=== PATIENT | female | born 1965 | race African-American/Black ===

== ENCOUNTER 2020-04-01 16:11 | Outpatient (CLI) | payer OTHER, BC, SELFPAY ==
--- NOTE | ~2020-04-01 | US_ITS ---
EXAMINATION: US carotid duplex BI DATE: 04/01/2020 16:44 INDICATION: Slurred speech TECHNIQUE: Grayscale, color Doppler, and pulsed Doppler images of the cervical carotid arteries were obtained. The degree of vessel stenosis is placed in one of the following categories: normal, <50%, 5 0-69%, >=70% but less than near-occlusion, near-occlusion, or total occlusion. Note that percent sten osis relative to normal distal artery lumen diameter is indirectly measured from velocity measurement s as described by Parker, et al. Radiology 2003; 229:340-346. COMPARISON: 04/01/2020 CT brain FINDINGS: RIGHT: The right common carotid artery (CCA) peak systolic velocity (PSV) is 53 cm/s. The right internal car otid artery (ICA) PSV is 66 cm/s. The right ICA end-diastolic velocity (EDV) is 14 cm/s. The right IC A/CCA PSV ratio is 0.9. Grayscale and color Doppler images yield an estimate of 0% diameter reduction from plaque in the ICA. The external carotid artery (ECA) PSV is 51 cm/s. There is antegrade flow in the right vertebral artery. LEFT: The left CCA PSV is 70 cm/s. The left ICA PSV is 48 cm/s. The left ICA EDV is 17 cm/s. The left ICA/C CA PSV ratio is 0.7. Grayscale and color Doppler images yield an estimate of 0% diameter reduction fr om plaque in the ICA. The ECA PSV is 24 cm/s. There is antegrade flow in the left vertebral artery. IMPRESSION: 1. No stenosis in the right internal carotid artery. 2. No stenosis in the left internal carotid artery. Reviewed, dictated and finalized at Location A. Reviewed, dictated and finalized at location B.
--- NOTE | ~2020-04-01 | CT_ITS ---
EXAMINATION: CT brain wo/w con INDICATION: Slurred speech COMPARISON: None TECHNIQUE: Transaxial computed tomographic images of the brain are obtained prior to and following th e administration of 100 cc of Omnipaque 350 intravenous contrast The dose-length product (DLP) was 12 10.67 mGy-cm. The mA was adjusted according to patient size. Iterative reconstruction technique was e mployed. FINDINGS: There is no intracranial hemorrhage, acute infarction, or abnormal mass lesion. The ventric les are normal. There is no abnormal mass effect or midline shift. The grayson-white matter differentiat ion is normal. The basal cisterns are patent. The orbits are normal. The paranasal sinuses, mastoids and calvarium are normal. No abnormal enhancement is present after contrast administration. IMPRESSION: 1. No acute intracranial abnormality. Reviewed, dictated and finalized at location A.
[2020-04-01 17:41] LABS: Estimated Glomerular Filt Rate > 60
== END 2020-04-01 16:12 | disposition home or self-care (01) ==
LOC: ANHIMG 16:12
PROVIDERS: PCP Internal Medicine; Visit Provider Nurse Practitioner
DX: R47.81 Slurred speech (principal)
CPT/HCPCS: 36415; 70470; 93880; Q9967

== ENCOUNTER 2020-09-15 10:40 | Outpatient (CLI) | payer OTHER, BC, SELFPAY ==
--- NOTE | ~2020-09-15 | MM_ITS ---
EXAMINATION: MM screening ha BI w vamshi HISTORY: Screening mammogram TECHNIQUE: Craniocaudal and mediolateral oblique 3-D tomosynthesis images were obtained and synthetic 2-D images were generated. CAD analysis was submitted and interpreted. COMPARISON: 01/07/2018 bilateral digital screening mammogram BREAST PARENCHYMAL COMPOSITION: There are scattered areas of fibroglandular density. FINDINGS: Stable approximately 16 mm circumscribed mass in the outer mid upper left breast, not signi ficant change since 01/07/2018. There is an adjacent biopsy marker; the biopsy was reportedly benign. There is no evidence of suspicious mass, calcification, or architectural distortion to suggest malign sedrick in either breast. There has been no suspicious interval change. IMPRESSION: 1. No mammographic evidence of malignancy. 2. Recommend routine screening mammography in one year. BI-RADS Category 2: Benign finding(s). Reviewed, dictated and finalized at location B. [employer]
--- NOTE | ~2020-09-15 | DEXA_ITS ---
Bone Density Report Name: Shu Car Age: 55 Sex: Female Ethnicity: Black Date of : 1965 Indication: postmenopausal; height loss; prior fracture; rheumatoid arthritis; Referring Provider: Purvi Avila Study: Bone densitometry was performed. Exam Date: September 15, 2020 Accession number: [id number] Bone Density: Region BMD T-score Z-score Classification AP Spine (L1-L4) 1.045 0.0 0.2 Normal Femoral Neck (Left) 0.944 0.9 0.7 Normal Total Hip (Left) 1.055 0.9 0.7 Normal Total Hip Bilateral Avg 1.044 0.8 0.6 Normal Femoral Neck (Right) 0.961 1.0 0.8 Normal Total Hip (Right) 1.032 0.7 0.5 Normal World Health Organization criteria for BMD impression classify patients as: Normal (T-score at or above -1.0), Osteopenia (T-score between -1.0 and -2.5), or Osteoporosis (T-score at or below -2.5). 10-year Fracture Risk: FRAX not reported because: All T-scores for Spine Total, Hip Total, Femoral Neck at or above -1.0 Clinical Information Provided by Patient: Has had a low trauma fracture Has rheumatoid arthritis Patient maximum height was 62 Menopause Age: 38 No regular weight bearing exercise Drinks caffeinated beverages Onset of menses at age 13 Number of children 3 Impression: The patient has normal bone mass. The patient has risk factors, including: previous fracture. Discussion: BONE DENSITY IS ABOVE THE MINIMUM DESIRABLE LEVEL AT ALL SKELETAL SITES TESTED. This patient?s bone mineral density is above the minimum desirable level (T-score -1.0 or better) at all sites measured. The patient should follow a healthful lifestyle (good nutrition with adequate calcium and vitamin D, and appropriate weight-bearing exercise). Follow-Up: Consider repeating this study in 5 years or sooner if there is some new clinical indication. Reported by: [facility] on 09/15/2020 10:01:00 AM. Reviewed, dictated and finalized at location AJeff OSBORNE
[2020-09-15 11:12] LABS: Alanine Aminotransferase 23 U/L (4-35); Alkaline Phosphatase 117 U/L (38-126); Anion Gap 6 mmol/L (8-16); Aspartate Amino Transferase 23 U/L (14-36); Bilirubin,Total 0.7 mg/dL (0.2-1.3); Blood Urea Nitrogen 11 mg/dL (7-17); Carbon Dioxide 29 mmol/L (22-30); Chloride 102 mmol/L (98-107); Cholesterol 228 mg/dL (0-200); Estimated Glomerular Filt Rate > 60; Glucose 108 mg/dL (65-105); HDL Direct 49 mg/dL; Potassium 4.1 mmol/L (3.4-5.0); Sodium 137 mmol/L (137-145); Triglycerides 137 mg/dL (<150)
[2020-09-15 11:15] LABS: Hemoglobin A1C 5.8 % (<5.7)
[2020-09-15 11:22] LABS: LDL Cholesterol Direct 147 mg/dL
== END 2020-09-15 10:41 | disposition home or self-care (01) ==
PROVIDERS: PCP Internal Medicine; Visit Provider Nurse Practitioner
DX: Z78.0 Asymptomatic menopausal state (principal); E78.5 Hyperlipidemia, unspecified; R73.03 Prediabetes; Z12.31 Encounter for screening mammogram for malignant neoplasm of breast
CPT/HCPCS: 36415; 77063; 77067; 77080; 80053; 80061; 83036

== ENCOUNTER 2021-03-09 09:26 | Outpatient (CLI) | payer OTHER, BC, SELFPAY ==
--- NOTE | ~2021-03-09 | XR_ITS ---
EXAMINATION: XR UGIAC w small bowel DATE: 03/09/2021 11:40 INDICATION: Nausea and vomiting. TECHNIQUE: The patient drank thick barium, gas-producing crystals, and thin barium. Conventional supi ne abdomen radiographs and fluoroscopic spot radiographs of the esophagus, stomach, and proximal smal l bowel were obtained. Additional overhead radiographs were obtained during the transit through the s mall bowel. Spot fluoroscopic images of the small bowel were obtained upon contrast reaching the cec um. A total of 4 overhead radiographs and 584 fluoroscopic images were recorded. Fluoroscopy exposure time was 2.2 minutes. Total DAP was 71.972 mGycm^2 COMPARISON: None. FINDINGS: The esophagus is normal without mass or stricture. Esophageal motility is normal. There is no hiatal hernia. There was no gastroesophageal reflux with provocative maneuvers. Thin ringlike contrast along the margins of a lucent filling defects along the wall of the stomach which change in size and posit ion over the course of the examination most consistent with gas bubbles. The stomach is otherwise nor mal. The proximal small bowel is normal. Transit time from the stomach to proximal colon was approximately 15 minutes. There is normal caliber and mucosal fold pattern throughout the small bowel. Terminal ileum is normal. No tethering or abn ormal mass effect observed upon the small bowel with real-time fluoroscopy. IMPRESSION: 1. Normal upper GI and small bowel follow-through study. Reviewed, dictated and finalized at location A.
[2021-03-09 12:59] LABS: Alanine Aminotransferase 27 U/L (4-35); Albumin Level 4.3 g/dL (3.5-5.1); Alkaline Phosphatase 117 U/L (38-126); Anion Gap 11 mmol/L (8-16); Aspartate Amino Transferase 29 U/L (14-36); Bilirubin,Total 0.8 mg/dL (0.2-1.3); Blood Urea Nitrogen 10 mg/dL (7-17); Calcium 9.6 mg/dL (8.4-10.2); Carbon Dioxide 23 mmol/L (22-30); Chloride 105 mmol/L (98-107); Cholesterol 237 mg/dL (0-200); Estimated Glomerular Filt Rate > 60; Glucose 103 mg/dL (65-105); HDL Direct 53 mg/dL; Potassium 3.9 mmol/L (3.4-5.0); Sodium 139 mmol/L (137-145); Triglycerides 144 mg/dL (<150)
[2021-03-09 13:09] LABS: LDL Cholesterol Direct 135 mg/dL
[2021-03-09 13:11] LABS: Hemoglobin A1C 5.9 % (<5.7)
== END 2021-03-09 09:27 | disposition home or self-care (01) ==
LOC: ANHIMG 09:27
PROVIDERS: PCP Internal Medicine; Visit Provider Nurse Practitioner
DX: R11.2 Nausea with vomiting, unspecified (principal); R73.03 Prediabetes
CPT/HCPCS: 36415; 74246; 74248; 80053; 80061; 83036

== ENCOUNTER 2021-06-21 13:02 | Outpatient (CLI) | payer OTHER, BC, SELFPAY ==
--- NOTE | ~2021-06-21 | US_ITS ---
EXAMINATION: US pelvic complete w TV DATE: 06/21/2021 13:35 INDICATION: Postmenopausal bleeding. TECHNIQUE: Multiple transabdominal and transvaginal sonographic images of the pelvis were obtained. COMPARISON: Ultrasound 01/07/2018 FINDINGS: TRANSABDOMINAL ULTRASOUND: The uterus measures 10.7 x 5.7 x 6.3 cm. There is no free fluid in the pelvis. TRANSVAGINAL ULTRASOUND: The endometrial complex measures 9 mm in thickness. There is a 2.0 cm intramural fibroid. There is a 2.0 cm intramural fibroid. There is a 2.1 cm intramural fibroid. There is a 2.4 cm subserosal fibroid . There is a 1.7 cm subserosal fibroid. The ovaries are not visualized. IMPRESSION: 1. Thickened endometrial complex. The differential diagnosis includes endometrial hyperplasia, polyp, and carcinoma. Biopsy is recommended. 2. Uterine fibroids. Reviewed, dictated and finalized at location A. IMPRESSION: 1. Thickened endometrial complex. The differential diagnosis includes endometri al hyperplasia, polyp, and carcinoma. Biopsy is recommended. 2. Uterine fibroids.
== END 2021-06-21 13:03 ==
PROVIDERS: PCP Internal Medicine; Visit Provider Student in an Organized Health Care Education/Training Program
DX: N95.0 Postmenopausal bleeding (principal); D25.9 Leiomyoma of uterus, unspecified
CPT/HCPCS: 76830; 76856

== ENCOUNTER 2021-07-07 09:46 | Outpatient (CLI) | payer OTHER, BC, SELFPAY ==
--- NOTE | ~2021-07-07 | US_ITS ---
EXAMINATION: US abdomen limited EXAM DATE: 07/07/2021 11:12 INDICATION: R11.2 - Nausea with vomiting, unspecified TECHNIQUE: Multiple grayscale and Doppler images of the abdomen right upper quadrant were obtained (b y a technologist who performed the scan) and subsequently reviewed. There is no prior study for harsha balderas. FINDINGS: The pancreatic head and body are normal in appearance. The pancreatic tail is not visualized. The l iver has normal echogenicity and contour. There are no focal liver lesions identified. There is no evidence of intrahepatic biliary duct dilation. Portal venous flow was seen in the hepatopedal, nor mal direction and has normal Doppler waveform. No right-sided hydronephrosis. Common bile duct measures 2 mm, which is normal. The gallbladder wall is normal in thickness, with ex pected amount of distention. No sonographic evidence of pericholecystic fluid. There is no cholelit hiases. Technologist performing exam reports patient did not demonstrate sonographic Diop's sign. Please note that this sign is less reliable in patients who have received pain medication. IMPRESSION: 1. Unremarkable abdominal ultrasound exam. Reviewed, dictated and finalized at location B.
== END 2021-07-07 09:47 | disposition home or self-care (01) ==
LOC: ANHIMG 09:47
PROVIDERS: PCP Internal Medicine; Visit Provider Internal Medicine
DX: R11.2 Nausea with vomiting, unspecified (principal)
CPT/HCPCS: 76705

== ENCOUNTER 2021-08-09 11:54 | Outpatient (CLI) | payer OTHER, BC, SELFPAY ==
--- NOTE | ~2021-08-09 | MM_ITS ---
EXAMINATION: MM diagnostic ha BI w vamshi HISTORY: 2 right breast lumps and one left breast lump, pain TECHNIQUE: ML, MLO and craniocaudal 3-D tomosynthesis images of both breasts were performed and synth etic 2-D images were generated. CAD analysis was submitted and interpreted. COMPARISON: 09/15/2020, 01/07/2018 bilateral screening mammogram examinations BREAST PARENCHYMAL COMPOSITION: The breasts are almost entirely fatty. FINDINGS: Stable circumscribed 1.6 cm upper outer quadrant left breast mass with biopsy marker, uncha nged since 01/07/2018, with reportedly benign biopsy. Corresponding to the area of clinical complaint of right breast lumps in the posterior upper outer ri ght breast are multiple peripherally calcified lymph to approximately 1 cm oil cysts. No suspicious mass, architectural distortion, Shu calcification, skin thickening or retraction of e ither breast is detected. IMPRESSION: 1. Benign findings 2. Routine mammographic screening is recommended. BI-RADS Category 2: Benign finding(s). Reviewed, dictated and finalized at location A. CTION MOLDING PROCESS TECHNICIAN
== END 2021-08-09 11:55 | disposition home or self-care (01) ==
LOC: ANHIMG 11:56
PROVIDERS: PCP Internal Medicine; Visit Provider Student in an Organized Health Care Education/Training Program
DX: N64.4 Mastodynia (principal); N63.10 Unspecified lump in the right breast, unspecified quadrant
CPT/HCPCS: 77062; 77066; G0279

== ENCOUNTER 2021-09-09 09:16 | Outpatient (CLI) | payer OTHER, BC, SELFPAY ==
[2021-09-09 10:31] LABS: Alanine Aminotransferase 21 U/L (4-35); Albumin Level 4.2 g/dL (3.5-5.1); Alkaline Phosphatase 107 U/L (38-126); Anion Gap 10 mmol/L (8-16); Aspartate Amino Transferase 20 U/L (14-36); Bilirubin,Total 0.8 mg/dL (0.2-1.3); Blood Urea Nitrogen 12 mg/dL (7-17); Calcium 9.2 mg/dL (8.4-10.2); Carbon Dioxide 26 mmol/L (22-30); Chloride 104 mmol/L (98-107); Cholesterol 211 mg/dL (0-200); Estimated Glomerular Filt Rate > 60; Glucose 113 mg/dL (65-110); HDL Direct 48 mg/dL; Potassium 3.8 mmol/L (3.4-5.0); Sodium 140 mmol/L (137-145); Triglycerides 130 mg/dL (<150)
[2021-09-09 10:33] LABS: Hemoglobin A1C 5.9 % (<5.7)
[2021-09-09 10:43] LABS: LDL Cholesterol Direct 120 mg/dL
== END 2021-09-09 09:17 | disposition home or self-care (01) ==
PROVIDERS: PCP Internal Medicine; Visit Provider Nurse Practitioner
DX: R73.02 Impaired glucose tolerance (oral) (principal); E78.49 Other hyperlipidemia; R79.89 Other specified abnormal findings of blood chemistry
CPT/HCPCS: 36415; 80053; 80061; 83036

== ENCOUNTER 2022-01-03 09:33 | Outpatient (CLI) | payer OTHER, BC, SELFPAY ==
[2022-01-03 10:14] LABS: Hemoglobin A1C 5.6 % (<5.7)
[2022-01-03 10:22] LABS: Alanine Aminotransferase 20 U/L (4-35); Albumin Level 4.2 g/dL (3.5-5.1); Alkaline Phosphatase 121 U/L (38-126); Anion Gap 7 mmol/L (8-16); Aspartate Amino Transferase 19 U/L (14-36); Bilirubin,Total 0.8 mg/dL (0.2-1.3); Blood Urea Nitrogen 16 mg/dL (7-17); Calcium 8.9 mg/dL (8.4-10.2); Carbon Dioxide 28 mmol/L (22-30); Chloride 105 mmol/L (98-107); Cholesterol 221 mg/dL (0-200); Estimated Glomerular Filt Rate > 60; Glucose 114 mg/dL (65-110); HDL Direct 54 mg/dL; Sodium 140 mmol/L (137-145); Triglycerides 154 mg/dL (<150)
[2022-01-03 10:33] LABS: LDL Cholesterol Direct 116 mg/dL
[2022-01-03 10:38] LABS: Vitamin D 25 Hydroxy 31.3 ng/mL
== END 2022-01-03 09:34 | disposition home or self-care (01) ==
LOC: ANHLAB 09:37
PROVIDERS: PCP Internal Medicine; Visit Provider Internal Medicine
DX: R73.03 Prediabetes (principal); I10 Essential (primary) hypertension; R73.02 Impaired glucose tolerance (oral); E78.5 Hyperlipidemia, unspecified; E55.9 Vitamin D deficiency, unspecified
CPT/HCPCS: 36415; 80053; 80061; 82306; 83036

== ENCOUNTER 2022-01-25 14:14 | Outpatient (CLI) | payer OTHER, BC, SELFPAY ==
--- NOTE | 2022-01-25 14:26 | ECHO_ITS ---
Patient Info Name: Shu Car Age: 56 years : 1965 Gender: Female Ht: 61 in Wt: 252 lbs BSA: 2.29 m2 HR: 61 bpm BP: 136 / 95 mmHg Heart Rhythm: Sinus Rhythm Technical Quality: Fair Exam Date: 01/25/2022 2:46 PM Exam Location: [facility] Patient Status: Outpatient Admit Date: 01/25/2022 Staff Ordering Physician: Iain Joy DO Slot Supervisor: Gerda Stephens RDCS Attending Provider: Iain Joy DO Referring Physician: Rufino DELONG; Exam Type: CA echo doppler color flow Study Info Indications - cp Complete two-dimensional, color flow and Doppler transthoracic echocardiogram is performed. Summary 1. Complete two-dimensional, color flow and Doppler transthoracic echocardiogram is performed. 2. Left ventricular chamber dimension is normal. 3. Ventricular septum is sigmoid shaped. No LVOT obstruction. 4. Left ventricular systolic function is normal, estimated at 60-65%. 5. The left ventricular diastolic function is abnormal. 6. E/e' 10 is mildly elevated. 7. Mild systolic anterior motion of mitral valve leaflet. 8. No pulmonary hypertension, estimated pulmonary arterial systolic pressure is 36 mmHg. 9. Dilated inferior vena cava with >50% collapse upon inspiration consistent with elevated right atrial pressure, 10 mmHg. Left Ventricle E/e' 10 is mildly elevated. Ventricular septum is sigmoid shaped. No LVOT obstruction. Left ventricular chamber dimension is normal. Left ventricular systolic function is normal, estimated at 60-65%. The left ventricular diastolic function is abnormal. Right Ventricle Right ventricular systolic function is normal and with normal TAPSE 2.4 cm. Right ventricular chamber dimension is normal. Left Atria Left atrial chamber dimension is normal. Right Atria Right atrial chamber dimension is normal. Aortic Valve The aortic valve is trileaflet. There is no aortic valve stenosis. There is no aortic valve regurgitation. Pulmonic Valve There is no pulmonic regurgitation. Mitral Valve Mild systolic anterior motion of mitral valve leaflet. There is no mitral valve stenosis. There is no mitral valve regurgitation. Tricuspid Valve There is no tricuspid valve regurgitation. No pulmonary hypertension, estimated pulmonary arterial systolic pressure is 36 mmHg. Pericardium/Pleural There is no pericardial effusion. Inferior Vena Cava Dilated inferior vena cava with >50% collapse upon inspiration consistent with elevated right atrial pressure, 10 mmHg. Aorta The aortic root size at the sinus of Valsalva is normal. Left Ventricular Outflow Tract Name Value Normal LVOT 2D LVOT Diameter 2.0 cm LVOT Doppler LVOT Peak Gradient 10 mmHg LVOT Mean Gradient 5 mmHg LVOT VTI 33 cm LVOT VTI/AV VTI Ratio 1.0 LVOT Stroke Volume 107 ml LVOT CO 7.6 l/min LVOT CI 3.3 l/min/m2 Pulmonic Valve
== END 2022-01-25 14:15 | disposition home or self-care (01) ==
LOC: ANHCARD 14:15
PROVIDERS: PCP Internal Medicine; Visit Provider Internal Medicine Cardiovascular Disease
DX: R07.9 Chest pain, unspecified (principal)
CPT/HCPCS: 93306

== ENCOUNTER 2022-02-01 10:21 | Outpatient (CLI) | payer OTHER, BC, SELFPAY ==
--- NOTE | ~2022-02-01 | US_ITS ---
EXAMINATION: US pelvic complete w TV DATE: 02/01/2022 11:16 INDICATION: Postmenopausal bleeding Comparison:Ultrasound dated 06/21/2021 TECHNIQUE: Multiple transabdominal and endovaginal sonographic images of the pelvis performed. FINDINGS: The uterus measures 12.9 x 8.5 x 6.2 cm. The endometrium is thickened containing internal d ebris and fluid measuring 2.8 cm greatest dimension. There are multiple uterine fibroids, largest sydnee suring 4 cm. Ovaries are not visualized. There is no free fluid in the pelvis. There are no abnormal masses seen on either side. IMPRESSION: 1. Thickened abnormal endometrium containing debris and fluid measuring up to 2.8 cm thickness. The d ifferential diagnosis includes endometrial hyperplasia, polyps and carcinoma. Biopsy is recommended. 2: Enlarged uterus containing multiple fibroids, largest measuring 4 cm maximum dimension. Reviewed, dictated and finalized at location A. IMPRESSION: 1. Thickened abnormal endometrium containing debris and fluid measuring up to 2 .8 cm thickness. The differential diagnosis includes endometrial hyperplasia, p olyps and carcinoma. Biopsy is recommended. 2: Enlarged uterus containing multiple fibroids, largest measuring 4 cm maximum dimension.
== END 2022-02-01 10:22 | disposition home or self-care (01) ==
PROVIDERS: PCP Internal Medicine; Visit Provider Student in an Organized Health Care Education/Training Program
DX: N95.0 Postmenopausal bleeding (principal); D25.9 Leiomyoma of uterus, unspecified
CPT/HCPCS: 76830; 76856

== ENCOUNTER 2022-04-17 09:49 | Outpatient (CLI) | payer OTHER, BC, SELFPAY ==
[2022-04-17 10:18] LABS: Basophils Percent Auto 0.4 % (0.2-1.2); Eosinophils Absolute Auto 0.1 K/mm3 (0-0.3); Eosinophils Percent Auto 0.6 % (0-4.4); Hematocrit 39.5 % (37.0-47.0); Hemoglobin 12.3 g/dL (12.0-15.0); Immature Granulocyte Absolute 0.03 K/mm3 (0.00-0.031); Immature Granulocyte Percent A 0.3 % (0-0.5); Lymphocytes Absolute Auto 2.68 K/mm3 (0.9-3.2); Lymphocytes Percent Auto 28.2 % (18.3-44.2); Mean Corpuscular HGB Conc 31.1 g/dl (32-36); Mean Corpuscular Hemoglobin 27.4 pg (26-34); Mean Platelet Volume 10.1 fl (7.4-10.4); Monocytes Absolute Auto 0.6 K/mm3 (0.1-0.6); Monocytes Percent Auto 5.8 % (2.6-8.5); Neutrophils Absolute Auto 6.1 K/mm3 (1.3-6.7); Neutrophils Percent Auto 64.7 % (45.5-73.1); Platelet Count Result 298 k/mm3 (150-375); Red Blood Count 4.49 M/mm3 (4.2-5.4); Red Cell Distribution Width 14.8 % (11.5-14.5); White Blood Count 9.5 K/mm3 (4.5-10.0)
== END 2022-04-17 09:50 | disposition home or self-care (01) ==
LOC: ANHSURGERY 09:55
PROVIDERS: PCP Internal Medicine; Visit Provider Student in an Organized Health Care Education/Training Program
DX: N93.9 Abnormal uterine and vaginal bleeding, unspecified (principal)
CPT/HCPCS: 36415; 85025; 86850; 86900; 86901

== ENCOUNTER 2022-04-21 11:05 | Inpatient (IN) | payer OTHER, BC, SELFPAY ==
[2022-04-13 14:46] VITALS: BMI 47.2
--- NOTE | 2022-04-13 14:58 | PC.NURSE ---
Report to the Outpatient Waiting Room, entrance under the green pavilion located off [facility], at time 6:00 on date 04/21/22. OR Time: 7:30. - You and your visitor will be asked a series of questions to screen for COVID 19 for your protection. - Only one visitor is allowed at this time. ONCE YOU ARE SETTLED INTO YOUR ROOM AFTER SURGERY, YOU WILL BE ALLOWED 2 VISITORS AT A TIME. VISITING HOURS 10AM-8PM. NO ONE UNDER 16. - The patient visitor is requested to leave or wait in car when not with patient. - A mask is required within the hospital. Patients may have clear liquids (water, carbonated beverages, clear teas, apple juice) until 3 hours prior to surgery (4:30) with a maximum of 20 ounces. - No food from midnight until time of surgery Take the following medications with a SIP of water the morning of surgery: CLONAZEPAM, DULOXETINE, GABAPENTIN, LAMOTRIGINE, LEFLUNOMIDE, OLANZAPINE Medications to discontinue per physician: VITAMINS/SUPPLEMENTS Date to take last dose: 04/17/22 Please no make-up, nail luxembourgish, hairspray, perfume, deodorant, or body powder the day of surgery. No jewelry (including any body piercings) or valuables the day of surgery, leave them at home. Please take a shower or bath the night before, or the morning of, surgery with an antibacterial soap. Wear comfortable, loose fitting clothing. - Jewelry must be removed prior to entering the operating room. Rings and piercings that are not removed may be cut off. - The hospital will not accept responsibility for valuables. - Please leave all valuables, including medications, at home the day of surgery. If you are going home after surgery, a licensed laundry route driver must drive you home. - NO public transportation without another adult. - We recommend that an adult stay with you for 24 hours following discharge. - We also recommend that you do not drive, make important decision, drink alcoholic beverages, or take any drugs that were not prescribed by your health care provider for at least 24 hours after your discharge time. Follow any additional instructions given to you from your surgeon. If you or anyone in your household have experienced Covid symptoms in the past week, please notify your surgeon or the nurse liaison at the phone number below for possible testing. Telephone instructions given to ASH VILCHIS and asked if any additional questions and then verbalized understanding. Patient advised to call surgeon office or pre surgery nurse liaison [phone] if any additional questions.
--- NOTE | 2022-04-20 13:40 | WPDANESEPPF ---
Anes - Initial Pre Proc Eval Procedure: Operation Date: 04/21/22 07:30 Proposed Procedures p Total Abdominal Hysterectomy with Bilateral Salpingo-Oophorectomy - Adrianna Ibrahim MD Date/Time: 04/20/22 13:40 Surgeon: Adrianna Ibrahim MD Pre Op Diagnosis: abnormal uterine bleeding Patient Data Age: 56 Gender: F Height: 1.55 m Weight: 113.5 kg Allergies Allergy/AdvReac Type Severity Reaction Status Date / Time sertraline Allergy Mild Hives Verified 04/13/22 14:42 lithium AdvReac Intermediate Nausea and Verified 04/13/22 14:42 Vomiting Home Medications Medication Instructions Recorded Confirmed Type duloxetine 60 mg capsule,delayed 60 mg PO DAILY 02/19/20 04/13/22 History release (Cymbalta) folic acid 1 mg tablet 1 mg PO DAILY 02/19/20 04/13/22 History olanzapine 15 mg tablet (Zyprexa) 15 mg PO DAILY 02/19/20 04/13/22 History lamotrigine 100 mg tablet 100 mg PO BID 02/26/20 04/13/22 History gabapentin 600 mg tablet 600 mg PO DAILY 03/26/20 04/13/22 History (Neurontin) methotrexate (PF) 25 mg/0.5 mL 25 mg subcut WEEKLY 03/26/20 04/13/22 History subcutaneous auto-injector leflunomide 10 mg tablet 10 mg PO DAILY 03/02/21 04/13/22 History clonazepam 0.5 mg tablet (Klonopin) 0.5 mg PO TID 06/21/21 04/13/22 History atorvastatin 40 mg tablet 40 mg PO DAILY #90 tabs 12/09/21 04/13/22 Rx multivitamin (Daily Multi-Vitamin 1 tablet PO DAILY 01/19/22 04/13/22 History tablet) losartan 25 mg tablet 12.5 mg PO DAILY #90 tabs 03/14/22 04/13/22 Rx omeprazole 40 mg capsule,delayed 40 mg PO DAILY #90 caps 03/14/22 04/13/22 Rx release Patient hx anesthesia problems: none Family hx anesthesia problems: none Results Review: All pre-operative results and documents have been reviewed as part of the pre-operative evaluation. [facility] Past Medical History Medical History Acid reflux Adverse effect of cnxpnnhybnc-hfnolyzsut-ubsqpl inhibitors, initial encounter Anxiety and depression Arthritis Bipolar affective disorder History of 1984 Hyperlipidemia Hypertension CAROLYNE on CPAP PTSD (post-traumatic stress disorder) Vaginal bleeding Surgical History Surgical History History of section History of myomectomy History of tubal ligation S/P breast lumpectomy Family History Family History Mother Patient's mother is in good health Diabetes mellitus Hypertension Sibling Patient's brother is in good health Family history of malignant neoplasm of breast in first degree relative Diabetes mellitus Family history of blood dyscrasia Hypertension Father Family history of heart disease in male family member before age 55 Family history of cardiovascular disease Diabetes mellitus Hypertension Cerebrovascular accident Social History Social History Smoking status: Never smoker Second hand tobacco smoke exposure: No Alcohol intake: never Alcohol use details: Social Substance use: never Substance use type: does not use Living arrangements: with family Spiritual care concerns: No Anes - Eval Final PreProcedure Day of Procedure 04/20/22 13:40 Patient weight: morbidly obese Heart: regular rate and rhythm Lungs: clear to auscultation Airway: Mallampati scale class II Neurological: alert and oriented Last oral intake: >/= 8 hours ASA classification: III Emergent: no Anesthetic plan: proceed Anesthesia type and monitoring: general ETT and standard monitoring Results Review: All pre-operative results and documents have been reviewed as part of the pre-operative evaluation. Informed Consent: The patient's anesthetic plan and its attendant risks and benefits were discussed with the patient/family/POA. Questions were solicited and answers provided to the
--- NOTE | 2022-04-20 16:11 | PM.IMHP ---
H&P: HPI History of Present Illness Date/Time: 04/20/22 16:11 Chief Complaint: Patient is a 56-year-old woman who presented to gynecology office several months ago with complaints of postmenopausal bleeding. Patient reports persistent abnormal uterine bleeding and occasional pelvic pain since then. A fibroid uterus was visualized on pelvic ultrasound. Endometrial biopsy was performed and was negative. Due to persistent abnormal uterine bleeding in the postmenopausal state, decision was made to proceed with definitive management with a hysterectomy. In general, patient doing well today without complaints. Review of Systems Review of Systems: All systems reviewed & are unremarkable except as noted in HPI and below Constitutional: Constitutional: Reports as per HPI and Reports no additional constitutional complaints Eyes: Eyes: Reports as per HPI and Reports no additional eye complaints ENT: Reports system reviewed and no additional complaints, except as documented and Reports as per HPI Cardiovascular: Cardiovascular: Reports as per HPI and Reports no additional cardiovascular complaints Respiratory: Respiratory: Reports as per HPI and Reports no additional respiratory complaints Gastrointestinal: Gastrointestinal: Reports as per HPI and Reports no additional gastrointestinal complaints Genitourinary: Genitourinary: Reports no additional female genitourinary complaints and Reports as per HPI Musculoskeletal: Musculoskeletal: Reports no additional musculoskeletal complaints and Reports as per HPI Integumentary/Breasts: Skin/Breast: Reports system reviewed and no additional complaints, except as docu and Reports as per HPI Neurologic: Reports system reviewed and no additional complaints, except as documented and Reports as per HPI Psychiatric: Psychiatric: Reports no additional psychiatric complaints and Reports as per HPI Endocrine: Endocrine: Reports no additional endocrine complaints and Reports as per HPI Hematologic/Lymphatic: Hematologic/Lymphatic: Reports no additional hematologic/lymphatic complaints and Reports as per HPI Allergic/Immunologic: Allergic/Immunologic: Reports no additional allergic/immunologic complaints and Reports as per HPI [facility] Past Medical History Medical History Acid reflux Adverse effect of xnueoqksnxp-wzwyojzvvz-epjqrn inhibitors, initial encounter Anxiety and depression Arthritis Bipolar affective disorder History of 1984 Hyperlipidemia Hypertension CAROLYNE on CPAP PTSD (post-traumatic stress disorder) Vaginal bleeding Surgical History Surgical History History of section History of myomectomy History of tubal ligation S/P breast lumpectomy Family History Family History Mother Patient's mother is in good health Diabetes mellitus Hypertension Sibling Patient's brother is in good health Family history of malignant neoplasm of breast in first degree relative Diabetes mellitus Family history of blood dyscrasia Hypertension Father Family history of heart disease in male family member before age 55 Family history of cardiovascular disease Diabetes mellitus Hypertension Cerebrovascular accident Social History Social History Smoking status: Never smoker Second hand tobacco smoke exposure: No Alcohol intake: never Alcohol use details: Social Substance use: never Substance use type: does not use Spiritual care concerns: No Meds Home Medications and Allergies Home Medications Medication Instructions Recorded Confirmed Type duloxetine 60 mg capsule,delayed 60 mg PO DAILY 02/19/20 04/13/22 History release (Cymbalta) folic acid 1 mg tablet 1 mg PO DAILY 02/19/20 04/13/22 History olanzapine 15 mg tablet (Zyprexa) 15 mg PO
[2022-04-21] VITALS (10 sets, daily range): BP systolic 121–150; BP diastolic 58–89; PULSE 78–93; RESP 12–20; TEMP 36.1–36.9; O2SAT 94–100
[2022-04-21] MEDS: ACETAMINOPHEN 500 MG TABLET 1000 MG PO (06:59)
--- NOTE | 2022-04-21 07:17 | WPDHPUPDATE1 ---
History and Physical Update Update Date/Time: 04/21/22 07:17 History and Physical has been reviewed, including an updated exam of the patient. There are NO changes in the patient's condition. Risks, benefits, and alternatives have been discussed and questions answered. Patient agrees to proceed with procedure.
--- NOTE | 2022-04-21 07:23 | W.PM.PROC2 ---
Procedure Note - Detailed Date of Procedure 04/21/22 Pre-op Diagnosis Abnormal uterine bleeding Fibroid uterus Post-op Diagnosis Same Procedure Performed Total abdominal hysterectomy Bilateral salpingo-oophorectomy Surgeon Adrianna Ibrahim MD Chemical Plant Worker [place] Anesthesia General Findings Globular, myomatous uterus approx. 12-14w size, normal appearing ovaries and fallopian tubes bilaterally Description of Procedure The patient was taken to the operating room where she self transferred to the operating room table.? She was placed in the dorsal supine position.? General anesthesia was administered and found to be adequate.? A mendez catheter was placed using aseptic technique. The patient was prepped and draped in the usual sterile fashion.? A Pfannenstiel skin incision was made with a scalpel and carried through to the underlying layer of fascia with the Bovie.? The fascia was incised in the midline and the incision was extended laterally with the use of forceps and Newman scissors.? The superior aspect of the fascial incision was grasped with Trang clamps, elevated, and the underlying rectus muscles were dissected off with Newman scissors.? Attention was turned to the inferior aspect of the fascial incision, which in a similar manner was grasped with Trang clamps, elevated, and the underlying rectus muscles also dissected off with Newman scissors. The rectus muscles were gently retracted and the peritoneal cavity was entered bluntly. The peritoneal cavity was gently stretched. The uterus was palpated beneath and was approx. 12-14w size and irregularly shaped with multiple fibroids noted. ?Two lap pads were placed laterally beneath the rectus muscle bellies and a self-retaining [place] retractor was placed. Two additional lap pads were placed in the abdomen to displace the bowel cephalad and laterally. The uterus was grasped with a towel clamp and and elevated through the incision.?On inspection, the uterus was irregularly shaped with multiple fibroids of various sizes. The ovaries and fallopian tubes appeared normal bilaterally. A pean clamp was placed near the left uterine cornua for traction and elevation. The left round ligament was identified, grasped with [place] clamp, and suture ligated. The round ligament was transected with Bovie.? The anterior leaf of the broad ligament was carefully dissected towards the midline to begin creation of bladder flap. An incision in the posterior leaf of the broad ligament on the left side was created with the Bovie. The LigaSure device was then used to transect the utero-ovarian ligament on the left side.? Dissection of the posterior leaf of the broad ligament was performed. The uterine artery was well skeletonized and cauterized with the LigaSure. Attention was then turned to the patient's right side.? A pean clamp was placed near the right uterine cornua for traction and elevation. The right round ligament was identified, grasped with a [place] clamp, and suture ligated.? The round ligament was transected with the Bovie and the anterior leaf of the broad ligament was carefully dissected towards the midline.? The opposing ends were joined in the midline and careful dissection was performed to displace the bladder inferiorly. Dissection was primarily performed with the use of a sponge stick and Metzenbaum scissors. The bladder was depressed inferiorly well below the level of the anterior cervix. An incision in the posterior leaf of the broad ligament on the right side was created with the Bovie. The LigaSure device was then used to transect the utero-ovarian ligament on the right side.? Dissection of the posterior leaf of the broad ligament was performed and the uterine artery was skeletonized and well visualized. The LigaSure device was then used to cauterize the uterine artery on the right side.? The cardinal ligaments were serially ligated and transected with the LigaSure device until the level of the uterosacral ligaments was reache
[2022-04-21] MEDS: LACTATED RINGERS 1,000 ML 30 ML IV CONT ×2 (07:30→09:48)
[2022-04-21] MEDS: KETOROLAC 15 MG/ML VIAL (*BKC) IV PUSH (07:31)
[2022-04-21] MEDS: ceFAZolin 2 GM/D5W 50 ML 2 GM/50 ML BAG IVPB (07:40)
[2022-04-21] MEDS: fentaNYL CITRATE INJ (*CRX) 100 MCG/2 ML VIAL 25 MCG IV PUSH ×4 (10:09→10:37)
[2022-04-21] MEDS: IBUPROFEN IV 800 MG/200 ML 800 MG/200 ML BAG 400 MG IVPB ×2 (11:50→21:03)
[2022-04-21] MEDS: ONDANSETRON INJ 4 MG/2 ML VIAL IV PUSH (11:58)
[2022-04-21] MEDS: DEXTROSE 5%/LACTATED RINGERS 1,000 ML 125 ML IV CONT ×2 (12:03→21:06)
[2022-04-21] MEDS: MORPHINE SULFATE (*CRX) 4 MG/ML INJ IV PUSH ×3 (12:53→19:53)
--- NOTE | 2022-04-21 14:02 | PM.GYNPNOP ---
CAFETERIA WORKER - A/P Postoperative Procedures: Procedures Operation Date: 04/21/22 07:30 Actual Procedure Side Surgeon p Total Abdominal Hysterectomy with Bilateral Salpingo-Oophorectomy Bilateral Adrianna Ibrahim MD Time Spent With Patient Time: Total time spent is greater than 50% in coordination of care (as documented) at patient's floor/unit and/or counseling patient: Time with patient: less than 15 minutes CAFETERIA WORKER- PN:Subj Post-Op Subjective Date/time seen: 04/21/22 14:02 Patient doing well. Reports moderate pain. Recently received dose of Morphine. Otherwise, just trying to get comfortable in bed. Continue routine postoperative care. CAFETERIA WORKER - PN: Obj Data Vital Signs Vital Signs: Vital Signs - 24 hr 04/21/22 06:28 04/21/22 09:48 04/21/22 10:03 Temperature 36.1 C L 36.4 C L Pulse Rate 83 93 86 Respiratory Rate 16 16 19 Blood Pressure 133/89 139/87 Pulse Oximetry 99 100 100 Oxygen Delivery Room Air Simple Face Mask Simple Face Mask Oxygen Flow Rate 7 7 04/21/22 10:18 04/21/22 10:33 04/21/22 10:49 Temperature Pulse Rate 84 89 80 Respiratory Rate 20 20 18 Blood Pressure 150/80 H 133/80 144/88 H Pulse Oximetry 100 96 99 Oxygen Delivery Simple Face Mask Room Air Room Air Oxygen Flow Rate 7 04/21/22 11:41 04/21/22 11:15 Temperature 36.2 C L Pulse Rate 78 Respiratory Rate 16 Blood Pressure 122/58 L Pulse Oximetry 94 Oxygen Delivery Room Air Oxygen Flow Rate Intake/Output Intake/Output: Intake & Output 04/18/22 04/19/22 04/20/22 04/21/22 23:59 23:59 23:59 23:59 Intake Total 2250 Output Total 80 Balance 2170 Meds/Results Medications: Active Medications Generic Name Dose Route Start Last Admin Trade Name Freq PRN Reason Stop Dose Admin Atorvastatin Calcium 40 mg 04/22/22 09:00 Atorvastatin 40 Mg Tablet PO DAILY [facility] Duloxetine HCl 60 mg 04/22/22 09:00 Duloxetine Hcl 60 Mg Capsule. PO DAILY [facility] Gabapentin 600 mg 04/22/22 09:00 Gabapentin 300 Mg Capsule PO DAILY [facility] Home Med 1 each 04/22/22 09:00 Home Medication (Leflunomide 10 Mg Tablet) PO 05/22/22 08:59 DAILY JEANNETTE Acetaminophen 1,000 mg in 100 mls @ 400 mls/hr 04/21/22 12:00 04/21/22 11:37 Ofirmev 1,000 Mg Ivpb IVPB 04/22/22 06:14 Infused Q6HR JEANNETTE Infusion Dextrose/Lactated Ringer's 1,000 mls @ 125 mls/hr 04/21/22 11:05 04/21/22 12:03 Dextrose 5%/Lactated Ringers IV CONT 125 mls/hr .Q8H JEANNETTE Administration Ibuprofen 800 mg in 200 mls @ 400 mls/hr 04/21/22 12:00 04/21/22 12:20 Caldolor 800 Mg/200 Ml IVPB 04/22/22 06:29 Infused Q6HR JEANNETTE Infusion Lamotrigine 100 mg 04/21/22 17:00 Lamotrigine 100 Mg Tablet PO BID JEANNETTE Losartan Potassium 12.5 mg 04/22/22 09:00 Losartan Potassium 12.5 Mg Tablet PO DAILY [facility] Miscellaneous Information 0 each 04/21/22 00:01 Next Methotrexate Dose 04/26 If Patient Is Still Here XX 05/21/22 00:00 CLARIFY [facility] Morphine Sulfate 4 mg 04/21/22 11:05 04/21/22 12:53 Morphine Sulfate (*Crx) 4 Mg/Ml Inj IV PUSH 4 mg Q4H PRN Administration Pain Rated 7-10 Multivitamins Therapeutic 1 tablet 04/22/22 09:00 Multivitamins Therapeutic Tab (*Bkc) PO DAILY [facility] Non-Formulary Medication 25 mg 04/28/22 09:00 Methotrexate (Pf) SUB-Q 05/28/22 08:59 WEEKLY [facility] Olanzapine 15 mg 04/22/22 09:00 Olanzapine 5 Mg Tablet PO DAILY [facility] Ondansetron HCl 4 mg 04/21/22 11:05 04/21/22 11:58 Ondansetron Inj 4 Mg/2 Ml Vial IV PUSH 4 mg Q6H PRN Administration Nausea Pantoprazole Sodium 40 mg 04/22/22 09:00 Pantoprazole 40 Mg Tablet PO 05/22/22 08:59 DAILY [facility]
[2022-04-21] MEDS: DULoxetine HCL 60 MG CAPSULE.DR PO (22:58)
[2022-04-21] MEDS: OLANZapine 5 MG TABLET 15 MG PO (22:59)
[2022-04-22] VITALS (7 sets, daily range): BP systolic 111–140; BP diastolic 67–89; PULSE 74–88; RESP 12–18; TEMP 36.4–37.1; O2SAT 94–99
[2022-04-22] MEDS: IBUPROFEN IV 800 MG/200 ML 800 MG/200 ML BAG 400 MG IVPB ×2 (03:03→09:29)
--- NOTE | 2022-04-22 05:38 | PM.GYNPNOP ---
ORTHO RN - A/P Assessment and plan (1) Status post hysterectomy with oophorectomy: Code(s): Z90.710 - Acquired absence of both cervix and uterus; Z90.721 - Acquired absence of ovaries, unilateral Status: Acute Assessment and Plan: She is doing well. Will D/C Reyes. Will start oral pain medication. Encourage ambulation. She has an order to advance diet. Continue routine post op care. Postoperative Procedures: Procedures Operation Date: 04/21/22 07:30 Actual Procedure Side Surgeon p Total Abdominal Hysterectomy with Bilateral Salpingo-Oophorectomy Bilateral Adrianna Ibrahim MD Time Spent With Patient Time: Total time spent is greater than 50% in coordination of care (as documented) at patient's floor/unit and/or counseling patient: Time with patient: less than 15 minutes ORTHO RN- PN:Subj Post-Op Subjective Date/time seen: 04/22/22 05:38 Interval history: She has not set up in a chair. She denies flatus. She has had a good pain control with the IV/IM pain medicines. No chest pain or leg pain. She is tolerating liquids, no nausea. Review of Systems Review of Systems: All systems reviewed & are unremarkable except as noted in HPI and below Cardiovascular: Cardiovascular: Reports no additional cardiovascular complaints Respiratory: Respiratory: Reports no additional respiratory complaints Gastrointestinal: Gastrointestinal: Reports belching, Denies nausea and Denies vomiting Genitourinary: Genitourinary: Reports no additional female genitourinary complaints Musculoskeletal: Musculoskeletal: Reports no additional musculoskeletal complaints Exam Const: General: comfortable and no acute distress Orientation/consciousness: oriented to person, oriented to place and oriented to time Eyes: General: appearance normal, both eyes and all related structures Resp: Effort & Inspection: normal respiratory effort Auscultation: clear to auscultation bilaterally Cardio: Rate: regular rate Rhythm: regular rhythm GI: GI Palp: Yes Soft to palpation and No Tenderness to palpation present (GI) Auscultation: normal bowel sounds Other: dressing c/d/i Neuro: General: oriented to person, oriented to place and oriented to time Extrem: General: no calf tenderness Psych: Mental Status: mental status grossly normal ORTHO RN - PN: Obj Data Vital Signs Vital Signs: Vital Signs - 24 hr 04/21/22 06:28 04/21/22 09:48 04/21/22 10:03 Temperature 96.9 F L 97.5 F L Pulse Rate 83 93 86 Respiratory Rate 16 16 19 Blood Pressure 133/89 139/87 Pulse Oximetry 99 100 100 Oxygen Delivery Room Air Simple Face Mask Simple Face Mask Oxygen Flow Rate 7 7 04/21/22 10:18 04/21/22 10:33 04/21/22 10:49 Temperature Pulse Rate 84 89 80 Respiratory Rate 20 20 18 Blood Pressure 150/80 H 133/80 144/88 H Pulse Oximetry 100 96 99 Oxygen Delivery Simple Face Mask Room Air Room Air Oxygen Flow Rate 7 04/21/22 11:41 04/21/22 11:15 04/21/22 15:50 Temperature 97.1 F L Pulse Rate 78 Respiratory Rate 16 Blood Pressure 122/58 L Pulse Oximetry 94 Oxygen Delivery Room Air Room Air Oxygen Flow Rate 04/21/22 18:00 04/21/22 20:00 04/21/22 21:56 Temperature 97.2 F L 98.5 F Pulse Rate 93 85 84 Respiratory Rate 18 12 Blood Pressure 126/69 121/77 Pulse Oximetry 95 98 95 Oxygen Delivery CPAP Oxygen Flow Rate 04/22/22 00:15 04/22/22 00:15 04/22/22 02:41 Temperature 98.3 F Pulse Rate 78 88 Respiratory Rate 12 Blood Pressure 111/67 Pulse Oximetry 96 97 94 Oxygen Delivery CPAP CPAP Oxygen Flow Rate 12 Intake/Output Intake/Output: Intake & Output 04/19/22 04/20/22 04/21/22 04/22/22 23:59 23:59 23:59 23:59 Intake Total 3650 300 Output Total 330 Balance 3320 300 Meds/Results Medications: Active Medications Generic Name Dose Route Start Last Admin Trade Name Freq PRN Reason Stop Dose Admin Atorvastatin Calcium 40 mg 04/22/22 09:00 Atorvastatin 40 M
[2022-04-22] MEDS: MORPHINE SULFATE (*CRX) 4 MG/ML INJ IV PUSH (05:41)
[2022-04-22 05:45] LABS: Basophils Percent Auto 0.3 % (0.2-1.2); Hematocrit 35.3 % (37.0-47.0); Immature Granulocyte Absolute 0.05 K/mm3 (0.00-0.031); Immature Granulocyte Percent A 0.3 % (0-0.5); Lymphocytes Absolute Auto 2.23 K/mm3 (0.9-3.2); Lymphocytes Percent Auto 15.2 % (18.3-44.2); Mean Corpuscular HGB Conc 31.2 g/dl (32-36); Mean Corpuscular Volume 86.7 fl (80-100); Mean Platelet Volume 10.4 fl (7.4-10.4); Monocytes Percent Auto 6.6 % (2.6-8.5); Neutrophils Absolute Auto 11.4 K/mm3 (1.3-6.7); Neutrophils Percent Auto 77.6 % (45.5-73.1); Platelet Count Result 288 k/mm3 (150-375); Red Blood Count 4.07 M/mm3 (4.2-5.4); Red Cell Distribution Width 14.6 % (11.5-14.5); White Blood Count 14.6 K/mm3 (4.5-10.0)
--- NOTE | 2022-04-22 07:45 | PC.NURSE ---
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 Pt sole recipient of such instructions and no barriers to learning identified at this time. PT received care via one to one discussion and demonstrations this shift. PT verbalized understanding of such care
[2022-04-22] MEDS: LOSARTAN POTASSIUM 12.5 MG TABLET PO (09:37)
[2022-04-22] MEDS: lamoTRIgine 100 MG TABLET PO ×2 (09:38→17:02)
[2022-04-22] MEDS: PANTOPRAZOLE 40 MG TABLET PO (09:40)
[2022-04-22] MEDS: ATORVASTATIN 40 MG TABLET PO (09:40)
[2022-04-22] MEDS: MULTIVITAMINS THERAPEUTIC TAB (*BKC) 1 TABLET PO (09:41)
[2022-04-22] MEDS: HYDROcodone/acetaminophen (*CRX) 5-325 MG TABLET 1 TAB PO (09:59)
[2022-04-22] MEDS: HYDROcodone/acetaminophen (*CRX) 10-325 MG TABLET 1 TAB PO ×3 (13:25→23:03)
[2022-04-22] MEDS: IBUPROFEN 600 MG TABLET PO ×2 (17:03→23:04)
[2022-04-22] MEDS: clonazePAM (*CRX) 0.5 MG TABLET PO (17:04)
[2022-04-23 01:44] VITALS: PULSE 76; O2SAT 98
[2022-04-23] MEDS: HYDROcodone/acetaminophen (*CRX) 10-325 MG TABLET 1 TAB PO ×3 (04:49→13:18)
--- NOTE | 2022-04-23 08:00 | PC.NURSE ---
PT introductions made and plan of care discussed per post op procedure writer surgery, pain management, daily care activities and pending discharge to home. Pt sole recipient of such instructions and no barriers to learning identified at this time. PT received care via one to one discussion and demonstrations this shift. PT verbalized understanding of such care
[2022-04-23] MEDS: clonazePAM (*CRX) 0.5 MG TABLET PO (10:11)
[2022-04-23] MEDS: IBUPROFEN 600 MG TABLET PO (10:11)
[2022-04-23] MEDS: lamoTRIgine 100 MG TABLET PO (10:13)
[2022-04-23] MEDS: LOSARTAN POTASSIUM 12.5 MG TABLET PO (10:14)
[2022-04-23] MEDS: ATORVASTATIN 40 MG TABLET PO (10:15)
[2022-04-23] MEDS: PANTOPRAZOLE 40 MG TABLET PO (10:16)
[2022-04-23] MEDS: DULoxetine HCL 60 MG CAPSULE.DR PO (10:17)
[2022-04-23] MEDS: OLANZapine 5 MG TABLET 15 MG PO (10:19)
[2022-04-23] MEDS: MULTIVITAMINS THERAPEUTIC TAB (*BKC) 1 TABLET PO (10:19)
--- NOTE | 2022-04-23 10:19 | PM.GYNPNOP ---
PRODUCE WRAPPER - A/P Postoperative Procedures: Procedures Operation Date: 04/21/22 07:30 Actual Procedure Side Surgeon p Total Abdominal Hysterectomy with Bilateral Salpingo-Oophorectomy Bilateral Adrianna Ibrahim MD Postoperative day: 2 Postoperative status: doing well Postoperative plan: discharge and other (Discharge precautions discussed.) Time Spent With Patient Time: Total time spent is greater than 50% in coordination of care (as documented) at patient's floor/unit and/or counseling patient: Time with patient: less than 15 minutes PRODUCE WRAPPER- PN:Subj Post-Op Subjective Date/time seen: 04/23/22 10:19 Interval history: She is doing well. Has adequate pain control with medications. She has ambulated in room without problems. Tolerating regular diet. Positive flatus. No nausea or vomiting. Subjective: pain is well controlled and patient is tolerating oral intake Exam Const: General: comfortable and no acute distress Orientation/consciousness: oriented to person, oriented to place and oriented to time Resp: Effort & Inspection: normal respiratory effort GI: Inspection: normal to inspection GI Palp: Yes Soft to palpation and No Tenderness to palpation present (GI) Other: nondistended, incision intact clean dry Neuro: General: oriented to person, oriented to place and oriented to time Extrem: General: no calf tenderness Psych: Mental Status: mental status grossly normal PRODUCE WRAPPER - PN: Obj Data Vital Signs Vital Signs: Vital Signs - 24 hr 04/22/22 10:20 04/22/22 10:21 04/22/22 10:21 Temperature 97.6 F 97.6 F Pulse Rate 80 80 80 Respiratory Rate 18 18 18 Blood Pressure 129/75 129/75 Pulse Oximetry 99 99 99 Oxygen Delivery Room Air Room Air 04/22/22 19:00 04/22/22 19:00 04/23/22 01:44 Temperature 97.5 F L Pulse Rate 76 76 Respiratory Rate 18 Blood Pressure 137/89 Pulse Oximetry 98 Oxygen Delivery Room Air CPAP 04/22/22 22:35 Temperature Pulse Rate 79 Respiratory Rate Blood Pressure Pulse Oximetry 99 Oxygen Delivery CPAP Intake/Output Intake/Output: Intake & Output 04/20/22 04/21/22 04/22/22 04/23/22 23:59 23:59 23:59 23:59 Intake Total 3650 3140 Output Total 330 2150 Balance 3320 990 Meds/Results Medications: Active Medications Generic Name Dose Route Start Last Admin Trade Name Freq PRN Reason Stop Dose Admin Hydrocodone Bitart/Acetaminophen 1 tab 04/22/22 05:43 04/22/22 09:59 Hydrocodone/Acetaminophen (*Crx) 5-325 Mg Tablet PO 1 tab Q4H PRN Administration Pain Rated 4-6 Hydrocodone Bitart/Acetaminophen 1 tab 04/22/22 05:43 04/23/22 04:49 Hydrocodone/Acetaminophen (*Crx) 10-325 Mg Tablet PO 1 tab Q4H PRN Administration Pain Rated 7-10 Atorvastatin Calcium 40 mg 04/22/22 09:00 04/22/22 09:40 Atorvastatin 40 Mg Tablet PO 40 mg DAILY JEANNETTE Administration Clonazepam 0.5 mg 04/22/22 16:00 04/22/22 17:04 Clonazepam (*Crx) 0.5 Mg Tablet PO 0.5 mg TID PRN Administration Anxiety Duloxetine HCl 60 mg 04/22/22 09:00 04/21/22 22:58 Duloxetine Hcl 60 Mg Capsule.Dr PO 60 mg DAILY JEANNETTE Administration Gabapentin 600 mg 04/22/22 09:00 04/22/22 09:41 Gabapentin 300 Mg Capsule PO Not Given DAILY JEANNETTE Ibuprofen 600 mg 04/22/22 05:45 04/22/22 23:04 Ibuprofen 600 Mg Tablet PO 600 mg Q6H PRN Administration Cramping Lamotrigine 100 mg 04/21/22 17:00 04/22/22 17:02 Lamotrigine 100 Mg Tablet PO 100 mg BID JEANNETTE Administration Losartan Potassium 12.5 mg 04/22/22 09:00 04/22/22 09:37 Losartan Potassium 12.5 Mg Tablet PO 12.5 mg DAILY JEANNETTE Administration Multivitamins Therapeutic 1 tablet 04/22/22 09:00 04/22/22 09:41 Multivitamins Therapeutic Tab (*Bkc) PO 1 tablet DAILY JEANNETTE Administration Olanzapine 15 mg 04/22/22 09:00 04/21/22 22:59 Olanzapine 5 Mg Tablet PO 15 mg DAILY JEANNETTE Administration Ondansetron HCl 4 mg 04/21/22 11:05 04/21/22 11:58
[2022-04-23 10:36] VITALS: BP 135/82; PULSE 80; RESP 18; TEMP 36.6; O2SAT 99
--- NOTE | 2022-04-23 13:00 | PC.NURSE ---
PT received discharge instructions per protocol and verbalized understanding of such care.
--- NOTE | 2022-04-23 13:20 | PC.NURSE ---
PT discharged to home via wheelchair accompanied by spouse and taken to waiting car. follow up appts confirmed
--- NOTE | 2022-05-22 11:13 | PM.DS ---
DS: Admitting Diagnosis Discharge Date 04/23/22 Admitting Diagnosis Abnormal uterine bleeding DS: Discharge Diagnosis Discharge Diagnosis (1) Status post hysterectomy with oophorectomy: Code(s): Z90.710 - Acquired absence of both cervix and uterus; Z90.721 - Acquired absence of ovaries, unilateral Status: Acute DS: Summary Hospital Course Reason for hospitalization: Planned hysterectomy Hospital Course: Patient admitted after having uncomplicated abdominal hysterectomy. She did well post op. On post op day one she was encourage ambulation. She started on oral pain medication. She did well on this. She was discharged to home on POD2. She had positive flatus, ambulating well, tolerating regular diet. no leg pain. Had adequate pain control with medication. Time Spent with Patient Time attestation: Total time spent providing and/or coordinating discharge services: Exam Const: General: comfortable Resp: Effort & Inspection: normal respiratory effort GI: Other: incision healing well Extrem: Other: nontender no edema DS: Data Data Completed and Pending Completed studies during hospitalization: Pending at discharge 04/21/22 09:01 Surgical [PTH] Routine Discharge Plan Discharge Attending physician on discharge: Adrianna Ibrahim Consulting providers: Cameron Kwan Discharging Clinician: Maico Joy Anticipated Discharge Date/Time: 04/23/22 10:18 Patient Disposition: Home, Self-Care Activity: may shower, no driving and pelvic rest Diet: regular Wound Care Instructions: follow printed instructions and incision open to air Patient Instructions: Hysterectomy (DC), Pain Management After Surgery (DC) Follow-up/Referrals: Adrianna Ibrahim MD [Physician] - Keep Reg. Scheduled Appt. Discharge Medications: New ibuprofen 600 mg Tablet 600 mg PO Q6H PRN (Reason: Cramping) Qty: 30 0RF Continued methotrexate (PF) 25 mg/0.5 mL auto-injector 25 mg SUB-Q WEEKLY gabapentin [Neurontin] 600 mg tablet 600 mg PO DAILY clonazepam [Klonopin] 0.5 mg tablet 0.5 mg PO TID leflunomide 10 mg tablet 10 mg PO DAILY duloxetine [Cymbalta] 60 mg capsule,delayed release(DR/EC) 60 mg PO DAILY folic acid 1 mg tablet 1 mg PO DAILY olanzapine [Zyprexa] 15 mg tablet 15 mg PO DAILY lamotrigine 100 mg tablet 100 mg PO BID multivitamin [Daily Multi-Vitamin] Tablet 1 tablet PO DAILY atorvastatin 40 mg tablet 40 mg PO DAILY Qty: 90 1RF omeprazole 40 mg capsule,delayed release(DR/EC) 40 mg PO DAILY Qty: 90 1RF losartan 25 mg tablet 12.5 mg PO DAILY Qty: 90 1RF Date of admission: 04/21/22 11:05 Primary Care Provider: Jaime Taylor Admitting Provider: Adrianna Ibrahim Attending physician on admission: Maico Joy Condition: Stable
== END 2022-04-23 13:20 | disposition home or self-care (01) | DRG 743 ==
LOC: ANHOB2 11:12
PROVIDERS: Admitting Provider Student in an Organized Health Care Education/Training Program; PCP Internal Medicine; Visit Provider Obstetrics & Gynecology
PROC: 0UT94ZZ Resection of Uterus, Percutaneous Endoscopic Approach (ICD-10-PCS; principal; 2022-04-21 07:30)
DX: N93.8 Other specified abnormal uterine and vaginal bleeding (principal); D25.9 Leiomyoma of uterus, unspecified; R10.2 Pelvic and perineal pain; N95.0 Postmenopausal bleeding; K21.9 Gastro-esophageal reflux disease without esophagitis; F41.9 Anxiety disorder, unspecified; F32.A Depression, unspecified; M19.90 Unspecified osteoarthritis, unspecified site; E78.5 Hyperlipidemia, unspecified; G47.33 Obstructive sleep apnea (adult) (pediatric); F43.10 Post-traumatic stress disorder, unspecified
CPT/HCPCS: 36415; 85025; 88307; A9270; J0131; J0330; J0690; J1100; J1170; J1741; J1885; J2250; J2270; J2405; J2704; J2765; J3010; J7120; J7121

== ENCOUNTER 2022-09-12 10:27 | Outpatient (CLI) | payer OTHER, BC, SELFPAY ==
[2022-09-12 11:27] LABS: Alanine Aminotransferase 19 U/L (6-35); Albumin Level 4.3 g/dL (3.5-5.1); Alkaline Phosphatase 106 U/L (38-126); Anion Gap 6 mmol/L (8-16); Aspartate Amino Transferase 18 U/L (14-36); Bilirubin,Total 0.8 mg/dL (0.2-1.3); Blood Urea Nitrogen 10 mg/dL (7-17); Carbon Dioxide 28 mmol/L (22-30); Chloride 103 mmol/L (98-107); Cholesterol 270 mg/dL (0-200); Estimated Glomerular Filt Rate > 60; Glucose 109 mg/dL (65-110); HDL Direct 64 mg/dL; Potassium 4.1 mmol/L (3.4-5.0); Sodium 137 mmol/L (137-145); Triglycerides 127 mg/dL (<150)
[2022-09-12 11:38] LABS: LDL Cholesterol Direct 137 mg/dL
[2022-09-12 12:37] LABS: Vitamin D 25 Hydroxy 28.5 ng/mL
== END 2022-09-12 10:28 | disposition home or self-care (01) ==
PROVIDERS: PCP Internal Medicine; Visit Provider Nurse Practitioner
DX: E78.49 Other hyperlipidemia (principal); R73.02 Impaired glucose tolerance (oral); R79.89 Other specified abnormal findings of blood chemistry; E55.9 Vitamin D deficiency, unspecified
CPT/HCPCS: 36415; 80053; 80061; 82306; 83036

== ENCOUNTER 2022-12-08 20:36 | Emergency (ER) | payer OTHER, SELFPAY ==
[2022-12-08 20:38] VITALS: BP 145/90; PULSE 86; RESP 16; TEMP 36.6; O2SAT 97
[2022-12-08] MEDS: FAMOTIDINE 20 MG/2 ML VIAL IV PUSH (21:05)
[2022-12-08] MEDS: diphenhydrAMINE HCl INJ 50 MG/ML VIAL 25 MG IV PUSH (21:05)
[2022-12-08] MEDS: methylPREDNISolone SOD SUCC 125 MG VIAL IV PUSH (21:06)
--- NOTE | 2022-12-08 21:13 | ED.GENADULT ---
HPI - General Adult General Chief complaint: Allergic Reaction Stated complaint: allergic reaction, lip swelling Time Seen by Provider: 12/08/22 20:54 History of Present Illness HPI narrative: 57-year-old female presented to the emergency department for evaluation of recurrent allergic reaction. Patient states over the last few weeks she has had recurrent hives and facial swelling. Patient has been treated for this multiple times. Patient states yesterday she had a recurrence of the hives and did have follow-up with her primary care physician today. Patient was prescribed prednisone but she states that the pharmacy was currently out of prednisone and was unable to get the medication filled. Patient states that this evening she did have increased facial swelling. Patient denies any difficulty breathing or swallowing. Patient has no stridor or wheeze. Patient states that she does not believe that she had any new detergents soaps foods or other home products. Patient states she has been taking atorvastatin for the last few weeks and is unsure if this could be causing the rash. Related Data Home Medications Medication Instructions Recorded Confirmed duloxetine 60 mg capsule,delayed 60 mg PO DAILY 02/19/20 10/24/22 release (Cymbalta) folic acid 1 mg tablet 1 mg PO DAILY 02/19/20 10/24/22 olanzapine 15 mg tablet (Zyprexa) 15 mg PO DAILY 02/19/20 10/24/22 lamotrigine 100 mg tablet 100 mg PO BID 02/26/20 10/24/22 gabapentin 600 mg tablet 600 mg PO DAILY 03/26/20 10/24/22 (Neurontin) clonazepam 0.5 mg tablet (Klonopin) 0.5 mg PO TID 06/21/21 10/24/22 multivitamin (Daily Multi-Vitamin 1 tablet PO DAILY 01/19/22 10/24/22 tablet) Allergies Allergy/AdvReac Type Severity Reaction Status Date / Time sertraline Allergy Mild Hives Verified 12/08/22 20:37 lithium AdvReac Intermediate Nausea and Verified 12/08/22 20:37 Vomiting Review of Systems Review of Systems: All systems reviewed & are unremarkable except as noted in HPI and below PMFSH Past Medical History Medical History Acid reflux Adverse effect of ezmmoverdle-mzomeldwpm-slcmvw inhibitors, initial encounter Anxiety and depression Arthritis Bipolar affective disorder COVID-19 History of 1984 Hyperlipidemia Hypertension CAROLYNE on CPAP PTSD (post-traumatic stress disorder) Vaginal bleeding Surgical History Surgical History History of section History of myomectomy History of tubal ligation S/P breast lumpectomy Status post hysterectomy with oophorectomy Family History Family History Mother Patient's mother is in good health Diabetes mellitus Hypertension Sibling Patient's brother is in good health Family history of malignant neoplasm of breast in first degree relative Diabetes mellitus Family history of blood dyscrasia Hypertension Father Family history of heart disease in male family member before age 55 Family history of cardiovascular disease Diabetes mellitus Hypertension Cerebrovascular accident Social History Social History (Updated 12/08/22 @ 09:02 by Vannesa Hardin MA) Smoking status: Never smoker Second hand tobacco smoke exposure: No Alcohol intake: current Alcohol use details: Social Substance use: never Substance use type: does not use Lack of Transportation: No Lack of Food: Sometimes True Current Housing: I Have Housing Difficulty Paying Gas/Electric Bills: No Difficulty Paying for Meds: No Education: Trade/Vocational Certificate Difficulty w/ Childcare or Family Care: No Living arrangements: with family Spiritual care concerns: No Exam Narrative: APPEARANCE: Well appearing, no pain, no distress, well-nourished. HEAD: normocephalic, atraumatic. EYES: PERRLA/EOMI, conjunctivae clear. NOSE: Normal no drai
[2022-12-08 21:33] VITALS: PULSE 86; RESP 26; O2SAT 97
[2022-12-08 22:26] VITALS: PULSE 72; RESP 24; O2SAT 97
== END 2022-12-08 23:14 | disposition home or self-care (01) ==
PROVIDERS: Emergency Provider Emergency Medicine; PCP Internal Medicine
DX: L50.0 Allergic urticaria (principal); R22.0 Localized swelling, mass and lump, head; E78.5 Hyperlipidemia, unspecified; I10 Essential (primary) hypertension; F41.9 Anxiety disorder, unspecified; F32.A Depression, unspecified
CPT/HCPCS: 96374; 96375; 99284; J1200; J2930

== ENCOUNTER 2023-01-05 08:11 | Outpatient (CLI) | payer OTHER, SELFPAY ==
--- NOTE | ~2023-01-05 | XR_ITS ---
EXAMINATION: XR hip RT 2V w AP pelvis INDICATION: Right lower limb pain TECHNIQUE: AP view the pelvis and two views of the right hip are obtained. COMPARISON: None available FINDINGS: Bone alignment is normal. There is no fracture. There is moderate osteoarthritis of the hip s. A phlebolith is noted in the right pelvis. IMPRESSION: 1. Osteoarthritis of the hips without acute osseous abnormality. Reviewed, dictated and finalized at location B.
--- NOTE | ~2023-01-05 | XR_ITS ---
Lumbosacral Spine: AP and lateral views Clinical History: Pain Findings: The normal lordotic curve is maintained. The vertebral bodies and posterior elements are i ntact. The intervertebral disc spaces are preserved. There is facet arthropathy from L3 through S1. The sacroiliac joints are normally outlined. Impression: Facet joint arthropathy, as noted above. Reviewed, dictated and finalized at location . Impression: Facet joint arthropathy, as noted above.
--- NOTE | ~2023-01-05 | MR_ITS ---
MRI of the right shoulder Technique: Axial proton-density fat-sat images, coronal proton density fat-sat and T2 fat-sat images, and sagittal T1-weighted and T2 fat-sat images were acquired. Clinical History: Pain Findings: There is oivg-ht-ezsvivcc AC joint degenerative change present. No significant subacromial spur. Coracoclavicular, coracoacromial, and coracohumeral ligaments appear intact. Supraspinatus and infraspinatus tendons are intact, without partial or full-thickness tear. There is moderate supraspinatus tendinosis. Subscapularis tendon is intact. Tendon of the long head of the bic eps is intact, with intra-articular tendinosis. There is degenerative superior labral tearing. Inferior glenohumeral ligament is intact. Small to moderate glenohumeral joint effusion is present, w ith probable loose bodies in the axillary pouch and in the subscapularis recess. Small inferomedial h umeral head spur present. There is diffuse high-grade chondromalacia on both sides of the glenohumera l joint with probable joint space narrowing. No fluid distention of the subacromial/subdeltoid bursa. No muscle atrophy or edema evident. Impression: Degenerative superior labral tearing. Moderate osteoarthritis of the glenohumeral joint, with associated moderate joint effusion and loose bodies within the joint, as detailed above. Rotator cuff tendinosis. Reviewed, dictated and finalized at [facility]. Impression: Degenerative superior labral tearing. Moderate osteoarthritis of the glenohumeral joint, with associated moderate aneudy nt effusion and loose bodies within the joint, as detailed above. Rotator cuff tendinosis.
== END 2023-01-05 08:12 | disposition home or self-care (01) ==
PROVIDERS: PCP Internal Medicine; Visit Provider Nurse Practitioner Family
DX: M19.011 Primary osteoarthritis, right shoulder (principal); M16.0 Bilateral primary osteoarthritis of hip; M54.50 Low back pain, unspecified
CPT/HCPCS: 72100; 73221; 73502

== ENCOUNTER 2023-03-15 09:54 | Outpatient (CLI) | payer OTHER, SELFPAY ==
[2023-03-15 11:43] LABS: Alanine Aminotransferase 23 U/L (6-35); Albumin Level 3.9 g/dL (3.5-5.1); Alkaline Phosphatase 106 U/L (38-126); Anion Gap 8 mmol/L (8-16); Aspartate Amino Transferase 18 U/L (14-36); Bilirubin,Total 1.1 mg/dL (0.2-1.3); Blood Urea Nitrogen 12 mg/dL (7-17); Calcium 8.9 mg/dL (8.4-10.2); Carbon Dioxide 25 mmol/L (22-30); Chloride 104 mmol/L (98-107); Estimated Glomerular Filt Rate > 60; Glucose 97 mg/dL (65-110); Potassium 3.8 mmol/L (3.4-5.0); Sodium 137 mmol/L (137-145)
[2023-03-15 11:44] LABS: Hemoglobin A1C 5.9 % (<5.7)
== END 2023-03-15 09:55 | disposition home or self-care (01) ==
LOC: ANHLAB 09:56
PROVIDERS: PCP Family Medicine; Visit Provider Nurse Practitioner Family
DX: R73.02 Impaired glucose tolerance (oral) (principal); I10 Essential (primary) hypertension
CPT/HCPCS: 36415; 80053; 83036

== ENCOUNTER 2023-10-09 09:40 | Outpatient (CLI) | payer OTHER, SELFPAY ==
--- NOTE | 2023-10-19 12:12 | WPDHOLTEREM ---
Holter/Event Monitor Holter/Event Monitor Date of procedure: 10/09/23 Holter/Event Procedure: 48 Hr Holter Monitor Indications: Syncope Conclusion: 1. 48 hour holter monitor on 09/29/23. 2. Predominant rhythm is sinus rhythm. HR range 62-129 bpm; average HR 85 bpm. 3. There are 27 premature supraventricular complexes and 4 supraventricular couplets. No supraventricular tachycardia. 4. There are 15 premature ventricular complexes and 15 ventricular bigeminy. There is 1 episode of ventricular tachycardia at 129 bpm lasting 9 beats at 08:37. 5. No sinoatrial or atrioventricular blocks. No significant pauses greater than 2 seconds. 6. No symptoms available for correlation.
== END 2023-10-09 09:41 | disposition home or self-care (01) ==
LOC: ANHCARD 09:41
PROVIDERS: PCP Nurse Practitioner Family; Visit Provider Nurse Practitioner Family
DX: R55 Syncope and collapse (principal)
CPT/HCPCS: 93225; 93226

== ENCOUNTER 2023-12-22 09:24 | Outpatient (CLI) | payer OTHER, SELFPAY ==
[2023-12-22 10:07] LABS: Basophils Percent Auto 0.1 % (0.2-1.2); Hematocrit 46.1 % (37.0-47.0); Hemoglobin 14.4 g/dL (12.0-15.0); Immature Granulocyte Absolute 0.05 K/mm3 (0.00-0.031); Immature Granulocyte Percent A 0.6 % (0-0.5); Lymphocytes Absolute Auto 1.55 K/mm3 (0.9-3.2); Lymphocytes Percent Auto 17.5 % (18.3-44.2); Mean Corpuscular HGB Conc 31.2 g/dl (32-36); Mean Corpuscular Hemoglobin 27.2 pg (26-34); Mean Corpuscular Volume 87.1 fl (80-100); Mean Platelet Volume 10.6 fl (7.4-10.4); Monocytes Absolute Auto 0.3 K/mm3 (0.1-0.6); Monocytes Percent Auto 3.8 % (2.6-8.5); Neutrophils Absolute Auto 6.9 K/mm3 (1.3-6.7); Platelet Count Result 347 k/mm3 (150-375); Red Blood Count 5.29 M/mm3 (4.2-5.4); Red Cell Distribution Width 14.5 % (11.5-14.5); White Blood Count 8.9 K/mm3 (4.5-10.0)
[2023-12-22 10:42] LABS: Alanine Aminotransferase 18 U/L (6-35); Albumin Level 4.5 g/dL (3.5-5.1); Alkaline Phosphatase 123 U/L (38-126); Anion Gap 10 mmol/L (4-12); Aspartate Amino Transferase 17 U/L (14-36); Bilirubin,Total 0.9 mg/dL (0.2-1.3); Blood Urea Nitrogen 9 mg/dL (7-17); Calcium 10.3 mg/dL (8.4-10.2); Carbon Dioxide 21 mmol/L (22-30); Chloride 108 mmol/L (98-107); Cholesterol 244 mg/dL (0-200); Estimated Glomerular Filt Rate > 60; Glucose 152 mg/dL (65-110); HDL Direct 72 mg/dL; Potassium 3.7 mmol/L (3.4-5.0); Sodium 139 mmol/L (137-145); Triglycerides 94 mg/dL (<150)
[2023-12-22 10:52] LABS: Iron 47 ug/dL (37-170)
[2023-12-22 10:53] LABS: LDL Cholesterol Direct 127 mg/dL
[2023-12-22 11:02] LABS: Percent Iron Saturation 16 % (20-50)
[2023-12-22 11:09] LABS: Hemoglobin A1C 5.9 % (<5.7)
[2023-12-22 11:50] LABS: Folic Acid 9.9 ng/mL (2.76->20)
[2023-12-22 12:39] LABS: Vitamin D 25 Hydroxy 20.2 ng/mL
== END 2023-12-22 09:25 | disposition home or self-care (01) ==
PROVIDERS: PCP Nurse Practitioner Family; Visit Provider Internal Medicine Cardiovascular Disease
DX: D64.9 Anemia, unspecified (principal); E55.9 Vitamin D deficiency, unspecified; R55 Syncope and collapse; F25.0 Schizoaffective disorder, bipolar type; R73.02 Impaired glucose tolerance (oral); E78.5 Hyperlipidemia, unspecified; Z99.89 Dependence on other enabling machines and devices; R73.03 Prediabetes; M25.512 Pain in left shoulder; M25.511 Pain in right shoulder; J31.0 Chronic rhinitis; I10 Essential (primary) hypertension; G89.29 Other chronic pain; G47.33 Obstructive sleep apnea (adult) (pediatric); F31.9 Bipolar disorder, unspecified; E78.49 Other hyperlipidemia
CPT/HCPCS: 36415; 80053; 80061; 82306; 82607; 82728; 82746; 83036; 83540; 83550; 84439; 84443; 85025

== ENCOUNTER 2024-01-15 09:45 | Outpatient (CLI) | payer OTHER, SELFPAY ==
--- NOTE | ~2024-01-15 | MM_ITS ---
EXAMINATION: MM screening ha BI w vamshi HISTORY: Screening mammogram TECHNIQUE: Craniocaudal and mediolateral oblique 3-D tomosynthesis images were obtained and synthetic 2-D images were generated. CAD analysis was submitted and interpreted. COMPARISON: 08/09/2021 diagnostic bilateral mammogram 09/15/2020 bilateral screening mammogram BREAST PARENCHYMAL COMPOSITION: The breasts are almost entirely fatty. FINDINGS: Stable circumscribed mass with biopsy marker, upper outer quadrant similar history of benig n biopsy at this site. Several small benign oil cysts are again noted posteriorly in the upper outer quadrant of the right b reast. There is no evidence of suspicious mass, calcification, or architectural distortion to suggest malignancy in either breast. There has been no suspicious interval change. IMPRESSION: 1. No mammographic evidence of malignancy. 2. Recommend routine screening mammography in one year. BI-RADS Category 2: Benign finding(s). Reviewed, dictated and finalized at location B.
== END 2024-01-15 09:46 | disposition home or self-care (01) ==
PROVIDERS: PCP Nurse Practitioner Family; Visit Provider Nurse Practitioner Family
DX: Z12.31 Encounter for screening mammogram for malignant neoplasm of breast (principal)
CPT/HCPCS: 77063; 77067

== ENCOUNTER 2024-07-01 06:35 | Outpatient (CLI) | payer OTHER, SELFPAY ==
--- NOTE | ~2024-07-01 | CT_ITS ---
EXAMINATION: CT abdomen pelvis w con DATE: 07/01/2024 07:49 INDICATION: Nausea. TECHNIQUE: Computed tomography (CT) of the abdomen and pelvis was performed with 100 mL Omnipaque 350 intravenous contrast. Automated exposure control and iterative reconstruction technique were employe d. The dose-length product was 1339.87 mGy-cm. COMPARISON: None. FINDINGS: The visualized portions of the lung bases demonstrate minimal atelectasis. No pleural effus ion. Calcified right hilar lymph nodes are consistent with old granulomatous disease. The heart size is normal. No pericardial effusion. The liver, gallbladder, spleen, pancreas, adrenal glands, and kid neys are normal. There are no dilated loops of bowel. The appendix is normal. There are no pathologic ally enlarged lymph nodes. There is no free intraperitoneal fluid. There is mild thoracic and lumbar spondylosis. IMPRESSION: 1. No etiology for the patient's symptoms. Reviewed, dictated and finalized at location A.
[2024-07-01 08:28] LABS: Basophils Percent Auto 0.2 % (0.2-1.2); Eosinophils Percent Auto 0.5 % (0-4.4); Hematocrit 43.7 % (37.0-47.0); Hemoglobin 13.3 g/dL (12.0-15.0); Immature Granulocyte Absolute 0.05 K/mm3 (0.00-0.031); Immature Granulocyte Percent A 0.6 % (0-0.5); Lymphocytes Absolute Auto 2.51 K/mm3 (0.9-3.2); Lymphocytes Percent Auto 30.3 % (18.3-44.2); Mean Corpuscular HGB Conc 30.4 g/dl (32-36); Mean Corpuscular Hemoglobin 27.5 pg (26-34); Mean Corpuscular Volume 90.3 fl (80-100); Monocytes Absolute Auto 0.6 K/mm3 (0.1-0.6); Monocytes Percent Auto 7.4 % (2.6-8.5); Neutrophils Absolute Auto 5.1 K/mm3 (1.3-6.7); Platelet Count Result 300 k/mm3 (150-375); Red Blood Count 4.84 M/mm3 (4.2-5.4); Red Cell Distribution Width 14.3 % (11.5-14.5); White Blood Count 8.3 K/mm3 (4.5-10.0)
[2024-07-01 08:37] LABS: Alanine Aminotransferase 16 U/L (6-35); Albumin Level 4.1 g/dL (3.5-5.1); Alkaline Phosphatase 102 U/L (38-126); Anion Gap 8 mmol/L (4-12); Aspartate Amino Transferase 15 U/L (14-36); Blood Urea Nitrogen 9 mg/dL (7-17); Calcium 9.4 mg/dL (8.4-10.2); Carbon Dioxide 27 mmol/L (22-30); Chloride 104 mmol/L (98-107); Cholesterol 241 mg/dL (0-200); Estimated Glomerular Filt Rate > 60; Glucose 89 mg/dL (65-110); HDL Direct 64 mg/dL; Potassium 3.3 mmol/L (3.4-5.0); Sodium 139 mmol/L (137-145); Triglycerides 158 mg/dL (<150)
[2024-07-01 08:49] LABS: LDL Cholesterol Direct 129 mg/dL
[2024-07-01 08:56] LABS: Erythrocyte Sedimentation Rate 17 mm/hr (0-20)
== END 2024-07-01 06:36 | disposition home or self-care (01) ==
PROVIDERS: PCP Nurse Practitioner Family; Visit Provider Nurse Practitioner Family
DX: E78.5 Hyperlipidemia, unspecified (principal); F31.9 Bipolar disorder, unspecified; G47.33 Obstructive sleep apnea (adult) (pediatric); G89.29 Other chronic pain; I10 Essential (primary) hypertension; M25.511 Pain in right shoulder; M25.512 Pain in left shoulder; R73.01 Impaired fasting glucose; R73.03 Prediabetes; Z99.89 Dependence on other enabling machines and devices; E61.1 Iron deficiency; F25.0 Schizoaffective disorder, bipolar type; M79.7 Fibromyalgia; R73.02 Impaired glucose tolerance (oral); R63.4 Abnormal weight loss; M25.50 Pain in unspecified joint; E78.49 Other hyperlipidemia; R10.9 Unspecified abdominal pain; R11.0 Nausea
CPT/HCPCS: 36415; 74177; 80053; 80061; 83036; 83540; 83550; 84443; 85025; 85652; 86376; Q9967

== ENCOUNTER 2024-07-15 08:53 | Outpatient (CLI) | payer OTHER, SELFPAY ==
[2024-07-15 09:59] LABS: Anion Gap 10 mmol/L (4-12); Blood Urea Nitrogen 10 mg/dL (7-17); Calcium 9.4 mg/dL (8.4-10.2); Carbon Dioxide 22 mmol/L (22-30); Chloride 104 mmol/L (98-107); Estimated Glomerular Filt Rate > 60; Glucose 116 mg/dL (65-110); Potassium 3.8 mmol/L (3.4-5.0); Sodium 136 mmol/L (137-145)
[2024-07-15 10:34] LABS: Iron 115 ug/dL (37-170)
[2024-07-15 10:44] LABS: Percent Iron Saturation 41 % (20-50)
[2024-07-18 14:55] LABS: Ionized Calcium 5.1 mg/dL (4.7-5.5)
== END 2024-07-15 08:54 | disposition home or self-care (01) ==
PROVIDERS: PCP Nurse Practitioner Family; Visit Provider Nurse Practitioner Family
DX: E61.1 Iron deficiency (principal); F31.9 Bipolar disorder, unspecified; M25.511 Pain in right shoulder; M25.512 Pain in left shoulder; G89.29 Other chronic pain; I10 Essential (primary) hypertension; E78.5 Hyperlipidemia, unspecified; G47.33 Obstructive sleep apnea (adult) (pediatric); R73.03 Prediabetes; R73.01 Impaired fasting glucose
CPT/HCPCS: 36415; 80048; 82330; 83540; 83550; 99212; G0463

== ENCOUNTER 2024-12-29 01:55 | Emergency (ER) | payer OTHER, SELFPAY ==
--- OUTSIDE RECORDS SUMMARY | 2024-12-29 01:57 | XMS_ITS | Encounter Summary ---
Author Organization [employer] Address 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
--- OUTSIDE RECORDS SUMMARY | 2024-12-29 01:57 | XMS_ITS | Encounter Summary ---
Author Organization [facility] Address [address] [place] [address] Care Team Providers Care Expansion Envelope Maker Hand Name Role Phone Andi Bueno MD Primary Care Provider [phone] Encounter Details Date Type Department Care Team (Late st Contact Info) Description 10/08/2007 Outpatient Historical [facility] Primary Care - [address] [place] [address] Zac Paredes MD [address] [place] [address] Social History Tobacco Use Types Packs/Day Years Used Date Smoking Tobacco: Never Assessed Comments Unknown Sex and Gender Information Value Date Recorded Sex Assigned at Not on file 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
--- OUTSIDE RECORDS SUMMARY | 2024-12-29 01:57 | XMS_ITS | Encounter Summary ---
Author Organization [facility] Address [address] [place] [address] Care Team Providers Care Liquid Hydrogen Plant Operator Name Role Phone Andi Bueno MD Primary Care Provider [phone] Encounter Details Date Type Department Care Team (Late st Contact Info) Description 12/03/2007 Outpatient Historical [facility] Primary Care - [address] [place] [address] Rebecca Lantigua MD [address] [place] [address] [address] [place] [address] Social History Tobacco Use Types Packs/Day Years Used Date Smoking Tobacco: Never Assessed Comments Unknown Sex and Gender Information Value Date Recorded Sex Assigned at Not on file 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
--- OUTSIDE RECORDS SUMMARY | 2024-12-29 01:57 | XMS_ITS | Encounter Summary ---
Author Organization [facility] Address 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, [place] [address] Admit Date: 11/19/2007 LISSETTE CAR Sex: F Admit Prov: ZAC PAREDES Date: 1965 Primary Care Prov: ZAC PAREDES CMRN: [id number] Room: [facility]RIC[facility] SSN: [id number] IMAGING SERVICES Ordering Prov: ZAC PAREDES Accession Number: [id number] Interpretation Left breast ultrasound 11/19/2007 History: Mass identified in the upper-outer aspect of the left breast on recent mammogram. Technique: Left breast ultrasound was performed in the upper-outer aspect of the left breast. Correlation is made with patient's recent abnormal screening mammogram. Findings: At approximately the 2:00 position of the left breast, a hypoechoic mass is identified which measures approximately 1.9 x 0.8 x 1.3 cm. This has slightly lobulated contour and is consistent with a benign lesion, such as a fibroadenoma. However, because no old films can be identified, it is recommended the patient have an ultrasound guided core biopsy of this lesion. Overall assessment: BIRADS category 4a - suspicious finding, low suspicion. Recommendation: It is recommended the patient have an ultrasound guided core biopsy of the mass in the upper-outer aspect of the left breast. This will be scheduled for the patient at her earliest convenience. Dictated by: BARBY LIU Electronically signed by: BARBY LIU 11/19/2007 16:50 Transcribed: 11/19/2007 16:20 AMK Procedure Note Provider, Historical - 11/19/[address] [address] Admit Date: 11/19/2007 LISSETTE CAR Sex: F Admit Prov: ZAC PAREDES Date:1965 Primary Care Prov: ZAC PAREDES CMRN: [id number] Room: [facility] SSN: [id number] IMAGING SERVICES Ordering Prov: ZAC PAREDES Interpretation Left breast ultrasound 11/19/2007 History: Mass identified in the upper-outer aspect of the left breaston recent mammogram. Technique: Left breast ultrasound was performed in the upper-outeraspect of the left breast. Correlation is made with patient's recentabnormal screening mammogram. Findings: At approximately the 2:00 position of the left breast, a hypoechoic mass is identified which measures approximately 1.9 x 0.8x 1.3 cm. This has slightly lobulated contour and is consistent with abenign lesion, such as a fibroadenoma. However, because no old films canbe identified, it is recommended the patient have an ultrasound guidedcore biopsy of this lesion. Overall assessment: BIRADS category 4a - suspicious finding, lowsuspicion. Recommendation: It is recommended the patient have an ultrasoundguided core biopsy of the mass in the upper-outer aspect of the left breast.This will be scheduled for the patient at her earliest convenience. Dictated by: BARBY LIU Electronically signed by: BARBY LIU 11/19/2007 16:50 Transcribed: 11/19/2007 16:20 AMK us Zac Paredes MD US ORDERABLES Final Result documented in this encounter Visit Diagnoses Diagnosis Abnormal mammogram, unspecified documented in this encounter Care Teams Claim Examiner Relationship Specialty Start Date End Date Andi Bueno MD [address] [facility] [address] [place] [address] PCP - General Internal Medicine 08/16/16 documented as of this encounter
--- OUTSIDE RECORDS SUMMARY | 2024-12-29 01:57 | XMS_ITS | Encounter Summary ---
Author Organization [facility] Address [address] [place] [address] Care Team Providers Care Gasoline Locomotive Crane Operator Name Role Phone Andi Bueno MD Primary Care Provider [phone] Encounter Details Date Type Department Care Team (Late st Contact Info) Description 07/21/[address] [facility] CHANI Paredes, Zac Tee MD [address] [facility] [address] [place] [address] Abnormal Mammogram, Unspecified Social History Tobacco Use Types Packs/Day Years Used Date Smoking Tobacco: Never Alcohol Use Standard Drinks/Week Comments No 0 (1 standard drink = 0.6 oz pur e alcohol) Comments No Sex and Gender Information Value Date Recorded Sex Assigned at Not on file Legal Sex Female 5:28 AM COMPONENT ASSEMBLER SUPERVISOR Gender Identity Not on file Sexual Orientation Not on file documented as of this encounter Plan of Treatment Not on file documented as of this encounter Procedures Procedure Name Priority Date/Time Associated Diagnosis Comments MAMMO DIAGNOSTIC BILATERAL W OR WO CAD Timed Study 07/21/2008 9:22 AM COMPONENT ASSEMBLER SUPERVISOR documented in this encounter Results * MAMMO DIGITAL DIAG BILAT (07/21/2008 9:22 AM COMPONENT ASSEMBLER SUPERVISOR) Anatomical Region Laterality Modality Breast Bilateral Other 07/21/2008 9:22 AM COMPONENT ASSEMBLER SUPERVISOR Narrative 2008 7:53 AM COMPONENT ASSEMBLER SUPERVISOR [place] [id number] [facility] [place] [address] Admit Date: 07/21/2008 LISSETTE CAR Sex: F Admit Prov: ZAC PAREDES Date: 1965 Primary Care Prov: ZAC PAREDES CMRN: [id number] Room: [facility] SSN: [id number] IMAGING SERVICES Ordering Prov: ZAC PAREDES Accession Number: [id number] Interpretation BILATERAL DIAGNOSTIC DIGITAL MAMMOGRAMS WITH COMPUTER ASSISTED DIAGNOSIS 07/21/2008 History: Six month follow up. Comparison is made to 11/11/07. The films were reviewed using the CAD system. The breast parenchyma has scattered fibroglandular densities. No new dominant masses, suspicious calcifications or areas of parenchymal asymmetry or distortion are identified. 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 Impression: Stable screening mammogram Recommend routine followup Overall assessment: BIRADS category 1 - Negative Assessment BIRADS: 1-Negative Recommendation: Normal interval follow-up Dictated by: DO HIRSCH Electronically signed by: DO HIRSCH 2008 07:52 Transcribed: 07/21/2008 13:23 AMK Procedure Note Do Hirsch - [address] [place] [id number] [place] [address] Admit Date: 07/21/2008 LISSETTE CAR Sex: F Admit Prov: ZAC PAREDES Date:1965 Primary Care Prov: ZAC PAREDES CMRN: [id number] Room: [facility] SSN: [id number] IMAGING SERVICES Ordering Prov: ZAC PAREDES Interpretation BILATERAL DIAGNOSTIC DIGITAL MAMMOGRAMS WITH COMPUTER ASSISTEDDIAGNOSIS 07/21/2008 History: Six month follow up. Comparison is made to 11/11/07. The films were reviewed using the CADsystem. The breast parenchyma has scattered fibroglandular densities. Nonew dominant masses, suspicious calcifications or areas of parenchymal asymmetry or distortion are identified. A biopsy-proven fibroadenomain the upper-outer left breast is stable. Impression: Stable screening mammogram Recommend routine followup Overall assessment: BIRADS category 1 - Negative Assessment BIRADS: 1-Negative Recommendation: Normal interval follow-up Dictated by: DO HIRSCH Electronically signed by: DO HIRSCH 2008 07:52 Transcribed: 07/21/2008 13:23 AMK Zac Paredes MD MAMMO ORDERABLES Final Result documented in this encounter Visit Diagnoses Diagnosis Abnormal mammogram, unspecified documented in this encounter Care Teams Gasoline Locomotive Crane Operator Relationship Specialty Start Date End Date Andi Bueno MD [address] [facility] [address] [place] [address] PCP - General Internal Medicine 08/16/16 documented as of this encounter
--- OUTSIDE RECORDS SUMMARY | 2024-12-29 01:57 | XMS_ITS | Encounter Summary ---
Author Organization [facility] Address [address] [place] [address] Care Team Providers Care Photographer'S Assistant Name Role Phone Andi Bueno MD Primary Care Provider [phone] Encounter Details Date Type Department Care Team (Late st Contact Info) Description 08/22/2011 Chart Note [facility] [address] [place] [phone] Tracie Amato, Physical Therapist Social History Tobacco Use Types Packs/Day Years Used Date Smoking Tobacco: Never Smokeless Tobacco: Never Alcohol Use Standard Drinks/Week Comments No 0 (1 standard drink = 0.6 oz pur e alcohol) Comments No Sex and Gender Information Value Date Recorded Sex Assigned at Not on file Legal Sex Female 5:28 AM CREATIVE RECRUITER Gender Identity Not on file Sexual Orientation Not on file documented as of this encounter Progress Notes * Tracie Amato, Physical Therapist - 08/22/2011 12:43 PM CST Images from the original note were not included. Physical Therapy Discharge Summary Patient: Shu Car Date: 08/22/2011 Date of : 1965 Physician: No ref. provider found Diagnosis: low back pain Shu Car was seen from 06/22/11 to 07/03/11 for a total of 2 visits with 1 cancellations and0 no shows. This patient did not return for further therapy visits following the last session noted above, therefore a complete re-evaluation of status was not completed. Objective Measurements: see initial evaluation on 06/22/11 The patient discharged from therapy secondary to noncompliance. Please contact me if you have any questions. Thank you for this referral. Tracie Amato [facility] [address] [place] [address]. [address] [place] [id number] TIVE RECRUITER documented in this encounter Plan of Treatment Not on file documented as of this encounter Visit Diagnoses Not on filedocumented in this encounter Care Teams Photographer'S Assistant Relationship Specialty Start Date End Date Andi Bueno MD [address] [facility] [address] [place] [address] PCP - General Internal Medicine 08/16/16 documented as of this encounter
--- OUTSIDE RECORDS SUMMARY | 2024-12-29 01:57 | XMS_ITS | Clinical Summary ---
Author Organization [facility] Address [facility] access hospital[address] [place] [address] Care Team Providers Care Brick Tester Name Role Phone Jaime Taylor DO Primary Care Provider [phone] Allergies Active Allergy Reactions Criticality Noted Date Comments Judsonia Hives 11/02/2021 Sertraline Hives 11/02/2021 Medications losartan 25 MG tablet Take 25 mg by mouth daily. 1/2 tablet daily Active omeprazole 40 MG capsule Take 40 mg by mouth daily. Active gabapentin 100 MG capsule Take 100 mg by mouth 2 (two) times daily. Active gabapentin 600 MG tablet Take 600 mg by mouth nightly. Active atorvastatin 40 MG tablet Take 40 mg by mouth nightly at bedtime. Active FLUoxetine 10 MG capsule Take 50 mg by mouth 3 (three) times daily. Active OLANZapine 10 MG tablet Take 10 mg by mouth nightly at bedtime. Active clonazePAM 0.5 MG tablet Take 0.5 mg by mouth 3 (three) times daily. Active DULoxetine 60 MG capsule Take 60 mg by mouth 2 (two) times daily. Active Immunizations Immunization Administration Dates Next Due PFIZER COVID-19 (ORIGINAL FO RMULATION, PURPLE CAP) mRNA, LNP-S, PF, 30 MCG/0.3 ML DOSE 08/13/2021,01/13/2021,12/23/2020 Social History Tobacco Use Types Packs/Day Years Used Date Smoking Tobacco: Never Smokeless Tobacco: Never Alcohol Use Standard Drinks/Week Comments Never 0 (1 standard drink = 0.6 oz pur e alcohol) Comments No Sex and Gender Information Value Date Recorded Sex Assigned at Not on file Legal Sex Female 12:38 PM SWEATBAND MAKER Gender Identity Not on file Sexual Orientation Not on file Last Filed Vital Signs Vital Sign Reading Time Taken Comments Blood Pressure 119/80 11/09/2021 12:50 PM SWEATBAND MAKER Pulse 78 11/09/2021 12:50 PM SWEATBAND MAKER Temperature 36.4 C (97.5 F) 11/09/2021 12:23 PM SWEATBAND MAKER Respiratory Rate 27 11/09/2021 12:50 PM SWEATBAND MAKER Oxygen Saturation 96% 11/09/2021 12:50 PM SWEATBAND MAKER Inhaled Oxygen Concentration - - Weight 115.2 kg (254 lb) 11/02/2021 1:59 PM SWEATBAND MAKER Height 154.9 cm (5' 1 ) 11/02/2021 1:59 PM SWEATBAND MAKER Body Mass Index 47.99 11/02/2021 1:59 PM SWEATBAND MAKER Plan of Treatment Health Maintenance Due Date Last Done Comments Cervical Cancer Screening Pa p Smear (Age 30 to 64) Every 3 Years 1965 Colorectal Cancer Screening Colonoscopy (10 Years) 1965 Annual Physical 1969 Hepatitis C 1984 DTaP, Tdap and Td Vaccines ( 1 - Tdap) 1985 Hepatitis B Vaccines (1 of 3 - 19+ 3-dose series) 1985 Cervical Cancer Screening Pa p with HPV Testing (Age 30 to 64) Every 5 Years 1996 Cervical Cancer Screening [facility] HPV 1996 Mammogram Screening 2006 Pneumococcal Vaccine: 50+ Years (1 of 1 - PCV) 2016 Zoster Vaccines (1 of 2) 2016 COVID-19 Vaccine (4 - 2023-2 5 season) 2024 08/13/2021, 01/13/2021, 12/23/2020 Meningococcal B Vaccine Aged Out No l onger eligible based on patient's age to complete this topic Meningococcal Vaccine Aged Out No prakash aggie eligible based on patient's age to complete this topic RSV Immunizations Under 20 Months Aged Out No longer eligible b ased on patient's age to complete this topic Medical Devices Implanted Type Area Technical Writer And Editor Device Identifier Shelf Expiration Date Model / Serial / Lot Screw Screw Right: Ankle Insurance [facility] Care Teams Brick Tester Relationship Specialty Start Date End Date Jaime Taylor DO [address] [address] PCP - General INTERNAL MEDICINE 11/09/21
--- OUTSIDE RECORDS SUMMARY | 2024-12-29 01:57 | XMS_ITS | Encounter Summary ---
Author Organization [facility] Address [address] [place] [address] Care Team Providers Care Tile Mechanic Name Role Phone Andi Bueno MD Primary Care Provider [phone] Encounter Details Date Type Department Care Team (Late st Contact Info) Description 11/12/2007 Outpatient Historical [facility] Zac Paredes MD [address] [facility] [address] [place] [address] Other Screening Mammogram Social History Tobacco Use Types Packs/Day Years Used Date Smoking Tobacco: Never Assessed Comments Unknown Sex and Gender Information Value Date Recorded Sex Assigned at Not on file Legal Sex Female 5:28 AM COMMISSIONER CONSERVATION OF RESOURCES Gender Identity Not on file Sexual Orientation Not on file documented as of this encounter Plan of Treatment Not on file documented as of this encounter Procedures Procedure Name Priority Date/Time Associated Diagnosis Comments MAMMO SCREENING BILAT Timed Study 11/11/2007 8:26 AM COMMISSIONER CONSERVATION OF RESOURCES documented in this encounter Results * MAMMO SCREENING BILAT (11/11/2007 8:26 AM COMMISSIONER CONSERVATION OF RESOURCES) Anatomical Region Laterality Modality Breast Bilateral Other 11/11/2007 8:26 AM COMMISSIONER CONSERVATION OF RESOURCES Narrative 11/13/2007 2:50 PM COMMISSIONER CONSERVATION OF RESOURCES [facility] [address], [place] [address] Admit Date: 11/11/2007 LISSETTE CAR Sex: F Admit Prov: ZAC PAREDES Date: 1965 Primary Care Prov: ZAC PAREDES CMRN: [id number] [facility] [address] [place] [address] IMAGING SERVICES Ordering Prov: ZAC PAREDES Accession Number: [id number] Interpretation BILATERAL SCREENING MAMMOGRAMS, 11/11/2007 Findings: There are no comparison films. The breast parenchyma shows scattered fibroglandular densities. There is a lobulated mass in the upper- outer quadrant of the left breast. Patient reports a previous breast biopsy and previous mammograms from 9 to 10 years ago. Unless these can be obtained and we can prove definitively that this mass has been biopsied in the past, recommend further evaluation with sonography to see if this is cystic or solid. No other dominant masses are identified. No suspicious calcifications or areas of parenchymal asymmetry or distortion are identified. Impression: Category: 0, incomplete. Left Breast: Lobulated mass, upper-outer quadrant. Recommend further evaluation with sonography. Right Breast: Negative. Recommend routine followup. Assessment BIRADS: 0-Incomplete: Need additional imaging evaluation Recommendation: Ultrasound Dictated by: MANNY TOLEDO Electronically signed by: MANNY TOLEDO 11/13/2007 14:50 Transcribed: 11/13/2007 10:18 DKT Procedure Note Provider, Historical - 11/13/[address] [address] Admit Date: 11/11/2007 LISSETTE CAR Sex: F Admit Prov: ZAC PAREDES Date:1965 Primary Care Prov: ZAC PAREDES CMRN: [id number] [facility] [address] [place] [address] IMAGING SERVICES Ordering Prov: ZAC PAREDES Interpretation BILATERAL SCREENING MAMMOGRAMS, 11/11/2007 Findings: There are no comparison films. The breast parenchymashows scattered fibroglandular densities. There is a lobulated mass in theupper- outer quadrant of the left breast. Patient reports a previous breastbiopsy and previous mammograms from 9 to 10 years ago. Unless these can be obtained and we can prove definitively that this mass has beenbiopsied in the past, recommend further evaluation with sonography to see if thisis cystic or solid. No other dominant masses are identified. Nosuspicious calcifications or areas of parenchymal asymmetry or distortion are identified. Impression: Category: 0, incomplete. Left Breast: Lobulated mass, upper-outer quadrant. Recommendfurther evaluation with sonography. Right Breast: Negative. Recommend routine followup. Assessment BIRADS: 0-Incomplete: Need additional imagingevaluation Recommendation: Ultrasound Dictated by: MANNY TOLEDO Electronically signed by: MANNY TOLEDO 11/13/2007 14:50 Transcribed: 11/13/2007 10:18 DKT us Zac Paredes MD MAMMO ORDERABLES Final Result documented in this encounter Visit Diagnoses Diagnosis Other screening mammogram documented in this encounter Care Teams Tile Mechanic Relationship Specialty Start Date End Date Andi Bueno MD [address] [facility] [address] [place] [address] PCP - General Internal Medicine 08/16/16 documented as of this encounter
--- OUTSIDE RECORDS SUMMARY | 2024-12-29 01:57 | XMS_ITS | Encounter Summary ---
Author Organization [facility] Address [address] [place] [address] Care Team Providers Care Sea Kayaking Guide Name Role Phone Andi Bueno MD Primary Care Provider [phone] Encounter Details Date Type Department Care Team (Late st Contact Info) Description 10/28/2007 Outpatient Historical [facility] Primary Care - [address] [place] [address] Zac Paredes MD [address] [facility] [address] [place] [address] Social History Tobacco Use Types Packs/Day Years Used Date Smoking Tobacco: Never Assessed Comments Unknown Sex and Gender Information Value Date Recorded Sex Assigned at Not on file 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
--- OUTSIDE RECORDS SUMMARY | 2024-12-29 01:57 | XMS_ITS | Encounter Summary ---
Author Organization [facility] Address [address] [place] [address] Care Team Providers Care Keeler Polygraph Operator Name Role Phone Andi Bueno MD Primary Care Provider [phone] Encounter Details Date Type Department Care Team (Late st Contact Info) Description 10/28/2007 Orders Only [facility] Primary Care - [address] [place] [address] Zac Paredes MD [address] [facility] [address] [place] [address] Social History Tobacco Use Types Packs/Day Years Used Date Smoking Tobacco: Never Assessed Comments Unknown Sex and Gender Information Value Date Recorded Sex Assigned at Not on file Legal 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 TOBACCO USE Patient does not currently use tobacco. MEDICATIONS: Patient is taking no medications at present. CHIEF COMPLAINT Seen as a new patient to get established with the practice. Patient complains of pain. in legs and feet. pt stated her put his leg across her leg and it was very painful. she also stated it feels like heavy rubber bands are attached to ankles. HISTORY: HISTORY: V70.0-ROUTINE GENERAL MEDICAL EXAMINATION The patient is here for a routine examination. No significant complaints noted. PAST MEDICAL HISTORY: see patient sheet for review of med/all/pmh/psh/sh/fh/ros PHYSICAL EXAMINATION: CONSTITUTIONAL: GENERAL APPEARANCE: Healthy appearing patient in no distress. NECK/THYROID: Trachea midline. No thyroid enlargement, tenderness, or mass. No supraclavicular or cervical adenopathy. RESPIRATORY: Clear to auscultation and percussion. Normal respiratory effort. CARDIOVASCULAR: CARDIAC: Rhythm regular with no murmurs, gallops, rubs or abnormal heart sounds. ARTERIAL: No aortic bruits. EDEMA/VARICOSITIES OF EXTREMITIES: 1+ EDEMA BILATERALLY. GASTROINTESTINAL: ABDOMEN: Soft, non-tender, without masses. Bowel sounds active. LIVER/SPLEEN/KIDNEY: No hepatosplenomegaly, tenderness or nodularity. Kidneys not palpable. ASSESSMENT/PLAN: V70.0-ROUTINE GENERAL MEDICAL EXAMINATION ASSESSMENT: The patient is doing well and no distinct problems were identified on exam. LAB ORDERS: Order number: [id number] Test Ordered: COMPREHENSIVE METABOLIC PANEL & GFR 1112 Order number: [id number] Test Ordered: TSH (REFLEX FREE T4/FREE T3) 1727 Order number: [id number] Test Ordered: URIC ACID 1795 Order number: [id number] Test Ordered: LIPID PANEL 1078 719.40-ARTHRALGIA in achilles tendon? MEDICATIONS: IBUPROFEN ORAL TABLET 600 MG, 1 po tid with food prn, 90 Dispensed, 1 Fills, status: NEW PRESCRIPTION, 10/28/2007. SPECIALTY REFERRAL: MACHINE SET UP OPERATOR Dr. Ana Lilia Chatterjee ph: [phone] fax: [phone] ph: [phone]. PODIATRY Dr. Anthony Kelly ph: [phone] fax: [phone]. HEALTH MAINTENANCE: LAST BREAST EXAM DATE: 2005. LAST PAP DATE: 2005. LAST DATE PELVIC EXAM: 2005. DISCUSSED SMOKING: no. LAST TD: unknown SEXUAL ACTIVITY DISCUSSED: . SUBSTANCE ABUSE DISCUSSED: no. INJURY PREVENTION DISCUSSED: yes. DIET AND EXERCISE DISCUSSED: no. ADVANCED DIRECTIVES DISCUSSED: no. LAST DATE COLONOSCOPY: never. LAST FLU VACCINE:no LAST PNEUMOCOCCAL:no Electronically Signed by: Zac Paredes MD on Sunday, October 28, 2007 documented in this encounter Plan of Treatment Not on file documented as of this encounter Visit Diagnoses Not on filedocumented in this encounter Care Teams Keeler Polygraph Operator Relationship Specialty Start Date End Date Andi Bueno MD [address] [facility] [address] [place] [address] PCP - General Internal Medicine 08/16/16 documented as of this encounter
--- OUTSIDE RECORDS SUMMARY | 2024-12-29 01:57 | XMS_ITS | Continuity of Care Document ---
Author Organization [facility] Address [address] [place] [address] Phone Care Team Providers Care Pouncing Machine Operator Name Role Phone Mateus Rm MD Unavailable [...] Diagnoses Date Provider Providers Copied on Encounter [facility], [address], [place], [place], [id number], tel:[employer] [phone] [facility] No Information Jag Ignacio. [address] [facility], [facility] [address] [place], [place], [id number], . tel:[employer] [phone] [facility], [address], [place], [place], [address], tel:[phone] [facility] No Information Luz Weiss. [address] [facility], [facility] [address] , [place], [place], [id number], . tel:[phone] [facility], [address], [place], [place], [address], tel:[phone] [facility] HEADACHEACUTE SINUSITIS NOS Luz Weiss. [address] [facility] [address] , [place], [place], [address], . tel:[employer] [phone].[phone] [facility], [address], [place], [place], [address], tel:[phone] [facility] NAUSEA WITH VOMITING Jag Ignacio. [address] [facility], [address], [place], [place], [address], . tel:[phone] [facility], [address], [place], [place], [address], tel:[phone] [facility] No Information Badinjudith Weiss. [address] [facility], [address], [place], [place], [address], . tel:[phone] Family History Family Member Type Diagnosis Age At Onset No Information Payers Payer name Insurance type Covered republican ID Authoriza tion(s) No Information Social History [...]
--- OUTSIDE RECORDS SUMMARY | 2024-12-29 01:57 | XMS_ITS | Encounter Summary ---
Author Organization [facility] Address [address] [place] [address] Care Team Providers Care Optometrist Assistant Name Role Phone Andi Bueno MD Primary Care Provider [phone] Encounter Details Date Type Department Care Team (Late st Contact Info) Description 11/29/2007 Outpatient Historical [facility] Zac Peñaloza MD [address] [place] [address] Barby Cordero MD NO ADDRESS ON FILE Abnormal Mammogram, Unspecified Social History Tobacco Use Types Packs/Day Years Used Date Smoking Tobacco: Never Assessed Comments Unknown Sex and Gender Information Value Date Recorded Sex Assigned at Not on file 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 Gender Identity Not on file Sexual Orientation Not on file documented as of this encounter Plan of Treatment Not on file documented as of this encounter Procedures Procedure Name Priority Date/Time Associated Diagnosis Comments PATHOLOGY Routine 11/29/2007 11:48 AM CDT US GUIDE NEEDLE PLACEMENT Timed Study 11/29/2007 9:27 AM CDT MAMMO DIAGNOSTIC UNI LEFT W OR WO CAD Timed Study 11/29/2007 9:26 AM CDT documented in this encounter Results * PATHOLOGY (11/29/2007 11:48 AM CDT) FINAL REPORT [facility] [address], [place] [address] Patient: SHU CAR : 1965 Procedure Date: 11/29/2007 Accession Date: 11/29/2007 Case No: [id number] Ordering Dr: BARBY LIU Case types AW, BW, FW, NW and SH are performed by [facility], [place], [place] SURGICAL PATHOLOGY & NON-GYNECOLOGIC CYTOPATHOLOGY REPORT DIAGNOSIS BREAST, LEFT, CORE BIOPSIES: - 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 Specimen Description: Left breast mass. Operative Procedure: 10-gauge cores. Patient Information/Histo ry/Diagnosis: Left breast mass, upper outer quadrant, probable fibroadenoma. Gross: Received in a container labeled Shu Car, left are two cores of paredes-yellow fibroadipose tissue measuring 1.5 and 1.7 cm long x 0.3 cm in width. Both tissue cores are submitted in A1. GL/LKP 11.29.2007 06:24 pm Microscopic: The slides are labeled [id number], Shu Car. The cores have sampled fibroadenoma without complex features characterized by a biphasic proliferation of epithelium and stroma. No cytologic atypia, stromal overgrowth, hypercellularity, or mitotic activity is seen. No proliferative changes are seen in the adjacent breast parenchyma. COMMENT: Certain proliferative lesions identified in breast biopsies are associated with an increased relative risk for the development of invasive carcinoma. The relative risks are compared to the risks for women who have not had a biopsy. The relative risks associated with specific entities are listed below. 1. No increased risk: adenosis; duct ectasia; fibrosis; fibroadenoma (without complex features); mild hyperplasia without atypia; cysts; apocrine or squamous metaplasia; 2. Slightly increased risk (1.5- to 2.0-fold): fibroadenoma with complex features; moderate or florid hyperplasia without atypia; sclerosing adenosis; papilloma; 3. Moderately increased risk (4.0- to 5.0-fold): atypical lobular hyperplasia; atypical ductal hyperplasia; 4. Markedly increased risk (8.0- to 10.0-fold): ductal carcinoma in situ; atypical lobular hyperplasia or atypical ductal hyperplasia when there is also a family history of breast carcinoma affecting a first-degree relative. Reference: Arch Pathol Lab Med 1998;122:1053-[address] [facility] 12.02.2007 10:40 am Staging Form: No. ELECTRONIC SIGNATURE FOR KHANG MONAE M.D.- 12/02/07 12:10 pm INTERFACE SYSTEM 11/29/2007 11:4 8 AM CDT us Barby Cordero MD PATHOLOGY/CYTOLOGY ORDERABL ES Final Result INTERFACE SYSTEM Refer to clinic/hospital department * US GUIDE NEEDLE PLACEMENT (11/29/2007 9:27 AM CDT) Anatomical Region Laterality Modality Other 11/29/2007 9:27 AM CDT Narrative 11/29/2007 11:58 AM CDT [address] [place], [place] [address] Admit Date: 11/29/2007 SHU CAR Sex: F Admit Prov: ZAC PAREDES Date: 1965 Primary Care Prov: ZAC PAREDES CMRN: [id number] Room: [facility] SSN: [id number] IMAGING SERVICES Ordering Prov: ZAC PAREDES Accession Number: [id number] Interpretation EXAM: ULTRASOUND-GUIDED CORE BIOPSY OF THE LEFT BREAST, TISSUE MARKER CLIP PLACEMENT, UNILATERAL DIGITAL MAMMOGRAM. Date: 11/29/2007 History: Mass identified on recent mammogram in the upper-outer aspect of the left breast. Ultrasound reveals a 1.9 x 0.8 x 1.3 cm hypoechoic mass. Ultrasound guided core biopsy has been recommended. Procedure and Findings: The risks and potential benefits of the procedure were discussed with the patient and written informed was obtained. After sterile preparation of the skin, 1% lidocaine was utilized for local anesthesia. A 10 guage vacuum assisted core biopsy needle was advanced through the lesion of interest using sonographic guidance. A total of 2 tissue cores were obtained throughout the lesion. A tissue marker clip was then placed at the biopsy site. Hemostasis was achieved. A sterile bandage and an ice pack were applied. A two-view left unilateral digital mammogram was obtained postprocedure and this demonstrates that the tissue marker clip is in the expected position. The patient tolerated the procedure well and there was no evidence of immediate complication. The patient was given verbal as well as written postprocedural instructions prior to the release from the department. The tissue cores were submitted to surgical pathology in formalin for histologic analysis. Impression: Technically successful ultrasound guided core biopsy with tissue marker placement. Dictated by: BARBY LIU Electronically signed by: BARBY LIU 11/29/2007 11:58 Transcribed: 11/29/2007 11:38 AMK Procedure Note Provider, Historical - 11/29/2007 [facility] [address] [place], [place] [address] Admit Date: 11/29/2007 SHU CAR Ana María Sex: F Admit Prov: ZAC PAREDES Date:1965 Primary Care Prov: ZAC PAREDES CMRN: [id number] Room: [facility] SSN: [id number] IMAGING SERVICES Ordering Prov: ZAC PAREDES Interpretation EXAM: ULTRASOUND-GUIDED CORE BIOPSY OF THE LEFT BREAST, TISSUE MARKERCLIP PLACEMENT, UNILATERAL DIGITAL MAMMOGRAM. Date: 11/29/2007 History: Mass identified on recent mammogram in the upper-outeraspect of the left breast. Ultrasound reveals a 1.9 x 0.8 x 1.3 cm hypoechoicmass. Ultrasound guided core biopsy has been recommended. Procedure and Findings: The risks and potential benefits of theprocedure were discussed with the patient and written informed was obtained.After sterile preparation of the skin, 1% lidocaine was utilized forlocal anesthesia. A 10 guage vacuum assisted core biopsy needle wasadvanced through the lesion of interest using sonographic guidance. A total of2 tissue cores were obtained throughout the lesion. A tissue markerclip was then placed at the biopsy site. Hemostasis was achieved. A sterilebandage and an ice pack were applied. A two-view left unilateral digital mammogram was obtainedpostprocedure and this demonstrates that the tissue marker clip is in the expectedposition. The patient tolerated the procedure well and there was no evidenceof immediate complication. The patient was given verbal as well aswritten postprocedural instructions prior to the release from the department.The tissue cores were submitted to surgical pathology in formalin for histologic analysis. Impression: Technically successful ultrasound guided core biopsywith tissue marker placement. Dictated by: BARBY LIU Electronically signed by: BARBY LIU 11/29/2007 11:58 Transcribed: 11/29/2007 11:38 AMK us Zac Paredes MD US ORDERABLES Final Result * MAMMO DIGITAL DIAG UNI LEFT (11/29/2007 9:26 AM CDT) Anatomical Region Laterality Modality Breast Left Other 11/29/2007 9:26 AM CDT Narrative 12/17/2007 10:21 AM CDT [address] [address] Admit Date: 11/29/2007 SHU CAR Sex: F Admit Prov: ZAC PAREDES Date: 1965 Primary Care Prov: ZAC PAREDES CMRN: [id number] Room: [facility] SSN: [id number] IMAGING SERVICES Ordering Prov: ZAC PAREDES Accession Number: [id number] Addendum The pathology from the patient's recent left breast core biopsy revealed 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 This is benign and concordant. The patient was informed of the above findings by Isabel Ruvalcaba, nurse in the breast center. Assessment BIRADS: 2-Benign finding Recommendation: Normal interval follow-up Dictated by: BARBY LIU Electronically signed by: BARBY LIU 12/17/2007 10:21 Transcribed: 12/13/2007 16:19 AMK Addendum ADDENDUM TO MAMMOGRAPHY REPORT OF 11/29/2007 The pathology from the patient's recent left breast ultrasound-guided core biopsy reveals 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 This is benign and concordant. The patient should return to annual mammography. Patient is due for her next mammogram in November 2008. Assessment BIRADS: 2-Benign finding Recommendation: Normal interval follow-up Dictated by: BARBY LIU Electronically signed by: BARBY LIU 12/04/2007 08:10 Transcribed: 12/03/2007 11:43 DKT Interpretation EXAM: ULTRASOUND-GUIDED CORE BIOPSY OF THE LEFT BREAST, TISSUE MARKER CLIP PLACEMENT, UNILATERAL DIGITAL MAMMOGRAM. Date: 11/29/2007 History: Mass identified on recent mammogram in the upper-outer aspect of the left breast. Ultrasound reveals a 1.9 x 0.8 x 1.3 cm hypoechoic mass. Ultrasound guided core biopsy has been recommended. Procedure and Findings: The risks and potential benefits of the procedure were discussed with the patient and written informed was obtained. After sterile preparation of the skin, 1% lidocaine was utilized for local anesthesia. A 10 guage vacuum assisted core biopsy needle was advanced through the lesion of interest using sonographic guidance. A total of 2 tissue cores were obtained throughout the lesion. A tissue marker clip was then placed at the biopsy site. Hemostasis was achieved. A sterile bandage and an ice pack were applied. A two-view left unilateral digital mammogram was obtained postprocedure and this demonstrates that the tissue marker clip is in the expected position. The patient tolerated the procedure well and there was no evidence of immediate complication. The patient was given verbal as well as written postprocedural instructions prior to the release from the department. The tissue cores were submitted to surgical pathology in formalin for histologic analysis. Impression: Technically successful ultrasound guided core biopsy with tissue marker placement. Report revised on 12/17/2007 10:21:42 AM by BARBY LIU Assessment BIRADS: 4-Suspicious abnormality, biopsy should be considered Recommendation: Biopsy should be considered Dictated by: BARBY LIU Electronically signed by: BARBY LIU 11/29/2007 11:58 Transcribed: 11/29/2007 11:38 AMK Procedure Note Provider, Historical / Barby Liu - 12/17/2007 [address] [place], [place] [address] Admit Date: 11/29/2007 SHU CAR Sex: F Admit Prov: ZAC PAREDES Date:1965 Primary Care Prov: ZAC PAREDES CMRN: [id number] Room: [facility] SSN: [id number] IMAGING SERVICES Ordering Prov: ZAC PAREDES Addendum The pathology from the patient's 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 This is benign and concordant.The patient was informed of the above findings [facility] Isabel [facility]caba[facility]. Assessment BIRADS: 2-Benign finding Recommendation: Normal interval follow-up Dictated by: BARBY LIU Electronically signed by: BARBY LIU 12/17/2007 10:21 Transcribed: 12/13/2007 16:19 AMK Addendum ADDENDUM TO MAMMOGRAPHY REPORT OF 11/29/2007 The pathology from the patient's recent left breast ultrasound-guidedcore biopsy reveals 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 This is benignand concordant. The patient should return to annual mammography. Patientis due for her next mammogram in November 2008. Assessment BIRADS: 2-Benign finding Recommendation: Normal interval follow-up Dictated by: BARBY LIU Electronically signed by: BARBY LIU 12/04/2007 08:10 Transcribed: 12/03/2007 11:43 DKT Interpretation EXAM: ULTRASOUND-GUIDED CORE BIOPSY OF THE LEFT BREAST, TISSUE MARKERCLIP PLACEMENT, UNILATERAL DIGITAL MAMMOGRAM. Date: 11/29/2007 History: Mass identified on recent mammogram in the upper-outeraspect of the left breast. Ultrasound reveals a 1.9 x 0.8 x 1.3 cm hypoechoicmass. Ultrasound guided core biopsy has been recommended. Procedure and Findings: The risks and potential benefits of theprocedure were discussed with the patient and written informed was obtained.After sterile preparation of the skin, 1% lidocaine was utilized forlocal anesthesia. A 10 guage vacuum assisted core biopsy needle wasadvanced through the lesion of interest using sonographic guidance. A total of2 tissue cores were obtained throughout the lesion. A tissue markerclip was then placed at the biopsy site. Hemostasis was achieved. A sterilebandage and an ice pack were applied. A two-view left unilateral digital mammogram was obtainedpostprocedure and this demonstrates that the tissue marker clip is in the expectedposition. The patient tolerated the procedure well and there was no evidenceof immediate complication. The patient was given verbal as well aswritten postprocedural instructions prior to the release from the department.The tissue cores were submitted to surgical pathology in formalin for histologic analysis. Impression: Technically successful ultrasound guided core biopsywith tissue marker placement. Report revised on 12/17/2007 10:21:42 AM by BARBY LIU Assessment BIRADS: 4-Suspicious abnormality, biopsy should beconsidered Recommendation: Biopsy should be considered Dictated by: BARBY LIU Electronically signed by: BARBY LIU 11/29/2007 11:58 Transcribed: 11/29/2007 11:38 AMK us Zac Paredes MD MAMMO ORDERABLES Edited documented in this encounter Visit Diagnoses Diagnosis Abnormal mammogram, unspecified documented in this encounter Care Teams Optometrist Assistant Relationship Specialty Start Date End Date Andi Bueno MD [address] [facility] [address] [place] [address] PCP - General Internal Medicine 08/16/16 documented as of this encounter
--- OUTSIDE RECORDS SUMMARY | 2024-12-29 01:57 | XMS_ITS | Clinical Summary ---
Author Organization [facility] Address [address] [place] [address] Care Team Providers Care Canvas Goods Maker Name Role Phone Jaime Taylor Primary Care Provider [phone] Source Comments [facility],non-owned Affiliates and Associated Physician Practices is amultiple site organization consisting of ambulatory clinics and hospital sitesin [place], [place], [place] and [place]. This disclosure is being madepursuant to the Care Everywhere program and may not contain all information available regarding this patient. Last updated 18.[facility] [employer] Allergies Active Allergy Reactions Criticality Noted Date Comments Barnes GI Discomfort 02/14/2016 Sertraline Urticaria High 02/14/2016 Medications * Be aware that medications may not be up to date on this document. Alwaysverify current medications with the patient. DULoxetine (CYMBALTA) 60 MG capsule 12/09/19 16 Active gabapentin (NEURONTIN) 300 MG capsule 01/20/20 16 Active lamoTRIgine (LAMICTAL) 100 MG tablet 12/15/19 16 Active OLANZapine (ZYPREXA) 5 MG tablet 12/24/19 16 Active losartan - hydrochlorothiazide (HYZAAR) 50-12.5 MG tablet 03/03/20 16 Active pantoprazole EC (PROTONIX) 40 MG tablet Take 40 mg by mouth 12/24/19 16 Active EPINEPHrine (EPIPEN) 0.3 MG/0.3ML auto-injector pen Inject 0.3 mg into muscle 12/04/19 15 Active haloperidol (HALDOL) 5 MG tablet Take 5 mg by mouth every 6 hours as needed for Agitation Active doxepin (SINEQUAN) 25 MG capsule Take 25 mg by mouth at bedtime Active oxyCODONE-acetaminophe n (PERCOCET) 5-325 MG tablet Take 1 Tab by mouth every 4 hours as needed for Pain 30 Tab 0 05/22/20 16 Active Additional Information Patient not taking.Reported on 06/06/2016 gabapentin (NEURONTIN) 100 MG capsule 04/13/20 16 Active omeprazole (PRILOSEC) 40 MG capsule 05/25/20 16 Active acetaminophen-codeine (TYLENOL #3) 300-30 MG tablet 05/16/20 16 Active azelastine (ASTELIN) 0.1 % nasal spray 04/25/20 16 Active cephALEXin (KEFLEX) 500 MG capsule 05/16/20 16 Active lamoTRIgine (LAMICTAL) 150 MG tablet 04/13/20 16 Active OLANZapine (ZYPREXA) 15 MG tablet 04/13/20 16 Active Active Problems Problem Noted Date Diagnosed Date Affective psychosis, bipolar 03/06/2016 Cellulitis and abscess of mouth 03/06/2016 Allergy to insects and arachnids 01/23/2016 Singers' nodes 01/23/2016 Dysphonia 02/24/2015 Gastro-esophageal reflux disease without esophag itis 12/03/2014 Family history of sudden cardiac 3 Overview (03/06/2016): Overview: Brother at age 44 Obstructive sleep apnea 04/25/2012 Herpesviral vesicular dermatitis 01/25/2012 Asymptomatic menopausal state 04/04/2011 Diffuse cystic mastopathy of breast 11/01/2009 Hyperlipidemia 11/01/2009 Major depressive disorder, single episode 2009 Morbid (severe) obesity due to excess calories 0 11/01/2009 Resolved Problems Problem Noted Date Diagnosed Date Resolved Date Acute pharyngitis 01/23/2016 03/20/2016 Family History Medical History Relation Name Comments Hypertension Brother Hypertension Father Cancer Sister Relation Name Status Comments Brother Father Sister Social History Tobacco Use Types Packs/Day Years Used Date Smoking Tobacco: Never Alcohol Use Standard Drinks/Week Comments Yes 0 (1 standard drink = 0.6 oz pur e alcohol) occasionally Comments No Sex and Gender Information Value Date Recorded Sex Assigned at Not on file Legal Sex Female 1:37 PM CDT Gender Identity Not on file Sexual Orientation Not on file Last Filed Vital Signs Vital Sign Reading Time Taken Comments Blood Pressure 132/92 06/06/2016 9:28 AM CDT Pulse 73 05/22/2016 10:25 AM CDT Temperature 36.2 C (97.2 F) 05/22/2016 9:59 AM CDT Respiratory Rate 14 05/22/2016 10:2 5 AM CDT Oxygen Saturation 97% 05/22/2016 10: 25 AM CDT Inhaled Oxygen Concentration - - Weight 123.3 kg (271 lb 12.8 oz) 06/06/2016 9:28 AM CDT Height 157.5 cm (5' 2 ) 06/06/2016 9:28 AM CDT Body Mass Index 49.71 06/06/2016 9:28 AM CDT Plan of Treatment Health Maintenance Due Date Last Done Comments COLOGUARD (AGES 45-75) - COL ON CA SCREENING 1965 COLON MONITORING 1965 COLONOSCOPY - COLON CA SCREENING 1966 CT COLONOGRAPHY - COLON CA SCREENING 1965 Colorectal Cancer Screening 1965 FIT - COLON CA SCREENING 1966 FLEX SIG - COLON CA SCREENING 1965 LIPID TESTING 1965 MAMMOGRAM 1965 MEDICARE AWV 12 MONTHS 1965 HIV SCREENING 1981 HEPATITIS C SCREENING 07/22/1984 DTAP/TDAP/TD VACCINES (1 - Tdap) 1985 HEPATITIS B VACCINE (1 of 3 - 19+ 3-dose series) 1985 PNEUMOCOCCAL VACCINE 50+ (1 of 1 - PCV) 2016 ZOSTER VACCINE (1 of 2) 2016 PAP SMEAR 02/13/2019 02/14/2016 COVID-19 VACCINE (2023-2 5 season) 2024 08/13/2021, 01/13/2021, 12/23/2020 INFLUENZA VACCINE (Season Ended) 2025 HIB VACCINE Aged Out No longer eligi ble based on patient's age to complete this topic HPV VACCINE Aged Out No longer eligi ble based on patient's age to complete this topic MENINGOCOCCAL (Group B) VACCINE SHARED DECISION-MAKING Aged Out No longer eligible based on patient's age to complete this topic MENINGOCOCCAL GROUPS A/C/Y/W VACCINE Aged Out No longer eligible b ased on patient's age to complete this topic Procedures Procedure Name Priority Date/Time Associated Diagnosis Comments PAP THINPREP IG+HPV MRNA E6/E7 RFLX 16,18/45 02/14/2016 12:04 PM CDT from Last 3 Months or Most Recently Relevant to Health Maintenance Results * PAP THINPREP IG +HPV MRNA E6/E7 RFLX 16/18,45 (Crestock) (02/14/2016 12:04 PM CDT) Clinical Information [facility] Comment: Routine exam WELL WOMAN EXAM LMP [facility] Comment:Information not prov ided Previous Pap [facility] Comment:Information not prov ided Prev. BX [facility] Comment:Information not prov ided Source [facility] Comment:Information not prov ided Statement of Adequacy [facility] Comment: Satisfactory for evaluation. Endocervical/transformation zone component absent. Age and/or menstrual status not provided Interpretation/Resu lt [facility] Comment:Negative for intraep ithelial lesion or malignancy. Infection [facility] Comment: Shift in vaginal janey suggestive of bacterial vaginosis. Comment [facility] Comment: This Pap test has been evaluated with computer assisted technology. Senior Speech Pathologist [facility] Comment: BAB, CT(ASCP) CT screening location: [place] [address] Human papillomavirus mRNA E6 E7 Not Detected Not Detected [facility] Comment: This test was performed using the APTIMA HPV Assay ([employer] This assay detects E6/E7 viral messenger RNA (mRNA) from 14 high-risk HPV types (16,18,31,33,35,39,45,51,52,56,58,59,66,68). Test Performed at: [email or web address] [address] STIVEN HEDRICK MD 02/14/2016 12:0 4 PM CDT 02/15/2016 5:13 AM CDT us Mine Sams MD LAB - PATHOLOGY/CYTOLOGY [facility] Final Result [address] [place] [address] from Last 3 Months or Most Recently Relevant to Health Maintenance Insurance [employer] [place] [address] [place] [address] [facility] [employer] Care Teams Canvas Goods Maker Relationship Specialty Start Date End Date Jaime Taylor DO [address] [place] [id number] PCP - General 05/02/22
--- OUTSIDE RECORDS SUMMARY | 2024-12-29 01:57 | XMS_ITS | Encounter Summary ---
Author Organization [employer] Address [address] [place] [address] Care Team Providers Care Residential Sales Name Role Phone Andi Bueno MD Primary Care Provider [phone] Encounter Details Date Type Department Care Team (Late st Contact Info) Description 12/16/2007 Outpatient Historical [facility] Rebecca Lantigua MD [address] [facility] [address] [place] [address] Social History Tobacco Use Types Packs/Day Years Used Date Smoking Tobacco: Never Assessed Comments Unknown Sex and Gender Information Value Date Recorded Sex Assigned at Not on file 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
--- OUTSIDE RECORDS SUMMARY | 2024-12-29 01:57 | XMS_ITS | Encounter Summary ---
Author Organization [facility] Address [address] [place] [address] Care Team Providers Care Rigging Man Name Role Phone Andi Bueno MD Primary Care Provider [phone] Encounter Details Date Type Department Care Team (Late st Contact Info) Description 10/28/2007 Outpatient Historical [facility] Primary Care - [address] [place] [address] Zac Paredes MD [address] [facility] [address] [place] [address] Routine General Medical Examination at a Health Care Facility Social History Tobacco Use Types Packs/Day Years Used Date Smoking Tobacco: Never Assessed Comments Unknown Sex and Gender Information Value Date Recorded Sex Assigned at Not on file Legal Sex Female 5:28 AM SMT OPERATOR Gender Identity Not on file Sexual Orientation Not on file documented as of this encounter Plan of Treatment Not on file documented as of this encounter Procedures Procedure Name Priority Date/Time Associated Diagnosis Comments TSH WITH REFLEX FT4 AND FT3 Routine 10/28/2007 10:56 PM SMT OPERATOR URIC ACID Routine 10/28/2007 10:56 PM SMT OPERATOR LIPID PANEL Routine 10/28/2007 10:56 PM SMT OPERATOR COMPREHENSIVE METABOLIC PANEL Routine 10/28/2007 10:56 PM SMT OPERATOR documented in this encounter Results * URIC ACID (10/28/2007 10:56 PM SMT OPERATOR) URIC ACID 3.6 2.3 - 6.6 mg/dL [facility] Blood specimen (specimen) 10/28/2007 10:56 PM SMT OPERATOR 10/28/2007 10:56 PM SMT OPERATOR Zac Paredes MD CHEMISTRY ORDERABLES Final Resul t Performing Organization Address [facility] Co de Phone Number [facility] [address] [place] [address] * TSH WITH REFLEX FT4 AND FT3 (10/28/2007 10:56 PM SMT OPERATOR) Pathologist [facility] TSH 1.62 0.27 - 4.20 uU/mL [facility] Blood specimen (specimen) 10/28/2007 10:56 PM SMT OPERATOR 10/28/2007 10:56 PM SMT OPERATOR Zac Paredes MD CHEMISTRY ORDERABLES Final Resul t Performing Organization Address [facility] Co de Phone Number [facility] [address] [place] [address] * COMPREHENSIVE METABOLIC PANEL (10/28/2007 10:56 PM SMT OPERATOR) Pathologist [facility] CALCIUM 9.3 8.4 - 10.2 mg/dL [facility] CHLORIDE 102 96 - 108 mmol/L [facility] ALBUMIN 4.2 3.4 - 4.8 g/dL [facility] CREATININE 0.77 0.51 - 0.95 mg/dL [facility] SODIUM 138 135 - 145 mmol/L [facility] ALT 17 0 - 31 U/L [facility] ALKALINE PHOSPHATASE 96 35 - 104 U/L [facility] BILIRUBIN TOTAL 0.6 0.2 - 1.0 mg/dL [facility] CO2 23 22 - 30 mmol/L [facility] TOTAL PROTEIN 7.6 6.3 - 8.6 g/dL [facility] POTASSIUM 4.1 3.5 - 4.9 mmol/L [facility] GLUCOSE 79 65 - 99 mg/dL [facility] AST 14 12 - 32 U/L [facility] BUN 15 6 - 20 mg/dL [facility] GFR, >60 >=60 mL/min/1.7 sq meter [facility] GFR >60 >=60 mL/min/1.7 sq meter [facility] Comment: Estimated GFR rate interpretative information for both Americans and non- Americans is available on the [facility] Intranet at: [email or web address] Select: Lab Policies and Procedures Select: Reference Ranges - GFR Blood specimen (specimen) 10/28/2007 10:56 PM SMT OPERATOR 10/28/2007 10:56 PM SMT OPERATOR us Zac Paredes MD CHEMISTRY ORDERABLES Edited [facility] [address] [place] [address] * (ABNORMAL) LIPID PANEL (10/28/2007 10:56 PM SMT OPERATOR) CHOLESTEROL 217(H) 100 - 199 mg/dL [facility] CHOL/HDL RATIO 3.1 2.0 - 5.0 [facility] TRIGLYCERIDE 64 10 - 149 mg/dL [facility] HDL 70(H) 40 - 59 mg/dL [facility] LDL CALCULATED 134(H) <=99 mg/dL [facility] LIPID PANEL COMMENT See Below [facility] Comment: The adult ATP and pediatric NCEP classifications for lipids are available on the [facility] Intranet at: [email or web address] Select: Lab Policies and Procedures,Current Select: Lipid Panel Interpretation Blood specimen (specimen) 10/28/2007 10:56 PM SMT OPERATOR 10/28/2007 10:56 PM SMT OPERATOR us Zac Paredes MD CHEMISTRY ORDERABLES Edited [facility] [address] [place] [address] documented in this encounter Visit Diagnoses Diagnosis Routine general medical examination at a health care facility documented in this encounter Care Teams Rigging Man Relationship Specialty Start Date End Date Andi Bueno MD [address] [facility] [address] [place] [address] PCP - General Internal Medicine 08/16/16 documented as of this encounter
--- OUTSIDE RECORDS SUMMARY | 2024-12-29 01:57 | XMS_ITS | Clinical Summary ---
Author Organization [employer] Address [address] [place] [address] Care Team Providers Care Account Director Name Role Phone Andi Bueno MD Primary Care Provider [phone] Allergies Active Allergy Reactions Criticality Noted Date Comments Hymenoptera Allergenic Extract Rash Low 03/24 [place] Rash Low 09/08/2016 Sertraline Other (See Comments) 04/29/2015 Burning Medications EPINEPHrine (EPIPEN) 0.3 mg/0.3 mL Auto-Injector Inject 0.3 mL (0.3 mg) by intramuscular injection one time as needed for Anaphylaxis For anaphylaxis after bee sting ...Seek medical attention immediatly. 1 Package 0 5 Active OLANZapine (ZYPREXA ZYDIS) 5 mg Tablet, Rapid DissolveIndicat ions:Pain in joint, pain in unspecified joint,Muscle ache Take 5 mg by mouth daily at bedtime . 5 Active DULoxetine (CYMBALTA) 60 mg Capsule, Delayed Release(E.C.) Take 60 mg by mouth 2 times daily . Active gabapentin (NEURONTIN) 300 mg capsule 6 Active lamoTRIgine (LAMICTAL) 150 mg tablet Take 150 mg by mouth daily . 6 Active sucralfate (CARAFATE) 1 gram tablet Take 1 Tablet (1 Gram) by mouth 4 times daily before meals and at bedtime. 30 Tablet None 6 Active LOSARTAN POTASSIUM (LOSARTAN ORAL) Take by mouth. Active methylPREDNISol one (MEDROL, LEIDY,) 4 mg Tablets, Dose Pack Take as directed. 1 Package 7 Active Active Problems Problem Noted Date Diagnosed Date Uncomplicated alcohol abuse 09/08/2016 Acute pharyngitis with mild- moderate airway narrowing on CT, most likely viral 01/23/2016 History of vocal cord dysfunction 01/23/2016 Bee sting allergy 01/23/2016 Hoarse voice quality 02/24/2015 GERD (gastroesophageal reflux disease) 5 Family history of sudden cardiac 3 Overview (01/16/2013): Brother at age 44 CAROLYNE on CPAP 04/25/2012 Recurrent herpes labialis 01/25/2012 Menopause 04/04/2011 Major depression 11/01/2009 Fibrocystic breast changes 11/01/2009 Morbidly obese 11/01/2009 Hyperlipidemia 11/01/2009 Bipolar 1 disorder, mixed, severe Uvulitis Resolved Problems Problem Noted Date Diagnosed Date Resolved Date Cough 02/24/2015 04/29/2015 Ankle edema 01/07/2015 04/29/2015 Routine general medical exam ination at a health care facility 12/03/2014 04/29/2015 Vaginal discharge 06/18/2012 01/16/2013 Trichomonal vaginitis 06/18/20122012 Phlebitis and thrombophlebit is of superficial vessels of lower extremities 01/25/2010 09/30/2010 Bursitis, hip 01/25/2010 03/24/2011 Painful respiration 12/03/2007 11/01/19 10 Spasm of muscle 12/03/2007 11/01/2009 Abnormal mammogram, unspecified 11/15/2007 11/01/2009 Routine general medical exam ination at a health care facility 10/28/2007 11/01/2009 Pain in joint, site unspecified 10/28/2007 11/01/2009 Family History Medical History Relation Name Comments Heart Failure Brother Bronchitis Daughter Diabetes Father Heart Disease Father MD Heart Failure Father Hypertension Father Stroke Father Hypertension Mother Breast Cancer Sister 1 44 Breast CA @ AG E 43 Cancer Sister 1 44 Depression Sister 2 Hypertension Sister 2 Other Sister 2 suicide attempt , depression Asthma Sister 3 Depression Sister 3 Colon Cancer Neg Hx Emphysema Neg Hx Lung Cancer Neg Hx Mesothelioma Neg Hx Tuberculosis Neg Hx Relation Name Status Comments Brother Daughter Father Mother Alive Sister 1 44 Sister 2 Alive Sister 3 Alive Social History Tobacco Use Types Packs/Day Years Used Date Smoking Tobacco: Never Smokeless Tobacco: Never Alcohol Use Standard Drinks/Week Comments Yes 3.3 (1 standard drink = 0.6 oz p ure alcohol) 2-4 beers /week Comments No Sex and Gender Information Value Date Recorded Sex Assigned at Not on file Legal Sex Female 5:28 AM IRRIGATOR SPRINKLING SYSTEM Gender Identity Not on file Sexual Orientation Not on file Occupation Industry Job Start Date Job End Date Not on file Not on file Not on file Not on file Last Filed Vital Signs Vital Sign Reading Time Taken Comments Blood Pressure 149/94 07/30/2017 9:15 AM IRRIGATOR SPRINKLING SYSTEM Pulse 82 07/30/2017 9:15 AM IRRIGATOR SPRINKLING SYSTEM Temperature 36.5 C (97.7 F) 07/30/2017 9:15 AM IRRIGATOR SPRINKLING SYSTEM Respiratory Rate 16 07/30/2017 9:15 AM IRRIGATOR SPRINKLING SYSTEM Oxygen Saturation 97% 07/30/2017 9:15 AM IRRIGATOR SPRINKLING SYSTEM Inhaled Oxygen Concentration - - Weight 123.8 kg (273 lb) 07/30/2017 9:15 AM IRRIGATOR SPRINKLING SYSTEM Height 157.5 cm (5' 2 ) 07/30/2017 9:15 AM IRRIGATOR SPRINKLING SYSTEM Body Mass Index 49.93 07/30/2017 9:15 AM IRRIGATOR SPRINKLING SYSTEM Plan of Treatment Health Maintenance Due Date Last Done Comments DTAP/TDAP/TD VACCINES (1 - Tdap) 1985 HEPATITIS B VACCINES (1 of 3 - 19+ 3-dose series) 1985 HPV/Cotest (21-29) 1987 HPV/Cotest (30-65) 1996 CERVICAL CANCER SCREENING 07/15/2011 PAP SMEAR 07/15/2011 07/15/2008 (Declined) COLORECTAL SCREENING 2011 Colorectal Cancer Screening 2011 FIT-DNA Q 3 years 2011 FIT/FOBT Q 1 year 2011 Flex Sig/CT Colonography Q 5 years 2011 ZOSTER VACCINE (1 of 2) 2016 BREAST CANCER SCREENING 10/11/2017 10/11/19 17, 03/19/2015, 11/22/2012, Additional history exists Pre-Diabetes and Diabetes Screening 06/21/2018 06/21/2015, 05/01/2014, 05/01/2014 INFLUENZA VACCINE (#1) 2024 Procedures Procedure Name Priority Date/Time Associated Diagnosis Comments MAMMO DIAGNOSTIC BILATERAL W OR WO CAD Routine 10/11/2016 8:57 AM IRRIGATOR SPRINKLING SYSTEM Breast mass HEMOGLOBIN A1C Routine 06/21/2015 4:01 PM CDT Morbid obesity, unspecified obesity type (CMS/HCC) Elevated glucose from Last 3 Months or Most Recently Relevant to Health Maintenance Results * MAMMO DIAGNOSTIC BILATERAL W OR WO CAD (10/11/2016 8:57 AM IRRIGATOR SPRINKLING SYSTEM) Anatomical Region Laterality Modality Breast Bilateral Mammography 10/11/2016 8:57 AM IRRIGATOR SPRINKLING SYSTEM Impressions 10/11/2016 2:42 PM IRRIGATOR SPRINKLING SYSTEM IMPRESSION: No imaging evidence of malignancy. RECOMMENDATION: Annual screening mammography unless otherwise indicated. BI-RADS 2: Benign. Dictated from: [facility] Narrative 10/11/2016 2:42 PM IRRIGATOR SPRINKLING SYSTEM EXAM: BILATERAL DIGITAL DIAGNOSTIC MAMMOGRAPHY WITH CAD EXAM DATE: 10/11/2016 INDICATION: Palpable superior lateral left breast mass previously with benign biopsy results that the patient reports is larger. COMPARISON: Mammography going back to 07/08/2010. FINDINGS: The breast parenchyma is predominantly fatty. No suspicious mass or microcalcification. The palpable superior lateral left breast mass is unchanged in size from the mammogram going back to 07/08/2010. CAD was utilized. Procedure Note Milena Maldonado MD - 10/11/2016 EXAM: BILATERAL DIGITAL DIAGNOSTIC MAMMOGRAPHY WITH CAD EXAM DATE: 10/11/2016 INDICATION: Palpable superior lateral left breast mass previously with benign biopsy results that the patient reports is larger. COMPARISON: Mammography going back to 07/08/2010. FINDINGS: The breast parenchyma is predominantly fatty. No suspicious mass or microcalcification. The palpable superior lateral left breast mass is unchanged in size from the mammogram going back to 07/08/2010. CAD was utilized. IMPRESSION IMPRESSION: No imaging evidence of malignancy. RECOMMENDATION: Annual screening mammography unless otherwise indicated. BI-RADS 2: Benign. Dictated from: [facility] Andi Bueno MD MAMMO ORDERABLES Final Result * HEMOGLOBIN A1C (06/21/2015 4:01 PM CDT) HEMOGLOBIN A1C 5.5 4.1 - 6.1 % 06/22/2015 9:30 PM CDT [facility] EST. AVG GLUCOSE, A1C 111 mg/dL 06/22/2015 9:30 PM CDT [facility] Blood Venipuncture - L ab Collect / Unknown 06/21/2015 4:01 PM CDT 06/21/2015 4:01 PM CDT Narrative [facility] - 06/22/2015 9:30 PM CDT Based on the ADAG study equation. Rebecca Lantigua MD CHEMISTRY ORDERABLES Final R esult [facility] Adapx [facility] CLMALI# [id number] [address] [place] [id number] from Last 3 Months or Most Recently Relevant to Health Maintenance Insurance [facility] Advance Directives For more information, please contact: [phone] * Full Code (Latest Code Status on File) Date Activated Date Inactivated Comments 01/23/2016 9:53 PM 01/24/2016 12:34 PM * Full Code Date Activated Date Inactivated Comments 05/06/2015 10:31 AM 05/06/2015 3:09 PM * Full Code Date Activated Date Inactivated Comments 01/06/2015 2:11 PM 01/09/2015 6:47 PM * Full Code Date Activated Date Inactivated Comments 12/02/2014 2:20 PM 12/06/2014 3:39 PM Care Teams Account Director Relationship Specialty Start Date End Date Andi Bueno MD [address] [place] [address] PCP - General Internal Medicine 08/16/16
--- OUTSIDE RECORDS SUMMARY | 2024-12-29 01:57 | XMS_ITS | Encounter Summary ---
Author Organization [employer] Address [address] [place] [address] Care Team Providers Care Port Steward Name Role Phone Andi Bueno MD Primary Care Provider [phone] Encounter Details Date Type Department Care Team (Late st Contact Info) Description 07/29/2008 Outpatient Historical [facility] Rebecca Lantigua MD [address] [place] [address] [address] [place] [address] Social History Tobacco Use Types Packs/Day Years Used Date Smoking Tobacco: Never Alcohol Use Standard Drinks/Week Comments No 0 (1 standard drink = 0.6 oz pur e alcohol) Comments No Sex and Gender Information Value Date Recorded Sex Assigned at Not on file Legal Sex Female 5:28 AM SLIP COVER CUTTER Gender Identity Not on file Sexual Orientation Not on file documented as of this encounter Plan of Treatment Not on file documented as of this encounter Visit Diagnoses Not on filedocumented in this encounter Care Teams Port Steward Relationship Specialty Start Date End Date Andi Bueno MD [address] [facility] [address] [place] [address] PCP - General Internal Medicine 08/16/16 documented as of this encounter
--- OUTSIDE RECORDS SUMMARY | 2024-12-29 01:57 | XMS_ITS | Encounter Summary ---
Author Organization [facility] Address [address] [place] [address] Care Team Providers Care Shoe Sewing Machine Operator And Tender Name Role Phone Andi Bueno MD Primary Care Provider [phone] Encounter Details Date Type Department Care Team (Late st Contact Info) Description 10/28/2007 Outpatient Historical [facility] Primary Care - [address] [place] [address] Zac Paredes MD [address] [facility] [address] [place] [address] Social History Tobacco Use Types Packs/Day Years Used Date Smoking Tobacco: Never Assessed Comments Unknown Sex and Gender Information Value Date Recorded Sex Assigned at Not on file Legal Sex Female 5:28 AM TENTER FRAME BACK TENDER Gender Identity Not on file Sexual Orientation Not on file documented as of this encounter Plan of Treatment Not on file documented as of this encounter Visit Diagnoses Not on filedocumented in this encounter Care Teams Shoe Sewing Machine Operator And Tender Relationship Specialty Start Date End Date Andi Bueno MD [address] [facility] [address] [place] [address] PCP - General Internal Medicine 08/16/16 documented as of this encounter
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
--- OUTSIDE RECORDS SUMMARY | 2024-12-29 01:57 | XMS_ITS | Continuity of Care Document ---
Author Organization [facility] Address [address] [place] [address] Phone Care Team Providers Care Chiropractic Care Name Role Phone Yovani Borges MD Unavailable Unavailable Procedures Procedure Date OFFICE/OUTPATIENT VISIT NEW OFFICE/OUTPATIENT VISIT EST OFFICE/OUTPATIENT VISIT NEW Advance Directives Directive Yes / No Effective Date File Name No Information Encounters Encounter Description Practice Location Reason(s) For Visit Diagnoses Date Provider Providers Copied on Encounter [facility], [address] [place] [address], [address], [place] tel:[phone] [facility] No Information 5 Katerina Pina. [address] [place], [place], [id number] . tel: [phone] OFFICE/OUTPAT IENT VISIT [facility], [address], [place], [address], [place] tel:[phone] [facility] Primary localized osteoarthros is, lower legAnkle pain 5 Katerina Pina. [address] [place], [place], [id number] . tel: [phone] OFFICE/OUTPAT IENT VISIT EST [facility], [address], [place], [address], [place] tel:[phone] [facility] 4 Sajan Damian. [address], [place], [place], [id number] . tel: [phone] OFFICE/OUTPAT IENT VISIT [facility], [address], [place], [address], tel:[phone] [facility] Ankle fracture 0-201 3 Sajan Damian. [address], [place], [place], [address] . tel: [phone] Family History Family Member Type Diagnosis Age At Onset Son Problem (finding) Alive and well Payers Payer name Insurance type Covered republican [...]
[2024-12-29 01:58] VITALS: BP 147/90; PULSE 82; RESP 21; TEMP 36.9; O2SAT 93
--- OUTSIDE RECORDS SUMMARY | 2024-12-29 01:58 | XMS_ITS | Encounter Summary ---
Author Organization [employer] [facility] Address [address] [place] [address] Care Team Providers Care Manager Investment Name Role Phone Andi Bueno MD Primary Care Provider [phone] Encounter Details Date Type Department Care Team (Latest Contact Info) Description 12/03/2007 Outpatient Historical [facility] Cristian Rick MD [address] [facility] [address] [place] [address] Painful Respiration Social History Tobacco Use Types Packs/Day Years Used Date Smoking Tobacco: Never Assessed Comments Unknown Sex and Gender Information Value Date Recorded Sex Assigned at Not on file Legal Sex Female 5:28 AM AIRPORT OPERATIONS SUPERVISOR Gender Identity Not on file Sexual Orientation Not on file documented as of this encounter Plan of Treatment Not on file documented as of this encounter Procedures Procedure Name Priority Date/Time Associated Diagnosis Comments XR RIBS UNILATERAL RIGHT W PA CHEST Routine 12/03/2007 12:21 PM CDT documented in this encounter Results * XR RIBS UNILATERAL RIGHT W PA CHEST (12/03/2007 12:21 PM CDT) Anatomical Region Laterality Modality Chest Other 12/03/2007 12:2 1 PM CDT Narrative 12/03/2007 12:42 PM CDT [facility] [address] [place], [place] [address] Admit Date: 12/03/2007 LISSETTE CAR Sex: F Admit Prov: CRISTIAN RICK Date: 1965 Primary Care Prov: GREGORIO LEVI Nay CMRN: [id number] [id number] [facility] Ordering Prov: N/A Accession Number: [id number] Interpretation Examination: Chest with right ribs. 5 views. Clinical History: Pain. Findings: Chest examination fails to demonstrate pleural, pulmonary, or mediastinal abnormality. Heart size is normal. There is no evidence of right rib fracture. Impression: Normal chest with right ribs. . Dictated by: Nay PATE 12/03/2007 12:42 Electronically signed by: Nay PATE 12/03/2007 12:42 Procedure Note Provider, Historical - 12/03/[address] [address] Admit Date: 12/03/2007 LISSETTE CAR Sex: F Admit Prov: CRISTIAN RICK Date:1965 Primary Care Prov: JACKSON LEVICorazon Tee CMRN: [id number] [facility] [id number] IM[facility]ING [facility] Ordering Prov: N/A Interpretation Examination: Chest with right ribs. 5 views. Clinical History: Pain. Findings: Chest examination fails to demonstrate pleural, pulmonary,or mediastinal abnormality. Heart size is normal. There is no evidenceof right rib fracture. Impression: Normal chest with right ribs. . Dictated by: Nay PATE 12/03/2007 12:42 Electronically signed by: Nay PATE 12/03/2007 12:42 Cristian Rick MD DIAGNOSTIC IMAGING ORDERABLE S Final Result documented in this encounter Visit Diagnoses Diagnosis Painful respiration documented in this encounter Care Teams Manager Investment Relationship Specialty Start Date End Date Andi Bueno MD [address] [place] [address] PCP - General Internal Medicine 08/16/16 documented as of this encounter
--- OUTSIDE RECORDS SUMMARY | 2024-12-29 01:58 | XMS_ITS | Encounter Summary ---
Author Organization [facility] Address [address] [place] [address] Care Team Providers Care Armature Inspector Name Role Phone Andi Bueno MD Primary Care Provider [phone] Encounter Details Date Type Department Care Team (Late st Contact Info) Description 12/03/2007 Outpatient Historical [facility] Primary Care - [address] [place] [address] Rebecca Lantigua MD [address] [place] [address] [address] [place] [address] Social History Tobacco Use Types Packs/Day Years Used Date Smoking Tobacco: Never Assessed Comments Unknown Sex and Gender Information Value Date Recorded Sex Assigned at Not on file Legal Sex Female 5:28 AM INFORMATION SYSTEMS ANALYST Gender Identity Not on file Sexual Orientation Not on file documented as of this encounter Plan of Treatment Not on file documented as of this encounter Visit Diagnoses Not on filedocumented in this encounter Care Teams Armature Inspector Relationship Specialty Start Date End Date Andi Bueno MD [address] [facility] [address] [place] [address] PCP - General Internal Medicine 08/16/16 documented as of this encounter
[2024-12-29 02:08] VITALS: O2SAT 97
--- OUTSIDE RECORDS SUMMARY | 2024-12-29 02:08 | XMS_ITS | Continuity of Care Document ---
Author Organization [facility] Address [address] [place] [address] Phone Care Team Providers Care Communications Equipment Operator Name Role Phone Mateus Rm MD [...] Diagnoses Date Provider Providers Copied on Encounter [facility], [address], [place], [place], [address], tel:[phone] [facility] No Information Jag Ignacio. [address] [facility], [facility] [address] [place], [place], [address], . tel:[phone] [facility], [address], [place], [place], [address], tel:[phone] [facility] No Information Luz Weiss. [address] [facility], [facility] [address] , [place], [place], [id number], . tel:[phone] [facility], [address], [place], [place], [address], tel:[phone] [facility] HEADACHEACUTE SINUSITIS NOS Luz Weiss. [address] [facility], [facility] [address] , [place], [place], [address], . tel:[phone] [facility], [address], [place], [place], [address], tel:[phone] [facility] NAUSEA WITH VOMITING Jag Ignacio. [address] [facility], [address], [place], [place], [address], . tel:[phone] [facility], [address], [place], [place], [address], tel:[phone] [facility] No Information Columbusjudith Weiss. [address] [facility], [address], [place], [place], [address], . tel:[phone] Family History Family Member Type Diagnosis Age At Onset No Information Payers Payer name Insurance type Covered democrat ID Authoriza tion(s) No Information Social History [...]
--- OUTSIDE RECORDS SUMMARY | 2024-12-29 02:08 | XMS_ITS | Continuity of Care Document ---
Author Organization [facility] Address [address] [facility] [address] [place] [address] Phone Care Team Providers Care Plastic Parts Designer Name Role Phone Yovani Borges MD Unavailable Unavailable Procedures Procedure Date OFFICE/OUTPATIENT VISIT NEW OFFICE/OUTPATIENT VISIT EST OFFICE/OUTPATIENT VISIT NEW Advance Directives Directive Yes / No Effective Date File Name No Information Encounters Encounter Description Practice Location Reason(s) For Visit Diagnoses Date Provider Providers Copied on Encounter [facility], [address] [place] [address], [address], [place] tel:[phone] [facility] No Information 5 Katerina Pina. [address] [place], [place], [address] . tel: [phone] OFFICE/OUTPAT IENT VISIT [facility], [address] [facility] [address], [place], [address], [place] tel:[phone] [facility] Primary localized osteoarthros is, lower legAnkle pain 5 Katerina Pina. [address] [place], [place], [address] . tel: [phone] OFFICE/OUTPAT IENT VISIT EST [facility], [address] [facility] [address], [place], [address], [place] tel:[phone] [facility] 4 Sajan Damian. [address] [facility] [address], [place], [place], [address] . tel: [phone] OFFICE/OUTPAT IENT VISIT [facility], [address] [facility] [address], [place], [address], tel:[phone] [facility] Ankle fracture 0-201 3 Sajan Damian. [address] [facility] [address], [place], [place], [address] . tel: [phone] Family History Family Member Type Diagnosis Age At Onset Son Problem (finding) Alive and well Payers Payer name Insurance type Covered democrat [...]
--- NOTE | 2024-12-29 02:12 | ED_ITS ---
HPI - Allergic Reaction General Chief complaint: Allergic Reaction Stated complaint: allergic reaction Time Seen by Provider: 12/29/24 01:56 History of Present Illness HPI narrative: Patient is a 59-year-old female who complaining of an allergic reaction since yesterday. Patient states that she developed hives throughout her body yesterday and felt nauseous yesterday. Patient states that the nausea has subsided but the rash persisted and admits that it is itchy. Patient has a spot under her chin, and a few spots on her bilateral arms that do appear resembling aortic area. Patient states that she gets these episodes frequently and has followed up with an precipitator operator and has had allergy testing but they could not figure out what is causing it. Patient denies any use of new products or new food. Denies any trouble breathing or any throat swelling. No additional symptoms or concerns at this time. Related Data Home Medications ?Medication ?Instructions ?Recorded ?Confirmed ?Last Taken ?Type folic acid 1 mg tablet 1 mg PO DAILY 02/19/20 11/19/24 04/18/22 History gabapentin 600 mg tablet 600 mg PO DAILY 03/26/20 11/19/24 04/19/22 History (Neurontin) multivitamin (Daily Multi-Vitamin 1 tablet PO DAILY 01/19/22 11/19/24 04/16/22 History tablet) cetirizine 10 mg tablet (Zyrtec) 10 mg PO DAILY PRN 03/19/23 11/19/24 Unknown History lamotrigine 25 mg tablet 25 mg PO DAILY 09/17/24 11/19/24 Unknown History quetiapine 100 mg tablet (Seroquel) 100 mg PO QHS 11/19/24 11/19/24 Unknown History Allergies Allergy/AdvReac Type Severity Reaction Status Date / Time sertraline Allergy Mild Hives Verified 12/29/24 01:56 lithium AdvReac Intermediate Nausea and Verified 12/29/24 01:56 Vomiting Review of Systems Review of Systems: All systems are reviewed and are negative unless stated otherwise in the HPI. [facility] Past Medical History Medical History COVID-19 History of 1985 Arthritis Acid reflux Hyperlipidemia Hypertension PTSD (post-traumatic stress disorder) Anxiety and depression Adverse effect of rhwdmdwssbb-liunyingtx-xcuyzv inhibitors, initial encounter CAROLYNE on CPAP Vaginal bleeding Bipolar affective disorder Surgical History Surgical History Status post hysterectomy with oophorectomy History of myomectomy History of section S/P breast lumpectomy History of tubal ligation Family History Family History Mother Patient's mother is in good health Diabetes mellitus Hypertension Sibling Patient's brother is in good health Family history of malignant neoplasm of breast in first degree relative Diabetes mellitus Family history of blood dyscrasia Hypertension Father Family history of heart disease in male family member before age 55 Family history of cardiovascular disease Diabetes mellitus Hypertension Cerebrovascular accident Social History Social History Smoking status: Never smoker Second hand tobacco smoke exposure: No Alcohol intake: current Alcohol use details: Social Substance use: never Substance use type: does not use Do You Feel Safe in your Home?: Yes Lack of Transportation: No Lack of Food: Sometimes True Current Housing: I Have Housing Concerned About Future Housing: No Difficulty Paying Gas/Electric Bills: No Difficulty Paying for Meds: No Education: High School Diploma/GED Difficulty w/ Childcare or Family Care: No Living arrangements: with family Gender identity (if verbalized by the patient): Female Spiritual care concerns: No Agree to blood products: Yes Exam Narrative: General: Alert, awake, afebrile, in no acute distress. HEENT: PERRL, no rhinorrhea, no post nasal drip, oropharynx clear. Neck: Trachea midline, no JVD, no lymphadenopathy. Cardiovascular: Regular rate and rhythm, no murmurs, rubs or gallops, no peripheral edema. Respiratory: Clear to auscultation bilaterally, no tachypnea, no wheezing, no rhonchi, no rubs, no respiratory distress. Abdomen: Soft, nontender, nondistended, no rebound, no guarding, no peritoneal signs. Musculoskeletal: No joint swelling or deformity, normal muscle tone. Skin: Mild urticarial rash noted to the patient's chin and upper extremity. Psychiatric: Alert and oriented, normal behavior and judgment for situation. Neurological: Alert and oriented to person, place, and time. Follows all commands. No focal deficits, speech is clear and fluent. Course Vital Signs Vital signs: Vital Signs Temperature 98.5 F 12/29/24 01:58 Pulse Rate 82 12/29/24 01:58 Respiratory Rate 21 H 12/29/24 01:58 Blood Pressure 147/90 H 12/29/24 01:58 Pulse Oximetry 93 12/29/24 01:58 Oxygen Delivery Room Air 12/29/24 01:58 Temperature 98.5 F 12/29/24 01:58 Pulse Rate 82 12/29/24 01:58 Respiratory Rate 21 H 12/29/24 01:58 Blood Pressure 147/90 H 12/29/24 01:58 Pulse Oximetry 97 12/29/24 02:08 Oxygen Delivery Room Air 12/29/24 02:08 MDM - Allergic Reaction MDM Narrative Medical decision making narrative: The patient was evaluated by myself in the emergency department. History is obtained from patient who is an independent historian and physical exam was performed. External medical records were reviewed at this time. Patient was administered 125 mg of IV Solu-Medrol, 25 mg IV Benadryl and 20 mg of IV Pepcid. Differential diagnosis considerations include allergic reaction, angioedema, anaphylaxis. Comorbidities impacting this visit include history of recurrent unknown allergen. I have evaluated and discussed social determinants of health with the patient that could potentially impact subsequent diagnosis and treatment plans. On repeat assessment of the patient, reevaluation revealed that the patient is doing well and is in no acute distress. Patient symptoms have improved since she arrived to our emergency department. Repeat vital signs were all reviewed and noted to be stable. Differential diagnosis and treatment plan were discussed with the patient at bedside. Patient agrees with discussion and after shared medical decision making agrees with discharge. All questions were answered to the patient's satisfaction. Patient will follow up with her precipitator operator in 3-5 days. Patient was provided with strict return precautions and instructed to return to the emergency department if any new or worsening symptoms develop. The patient was discharged in stable condition. Discharge Plan Discharge Clinical Impression: Allergic reaction Patient Disposition: Home Condition: Improved Instructions: Antibiotic Form, General Allergic Reaction (ED) Additional Instructions: Please follow-up with your family doctor/precipitator operator within the next 3 5 days. Return to emergency department if any new or worsening symptoms develop. Patient Language: Citizen [place] Prescriptions: No Action gabapentin [Neurontin] 600 mg tablet 600 mg PO DAILY cetirizine [Zyrtec] 10 mg tablet 10 mg PO DAILY PRN omeprazole 40 mg capsule,delayed release(DR/EC) 40 mg PO BID Qty: 180 1RF folic acid 1 mg tablet 1 mg PO DAILY multivitamin [Daily Multi-Vitamin] Tablet 1 tablet PO DAILY clonazepam [Klonopin] 0.5 mg tablet 0.5 mg PO TID Qty: 90 0RF lamotrigine 25 mg tablet 25 mg PO DAILY atorvastatin 80 mg tablet 80 mg PO DAILY Qty: 90 1RF metoprolol succinate 25 mg tablet extended release 24 hr 25 mg PO DAILY Qty: 90 2RF quetiapine [Seroquel] 100 mg tablet 100 mg PO QHS montelukast [Singulair] 10 mg tablet 10 mg PO DAILY Qty: 30 2RF methylprednisolone [Medrol (Abhishek)] 4 mg tablets,dose pack See Rx Instructions PO PER PKG DIR Qty: 21 0RF Rx Instructions: PO PER PKG DIR amoxicillin-pot clavulanate 875-125 mg tablet 1 tablet PO BID Qty: 14 0RF famotidine 20 mg tablet See Rx Instructions .ROUTE .COMPLEX PRN (Reason: reflux) Qty: 90 1RF Dose Instruction: TAKE 1 TABLET BY MOUTH EVERY DAY Rx Instructions: TAKE 1 TABLET BY MOUTH EVERY DAY PRN; fluticasone propionate [Flonase Allergy Relief] 50 mcg/actuation spray,suspension 2 spray intranasal DAILY Qty: 16 2RF Rx Instructions: administer into each nostril pantoprazole 40 mg tablet,delayed release (DR/EC) 40 mg PO QAM Qty: 180 1RF benzonatate 100 mg capsule See Rx Instructions PO TID PRN (Reason: cough) Qty: 60 0RF Rx Instructions: orally three times a day PRN; 1-2 tabs up to three times a day losartan 25 mg tablet 25 mg PO DAILY Qty: 90 1RF olanzapine [Zyprexa Zydis] 15 mg tablet,disintegrating 15 mg PO QHS Qty: 30 1RF Follow-up/Referrals: Aziza Fernandez APRN [Primary Care Provider] - 3 Days Time of Disposition: 03:25
[2024-12-29] MEDS: methylPREDNISolone SOD SUCC 125 MG VIAL IV PUSH (02:21)
[2024-12-29] MEDS: diphenhydrAMINE HCl INJ 50 MG/ML VIAL 25 MG IV PUSH (02:23)
[2024-12-29] MEDS: FAMOTIDINE 20 MG/2 ML VIAL IV PUSH (02:24)
[2024-12-29 03:25] VITALS: BP 136/85; PULSE 58; RESP 23; O2SAT 97
[2024-12-29 03:35] VITALS: BP 136/85; PULSE 58; RESP 23; O2SAT 97
== END 2024-12-29 03:37 | disposition home or self-care (01) ==
PROVIDERS: Emergency Provider Emergency Medicine; PCP Nurse Practitioner Family
DX: T78.40XA Allergy, unspecified, initial encounter (principal); I10 Essential (primary) hypertension; E78.5 Hyperlipidemia, unspecified; G47.33 Obstructive sleep apnea (adult) (pediatric); K21.9 Gastro-esophageal reflux disease without esophagitis; M19.90 Unspecified osteoarthritis, unspecified site; F43.10 Post-traumatic stress disorder, unspecified; F41.9 Anxiety disorder, unspecified; F31.9 Bipolar disorder, unspecified; Z86.16 Personal history of COVID-19; Z90.710 Acquired absence of both cervix and uterus; Z79.899 Other long term (current) drug therapy; X58.XXXA Exposure to other specified factors, initial encounter
CPT/HCPCS: 96374; 96375; 99284; J1200; J2919

== ENCOUNTER 2024-12-31 10:53 | Outpatient (CLI) | payer OTHER, SELFPAY ==
[2024-12-31 11:40] LABS: Basophils Percent Auto 0.1 % (0.2-1.2); Hematocrit 40.9 % (37.0-47.0); Hemoglobin 12.8 g/dL (12.0-15.0); Immature Granulocyte Absolute 0.03 K/mm3 (0.00-0.031); Immature Granulocyte Percent A 0.3 % (0-0.5); Lymphocytes Absolute Auto 1.77 K/mm3 (0.9-3.2); Lymphocytes Percent Auto 19.4 % (18.3-44.2); Mean Corpuscular HGB Conc 31.3 g/dl (32-36); Mean Corpuscular Hemoglobin 27.3 pg (26-34); Mean Corpuscular Volume 87.2 fl (80-100); Mean Platelet Volume 10.8 fl (7.4-10.4); Monocytes Absolute Auto 0.7 K/mm3 (0.1-0.6); Monocytes Percent Auto 7.2 % (2.6-8.5); Neutrophils Absolute Auto 6.7 K/mm3 (1.3-6.7); Platelet Count Result 277 k/mm3 (150-375); Red Blood Count 4.69 M/mm3 (4.2-5.4); Red Cell Distribution Width 14.1 % (11.5-14.5); White Blood Count 9.1 K/mm3 (4.5-10.0)
[2024-12-31 11:53] LABS: Alanine Aminotransferase 16 U/L (6-35); Albumin Level 3.6 g/dL (3.5-5.1); Alkaline Phosphatase 83 U/L (38-126); Anion Gap 7 mmol/L (4-12); Aspartate Amino Transferase 16 U/L (14-36); Bilirubin,Total 0.5 mg/dL (0.2-1.3); Blood Urea Nitrogen 10 mg/dL (7-17); CRP < 0.5 mg/dL (<1.0); Calcium 8.5 mg/dL (8.4-10.2); Carbon Dioxide 26 mmol/L (22-30); Chloride 103 mmol/L (98-107); Cholesterol 196 mg/dL (0-200); Estimated Glomerular Filt Rate > 60; Glucose 99 mg/dL (65-110); HDL Direct 58 mg/dL; Potassium 3.6 mmol/L (3.4-5.0); Sodium 136 mmol/L (137-145); Triglycerides 100 mg/dL (<150)
[2024-12-31 12:03] LABS: Erythrocyte Sedimentation Rate 5 mm/hr (0-20); LDL Cholesterol Direct 97 mg/dL
--- OUTSIDE RECORDS SUMMARY | 2024-12-31 12:46 | XMS_ITS | Encounter Summary ---
Author Organization [facility] Address [address] [place] [address] Care Team Providers Care Armored Cable Machine Operator Name Role Phone Andi Bueno MD Primary Care Provider [phone] Encounter Details Date Type Department Care Team (Late st Contact Info) Description 11/19/2007 Outpatient Historical HIS [facility] CHANI Paredes, Zac Tee MD [address] [facility] [address] [place] [address] Abnormal Mammogram, Unspecified Social History Tobacco Use Types Packs/Day Years Used Date Smoking Tobacco: Never Assessed Comments Unknown Sex and Gender Information Value Date Recorded Sex Assigned at Not on file Legal Sex Female 5:28 AM GEOGRAPHIC AREA INTELLIGENCE OFFICER Gender Identity Not on file Sexual Orientation [...] PM CDT Narrative 11/19/2007 4:50 PM CDT [facility] [address] [place], [place] [address] Admit Date: 11/19/2007 LISSETTE CAR Sex: F Admit Prov: ZAC PAREDES Date: 1965 Primary Care Prov: ZAC PAREDES CMRN: [id number] Room: [facility] SSN: [id number] IMAGING SERVICES Ordering Prov: ZAC PAREDES Accession Number: [id number] Interpretation Left breast ultrasound 11/19/2007 History: Mass [...] AMK Procedure Note Provider, Historical - 11/19/[address] [address] Admit Date: 11/19/2007 LISSETTE CAR Sex: F Admit Prov: ZAC PAREDES Date:1965 Primary Care Prov: ZAC PAREDES CMRN: [id number] Room: [facility] SSN: [id number] IMAGING SERVICES Ordering Prov: ZAC PAREDES Interpretation [...] unspecified documented in this encounter Care Teams Armored Cable Machine Operator Relationship Specialty Start Date End Date Andi Bueno MD [address] [facility] [place] [address] [place] [address] PCP - General Internal Medicine 08/16/16 documented as of this encounter
--- OUTSIDE RECORDS SUMMARY | 2024-12-31 12:46 | XMS_ITS | Encounter Summary ---
Author Organization [facility] Address [address] [place] [address] Care Team Providers Care Toll Relief Operator Name Role Phone Andi Bueno MD Primary Care Provider [phone] Encounter Details Date Type Department Care Team (Late st Contact Info) Description 12/03/2007 Outpatient Historical [facility] Primary Care - [address] [place] [address] Rebecca Lantigua MD [address] [place] [address] [address] [place] [address] Social History Tobacco Use Types Packs/Day Years Used Date Smoking Tobacco: Never Assessed Comments Unknown Sex and Gender Information Value Date Recorded Sex Assigned at Not on file Legal Sex Female 5:28 AM LIGHT ADJUSTER Gender Identity Not on file Sexual Orientation Not on file documented as of this encounter Plan of Treatment Not on file documented as of this encounter Visit Diagnoses Not on filedocumented in this encounter Care Teams Toll Relief Operator Relationship Specialty Start Date End Date Andi Bueno MD [address] [facility] [address] [place] [address] PCP - General Internal Medicine 08/16/16 documented as of this encounter
--- OUTSIDE RECORDS SUMMARY | 2024-12-31 12:46 | XMS_ITS | Clinical Summary ---
Author Organization [facility] Address [place] [address] Care Team Providers Care Pattern Setter Name Role Phone Jaime Taylor DO Primary Care Provider [phone] Allergies Active Allergy Reactions Criticality Noted Date Comments [place] Hives 11/02/2021 Sertraline Hives 11/02/2021 Medications losartan [...] on file Legal Sex Female 12:38 PM PRESSROOM SUPERVISOR Gender Identity Not on file Sexual Orientation Not on file Last Filed Vital Signs Vital Sign Reading Time Taken Comments Blood Pressure 119/80 11/09/2021 12:50 PM PRESSROOM SUPERVISOR Pulse 78 11/09/2021 12:50 PM PRESSROOM SUPERVISOR Temperature 36.4 C (97.5 F) 11/09/2021 12:23 PM PRESSROOM SUPERVISOR Respiratory Rate 27 11/09/2021 12:50 PM PRESSROOM SUPERVISOR Oxygen Saturation 96% 11/09/2021 12:50 PM PRESSROOM SUPERVISOR Inhaled Oxygen Concentration - - Weight 115.2 kg (254 lb) 11/02/2021 1:59 PM PRESSROOM SUPERVISOR Height 154.9 cm (5' 1 ) 11/02/2021 1:59 PM PRESSROOM SUPERVISOR Body Mass Index 47.99 11/02/2021 1:59 PM PRESSROOM SUPERVISOR Plan of Treatment Health Maintenance Due Date [...] Every 5 Years 1996 Cervical Cancer Screening [facility] HPV 1996 Mammogram Screening 2006 Pneumococcal Vaccine: [...] this topic Medical Devices Implanted Type Area Central Supply Nurse Device Identifier Shelf Expiration Date Model / Serial / Lot Screw Screw Right: Ankle Insurance [facility] Care Teams Pattern Setter Relationship Specialty Start Date End Date Jaime Taylor DO [address] [address] PCP - General INTERNAL MEDICINE 11/09/21
--- OUTSIDE RECORDS SUMMARY | 2024-12-31 12:46 | XMS_ITS | Encounter Summary ---
Author Organization [facility] Address [address] [place] [address] Care Team Providers Care Area Secretary Name Role Phone Andi Bueno MD Primary Care Provider [phone] Encounter Details Date Type Department Care Team (Late st Contact Info) Description 12/03/2007 Outpatient Historical [facility] Primary Care - [address] [place] [address] Rebecca Lantigua MD [address] [place] [address] [address] [place] [address] Social History Tobacco Use Types Packs/Day Years Used Date Smoking Tobacco: Never Assessed Comments Unknown Sex and Gender Information Value Date Recorded Sex Assigned at Not on file Legal Sex Female 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 [address] [place] [address] PCP - General Internal Medicine 08/16/16 documented as of this encounter
--- OUTSIDE RECORDS SUMMARY | 2024-12-31 12:46 | XMS_ITS | Encounter Summary ---
Author Organization [employer] Address [address] [place] [address] Care Team Providers Care Associate Software Developer Name Role Phone Andi Bueno MD Primary Care Provider [phone] Encounter Details Date Type Department Care Team (Late st Contact Info) Description 07/29/2008 Outpatient Historical [facility] Rebecca Lantigua MD [address] [place] [address] [address] [place] [address] Social History Tobacco Use Types Packs/Day Years Used Date Smoking Tobacco: Never Alcohol Use Standard Drinks/Week Comments No 0 (1 standard drink = 0.6 oz pur e alcohol) Comments No Sex and Gender Information Value Date Recorded Sex Assigned at Not on file Legal Sex Female 5:28 AM CHIEF OF PEDIATRIC UROLOGY Gender Identity Not on file Sexual Orientation Not on file documented as of this encounter Plan of Treatment Not on file documented as of this encounter Visit Diagnoses Not on filedocumented in this encounter Care Teams Associate Software Developer Relationship Specialty Start Date End Date Andi Bueno MD [address] [facility] [address] [place] [address] PCP - General Internal Medicine 08/16/16 documented as of this encounter
--- OUTSIDE RECORDS SUMMARY | 2024-12-31 12:46 | XMS_ITS | Encounter Summary ---
Author Organization [facility] Address [address] [place] [address] Care Team Providers Care Product Manager Name Role Phone Andi Bueno MD Primary Care Provider [phone] Encounter Details Date Type Department Care Team (Late st Contact Info) Description 07/21/2008 Outpatient Historical HIS [facility] CHANI Paredes, Zac Tee MD [address] [facility] [address] [place] [address] Abnormal Mammogram, Unspecified Social History Tobacco Use Types Packs/Day Years Used Date Smoking Tobacco: Never Alcohol Use Standard Drinks/Week Comments No 0 (1 standard drink = 0.6 oz pur e alcohol) Comments No Sex and Gender Information Value Date Recorded Sex Assigned at Not on file Legal Sex Female 5:28 AM IT SECURITY ARCHITECT Gender Identity Not on file Sexual Orientation Not on file documented as of this encounter Plan of Treatment Not on file documented as of this encounter Procedures Procedure Name Priority Date/Time Associated Diagnosis Comments MAMMO DIAGNOSTIC BILATERAL W OR WO CAD Timed Study 07/21/2008 9:22 AM IT SECURITY ARCHITECT documented in this encounter Results * MAMMO DIGITAL DIAG BILAT (07/21/2008 9:22 AM IT SECURITY ARCHITECT) Anatomical Region Laterality Modality Breast Bilateral Other 07/21/2008 9:22 AM IT SECURITY ARCHITECT Narrative 2008 7:53 AM IT SECURITY ARCHITECT [id number] [facility] [place], [place] [address] Admit Date: 07/21/2008 LISSETTE CAR Sex: F Admit Prov: ZAC PAREDES Date: 1965 Primary Care Prov: ZAC PAREDES CMRN: [id number] Room: [facility] SSN: [id number] IMAGING SERVICES Ordering Prov: ZAC PAREDES Accession Number: [id number] Interpretation BILATERAL DIAGNOSTIC DIGITAL MAMMOGRAMS WITH COMPUTER [...] AMK Procedure Note Do Hirsch - [address] [id number] [place] [place], [place] [address] Admit Date: 07/21/2008 LISSETTE CAR Sex: F Admit Prov: ZAC PAREDES Date:1965 Primary Care Prov: ZAC PAREDES CMRN: [id number] Room: [facility] SSN: [id number] IMAGING SERVICES Ordering Prov: ZAC PAREDES Interpretation [...] unspecified documented in this encounter Care Teams Product Manager Relationship Specialty Start Date End Date Andi Bueno MD [address] [facility] [address] [place] [address] PCP - General Internal Medicine 08/16/16 documented as of this encounter
--- OUTSIDE RECORDS SUMMARY | 2024-12-31 12:46 | XMS_ITS | Clinical Summary ---
Author Organization [facility] Address [address] [place] [address] Care Team Providers Care Piercing Machine Operator Name Role Phone Jaime Taylor Primary Care Provider [phone] [facility],non-owned Affiliates and Associated Physician Practices is amultiple site organization consisting of ambulatory clinics and hospital sitesin [place], [place], [place] and [place]. This disclosure is being madepursuant to the Care Everywhere program and may not contain all information available regarding this patient. Last updated 18.[facility] Allergies Active Allergy Reactions Criticality Noted Date Comments Browning GI Discomfort 02/14/2016 Sertraline Urticaria High 02/14/2016 [...] THINPREP IG +HPV MRNA E6/E7 RFLX 16/18,45 (ObsEva) (02/14/2016 12:04 PM CDT) Clinical Information [facility] [...] has been evaluated with computer assisted technology. Rental Salesperson [facility] Comment: BAB, CT(ASCP) CT screening location: [place] [address] Human papillomavirus mRNA E6 E7 Not Detected Not Detected [facility] Comment: This test was performed using the APTIMA HPV Assay ([employer] [employer] This assay detects E6/E7 viral messenger RNA (mRNA) from 14 high-risk HPV types (16,18,31,33,35,39,45,51,52,56,58,59,66,68). Test Performed at: [facility] [address] STIVEN HEDRICK MD 02/14/2016 12:0 4 PM CDT 02/15/2016 5:13 AM CDT us Mine Sams MD LAB - PATHOLOGY/CYTOLOGY [facility]K [facility]SON[facility] Final Result [place] [address] [place] [address] from Last 3 Months or Most Recently Relevant to Health Maintenance Insurance [employer] [place] [address] [place] [address] [facility] [employer] Care Teams Piercing Machine Operator Relationship Specialty Start Date End Date Jaime Taylor DO [address] [place] [id number] PCP - General 05/02/22
--- OUTSIDE RECORDS SUMMARY | 2024-12-31 12:46 | XMS_ITS | Encounter Summary ---
Author Organization [facility] Address [address] [place] [address] Care Team Providers Care Research Director Name Role Phone Andi Bueno MD Primary Care Provider [phone] Encounter Details Date Type Department Care Team (Late st Contact Info) Description 10/28/2007 Outpatient Historical [facility] Primary Care - [address] [place] [address] Zac Paredes MD [address] [facility] [address] [place] [address] Social History Tobacco Use Types Packs/Day Years Used Date Smoking Tobacco: Never Assessed Comments Unknown Sex and Gender Information Value Date Recorded Sex Assigned at Not on file Legal Sex Female 5:28 AM 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
--- OUTSIDE RECORDS SUMMARY | 2024-12-31 12:46 | XMS_ITS | Encounter Summary ---
Author Organization [facility] Address [address] [place] [address] Care Team Providers Care Buffer Chrome Name Role Phone Andi Bueno MD Primary Care Provider [phone] Encounter Details Date Type Department Care Team (Late st Contact Info) Description 10/28/2007 Orders Only [facility] Primary Care - [address] [place] [address] Zac Paredes MD [address] [facility] [address] [place] [address] Social History Tobacco Use Types Packs/Day Years Used Date Smoking Tobacco: Never Assessed Comments Unknown Sex and Gender Information Value Date Recorded Sex Assigned at Not on file Legal Sex Female 5:28 AM 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 LAB ORDERS: Order number: [id number] Test Ordered: COMPREHENSIVE METABOLIC PANEL & GFR 1112 Order number: [id number] Test Ordered: TSH (REFLEX FREE T4/FREE T3) 1727 Order number: [id number] Test Ordered: URIC ACID 1795 Order number: [id number] Test Ordered: LIPID PANEL 1078 719.40-ARTHRALGIA in achilles tendon? MEDICATIONS: IBUPROFEN ORAL TABLET 600 MG, 1 po tid with food prn, 90 Dispensed, 1 Fills, status: NEW PRESCRIPTION, 10/28/2007. SPECIALTY REFERRAL: MEDICAL APPLIANCE MAKER Dr. Ana Lilia Chatterjee ph: [phone] fax: [phone] ph: [phone]. PODIATRY Dr. Anthony Kelly ph: [phone] fax: [phone]. HEALTH MAINTENANCE: LAST BREAST EXAM DATE: 2005. [...] on filedocumented in this encounter Care Teams Buffer Chrome Relationship Specialty Start Date End Date Andi Bueno MD [address] [facility] [address] [place] [address] PCP - General Internal Medicine 08/16/16 documented as of this encounter
--- OUTSIDE RECORDS SUMMARY | 2024-12-31 12:46 | XMS_ITS | Encounter Summary ---
Author Organization [facility] Address [address] [place] [address] Care Team Providers Care Energy Efficient Site Manager Name Role Phone Andi Bueno MD Primary Care Provider [phone] Encounter Details Date Type Department Care Team (Late st Contact Info) Description 10/28/2007 Outpatient Historical [facility] Primary Care - [address] [place] [address] Zac Paredes MD [address] [facility] [address] [place] [address] Social History Tobacco Use Types Packs/Day Years Used Date Smoking Tobacco: Never Assessed Comments Unknown Sex and Gender Information Value Date Recorded Sex Assigned at Not on file Legal Sex Female 5:28 AM PIT RECORDER Gender Identity Not on file Sexual Orientation Not on file documented as of this encounter Plan of Treatment Not on file documented as of this encounter Visit Diagnoses Not on filedocumented in this encounter Care Teams Energy Efficient Site Manager Relationship Specialty Start Date End Date Andi Bueno MD [address] [facility] [address] [place] [address] PCP - General Internal Medicine 08/16/16 documented as of this encounter
--- OUTSIDE RECORDS SUMMARY | 2024-12-31 12:46 | XMS_ITS | Encounter Summary ---
Author Organization [facility] Address [address] [place] [address] Care Team Providers Care Architect Intern Name Role Phone Andi Bueno MD Primary Care Provider [phone] Encounter Details Date Type Department Care Team (Late st Contact Info) Description 11/12/2007 Outpatient Historical HIS [facility] Zac Paredes MD [address] [facility] [address] [place] [address] Other Screening Mammogram Social History Tobacco Use Types Packs/Day Years Used Date Smoking Tobacco: Never Assessed Comments Unknown Sex and Gender Information Value Date Recorded Sex Assigned at Not on file Legal Sex Female 5:28 AM MOP MAKER Gender Identity Not on file Sexual Orientation Not on file documented as of this encounter Plan of Treatment Not on file documented as of this encounter Procedures Procedure Name Priority Date/Time Associated Diagnosis Comments MAMMO SCREENING BILAT Timed Study 11/11/2007 8:26 AM MOP MAKER documented in this encounter Results * MAMMO SCREENING BILAT (11/11/2007 8:26 AM MOP MAKER) Anatomical Region Laterality Modality Breast Bilateral Other 11/11/2007 8:26 AM MOP MAKER Narrative 11/13/2007 2:[address] [facility] [address] [place], [place] [address] Admit Date: 11/11/2007 LISSETTE CAR Sex: F Admit Prov: ZAC PAREDES Date: 1965 Primary Care Prov: ZAC PAREDES CMRN: [id number] [facility] [address] [place] [address] IMAGING SERVICES Ordering Prov: ZAC PAREDES Accession Number: [id number] Interpretation BILATERAL SCREENING MAMMOGRAMS, 11/11/2007 Findings: There [...] DKT Procedure Note Provider, Historical - 11/13/[address] [address] Admit Date: 11/11/2007 LISSETTE CAR Sex: F Admit Prov: ZAC PAREDES Date:1965 Primary Care Prov: ZAC PAREDES CMRN: [id number] [facility] [address] [place] [address] IMAGING SERVICES Ordering Prov: ZAC PAREDES Interpretation [...] mammogram documented in this encounter Care Teams Architect Intern Relationship Specialty Start Date End Date Andi Bueno MD [address] [facility] [address] [place] [address] PCP - General Internal Medicine 08/16/16 documented as of this encounter
--- OUTSIDE RECORDS SUMMARY | 2024-12-31 12:46 | XMS_ITS | Clinical Summary ---
Author Organization [facility] Address [address] [place] [address] Care Team Providers Care Petroleum Plant Operator Name Role Phone Andi Bueno MD Primary Care Provider [phone] Allergies Active Allergy Reactions Criticality Noted Date Comments Hymenoptera Allergenic Extract Rash Low 03/24 Chaplin Rash Low 09/08/2016 Sertraline Other (See Comments) [...] Bronchitis Daughter Diabetes Father Heart Disease Father [place] Heart Failure Father Hypertension Father Stroke Father [...] on file Legal Sex Female 5:28 AM SEARCH MARKETING ANALYST Gender Identity Not on file Sexual Orientation Not on file Occupation Industry Job Start Date Job End Date Not on file Not on file Not on file Not on file Last Filed Vital Signs Vital Sign Reading Time Taken Comments Blood Pressure 149/94 07/30/2017 9:15 AM SEARCH MARKETING ANALYST Pulse 82 07/30/2017 9:15 AM SEARCH MARKETING ANALYST Temperature 36.5 C (97.7 F) 07/30/2017 9:15 AM SEARCH MARKETING ANALYST Respiratory Rate 16 07/30/2017 9:15 AM SEARCH MARKETING ANALYST Oxygen Saturation 97% 07/30/2017 9:15 AM SEARCH MARKETING ANALYST Inhaled Oxygen Concentration - - Weight 123.8 kg (273 lb) 07/30/2017 9:15 AM SEARCH MARKETING ANALYST Height 157.5 cm (5' 2 ) 07/30/2017 9:15 AM SEARCH MARKETING ANALYST Body Mass Index 49.93 07/30/2017 9:15 AM SEARCH MARKETING ANALYST Plan of Treatment Health Maintenance Due Date [...] OR WO CAD Routine 10/11/2016 8:57 AM SEARCH MARKETING ANALYST Breast mass HEMOGLOBIN A1C Routine 06/21/2015 4:01 PM CDT Morbid obesity, unspecified obesity type (CMS/HCC) Elevated glucose from Last 3 Months or Most Recently Relevant to Health Maintenance Results * MAMMO DIAGNOSTIC BILATERAL W OR WO CAD (10/11/2016 8:57 AM SEARCH MARKETING ANALYST) Anatomical Region Laterality Modality Breast Bilateral Mammography 10/11/2016 8:57 AM SEARCH MARKETING ANALYST Impressions 10/11/2016 2:42 PM SEARCH MARKETING ANALYST IMPRESSION: No imaging evidence of malignancy. RECOMMENDATION: Annual screening mammography unless otherwise indicated. BI-RADS 2: Benign. Dictated from: [facility] Narrative 10/11/2016 2:42 PM SEARCH MARKETING ANALYST EXAM: BILATERAL DIGITAL DIAGNOSTIC MAMMOGRAPHY WITH CAD [...] - 6.1 % 06/22/2015 9:30 PM CDT [facility] EST. AVG GLUCOSE, A1C 111 mg/dL 06/22/2015 9:30 PM CDT [facility] Blood Venipuncture - L ab Collect / Unknown 06/21/2015 4:01 PM CDT 06/21/2015 4:01 PM CDT Narrative [facility] - 06/22/2015 9:30 PM CDT Based on the ADAG study equation. Rebecca Lantigua MD CHEMISTRY ORDERABLES Final R esult [facility] [employer] [facility] CLMALI# [id number] [address] [place] [address] from Last 3 Months or Most Recently Relevant to Health Maintenance Insurance [facility] P[facility]ERR[facility] Advance Directives For more information, please contact: [phone] * Full Code (Latest Code Status on File) Date Activated Date Inactivated Comments 01/23/2016 9:53 PM 01/24/2016 12:34 PM * Full Code Date Activated Date Inactivated Comments 05/06/2015 10:31 AM 05/06/2015 3:09 PM * Full Code Date Activated Date Inactivated Comments 01/06/2015 2:11 PM 01/09/2015 6:47 PM * Full Code Date Activated Date Inactivated Comments 12/02/2014 2:20 PM 12/06/2014 3:39 PM Care Teams Petroleum Plant Operator Relationship Specialty Start Date End Date Andi Bueno MD [address] [facility] [address] [place] [address] PCP - General Internal Medicine 08/16/16
--- OUTSIDE RECORDS SUMMARY | 2024-12-31 12:46 | XMS_ITS | Encounter Summary ---
Author Organization [facility] Address [address] [place] [address] Care Team Providers Care Hay Buckler Name Role Phone Andi Bueno MD Primary Care Provider [phone] Encounter Details Date Type Department Care Team (Late st Contact Info) Description 10/08/2007 Outpatient Historical [facility] Primary Care - [address] [place] [address] Zac Paredes MD [address] [facility] [address] [place] [address] Social History Tobacco Use Types Packs/Day Years Used Date Smoking Tobacco: Never Assessed Comments Unknown Sex and Gender Information Value Date Recorded Sex Assigned at Not on file Legal Sex Female 5:28 AM PRINTING ROLLER 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
--- OUTSIDE RECORDS SUMMARY | 2024-12-31 12:46 | XMS_ITS | Encounter Summary ---
Author Organization [facility] Address [address] [place] [address] Care Team Providers Care Biophysics Scientist Name Role Phone Andi Bueno MD Primary Care Provider [phone] Encounter Details Date Type Department Care Team (Latest Contact Info) Description 12/03/2007 Outpatient Historical HIS IMG-LAB [facility] Cristian Rick MD [address] [facility] [address] [place] [address] Painful Respiration Social History Tobacco Use Types Packs/Day Years Used Date Smoking Tobacco: Never Assessed Comments Unknown Sex and Gender Information Value Date Recorded Sex Assigned at Not on file Legal Sex Female 5:28 AM WELDING TESTER Gender Identity Not on file Sexual Orientation [...] PM CDT Narrative 12/03/2007 12:42 PM CDT [facility] [address] [place], [place] [address] Admit Date: 12/03/2007 LISSETTE CAR Sex: F Admit Prov: CRISTIAN RICK Date: 1965 Primary Care Prov: GREGORIO LEVI Nay CMRN: [id number] [id number] IM[facility]ING SERVICES Ordering Prov: N/A Accession Number: [id number] Interpretation Examination: Chest with right ribs. 5 views. Clinical History: Pain. Findings: Chest examination fails to demonstrate pleural, pulmonary, or mediastinal abnormality. Heart size is normal. There is no evidence of right rib fracture. Impression: Normal chest with right ribs. . Dictated by: Nay PATE 12/03/2007 12:42 Electronically signed by: Nay PATE 12/03/2007 12:42 Procedure Note Provider, Historical - 12/03/[address] [address] Admit Date: 12/03/2007 LISSETTE CAR Sex: F Admit Prov: CRISTIAN RICK Date:1965 Primary Care Prov: JACKSON LEVICorazon Tee CMRN: [id number] [facility] [id number] IMAGING SERVICES Ordering Prov: N/A Interpretation Examination: [...] respiration documented in this encounter Care Teams Biophysics Scientist Relationship Specialty Start Date End Date Andi Bueno MD [address] [facility] [address] [place] [address] PCP - General Internal Medicine 08/16/16 documented as of this encounter
--- OUTSIDE RECORDS SUMMARY | 2024-12-31 12:46 | XMS_ITS | Encounter Summary ---
Author Organization [facility] Address [address] [place] [address] Care Team Providers Care Antique Furniture Reproducer Name Role Phone Andi Bueno MD Primary Care Provider [phone] Encounter Details Date Type Department Care Team (Late st Contact Info) Description 10/28/2007 Outpatient Historical [facility] Primary Care - [address] [place] [address] Zac Paredes MD [address] [facility] [address] [place] [address] Routine General Medical Examination at a Health Care Facility Social History Tobacco Use Types Packs/Day Years Used Date Smoking Tobacco: Never Assessed Comments Unknown Sex and Gender Information Value Date Recorded Sex Assigned at Not on file Legal Sex Female 5:28 AM SHOE POLISHER Gender Identity Not on file Sexual Orientation Not on file documented as of this encounter Plan of Treatment Not on file documented as of this encounter Procedures Procedure Name Priority Date/Time Associated Diagnosis Comments TSH WITH REFLEX FT4 AND FT3 Routine 10/28/2007 10:56 PM SHOE POLISHER URIC ACID Routine 10/28/2007 10:56 PM SHOE POLISHER LIPID PANEL Routine 10/28/2007 10:56 PM SHOE POLISHER COMPREHENSIVE METABOLIC PANEL Routine 10/28/2007 10:56 PM SHOE POLISHER documented in this encounter Results * URIC ACID (10/28/2007 10:56 PM SHOE POLISHER) URIC ACID 3.6 2.3 - 6.6 mg/dL [facility] Blood specimen (specimen) 10/28/2007 10:56 PM SHOE POLISHER 10/28/2007 10:56 PM SHOE POLISHER Zac Paredes MD CHEMISTRY ORDERABLES Final Resul t Performing Organization Address [facility] Co de Phone Number [facility] [address] [place] [address] * TSH WITH REFLEX FT4 AND FT3 (10/28/2007 10:56 PM SHOE POLISHER) Pathologist [facility] TSH 1.62 0.27 - 4.20 uU/mL [facility] Blood specimen (specimen) 10/28/2007 10:56 PM SHOE POLISHER 10/28/2007 10:56 PM SHOE POLISHER Zac Paredes MD CHEMISTRY ORDERABLES Final Resul t Performing Organization Address [facility] Co de Phone Number [facility] [address] [place] [address] * COMPREHENSIVE METABOLIC PANEL (10/28/2007 10:56 PM SHOE POLISHER) Pathologist [facility] CALCIUM 9.3 8.4 - 10.2 mg/dL [facility] CHLORIDE 102 96 - 108 mmol/L [facility] ALBUMIN 4.2 3.4 - 4.8 g/dL [facility] CREATININE 0.77 0.51 - 0.95 mg/dL [facility] SODIUM 138 135 - 145 mmol/L [facility] ALT 17 0 - 31 U/L [facility] ALKALINE PHOSPHATASE 96 35 - 104 U/L [facility] BILIRUBIN TOTAL 0.6 0.2 - 1.0 mg/dL [facility] CO2 23 22 - 30 mmol/L [facility] TOTAL PROTEIN 7.6 6.3 - 8.6 g/dL [facility] POTASSIUM 4.1 3.5 - 4.9 mmol/L [facility] GLUCOSE 79 65 - 99 mg/dL [facility] AST 14 12 - 32 U/L [facility] BUN 15 6 - 20 mg/dL [facility] GFR, >60 >=60 mL/min/1.7 sq meter [facility] GFR >60 >=60 mL/min/1.7 sq meter [facility] Comment: Estimated GFR rate interpretative information for both Americans and non- Americans is available on the [facility] Intranet at: [email or web address] Select: Lab Policies and Procedures Select: Reference Ranges - GFR Blood specimen (specimen) 10/28/2007 10:56 PM SHOE POLISHER 10/28/2007 10:56 PM SHOE POLISHER us Zac Paredes MD CHEMISTRY ORDERABLES Edited [facility] [address] [place] [address] * (ABNORMAL) LIPID PANEL (10/28/2007 10:56 PM SHOE POLISHER) CHOLESTEROL 217(H) 100 - 199 mg/dL [facility] CHOL/HDL RATIO 3.1 2.0 - 5.0 [facility] TRIGLYCERIDE 64 10 - 149 mg/dL [facility] HDL 70(H) 40 - 59 mg/dL [facility] LDL CALCULATED 134(H) <=99 mg/dL [facility] LIPID PANEL COMMENT See Below [facility] Comment: The adult ATP and pediatric NCEP classifications for lipids are available on the [facility] Intranet at: [email or web address] Select: Lab Policies and Procedures,Current Select: Lipid Panel Interpretation Blood specimen (specimen) 10/28/2007 10:56 PM SHOE POLISHER 10/28/2007 10:56 PM SHOE POLISHER us Zac Paredes MD CHEMISTRY ORDERABLES Edited [facility] [address] [place] [address] documented in this encounter Visit Diagnoses Diagnosis Routine general medical examination at a health care facility documented in this encounter Care Teams Antique Furniture Reproducer Relationship Specialty Start Date End Date Andi Bueno MD [address] [facility] [address] [place] [address] PCP - General Internal Medicine 08/16/16 documented as of this encounter
--- OUTSIDE RECORDS SUMMARY | 2024-12-31 12:46 | XMS_ITS | Encounter Summary ---
Author Organization [employer] Address [address] [place] [address] Care Team Providers Care Global Product Manager Name Role Phone Andi Bueno MD Primary Care Provider [phone] Encounter Details Date Type Department Care Team (Late st Contact Info) Description 12/16/2007 Outpatient Historical [facility] [place] Rebecca Lantigua MD [address] [facility] [address] [place] [phone] Social History Tobacco Use Types Packs/Day Years Used Date Smoking Tobacco: Never Assessed Comments Unknown Sex and Gender Information Value Date Recorded Sex Assigned at Not on file Legal Sex Female 5:28 AM SHAREPOINT APPLICATION ARCHITECT Gender Identity Not on file Sexual Orientation Not on file documented as of this encounter Plan of Treatment Not on file documented as of this encounter Visit Diagnoses Not on filedocumented in this encounter Care Teams Global Product Manager Relationship Specialty Start Date End Date Andi Bueno MD [address] [facility] [address] [place] [phone] PCP - General Internal Medicine 08/16/16 documented as of this encounter
--- OUTSIDE RECORDS SUMMARY | 2024-12-31 12:46 | XMS_ITS | Encounter Summary ---
Author Organization [facility] Address [address] [place] [address] Care Team Providers Care Teacher Aide Clerical Name Role Phone Andi Bueno MD Primary Care Provider [phone] Encounter Details Date Type Department Care Team (Late st Contact Info) Description 12/03/2007 Orders Only [facility] Primary Care - [facility] [address] [place] [address] [address] [place] [address] Rebecca Lantigua MD [address] [place] [address] [address] [place] [address] Social History Tobacco Use Types Packs/Day Years Used Date Smoking Tobacco: Never Assessed Comments Unknown Sex and Gender Information Value Date Recorded Sex Assigned at Not on file Legal Sex Female 5:28 AM MOVE COORDINATOR Gender Identity Not on file Sexual Orientation Not on file documented as of this encounter Progress Notes * Rebecca Lantigua MD - 02/13/2008 7:54 PM CDT TEMPERATURE: 98??f Oral BLOOD PRESSURE: 122/78 Right Arm Sitting WEIGHT: [id number] NURSE NAME: Laura Ball ALLERGIES: No known [...] WALL PAIN/PAINFUL RESPIRATIONS LAB ORDERS: Order number: [id number] Test Ordered: XRAY RIB SERIES/PA CHEST RIGHT Order number: [id number] Test Ordered: PHYSICAL THERAPY, EVALUATION & TREATMENT [...] on filedocumented in this encounter Care Teams Teacher Aide Clerical Relationship Specialty Start Date End Date Andi Bueno MD [address] [facility] [address] [place] [address] PCP - General Internal Medicine 08/16/16 documented as of this encounter
--- OUTSIDE RECORDS SUMMARY | 2024-12-31 12:46 | XMS_ITS | Encounter Summary ---
Author Organization [employer] [facility] Address [address] [place] [address] Care Team Providers Care Research Subject Name Role Phone Andi Bueno MD Primary Care Provider [phone] Encounter Details Date Type Department Care Team (Late st Contact Info) Description 11/29/2007 Outpatient Historical [facility] Zac Peñaloza MD [address] [facility] [address] [place] [address] Barby Cordero MD NO ADDRESS ON FILE Abnormal Mammogram, Unspecified Social History Tobacco Use Types Packs/Day Years Used Date Smoking Tobacco: Never Assessed Comments Unknown Sex and Gender Information Value Date Recorded Sex Assigned at Not on file Legal Sex Female 5:28 AM CARPET TECHNICIAN Gender Identity Not on file Sexual Orientation [...] PATHOLOGY (11/29/2007 11:48 AM CDT) FINAL REPORT [facility] [address] [place], [place] [address] Patient: SHU CAR : 1965 Procedure Date: 11/29/2007 Accession Date: 11/29/2007 Case No: [id number] Ordering Dr: BARBY LIU Case types AW, BW, FW, NW and SH are performed by [facility], [place], [place] SURGICAL PATHOLOGY & NON-GYNECOLOGIC CYTOPATHOLOGY REPORT [...] 06:24 pm Microscopic: The slides are labeled [id number], Shu Car. The cores have sampled fibroadenoma [...] Reference: Arch Pathol Lab Med 1998;122:1053-105 5. [facility] 12.02.2007 10:40 am Staging Form: No. ELECTRONIC SIGNATURE FOR KHANG MONAE M.D.- 12/02/07 12:10 pm INTERFACE SYSTEM 11/29/2007 11:4 8 AM CDT us Barby Cordero MD PATHOLOGY/CYTOLOGY ORDERABL ES Final Result INTERFACE SYSTEM Refer to clinic/hospital department * US GUIDE NEEDLE PLACEMENT (11/29/2007 9:27 AM CDT) Anatomical Region Laterality Modality Other 11/29/2007 9:27 AM CDT Narrative 11/29/2007 11:58 AM CDT [address] [place], [place] [address] Admit Date: 11/29/2007 SHU CAR Sex: F Admit Prov: ZAC PAREDES Date: 1965 Primary Care Prov: ZAC PAREDES CMRN: [id number] Room: [facility] SSN: [id number] IMAGING SERVICES Ordering Prov: ZAC PAREDES Accession Number: [id number] Interpretation EXAM: ULTRASOUND-GUIDED CORE BIOPSY OF THE [...] AMK Procedure Note Provider, Historical - 11/29/2007 [facility] [address] [place], [place] [address] Admit Date: 11/29/2007 SHU CAR Ana María Sex: F Admit Prov: ZAC PAREDES Date:1965 Primary Care Prov: ZAC PAREDES CMRN: [id number] Room: [facility] SSN: [id number] IMAGING SERVICES Ordering Prov: ZAC PAREDES Interpretation [...] AM CDT Narrative 12/17/2007 10:21 AM CDT [address] [address] Admit Date: 11/29/2007 SHU CAR Sex: F Admit Prov: ZAC PAREDES Date: 1965 Primary Care Prov: ZAC PAREDES CMRN: [id number] Room: [facility] SSN: [id number] IMAGING SERVICES Ordering Prov: ZAC PAREDES Accession Number: [id number] Addendum The pathology from the patient's recent [...] Provider, Historical / Barby Liu - 12/17/2007 [address] [place], [place] [address] Admit Date: 11/29/2007 SHU CAR Sex: F Admit Prov: ZAC PAREDES Date:1965 Primary Care Prov: ZAC PAREDES CMRN: [id number] Room: [facility] SSN: [id number] IMAGING SERVICES Ordering Prov: ZAC PAREDES Addendum The pathology from the patient's 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 This is benign and concordant.The patient was informed of the above findings by Isabel Ruvalcaba, nurse [facility]. Assessment BIRADS: 2-Benign finding Recommendation: Normal interval [...] unspecified documented in this encounter Care Teams Research Subject Relationship Specialty Start Date End Date Andi Bueno MD [address] [facility] [address] [place] [address] PCP - General Internal Medicine 08/16/16 documented as of this encounter
--- OUTSIDE RECORDS SUMMARY | 2024-12-31 12:46 | XMS_ITS | Encounter Summary ---
Author Organization [employer] Address [address] [place] [address] Care Team Providers Care Home School Coordinator Name Role Phone Andi Bueno MD Primary Care Provider [phone] Encounter Details Date Type Department Care Team (Late st Contact Info) Description 08/22/2011 Chart Note [facility] [address] [place] [address] Tracie Amato, Physical Therapist Social History Tobacco Use Types Packs/Day Years Used Date Smoking Tobacco: Never Smokeless Tobacco: Never Alcohol Use Standard Drinks/Week Comments No 0 (1 standard drink = 0.6 oz pur e alcohol) Comments No Sex and Gender Information Value Date Recorded Sex Assigned at Not on file Legal Sex Female 5:28 AM DIAMOND CUTTER Gender Identity Not on file Sexual [...] referral. Tracie Amato [facility] [address] [place] [address]. [address] [place] [id number] OND CUTTER documented in this encounter Plan of Treatment Not on file documented as of this encounter Visit Diagnoses Not on filedocumented in this encounter Care Teams Home School Coordinator Relationship Specialty Start Date End Date Andi Bueno MD [address] [facility] [address] [place] [address] PCP - General Internal Medicine 08/16/16 documented as of this encounter
--- OUTSIDE RECORDS SUMMARY | 2024-12-31 12:46 | XMS_ITS | Encounter Summary ---
Author Organization [employer] Address 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
== END 2024-12-31 10:54 | disposition home or self-care (01) ==
PROVIDERS: PCP Nurse Practitioner Family; Visit Provider Nurse Practitioner Family
DX: M25.50 Pain in unspecified joint (principal); I10 Essential (primary) hypertension; K21.9 Gastro-esophageal reflux disease without esophagitis; M06.9 Rheumatoid arthritis, unspecified; F25.0 Schizoaffective disorder, bipolar type; R73.02 Impaired glucose tolerance (oral)
CPT/HCPCS: 36415; 80053; 80061; 83036; 85025; 85652; 86038; 86140; 99212; G0463

== ENCOUNTER 2025-03-04 14:16 | Emergency (ER) | payer OTHER, SELFPAY ==
--- NOTE | ~2025-03-04 | US_ITS ---
RIGHT LOWER EXTREMITY VENOUS ULTRASOUND Ordering provider: Prakash Gonzales MD History: . pain/swelling . Comparison: None. FINDINGS: --COMMON FEMORAL: Patent and free of thrombus. Normal compressibility, phasic flow and augmentation. --PROXIMAL SUPERFICIAL FEMORAL: Patent and free of thrombus. Normal compressibility, phasic flow and augmentation. --DISTAL SUPERFICIAL FEMORAL: Patent and free of thrombus. Normal compressibility, phasic flow and au gmentation. --POPLITEAL: Patent and free of thrombus. Normal compressibility, phasic flow and augmentation. --POSTERIOR TIBIAL: Patent and free of thrombus. Normal compressibility, phasic flow and augmentation . IMPRESSION: Negative right lower extremity venous US. No deep vein thrombosis. Reviewed, dictated and finalized at location A.
--- NOTE | ~2025-03-04 | XR_ITS ---
XR knee RT 3V Ordering provider: Prakash Gonzales MD History: . pain all around knee; no injury . Comparison: None. FINDINGS: BONES: No acute fracture or dislocation. Qimc-qr-zana subluxation is noted. Bipartite patella is high ly suggestive. JOINT SPACES: Moderate narrowing of the medial compartment. Severe narrowing of the patellofemoral claritza int is noted. SOFT TISSUES: Normal. IMPRESSION: No acute osseous abnormality right knee. Moderate to severe osteoarthritic changes. Reviewed, dictated and finalized at location A.
[2025-03-04 14:22] VITALS: BP 136/76; PULSE 72; RESP 20; TEMP 36.3; O2SAT 100
--- NOTE | 2025-03-04 16:50 | ED.LOWEXIN ---
HPI - Extremity Injury (Lower) General Chief Complaint: Extremity Injury, Lower Stated Complaint: states back and bilat leg pain for years Time Seen by Provider: 03/04/25 15:19 History of Present Illness HPI Narrative: Patient is a 59-year-old female who presents ER with pain to the right lower extremity. Ongoing over last 3 days. Located in her knee and her calf. Worse with walking bearing weight. Has history of fibromyalgia. Had mild improvement with ibuprofen. No chest pain or chest pressure. No productive cough or hemoptysis. No history of blood clot. No back pain Related Data Home Medications ?Medication ?Instructions ?Recorded ?Confirmed ?Last Taken ?Type folic acid 1 mg tablet 1 mg PO DAILY 02/19/20 02/05/25 04/18/22 History gabapentin 600 mg tablet 600 mg PO DAILY 03/26/20 02/05/25 04/19/22 History (Neurontin) multivitamin (Daily Multi-Vitamin 1 tablet PO DAILY 01/19/22 02/05/25 04/16/22 History tablet) cetirizine 10 mg tablet (Zyrtec) 10 mg PO DAILY PRN 03/19/23 02/05/25 Unknown History lamotrigine 25 mg tablet 25 mg PO DAILY 09/17/24 02/05/25 Unknown History quetiapine 100 mg tablet (Seroquel) 100 mg PO QHS 11/19/24 02/05/25 Unknown History Allergies Allergy/AdvReac Type Severity Reaction Status Date / Time sertraline Allergy Mild Hives Verified 02/05/25 10:57 lithium AdvReac Intermediate Nausea and Verified 02/05/25 10:57 Vomiting Review of Systems Review of Systems: All systems reviewed & are unremarkable except as noted in HPI and below Constitutional: Constitutional: Reports no additional constitutional complaints Cardiovascular: Cardiovascular: Reports no additional cardiovascular complaints Respiratory: Respiratory: Reports no additional respiratory complaints Musculoskeletal: Musculoskeletal: Reports no additional musculoskeletal complaints [facility] Past Medical History Medical History COVID-19 History of 1985 Arthritis Acid reflux Hyperlipidemia Hypertension PTSD (post-traumatic stress disorder) Anxiety and depression Adverse effect of tefyomkimhb-lpsswjgvjn-jqhwxk inhibitors, initial encounter [place] on CPAP Vaginal bleeding Bipolar affective disorder Surgical History Surgical History Status post hysterectomy with oophorectomy History of myomectomy History of section S/P breast lumpectomy History of tubal ligation Family History Family History Mother Patient's mother is in good health Diabetes mellitus Hypertension Sibling Patient's brother is in good health Family history of malignant neoplasm of breast in first degree relative Diabetes mellitus Family history of blood dyscrasia Hypertension Father Family history of heart disease in male family member before age 55 Family history of cardiovascular disease Diabetes mellitus Hypertension Cerebrovascular accident Social History Social History Smoking status: Never smoker Second hand tobacco smoke exposure: No Alcohol intake: current Alcohol use details: Social Substance use: never Substance use type: does not use Do You Feel Safe in your Home?: Yes Lack of Transportation: No Lack of Food: Sometimes True Current Housing: I Have Housing Concerned About Future Housing: No Difficulty Paying Gas/Electric Bills: No Difficulty Paying for Meds: No Education: High School Diploma/GED Difficulty w/ Childcare or Family Care: No Living arrangements: with family Gender identity (if verbalized by the patient): Female Spiritual care concerns: No Agree to blood products: Yes Exam Narrative: GENERAL: Well-appearing, well-nourished, and in no acute distress. HEAD: Normocephalic, atraumatic. ENT: Mucous membranes moist. CHEST: Clear to auscultation. No respiratory distress. HEART: Regular rate and rhythm. Normal peripheral pulses. ABDOMEN: Soft, nontender, nondistended. EXTREMITIES: Normal range of motion. 1+ nonpitting edema. Mild calf pain on the right side. SKIN: Warm, dry, no rash. NEURO: Alert and oriented x3. PSYCH: Normal mood and affect. Course Course Emergency Course: No DVT or fracture. Significant arthritic change. May need follow-up with her orthopedic surgeon. Vital Signs Vital signs: Vital Signs Temperature 97.3 F L 03/04/25 14:22 Pulse Rate 72 03/04/25 14:22 Respiratory Rate 20 03/04/25 14:22 Blood Pressure 136/76 03/04/25 14:22 Pulse Oximetry 100 03/04/25 14:22 Oxygen Delivery Room Air 03/04/25 14:22 Temperature 97.3 F L 03/04/25 14:22 Pulse Rate 72 03/04/25 14:22 Respiratory Rate 20 03/04/25 14:22 Blood Pressure 136/76 03/04/25 14:22 Pulse Oximetry 100 03/04/25 14:22 Oxygen Delivery Room Air 03/04/25 14:22 MDM - Extremity Injury (Lower) Imaging Data Radiologist's impression: ITS Impressions Venous Doppler Study 03/04/25 16:09 IMPRESSION: Negative right lower extremity venous US. No deep vein thrombosis. Knee X-Ray 03/04/25 16:39 IMPRESSION: No acute osseous abnormality right knee. Moderate to severe osteoarthritic changes. Discharge Plan Discharge Clinical Impression: Arthritis of knee Patient Disposition: Home Condition: Stable Instructions: Antibiotic Form, Osteoarthritis (ED), P.R.I.C.E. Treatment (ED) Additional Instructions: Return to the ER if yo have fever over 101F, you cannot keep down food/water, you lose consciousness, or have other concerns. Patient Language: Korean Prescriptions: New naproxen 375 mg tablet 375 mg PO BID Qty: 14 0RF No Action gabapentin [Neurontin] 600 mg tablet 600 mg PO DAILY cetirizine [Zyrtec] 10 mg tablet 10 mg PO DAILY PRN folic acid 1 mg tablet 1 mg PO DAILY multivitamin [Daily Multi-Vitamin] Tablet 1 tablet PO DAILY clonazepam [Klonopin] 0.5 mg tablet 0.5 mg PO TID Qty: 90 0RF lamotrigine 25 mg tablet 25 mg PO DAILY atorvastatin 80 mg tablet 80 mg PO DAILY Qty: 90 1RF metoprolol succinate 25 mg tablet extended release 24 hr 25 mg PO DAILY Qty: 90 2RF epinephrine 0.3 mg/0.3 mL auto-injector 0.3 mg IM ONCE Qty: 0.3 2RF Rx Instructions: as a single dose; may repeat once quetiapine [Seroquel] 100 mg tablet 100 mg PO QHS famotidine 20 mg tablet See Rx Instructions .ROUTE .COMPLEX PRN (Reason: reflux) Qty: 90 1RF Dose Instruction: TAKE 1 TABLET BY MOUTH EVERY DAY Rx Instructions: TAKE 1 TABLET BY MOUTH EVERY DAY PRN; fluticasone propionate [Flonase Allergy Relief] 50 mcg/actuation spray,suspension 2 spray intranasal DAILY Qty: 16 2RF Rx Instructions: administer into each nostril pantoprazole 40 mg tablet,delayed release (DR/EC) 40 mg PO QAM Qty: 180 1RF benzonatate 100 mg capsule See Rx Instructions PO TID PRN (Reason: cough) Qty: 60 0RF Rx Instructions: orally three times a day PRN; 1-2 tabs up to three times a day losartan 25 mg tablet 25 mg PO DAILY Qty: 90 1RF olanzapine [Zyprexa Zydis] 15 mg tablet,disintegrating 15 mg PO QHS Qty: 30 1RF montelukast [Singulair] 10 mg tablet 10 mg PO DAILY Qty: 30 1RF Follow-up/Referrals: Aziza Fernandez APRN [Primary Care Provider] - 1 Week
== END 2025-03-04 17:19 | disposition home or self-care (01) ==
PROVIDERS: Emergency Provider Emergency Medicine; PCP Nurse Practitioner Family
DX: M17.11 Unilateral primary osteoarthritis, right knee (principal); I10 Essential (primary) hypertension; E78.5 Hyperlipidemia, unspecified; G47.33 Obstructive sleep apnea (adult) (pediatric); M79.7 Fibromyalgia; F43.10 Post-traumatic stress disorder, unspecified; F41.9 Anxiety disorder, unspecified; F31.9 Bipolar disorder, unspecified; Z86.16 Personal history of COVID-19
CPT/HCPCS: 73562; 93971; 99284

== ENCOUNTER 2025-04-01 09:20 | Outpatient (CLI) | payer OTHER, SELFPAY ==
--- NOTE | ~2025-04-01 | CT_ITS ---
EXAMINATION: CT lumbar spine wo con DATE: 04/01/2025 09:46 INDICATION: Radiculopathy TECHNIQUE: Computed tomography (CT) of the lumbar spine was performed without intravenous contrast. Christopher he dose-length product was 782.95 mGy-cm. COMPARISON: None FINDINGS: Alignment is normal. Vertebral body and disc heights are normal. No fracture. Moderate bilateral sacr al iliac osteoarthritis. Paravertebral soft tissues are unremarkable. The following disc levels are s pecifically discussed: T12-L1: Disc is bulging. There is moderate bilateral facet joint osteoarthritis. There is no neural f oraminal stenosis. There is mild central canal stenosis. L1-L2: Disc is bulging. There is mild left and mild to moderate right facet joint osteoarthritis. The re is mild right neural foraminal stenosis. There is mild central canal stenosis. L2-L3: Disc is bulging. There is moderate right and severe left facet joint osteoarthritis. There is mild bilateral neural foraminal stenosis. There is mild central canal stenosis. L3-L4: Disc is bulging. There is severe bilateral facet joint osteoarthritis. There is mild to modera te bilateral neural foraminal stenosis. There is moderate central canal stenosis. L4-L5: Disc is bulging. There is severe bilateral facet joint osteoarthritis. There is mild to modera te bilateral neural foraminal stenosis. There is mild central canal stenosis. L5-S1: Disc is bulging. There is severe bilateral facet joint osteoarthritis. There is mild bilateral neural foraminal stenosis. There is minimal central canal stenosis. IMPRESSION: 1. Mild lumbar spondylosis most notable for moderate central canal stenosis at L3-L4. Reviewed, dictated and finalized at location A.
--- NOTE | ~2025-04-01 | CT_ITS ---
EXAM: CT cervical spine wo con - 04/01/2025 9:25 CDT History: 59 years old Female with M54.10 - Radiculopathy, site unspecified COMPARISON: None available. PROCEDURE: CT of the cervical spine without contrast. Axial, sagittal and coronal reformatted plane s were evaluated. Automatic exposure control was used for this study. FINDINGS: No acute fracture or subluxation. Straightening of cervical lordosis, likely positional or may be rel ated to muscle spasm. Multilevel degenerative changes of the cervical spine include varying degrees o f disk space narrowing, endplate osteophytosis as well as facet and uncal arthropathy. Prevertebral s oft tissues are within normal limits. Visualized lung apices are clear. IMPRESSION: No evidence for cervical spine fracture or traumatic subluxation. Multilevel degenerative changes of the cervical spine. Reviewed, dictated and finalized at location A.
== END 2025-04-01 09:21 | disposition home or self-care (01) ==
LOC: MICIMG 09:21
PROVIDERS: PCP Nurse Practitioner Family; Visit Provider Nurse Practitioner Family
DX: M50.30 Other cervical disc degeneration, unspecified cervical region (principal); M47.26 Other spondylosis with radiculopathy, lumbar region
CPT/HCPCS: 72125; 72131

== ENCOUNTER 2025-04-20 11:28 | Emergency (ER) | payer OTHER, SELFPAY ==
--- NOTE | ~2025-04-20 | CT_ITS ---
EXAMINATION: CT brain wo con DATE: 04/20/2025 13:40 INDICATION: Headache TECHNIQUE: Computed tomography (CT) of the head was performed without intravenous contrast. Sagittal and coronal reconstructions were performed. The mA was adjusted according to patient size. Iterative reconstruction technique was employed. The dose-length product was 605.33 mGy-cm. COMPARISON: head CT dated 04/01/2020 FINDINGS: No acute intracranial hemorrhage, acute infarction or abnormal extra axial fluid collection. Ventricl es are normal and symmetric. No mass/mass effect. Mild hyperostosis frontalis with additional dural h eterotopic ossification along the falx and tentorium. The orbits and mastoid air cells are normal. Sm all amount of dependently layering mucus in the left sphenoid sinus suggestive of acute sinusitis. IMPRESSION: 1. No acute intracranial process. 2. Dependent mucus in the left sphenoid sinus. Correlate clinically for acute sinusitis. Reviewed, dictated and finalized at location A. IMPRESSION: 1. No acute intracranial process. 2. Dependent mucus in the left sphenoid sinus. Correlate clinically for acute s inusitis.
--- OUTSIDE RECORDS SUMMARY | 2025-04-20 11:31 | XMS_ITS | Clinical Summary ---
Author Organization [facility] [employer] Address [address] [place] [address] Care Team Providers Care Customer Operations Intern Name Role Phone Unknown, Provider Primary Care Provider Unavaila ble Source Comments [facility] [employer],non-owned Affiliates and Associated Physician Practices is amultiple site organization consisting of ambulatory clinics and hospital sitesin [place], [place], [place] and [place]. This disclosure is being madepursuant to the Care Everywhere program and may not contain all information available regarding this patient. Last updated 18.[facility] [employer] Allergies Active Allergy Reactions Criticality Noted Date Comments [place] GI Discomfort 02/14/2016 Sertraline Urticaria High 02/14/2016 [...] Date Resolved Date Acute pharyngitis 01/23/2016 03/20/2016 Encounters Date Type Department Care Team Description 04/07/2025 Travel from Last 3 Months Family History Medical History Relation Name Comments [...] 9:28 AM CDT Height 157.5 cm (5' 2) 06/06/2016 9:28 AM CDT Body Mass Index 49.71 06/06/2016 9:28 AM CDT Plan of Treatment Upcoming Encounters Date Type Department Care Team (Late st Contact Info) Description 08/18/2025 3:20 PM EUCLID OPERATOR Office Visit [facility] - Dermatology [address] [place] [address] [place] [address] Corrine Oliver MD [address] [place], [place] [address] [address] 11/05/2025 10:00 AM EUCLID OPERATOR Office Visit [facility] - Rheumatology [address] [place] [phone] Lazaro Calles MD [address] [place] [address] [place] [address] Health Maintenance Due Date Last Done Comments [...] 2016 PAP SMEAR 02/13/2019 02/14/2016 COVID-19 VACCINE (4 2023-2 5 season) 2024 08/13/2021, 01/13/2021, 12/23/2020 INFLUENZA VACCINE (#1) 2025 HIB VACCINE Aged Out No longer [...] THINPREP IG +HPV MRNA E6/E7 RFLX 16/18,45 ([facility]) (02/14/2016 12:04 PM CDT) Clinical Information [facility] [...] has been evaluated with computer assisted technology. Compensation Consulting Manager [facility] Comment: BAB, CT(ASCP) CT screening location: [place] [address] [place] [address] Human papillomavirus mRNA E6 E7 Not Detected Not Detected [facility] Comment: This test was performed using the APTIMA HPV Assay ([employer] This assay detects E6/E7 viral messenger RNA (mRNA) from 14 high-risk HPV types (16,18,31,33,35,39,45,51,52,56,58,59,66,68). Test Performed at: [facility] [address] STIVEN HEDRICK MD 02/14/2016 12:0 4 PM CDT 02/15/2016 5:13 AM CDT us Mine Sams MD LAB - PATHOLOGY/CYTOLOGY [facility] Final Result [address] [address] from Last 3 Months or Most Recently Relevant to Health Maintenance Insurance [employer] [place] Care Teams Customer Operations Intern Relationship Specialty Start Date End Date Unknown, Provider PCP - General 04/13/25
--- OUTSIDE RECORDS SUMMARY | 2025-04-20 11:32 | XMS_ITS | Encounter Summary ---
Author Organization [facility] Address [address] [place] [address] Care Team Providers Care Frame Bender Name Role Phone Andi Bueno MD Primary Care Provider [phone] Encounter Details Date Type Department Care Team (Late st Contact Info) Description 10/28/2007 Outpatient Historical [facility] Primary Care - [address] [place] [address] Zac Paredes MD [address] [facility] [address] [place] [address] Routine General Medical Examination at a Health Care Facility Social History Tobacco Use Types Packs/Day Years Used Date Smoking Tobacco: Never Assessed Comments Unknown Sex and Gender Information Value Date Recorded Sex Assigned at Not on file Legal 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 Female 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 Gender Identity Not on file Sexual Orientation Not on file documented as of this encounter Plan of Treatment Not on file documented as of this encounter Procedures Procedure Name Priority Date/Time Associated Diagnosis Comments TSH WITH REFLEX FT4 AND FT3 Routine 10/28/2007 10:56 PM WASHATERIA ATTENDANT URIC ACID Routine 10/28/2007 10:56 PM WASHATERIA ATTENDANT LIPID PANEL Routine 10/28/2007 10:56 PM WASHATERIA ATTENDANT COMPREHENSIVE METABOLIC PANEL Routine 10/28/2007 10:56 PM WASHATERIA ATTENDANT documented in this encounter Results * URIC ACID (10/28/2007 10:56 PM WASHATERIA ATTENDANT) URIC ACID 3.6 2.3 - 6.6 mg/dL [facility] Blood specimen (specimen) 10/28/2007 10:56 PM WASHATERIA ATTENDANT 10/28/2007 10:56 PM WASHATERIA ATTENDANT Zac Paredes MD CHEMISTRY ORDERABLES Final Resul t Performing Organization Address [facility] Co de Phone Number [facility] [address] [place] [address] * TSH WITH REFLEX FT4 AND FT3 (10/28/2007 10:56 PM WASHATERIA ATTENDANT) Pathologist [facility] TSH 1.62 0.27 - 4.20 uU/mL [facility] Blood specimen (specimen) 10/28/2007 10:56 PM WASHATERIA ATTENDANT 10/28/2007 10:56 PM WASHATERIA ATTENDANT Zac Paredes MD CHEMISTRY ORDERABLES Final Resul t Performing Organization Address [facility] Co de Phone Number [facility] [address] [place] [address] * COMPREHENSIVE METABOLIC PANEL (10/28/2007 10:56 PM WASHATERIA ATTENDANT) Pathologist [facility] CALCIUM 9.3 8.4 - 10.2 mg/dL [facility] CHLORIDE 102 96 - 108 mmol/L [facility] ALBUMIN 4.2 3.4 - 4.8 g/dL [facility] CREATININE 0.77 0.51 - 0.95 mg/dL [facility] SODIUM 138 135 - 145 mmol/L [facility] ALT 17 0 - 31 U/L [facility] ALKALINE PHOSPHATASE 96 35 - 104 U/L [facility] BILIRUBIN TOTAL 0.6 0.2 - 1.0 mg/dL [facility] CO2 23 22 - 30 mmol/L [facility] TOTAL PROTEIN 7.6 6.3 - 8.6 g/dL [facility] POTASSIUM 4.1 3.5 - 4.9 mmol/L [facility] GLUCOSE 79 65 - 99 mg/dL [facility] AST 14 12 - 32 U/L [facility] BUN 15 6 - 20 mg/dL [facility] GFR, >60 >=60 mL/min/1.[address] [facility] GFR >60 >=60 mL/min/1.[address] [facility] Comment: Estimated GFR rate interpretative information for both Americans and non- Americans is available on the [facility] at: [email or web address] Select: Lab Policies and Procedures Select: Reference Ranges - GFR Blood specimen (specimen) 10/28/2007 10:56 PM WASHATERIA ATTENDANT 10/28/2007 10:56 PM WASHATERIA ATTENDANT us Zac Paredes MD CHEMISTRY ORDERABLES Edited [facility] [address] [place] [address] * (ABNORMAL) LIPID PANEL (10/28/2007 10:56 PM WASHATERIA ATTENDANT) CHOLESTEROL 217(H) 100 - 199 mg/dL [facility] CHOL/HDL RATIO 3.1 2.0 - 5.0 [facility] TRIGLYCERIDE 64 10 - 149 mg/dL [facility] HDL 70(H) 40 - 59 mg/dL [facility] LDL CALCULATED 134(H) <=99 mg/dL [facility] LIPID PANEL COMMENT See Below [facility] Comment: The adult ATP and pediatric NCEP classifications for lipids are available on the [facility] at: [email or web address] Select: Lab Policies and Procedures,Current Select: Lipid Panel Interpretation Blood specimen (specimen) 10/28/2007 10:56 PM WASHATERIA ATTENDANT 10/28/2007 10:56 PM WASHATERIA ATTENDANT us Zac Paredes MD CHEMISTRY ORDERABLES Edited [facility] [address] [place] [address] documented in this encounter Visit Diagnoses Diagnosis Routine general medical examination at a health care facility documented in this encounter Care Teams Frame Bender Relationship Specialty Start Date End Date Andi Bueno MD [address] [facility] [address] [place] [address] PCP - General Internal Medicine 08/16/16 documented as of this encounter
--- OUTSIDE RECORDS SUMMARY | 2025-04-20 11:32 | XMS_ITS | Continuity of Care Document ---
Author Organization [facility] Address [address] [place] [address] Phone Care Team Providers Care Public Transit Trolley Driver Name Role Phone Yovani Borges MD Unavailable Unavailable Procedures Procedure Date OFFICE/OUTPATIENT VISIT NEW OFFICE/OUTPATIENT VISIT EST OFFICE/OUTPATIENT VISIT NEW Advance Directives Directive Yes / No Effective Date File Name No Information Encounters Encounter Description Practice Location Reason(s) For Visit Diagnoses Date Provider Providers Copied on Encounter [facility], [address] [place] [address], [address], [place] tel:[phone] [facility] No Information 5 Katerina Pina. [address] [place], [place], [id number] . tel: [phone] OFFICE/OUTPAT IENT VISIT [facility], [address], [place], [address], [place] tel:[phone] [facility] Primary localized osteoarthros is, lower legAnkle pain 5 Katerina Pina. [address] [place], [place], [address] . tel: [phone] OFFICE/OUTPAT IENT VISIT EST [facility], [address], [place], [address], [place] tel:[phone] [facility] 4 Sajan Damian. [address], [place], [place], [address] . tel: [phone] OFFICE/OUTPAT IENT VISIT [facility], [address] [facility] [facility] [address], [place], [address], tel:[phone] [facility] Ankle fracture 0-201 3 Sajan Damian. [address], [place], [place], [address] . tel: [phone] Family History Family Member Type Diagnosis Age [...]
--- OUTSIDE RECORDS SUMMARY | 2025-04-20 11:32 | XMS_ITS | Continuity of Care Document ---
Author Organization [facility] Address [address] [place] [address] Phone Care Team Providers Care Stump Blower Name Role Phone Mateus Rm MD Unavailable [...] Diagnoses Date Provider Providers Copied on Encounter [employer], [address], [place], [place], [address], tel:[phone] [facility] No Information Jag Ignacio. [address] [facility], [facility] [address] [place], [place], [address], . tel:[phone] [employer], [address], [place], [place], [address], tel:[phone] [facility] No Information Luz Weiss. [address] [facility], [facility] [address] , [place], [place], [address], . tel:[phone] [employer], [address], [place], [place], [address], tel:[phone] [facility] HEADACHEACUTE SINUSITIS NOS Luz Weiss. [address] [facility], [facility] [address] , [place], [place], [address], . tel:[phone] [employer], [address], [place], [place], [address], tel:[phone] [facility] NAUSEA WITH VOMITING Jag Ignacio. [address] [facility], [address], [place], [place], [address], . tel:[phone] [facility], [address], [place], [place], [address], tel:[phone] [facility] No Information [place] Weiss. [address] [facility], [address], [place], [place], [address], . tel:[phone] Family History Family Member Type Diagnosis Age [...]
--- OUTSIDE RECORDS SUMMARY | 2025-04-20 11:32 | XMS_ITS | Encounter Summary ---
Author Organization [facility] Address [address] [place] [address] Care Team Providers Care Hvac Service Manager Name Role Phone Andi Bueno MD Primary Care Provider [phone] Encounter Details Date Type Department Care Team (Late st Contact Info) Description 07/21/2008 Outpatient Historical HIS [facility] CHANI Paredes, Zac Tee MD [address] [facility] [facility] [address] [place] [address] Abnormal Mammogram, Unspecified Social History Tobacco Use Types Packs/Day Years Used Date Smoking Tobacco: Never Alcohol Use Standard Drinks/Week Comments No 0 (1 standard drink = 0.6 oz pur e alcohol) Comments No Sex and Gender Information Value Date Recorded Sex Assigned at Not on file Legal Sex Female 5:28 AM HOD CARRIER Gender Identity Not on file Sexual Orientation Not on file documented as of this encounter Plan of Treatment Not on file documented as of this encounter Procedures Procedure Name Priority Date/Time Associated Diagnosis Comments MAMMO DIAGNOSTIC BILATERAL W OR WO CAD Timed Study 07/21/2008 9:22 AM HOD CARRIER documented in this encounter Results * MAMMO DIGITAL DIAG BILAT (07/21/2008 9:22 AM HOD CARRIER) Anatomical Region Laterality Modality Breast Bilateral Other 07/21/2008 9:22 AM HOD CARRIER Narrative 2008 7:53 AM HOD CARRIER [place] [address] [facility] [place], [place] [address] Admit Date: 07/21/2008 LISSETTE CAR Sex: F Admit Prov: ZAC PAREDES Date: 1965 Primary Care Prov: ZAC PAREDES CMRN: [id number] Room: [facility] SSN: [id number] IMAGING SERVICES Ordering Prov: ZAC PAREDES Accession Number: [id number] Interpretation BILATERAL DIAGNOSTIC DIGITAL MAMMOGRAMS WITH COMPUTER [...] AMK Procedure Note Do Hirsch - [address], [place] [address] Admit Date: 07/21/2008 LISSETTE CAR Sex: F Admit Prov: ZAC PAREDES Date:1965 Primary Care Prov: ZAC PAREDES CMRN: [id number] Room: [facility] SSN: [id number] IMAGING SERVICES Ordering Prov: ZAC PAREDES Interpretation [...] unspecified documented in this encounter Care Teams Hvac Service Manager Relationship Specialty Start Date End Date Andi Bueno MD [address] [facility] [address] [place] [address] PCP - General Internal Medicine 08/16/16 documented as of this encounter
--- OUTSIDE RECORDS SUMMARY | 2025-04-20 11:32 | XMS_ITS | Clinical Summary ---
Author Organization [facility] Address [address] [place] [address] Care Team Providers Care Wing Coverer Name Role Phone Andi Bueno MD Primary Care Provider [phone] Allergies Active Allergy Reactions Criticality Noted Date Comments Hymenoptera Allergenic Extract Rash Low 03/24 Troutman Rash Low 09/08/2016 Sertraline Other (See Comments) [...] Bronchitis Daughter Diabetes Father Heart Disease Father SD Heart Failure Father Hypertension Father Stroke Father [...] on file Legal Sex Female 5:28 AM CONTRACTING ENGINEER Gender Identity Not on file Sexual Orientation Not on file Occupation Industry Job Start Date Job End Date Not on file Not on file Not on file Not on file Last Filed Vital Signs Vital Sign Reading Time Taken Comments Blood Pressure 149/94 07/30/2017 9:15 AM CONTRACTING ENGINEER Pulse 82 07/30/2017 9:15 AM CONTRACTING ENGINEER Temperature 36.5 C (97.7 F) 07/30/2017 9:15 AM CONTRACTING ENGINEER Respiratory Rate 16 07/30/2017 9:15 AM CONTRACTING ENGINEER Oxygen Saturation 97% 07/30/2017 9:15 AM CONTRACTING ENGINEER Inhaled Oxygen Concentration - - Weight 123.8 kg (273 lb) 07/30/2017 9:15 AM CONTRACTING ENGINEER Height 157.5 cm (5' 2) 07/30/2017 9:15 AM CONTRACTING ENGINEER Body Mass Index 49.93 07/30/2017 9:15 AM CONTRACTING ENGINEER Plan of Treatment Health Maintenance Due Date [...] 06/21/2018 06/21/2015, 05/01/2014, 05/01/2014 INFLUENZA VACCINE (#1) 2025 Procedures Procedure Name Priority Date/Time Associated Diagnosis Comments MAMMO DIAGNOSTIC BILATERAL W OR WO CAD Routine 10/11/2016 8:57 AM CONTRACTING ENGINEER Breast mass HEMOGLOBIN A1C Routine 06/21/2015 4:01 PM CDT Morbid obesity, unspecified obesity type (CMS/HCC) Elevated glucose from Last 3 Months or Most Recently Relevant to Health Maintenance Results * MAMMO DIAGNOSTIC BILATERAL W OR WO CAD (10/11/2016 8:57 AM CONTRACTING ENGINEER) Anatomical Region Laterality Modality Breast Bilateral Mammography 10/11/2016 8:57 AM CONTRACTING ENGINEER Impressions 10/11/2016 2:42 PM CONTRACTING ENGINEER IMPRESSION: No imaging evidence of malignancy. RECOMMENDATION: Annual screening mammography unless otherwise indicated. BI-RADS 2: Benign. Dictated from: [facility] Narrative 10/11/2016 2:42 PM CONTRACTING ENGINEER EXAM: BILATERAL DIGITAL DIAGNOSTIC MAMMOGRAPHY WITH CAD [...] - 6.1 % 06/22/2015 9:30 PM CDT [facility] EST. AVG GLUCOSE, A1C 111 mg/dL 06/22/2015 9:30 PM CDT [facility] Blood Venipuncture - L ab Collect / Unknown 06/21/2015 4:01 PM CDT 06/21/2015 4:01 PM CDT Narrative [facility] - 06/22/2015 9:30 PM CDT Based on the ADAG study equation. Rebecca Lantigua MD CHEMISTRY ORDERABLES Final R esult [facility] Korrio [facility] CLMALI# [id number] [address] [place] [id number] from Last 3 Months or Most Recently Relevant to Health Maintenance Insurance [facility] Advance Directives For more information, please contact: [phone] * Full Code (Latest Code Status on File) Date Activated Date Inactivated Comments 01/23/2016 9:53 PM 01/24/2016 12:34 PM * Full Code Date Activated Date Inactivated Comments 05/06/2015 10:31 AM 05/06/2015 3:09 PM * Full Code Date Activated Date Inactivated Comments 01/06/2015 2:11 PM 01/09/2015 6:47 PM * Full Code Date Activated Date Inactivated Comments 12/02/2014 2:20 PM 12/06/2014 3:39 PM Care Teams Wing Coverer Relationship Specialty Start Date End Date Andi Bueno MD [address] [facility] [address] [place] [address] PCP - General Internal Medicine 08/16/16
--- OUTSIDE RECORDS SUMMARY | 2025-04-20 11:32 | XMS_ITS | Encounter Summary ---
Author Organization [facility] Address [address] [place] [address] Care Team Providers Care Senior Medical Transcriptionist Name Role Phone nAdi Bueno MD Primary Care Provider [phone] Encounter Details Date Type Department Care Team (Late st Contact Info) Description 12/03/2007 Outpatient Historical [facility] Primary Care - [address] [place] [address] Rebecca Lantigua MD [address] [place] [address] [address] [place] [address] Social History Tobacco Use Types Packs/Day Years Used Date Smoking Tobacco: Never Assessed Comments Unknown Sex and Gender Information Value Date Recorded Sex Assigned at Not on file Legal Sex Female 5:28 AM TOOL HONING MACHINE SET UP OPERATOR Gender Identity Not on file Sexual Orientation Not on file documented as of this encounter Plan of Treatment Not on file documented as of this encounter Visit Diagnoses Not on filedocumented in this encounter Care Teams Senior Medical Transcriptionist Relationship Specialty Start Date End Date Andi Bueno MD [address] [facility] [address] [place] [address] PCP - General Internal Medicine 08/16/16 documented as of this encounter
--- OUTSIDE RECORDS SUMMARY | 2025-04-20 11:32 | XMS_ITS | Encounter Summary ---
Author Organization [employer] Address [address] [place] [address] Care Team Providers Care Luggage Repairer Name Role Phone Andi Bueno MD Primary Care Provider [phone] Encounter Details Date Type Department Care Team (Late st Contact Info) Description 08/22/2011 Chart Note [facility] [address] [place] [address] Tracie Amato, Physical Therapist Social History Tobacco Use Types Packs/Day Years Used Date Smoking Tobacco: Never Smokeless Tobacco: Never Alcohol Use Standard Drinks/Week Comments No 0 (1 standard drink = 0.6 oz pur e alcohol) Comments No Sex and Gender Information Value Date Recorded Sex Assigned at Not on file Legal Sex Female 5:28 AM IRB COMPLIANCE COORDINATOR Gender Identity Not on file Sexual [...] referral. Tracie Amato [facility] [address] [place] [address]. [address] [place] [id number] COMPLIANCE COORDINATOR documented in this encounter Plan of Treatment Not on file documented as of this encounter Visit Diagnoses Not on filedocumented in this encounter Care Teams Luggage Repairer Relationship Specialty Start Date End Date Andi Bueno MD [address] [facility] [address] [place] [address] PCP - General Internal Medicine 08/16/16 documented as of this encounter
--- OUTSIDE RECORDS SUMMARY | 2025-04-20 11:32 | XMS_ITS | Encounter Summary ---
Author Organization [employer] [facility] Address [address] [place] [address] Care Team Providers Care Television Equipment Operator Name Role Phone Andi Bueno MD Primary Care Provider [phone] Encounter Details Date Type Department Care Team (Late st Contact Info) Description 11/29/2007 Outpatient Historical HIS [facility] Zac Peñaloza MD [address] [place] [address] Barby Cordero MD NO ADDRESS ON FILE Abnormal Mammogram, Unspecified Social History Tobacco Use Types Packs/Day Years Used Date Smoking Tobacco: Never Assessed Comments Unknown Sex and Gender Information Value Date Recorded Sex Assigned at Not on file Legal Sex Female 5:28 AM TERRITORY SALES CONSULTANT Gender Identity Not on file Sexual Orientation [...] PATHOLOGY (11/29/2007 11:48 AM CDT) FINAL REPORT [facility] [address] [place], [place] [address] Patient: SHU CAR : 1965 Procedure Date: 11/29/2007 Accession Date: 11/29/2007 Case No: [id number] Ordering Dr: BARBY LIU Case types AW, BW, FW, NW and SH are performed by [facility], [place], [place] SURGICAL PATHOLOGY & NON-GYNECOLOGIC CYTOPATHOLOGY REPORT [...] 06:24 pm Microscopic: The slides are labeled [id number], Shu Car. The cores have sampled fibroadenoma [...] Reference: Arch Pathol Lab Med 1998;122:1053-105 5. [facility] 12.02.2007 10:40 am Staging Form: No. ELECTRONIC SIGNATURE FOR KHANG MONAE M.D.- 12/02/07 12:10 pm INTERFACE SYSTEM 11/29/2007 11:4 8 AM CDT us Barby Cordero MD PATHOLOGY/CYTOLOGY ORDERABL ES Final Result INTERFACE SYSTEM Refer to clinic/hospital department * US GUIDE NEEDLE PLACEMENT (11/29/2007 9:27 AM CDT) Anatomical Region Laterality Modality Other 11/29/2007 9:27 AM CDT Narrative 11/29/2007 11:58 AM CDT [place] [address] [place], [place] [address] Admit Date: 11/29/2007 SHU CAR Sex: F Admit Prov: ZAC PAREDES Date: 1965 Primary Care Prov: ZAC PAREDES CMRN: [id number] Room: [facility] SSN: [id number] IMAGING SERVICES Ordering Prov: ZAC PAREDES Accession Number: [id number] Interpretation EXAM: ULTRASOUND-GUIDED CORE BIOPSY OF THE [...] AMK Procedure Note Provider, Historical - 11/29/2007 [facility] [address] [place], [place] [address] Admit Date: 11/29/2007 SHU CAR Ana María Sex: F Admit Prov: ZAC PAREDES Date:1965 Primary Care Prov: ZAC PAREDES CMRN: [id number] Room: [facility] SSN: [id number] IMAGING SERVICES Ordering Prov: ZAC PAREDES Interpretation [...] AM CDT Narrative 12/17/2007 10:21 AM CDT [address] [address] Admit Date: 11/29/2007 SHU CAR Sex: F Admit Prov: ZAC PAREDES Date: 1965 Primary Care Prov: ZAC PAREDES CMRN: [id number] Room: [facility] SSN: [id number] IMAGING SERVICES Ordering Prov: ZAC PAREDES Accession Number: [id number] Addendum The pathology from the patient's recent [...] Provider, Historical / Barby Liu - 12/17/2007 [place] [place], [place] [address] Admit Date: 11/29/2007 SHU CAR Sex: F Admit Prov: ZAC PAREDES Date:1965 Primary Care Prov: ZAC PAREDES CMRN: [id number] Room: [facility] SSN: [id number] IMAGING SERVICES Ordering Prov: ZAC PAREDES Addendum The pathology from the patient's 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 This is benign and concordant.The patient was informed of the above findings by Isabel Ruvalcaba, nurse [facility]. Assessment BIRADS: 2-Benign finding Recommendation: Normal [...] unspecified documented in this encounter Care Teams Television Equipment Operator Relationship Specialty Start Date End Date Andi Bueno MD [address] [facility] [address] [place] [address] PCP - General Internal Medicine 08/16/16 documented as of this encounter
--- OUTSIDE RECORDS SUMMARY | 2025-04-20 11:32 | XMS_ITS | Encounter Summary ---
Author Organization [employer] Address [address] [place] [address] Care Team Providers Care Aoc Operations Intelligence Chief Name Role Phone Andi Bueno MD Primary Care Provider [phone] Encounter Details Date Type Department Care Team (Late st Contact Info) Description 12/16/2007 Outpatient Historical [facility] Rebecca Lantigua MD [address] [facility] [address] [place] [address] Social History Tobacco Use Types Packs/Day Years Used Date Smoking Tobacco: Never Assessed Comments Unknown Sex and Gender Information Value Date Recorded Sex Assigned at Not on file Legal Sex Female 5:28 AM PROOF TECHNICIAN Gender Identity Not on file Sexual Orientation Not on file documented as of this encounter Plan of Treatment Not on file documented as of this encounter Visit Diagnoses Not on filedocumented in this encounter Care Teams Aoc Operations Intelligence Chief Relationship Specialty Start Date End Date Andi Bueno MD [address] [facility] [address] [place] [address] PCP - General Internal Medicine 08/16/16 documented as of this encounter
--- OUTSIDE RECORDS SUMMARY | 2025-04-20 11:32 | XMS_ITS | Encounter Summary ---
Author Organization [employer] Address [address] [place] [address] Care Team Providers Care Strand And Binder Controller Name Role Phone Andi Bueno MD Primary Care Provider [phone] Encounter Details Date Type Department Care Team (Late st Contact Info) Description 07/29/2008 Outpatient Historical [facility] Rebecca Lantigua MD [address] [place] [address] [address] [place] [address] Social History Tobacco Use Types Packs/Day Years Used Date Smoking Tobacco: Never Alcohol Use Standard Drinks/Week Comments No 0 (1 standard drink = 0.6 oz pur e alcohol) Comments No Sex and Gender Information Value Date Recorded Sex Assigned at Not on file Legal Sex Female 5:28 AM GOLF SUPERINTENDENT Gender Identity Not on file Sexual Orientation Not on file documented as of this encounter Plan of Treatment Not on file documented as of this encounter Visit Diagnoses Not on filedocumented in this encounter Care Teams Strand And Binder Controller Relationship Specialty Start Date End Date Andi Bueno MD [address] [facility] [address] [place] [address] PCP - General Internal Medicine 08/16/16 documented as of this encounter
--- OUTSIDE RECORDS SUMMARY | 2025-04-20 11:32 | XMS_ITS | Clinical Summary ---
Author Organization [facility] Address [facility] [place] [address] Care Team Providers Care Adhesive Sprayer Name Role Phone Jaime Taylor DO Primary Care Provider [phone] Allergies Active Allergy Reactions Criticality Noted Date Comments Bristol Hives 11/02/2021 Sertraline Hives 11/02/2021 Medications losartan [...] on file Legal Sex Female 12:38 PM RN INFUSION Gender Identity Not on file Sexual Orientation Not on file Last Filed Vital Signs Vital Sign Reading Time Taken Comments Blood Pressure 119/80 11/09/2021 12:50 PM RN INFUSION Pulse 78 11/09/2021 12:50 PM RN INFUSION Temperature 36.4 C (97.5 F) 11/09/2021 12:23 PM RN INFUSION Respiratory Rate 27 11/09/2021 12:50 PM RN INFUSION Oxygen Saturation 96% 11/09/2021 12:50 PM RN INFUSION Inhaled Oxygen Concentration - - Weight 115.2 kg (254 lb) 11/02/2021 1:59 PM RN INFUSION Height 154.9 cm (5' 1) 11/02/2021 1:59 PM RN INFUSION Body Mass Index 47.99 11/02/2021 1:59 PM RN INFUSION Plan of Treatment Health Maintenance Due Date [...] Every 5 Years 1996 Cervical Cancer Screening [facility] HPV 1996 Mammogram Screening 2006 Pneumococcal Vaccine: [...] this topic Medical Devices Implanted Type Area Shot Hole Shooter Device Identifier Shelf Expiration Date Model / Serial / Lot Screw Screw Right: Ankle Insurance [facility] Care Teams Adhesive Sprayer Relationship Specialty Start Date End Date Jaime Taylor DO [address] [address] PCP - General INTERNAL MEDICINE 11/09/21
--- OUTSIDE RECORDS SUMMARY | 2025-04-20 11:32 | XMS_ITS | Encounter Summary ---
Author Organization [facility] Address [address] [place] [address] Care Team Providers Care Piston Maker Name Role Phone Andi Bueno MD Primary Care Provider [phone] Encounter Details Date Type Department Care Team (Late st Contact Info) Description 12/03/2007 Orders Only [facility] Primary Care - [facility] [address] [place] [address] [address] [place] [address] Rebecca Lantigua MD [address] [place] [address] [address] [place] [address] Social History Tobacco Use Types Packs/Day Years Used Date Smoking Tobacco: Never Assessed Comments Unknown Sex and Gender Information Value Date Recorded Sex Assigned at Not on file Legal Sex Female 5:28 AM SENIOR DATABASE PROGRAMMER Gender Identity Not on file Sexual Orientation Not on file documented as of this encounter Progress Notes * Rebecca Lantigua MD - 02/13/2008 7:54 PM CDT TEMPERATURE: 98??f Oral BLOOD PRESSURE: 122/78 Right Arm Sitting WEIGHT: [id number] NURSE NAME: Laura Ball ALLERGIES: No known [...] WALL PAIN/PAINFUL RESPIRATIONS LAB ORDERS: Order number: [id number] Test Ordered: XRAY RIB SERIES/PA CHEST RIGHT Order number: [id number] Test Ordered: PHYSICAL THERAPY, EVALUATION & TREATMENT [...] on filedocumented in this encounter Care Teams Piston Maker Relationship Specialty Start Date End Date Andi Bueno MD [address] [facility] [address] [place] [address] PCP - General Internal Medicine 08/16/16 documented as of this encounter
--- OUTSIDE RECORDS SUMMARY | 2025-04-20 11:32 | XMS_ITS | Encounter Summary ---
Author Organization [facility] Address [address] [place] [address] Care Team Providers Care Hard Rock Drill Operator Name Role Phone Andi Bueno MD Primary Care Provider [phone] Encounter Details Date Type Department Care Team (Late st Contact Info) Description 10/28/2007 Outpatient Historical [facility] Primary Care - [address] [place] [address] Zac Paredes MD [address] [facility] [address] [place] [address] Social History Tobacco Use Types Packs/Day Years Used Date Smoking Tobacco: Never Assessed Comments Unknown Sex and Gender Information Value Date Recorded Sex Assigned at Not on file Legal Sex Female 5:28 AM RESOURCE COORDINATOR Gender Identity Not on file Sexual Orientation Not on file documented as of this encounter Plan of Treatment Not on file documented as of this encounter Visit Diagnoses Not on filedocumented in this encounter Care Teams Hard Rock Drill Operator Relationship Specialty Start Date End Date Andi Bueno MD [address] [facility] [address] [place] [address] PCP - General Internal Medicine 08/16/16 documented as of this encounter
--- OUTSIDE RECORDS SUMMARY | 2025-04-20 11:32 | XMS_ITS | Encounter Summary ---
Author Organization [facility] Address [address] [place] [address] Care Team Providers Care Senior Reliability Engineer Name Role Phone Andi Bueno MD Primary Care Provider [phone] Encounter Details Date Type Department Care Team (Late st Contact Info) Description 10/28/2007 Outpatient Historical [facility] Primary Care - [address] [place] [address] Zac Paredes MD [address] [facility] [address] [place] [address] Social History Tobacco Use Types Packs/Day Years Used Date Smoking Tobacco: Never Assessed Comments Unknown Sex and Gender Information Value Date Recorded Sex Assigned at Not on file Legal Sex Female 5:28 AM MAIL HANDLER Gender Identity Not on file Sexual Orientation Not on file documented as of this encounter Plan of Treatment Not on file documented as of this encounter Visit Diagnoses Not on filedocumented in this encounter Care Teams Senior Reliability Engineer Relationship Specialty Start Date End Date Andi Bueno MD [address] [facility] [address] [place] [address] PCP - General Internal Medicine 08/16/16 documented as of this encounter
--- OUTSIDE RECORDS SUMMARY | 2025-04-20 11:32 | XMS_ITS | Encounter Summary ---
Author Organization [facility] Address [address] [place] [address] Care Team Providers Care Duct Layer Helper Name Role Phone Andi Bueno MD Primary Care Provider [phone] Encounter Details Date Type Department Care Team (Late st Contact Info) Description 11/12/2007 Outpatient Historical [facility] Zac Paredes MD [address] [facility] [address] [place] [address] Other Screening Mammogram Social History Tobacco Use Types Packs/Day Years Used Date Smoking Tobacco: Never Assessed Comments Unknown Sex and Gender Information Value Date Recorded Sex Assigned at Not on file Legal Sex Female 5:28 AM PSYCHIC READER Gender Identity Not on file Sexual Orientation Not on file documented as of this encounter Plan of Treatment Not on file documented as of this encounter Procedures Procedure Name Priority Date/Time Associated Diagnosis Comments MAMMO SCREENING BILAT Timed Study 11/11/2007 8:26 AM PSYCHIC READER documented in this encounter Results * MAMMO SCREENING BILAT (11/11/2007 8:26 AM PSYCHIC READER) Anatomical Region Laterality Modality Breast Bilateral Other 11/11/2007 8:26 AM PSYCHIC READER Narrative 11/13/2007 2:50 PM PSYCHIC READER [facility] [address] [place], [place] [address] Admit Date: 11/11/2007 LISSETTE CAR Sex: F Admit Prov: ZAC PAREDES Date: 1965 Primary Care Prov: ZAC PAREDES CMRN: [id number] [facility] [address] [place] [address] IMAGING SERVICES Ordering Prov: ZAC PAREDES Accession Number: [id number] Interpretation BILATERAL SCREENING MAMMOGRAMS, 11/11/2007 Findings: There [...] DKT Procedure Note Provider, Historical - 11/13/[address] [address] Admit Date: 11/11/2007 LISSETTE CAR Sex: F Admit Prov: ZAC PAREDES Date:1965 Primary Care Prov: ZAC PAREDES CMRN: [id number] [facility] [address] [place] [address] IMAGING SERVICES Ordering Prov: ZAC PAREDES Interpretation [...] mammogram documented in this encounter Care Teams Duct Layer Helper Relationship Specialty Start Date End Date Andi Bueno MD [address] [facility] [address] [place] [address] PCP - General Internal Medicine 08/16/16 documented as of this encounter
--- OUTSIDE RECORDS SUMMARY | 2025-04-20 11:32 | XMS_ITS | Encounter Summary ---
Author Organization [facility] Address [address] [place] [address] Care Team Providers Care Software Development Test Engineer Name Role Phone Andi Bueno MD Primary Care Provider [phone] Encounter Details Date Type Department Care Team (Late st Contact Info) Description 10/08/2007 Outpatient Historical [facility] Primary Care - [address] [place] [address] Zac Paredes MD [address] [facility] [address] [place] [address] Social History Tobacco Use Types Packs/Day Years Used Date Smoking Tobacco: Never Assessed Comments Unknown Sex and Gender Information Value Date Recorded Sex Assigned at Not on file Legal Sex Female 5:28 AM TEXTILE ENGINEER Gender Identity Not on file Sexual Orientation Not on file documented as of this encounter Plan of Treatment Not on file documented as of this encounter Visit Diagnoses Not on filedocumented in this encounter Care Teams Software Development Test Engineer Relationship Specialty Start Date End Date Andi Bueno MD [address] [facility] [address] [place] [address] PCP - General Internal Medicine 08/16/16 documented as of this encounter
--- OUTSIDE RECORDS SUMMARY | 2025-04-20 11:32 | XMS_ITS | Encounter Summary ---
Author Organization [facility] Address [address] [place] [address] Care Team Providers Care Oil Well Services Dispatcher Name Role Phone Andi Bueno MD Primary Care Provider [phone] Encounter Details Date Type Department Care Team (Late st Contact Info) Description 10/28/2007 Orders Only [facility] Primary Care - [address] [place] [address] Zac Paredes MD [address] [facility] [address] [place] [address] Social History Tobacco Use Types Packs/Day Years Used Date Smoking Tobacco: Never Assessed Comments Unknown Sex and Gender Information Value Date Recorded Sex Assigned at Not on file Legal Sex Female 5:28 AM TOWING PILOT Gender Identity Not on file Sexual Orientation Not on file documented as of this encounter Progress Notes * Zac Paredes MD - 01/22/2008 1:46 PM CDT BLOOD PRESSURE: 114/80 Right Arm Sitting TEMPERATURE: 97.9??f Oral WEIGHT: [id number] NURSE NAME: Laura Ball ALLERGIES: No known [...] identified on exam. LAB ORDERS: Order number: [id number] Test Ordered: COMPREHENSIVE METABOLIC PANEL & GFR 1112 Order number: [id number] Test Ordered: TSH (REFLEX FREE T4/FREE T3) 1727 Order number: [id number] Test Ordered: URIC ACID 1795 Order number: [id number] Test Ordered: LIPID PANEL 1078 719.40-ARTHRALGIA in achilles tendon? MEDICATIONS: IBUPROFEN ORAL TABLET 600 MG, 1 po tid with food prn, 90 Dispensed, 1 Fills, status: NEW PRESCRIPTION, 10/28/2007. SPECIALTY REFERRAL: DIPLOMATIC OFFICER Dr. Ana Lilia Chatterjee ph: [phone] fax: [phone] ph: [phone]. PODIATRY Dr. Anthony Kelly ph: [phone] fax: [phone]. HEALTH MAINTENANCE: LAST BREAST EXAM DATE: 2005. [...] on filedocumented in this encounter Care Teams Oil Well Services Dispatcher Relationship Specialty Start Date End Date Andi Bueno MD [address] [facility] [address] [place] [address] PCP - General Internal Medicine 08/16/16 documented as of this encounter
--- OUTSIDE RECORDS SUMMARY | 2025-04-20 11:32 | XMS_ITS | Encounter Summary ---
Author Organization [facility] Address [address] [place] [address] Care Team Providers Care Piece Maker Name Role Phone Andi Bueno MD Primary Care Provider [phone] Encounter Details Date Type Department Care Team (Late st Contact Info) Description 11/19/2007 Outpatient Historical [facility] CHANI Paredes, Zac Tee MD [address] [facility] [address] [place] [address] Abnormal Mammogram, Unspecified Social History Tobacco Use Types Packs/Day Years Used Date Smoking Tobacco: Never Assessed Comments Unknown Sex and Gender Information Value Date Recorded Sex Assigned at Not on file Legal Sex Female 5:28 AM CROP 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 [place], [place] [address] Admit Date: 11/19/2007 LISSETTE CAR Sex: F Admit Prov: ZAC PAREDES Date: 1965 Primary Care Prov: ZAC PAREDES CMRN: [id number] Room: PATRIC[facility] SSN: [id number] IMAGING SERVICES Ordering Prov: ZAC PAREDES Accession Number: [id number] Interpretation Left breast ultrasound 11/19/2007 History: Mass [...] AMK Procedure Note Provider, Historical - 11/19/[address] [address] Admit Date: 11/19/2007 LISSETTE CAR Sex: F Admit Prov: ZAC PAREDES Date:1965 Primary Care Prov: ZAC PAREDES CMRN: [id number] Room: [facility] SSN: [id number] IMAGING SERVICES Ordering Prov: ZAC PAREDES Interpretation [...] unspecified documented in this encounter Care Teams Piece Maker Relationship Specialty Start Date End Date Andi Bueno MD [address] [facility] [address] [place] [address] PCP - General Internal Medicine 08/16/16 documented as of this encounter
--- OUTSIDE RECORDS SUMMARY | 2025-04-20 11:32 | XMS_ITS | Encounter Summary ---
Author Organization [employer] Address [address] [place] [address] Care Team Providers Care Tar Kettle Runner Name Role Phone Andi Bueno MD Primary Care Provider [phone] Encounter Details Date Type Department Care Team (Late st Contact Info) Description 01/17/2008 Outpatient Historical [facility] Rebecca Lantigua MD [address] [facility] [address] [place] [address] Social History Tobacco Use Types Packs/Day Years Used Date Smoking Tobacco: Never Assessed Comments Unknown Sex and Gender Information Value Date Recorded Sex Assigned at Not on file Legal Sex Female 5:28 AM BUS WASHER Gender Identity Not on file Sexual Orientation Not on file documented as of this encounter Plan of Treatment Not on file documented as of this encounter Visit Diagnoses Not on filedocumented in this encounter Care Teams Tar Kettle Runner Relationship Specialty Start Date End Date Andi Bueno MD [address] [facility] [address] [place] [address] PCP - General Internal Medicine 08/16/16 documented as of this encounter
--- OUTSIDE RECORDS SUMMARY | 2025-04-20 11:33 | XMS_ITS | Encounter Summary ---
Author Organization [employer] [facility] Address [address] [place] [address] Care Team Providers Care Roll Reclaimer Name Role Phone Andi Bueno MD Primary Care Provider [phone] Encounter Details Date Type Department Care Team (Latest Contact Info) Description 12/03/2007 Outpatient Historical HIS [facility] Cristian Rick MD [address] [facility] [address] [place] [address] Painful Respiration Social History Tobacco Use Types Packs/Day Years Used Date Smoking Tobacco: Never Assessed Comments Unknown Sex and Gender Information Value Date Recorded Sex Assigned at Not on file Legal Sex Female 5:28 AM ELECTRICAL TESTER BATTERY Gender Identity Not on file Sexual Orientation [...] PM CDT Narrative 12/03/2007 12:42 PM CDT [facility] [address] [place], [place] [address] Admit Date: 12/03/2007 LISSETTE CAR Sex: F Admit Prov: CRISTIAN RICK Date: 1965 Primary Care Prov: GREGORIO LEVI Nay CMRN: [id number] [id number] [facility] Ordering Prov: N/A Accession Number: [id number] Interpretation Examination: Chest with right ribs. 5 views. Clinical History: Pain. Findings: Chest examination fails to demonstrate pleural, pulmonary, or mediastinal abnormality. Heart size is normal. There is no evidence of right rib fracture. Impression: Normal chest with right ribs. . Dictated by: Nay PATE 12/03/2007 12:42 Electronically signed by: Nay PATE 12/03/2007 12:42 Procedure Note Provider, Historical - 12/03/[address] [address] Admit Date: 12/03/2007 LISSETTE CAR Sex: F Admit Prov: CRISTIAN RICK Date:1965 Primary Care Prov: JACKSON LEVICorazon Tee CMRN: [id number] [facility] [id number] IMAGING SERVICES Ordering Prov: N/A Interpretation Examination: [...] respiration documented in this encounter Care Teams Roll Reclaimer Relationship Specialty Start Date End Date Andi Bueno MD [address] [facility] [address] [place] [address] PCP - General Internal Medicine 08/16/16 documented as of this encounter
--- OUTSIDE RECORDS SUMMARY | 2025-04-20 11:33 | XMS_ITS | Encounter Summary ---
Author Organization [facility] Address [address] [place] [address] Care Team Providers Care Licensed Optician Name Role Phone Andi Bueno MD Primary Care Provider [phone] Encounter Details Date Type Department Care Team (Late st Contact Info) Description 12/03/2007 Outpatient Historical [facility] Primary Care - [address] [place] [address] Rebecca Lantigua MD [address] [place] [address] [address] [place] [address] Social History Tobacco Use Types Packs/Day Years Used Date Smoking Tobacco: Never Assessed Comments Unknown Sex and Gender Information Value Date Recorded Sex Assigned at Not on file Legal Sex Female 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
--- OUTSIDE RECORDS SUMMARY | 2025-04-20 11:33 | XMS_ITS | Patient Health Record ---
Author Organization [employer] Address [address] [facility] [address] [place] [address] Care Team Providers Care Energy Efficiency Specialist Name Role Phone Andi Bueno MD Primary Care Provider UnavailDae Aguero Unavailable [phone] Reason For Referral No Information Plan Of Treatment No Information Insurance Providers Payer Name Payer Address Payer Phone Subscriber Number Group Number Insured Name Patient Relationship to Insured Coverage Start Date Coverage End Date [employer] Open Access E2 [address] [place] [address] [id number] Cory Car Spouse - patient is the spouse of the insured
[2025-04-20 11:38] VITALS: BP 157/79; PULSE 71; RESP 16; TEMP 36.7; O2SAT 99
[2025-04-20 12:56] VITALS: BP 131/88; PULSE 64; RESP 14; O2SAT 99
--- OUTSIDE RECORDS SUMMARY | 2025-04-20 13:38 | XMS_ITS | Encounter Summary ---
Author Organization [employer] [facility] Address [address] [place] [address] Care Team Providers Care Battery Plate Assembler Name Role Phone Andi Bueno MD Primary Care Provider [phone] Encounter Details Date Type Department Care Team (Late st Contact Info) Description 11/29/2007 Outpatient Historical HIS [facility] Zac Peñaloza MD [address] [facility] [place] [address] Barby Cordero MD NO ADDRESS ON FILE Abnormal Mammogram, Unspecified Social History Tobacco Use Types Packs/Day Years Used Date Smoking Tobacco: Never Assessed Comments Unknown Sex and Gender Information Value Date Recorded Sex Assigned at Not on file Legal Sex Female 5:28 AM GENERAL MANAGER IN 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 The cores have sampled fibroadenoma [...] Reference: Arch Pathol Lab Med 1998;122:1053-105 5. [facility] 12.02.2007 10:40 am Staging Form: No. ELECTRONIC SIGNATURE FOR KHANG MONAE M.D.- 12/02/07 12:10 pm INTERFACE SYSTEM 11/29/2007 11:4 8 AM CDT us Barby Cordero MD PATHOLOGY/CYTOLOGY ORDERABL ES Final Result INTERFACE SYSTEM Refer to clinic/hospital department * US GUIDE NEEDLE PLACEMENT (11/29/2007 9:27 AM CDT) Anatomical Region Laterality Modality Other 11/29/2007 9:27 AM CDT Narrative 11/29/2007 11:58 AM CDT [address] [place], [place] [address] Admit Date: 11/29/2007 SHU CAR Sex: F Admit Prov: ZAC PAREDES Date: 1965 Primary Care Prov: ZAC PAREDES CMRN: [id number] Room: PATRICIA SSN: [id number] IMAGING SERVICES Ordering Prov: ZAC PAREDES Accession Number: [id number] Interpretation EXAM: ULTRASOUND-GUIDED CORE BIOPSY OF THE [...] AMK Procedure Note Provider, Historical - 11/29/2007 [facility] [address] [place], [place] [address] Admit Date: 11/29/2007 SHU CAR Ana María Sex: F Admit Prov: ZAC PAREDES Date:1965 Primary Care Prov: ZAC PAREDES CMRN: [id number] Room: [facility] SSN: [id number] IMAGING SERVICES Ordering Prov: ZAC PAREDES Interpretation [...] AM CDT Narrative 12/17/2007 10:21 AM CDT [address] [address] Admit Date: 11/29/2007 SHU CAR Sex: F Admit Prov: ZAC PAREDES Date: 1965 Primary Care Prov: ZAC PAREDES CMRN: [id number] Room: [facility] SSN: [id number] IMAGING SERVICES Ordering Prov: ZAC PAREDES Accession Number: [id number] Addendum The pathology from the patient's recent [...] Provider, Historical / Barby Liu - 12/17/2007 [address] [place], [place] [address] Admit Date: 11/29/2007 SHU CAR Sex: F Admit Prov: ZAC PAREDES Date:1965 Primary Care Prov: ZAC PAREDES CMRN: [id number] Room: [facility] SSN: [id number] IMAGING SERVICES Ordering Prov: ZAC PAREDES Addendum The pathology from the patient's 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 This is benign and concordant.The patient was informed of the above findings by Isabel Ruvalcaba, nurse [facility]. Assessment BIRADS: 2-Benign finding Recommendation: Normal interval [...] unspecified documented in this encounter Care Teams Battery Plate Assembler Relationship Specialty Start Date End Date Andi Bueno MD [address] [facility] [address] [place] [address] PCP - General Internal Medicine 08/16/16 documented as of this encounter
--- OUTSIDE RECORDS SUMMARY | 2025-04-20 13:38 | XMS_ITS | Encounter Summary ---
Author Organization [employer] Address [address] [place] [address] Care Team Providers Care Portfolio Assistant Name Role Phone Andi Bueno MD Primary Care Provider [phone] Encounter Details Date Type Department Care Team (Late st Contact Info) Description 08/22/[address] 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 Tracie Amato [facility] [address] [place] [address]. [address] [place] [phone] ING INSTRUCTOR documented in this encounter Plan of Treatment Not on file documented as of this encounter Visit Diagnoses Not on filedocumented in this encounter Care Teams Portfolio Assistant Relationship Specialty Start Date End Date Andi Bueno MD [address] [facility] [address] [place] [address] PCP - General Internal Medicine 08/16/16 documented as of this encounter
--- OUTSIDE RECORDS SUMMARY | 2025-04-20 13:38 | XMS_ITS | Clinical Summary ---
Author Organization [facility] Address [facility] [place] [address] Care Team Providers Care Language Specialist Name Role Phone Jaime Taylor DO Primary Care Provider [phone] Allergies Active Allergy Reactions Criticality Noted Date Comments [place] Hives 11/02/2021 Sertraline Hives 11/02/2021 Medications losartan [...] on file Legal Sex Female 12:38 PM CREDIT COLLECTION ASSOCIATE Gender Identity Not on file Sexual Orientation Not on file Last Filed Vital Signs Vital Sign Reading Time Taken Comments Blood Pressure 119/80 11/09/2021 12:50 PM CREDIT COLLECTION ASSOCIATE Pulse 78 11/09/2021 12:50 PM CREDIT COLLECTION ASSOCIATE Temperature 36.4 C (97.5 F) 11/09/2021 12:23 PM CREDIT COLLECTION ASSOCIATE Respiratory Rate 27 11/09/2021 12:50 PM CREDIT COLLECTION ASSOCIATE Oxygen Saturation 96% 11/09/2021 12:50 PM CREDIT COLLECTION ASSOCIATE Inhaled Oxygen Concentration - - Weight 115.2 kg (254 lb) 11/02/2021 1:59 PM CREDIT COLLECTION ASSOCIATE Height 154.9 cm (5' 1) 11/02/2021 1:59 PM CREDIT COLLECTION ASSOCIATE Body Mass Index 47.99 11/02/2021 1:59 PM CREDIT COLLECTION ASSOCIATE Plan of Treatment Health Maintenance Due Date [...] Every 5 Years 1996 Cervical Cancer Screening [facility] HPV 1996 Mammogram Screening 2006 [...] this topic Medical Devices Implanted Type Area Test Department Helper Device Identifier Shelf Expiration Date Model / Serial / Lot Screw Screw Right: Ankle Insurance [facility] Care Teams Language Specialist Relationship Specialty Start Date End Date Jaime Taylor DO [address] [address] PCP - General INTERNAL MEDICINE 11/09/21
--- OUTSIDE RECORDS SUMMARY | 2025-04-20 13:38 | XMS_ITS | Encounter Summary ---
Author Organization [facility] Address [address] [place] [address] Care Team Providers Care Galvanizing Pot Runner Name Role Phone Andi Bueno MD Primary Care Provider [phone] Encounter Details Date Type Department Care Team (Late st Contact Info) Description 10/28/2007 Outpatient Historical [facility] Primary Care - [address] [place] [address] Zac Paredes MD [address] [facility] [address] [place] [address] Social History Tobacco Use Types Packs/Day Years Used Date Smoking Tobacco: Never Assessed Comments Unknown Sex and Gender Information Value Date Recorded Sex Assigned at Not on file Legal Sex Female 5:28 AM SWIMMING COACH Gender Identity Not on file Sexual Orientation Not on file documented as of this encounter Plan of Treatment Not on file documented as of this encounter Visit Diagnoses Not on filedocumented in this encounter Care Teams Galvanizing Pot Runner Relationship Specialty Start Date End Date Andi Bueno MD [address] [place] [address] [place] [address] PCP - General Internal Medicine 08/16/16 documented as of this encounter
--- OUTSIDE RECORDS SUMMARY | 2025-04-20 13:38 | XMS_ITS | Encounter Summary ---
Author Organization [facility] Address [address] [place] [address] Care Team Providers Care Furnace And Wash Equipment Operator Name Role Phone Andi Bueno MD Primary Care Provider [phone] Encounter Details Date Type Department Care Team (Late st Contact Info) Description 10/28/2007 Orders Only [facility] Primary Care - [address] [place] [address] Zac Paredes MD [address] [facility] [address] [place] [address] Social History Tobacco Use Types Packs/Day Years Used Date Smoking Tobacco: Never Assessed Comments Unknown Sex and Gender Information Value Date Recorded Sex Assigned at Not on file Legal Sex Female 5:28 AM RESEARCH LABORATORY SPECIALIST Gender Identity Not on file Sexual Orientation Not on file documented as of this encounter Progress Notes * Zac Paredes MD - 01/22/2008 1:46 PM CDT BLOOD PRESSURE: 114/80 Right Arm Sitting TEMPERATURE: 97.9??f Oral WEIGHT: [id number] NURSE NAME: Laura Ball ALLERGIES: No known [...] identified on exam. LAB ORDERS: Order number: [id number] Test Ordered: COMPREHENSIVE METABOLIC PANEL & GFR 1112 Order number: [id number] Test Ordered: TSH (REFLEX FREE T4/FREE T3) 1727 Order number: [id number] Test Ordered: URIC ACID 1795 Order number: [id number] Test Ordered: LIPID PANEL 1078 719.40-ARTHRALGIA in achilles tendon? MEDICATIONS: IBUPROFEN ORAL TABLET 600 MG, 1 po tid with food prn, 90 Dispensed, 1 Fills, status: NEW PRESCRIPTION, 10/28/2007. SPECIALTY REFERRAL: INSOLE AND HEEL STIFFENER Dr. Ana Lilia Chatterjee ph: [phone] fax: [phone] ph: [phone]. PODIATRY Dr. Anthony Kelly ph: [phone] fax: [phone]. HEALTH MAINTENANCE: LAST BREAST EXAM DATE: 2005. [...] on filedocumented in this encounter Care Teams Furnace And Wash Equipment Operator Relationship Specialty Start Date End Date Andi Bueno MD [address] [facility] [address] [place] [address] PCP - General Internal Medicine 08/16/16 documented as of this encounter
--- OUTSIDE RECORDS SUMMARY | 2025-04-20 13:38 | XMS_ITS | Encounter Summary ---
Author Organization [facility] Address [address] [place] [address] Care Team Providers Care Director Of Psychology Name Role Phone Andi Bueno MD Primary Care Provider [phone] Encounter Details Date Type Department Care Team (Late st Contact Info) Description 11/12/2007 Outpatient Historical [facility] Zac Paredes MD [address] [facility] [address] [place] [address] Other Screening Mammogram Social History Tobacco Use Types Packs/Day Years Used Date Smoking Tobacco: Never Assessed Comments Unknown Sex and Gender Information Value Date Recorded Sex Assigned at Not on file Legal Sex Female 5:28 AM CAR WRECKER Gender Identity Not on file Sexual Orientation Not on file documented as of this encounter Plan of Treatment Not on file documented as of this encounter Procedures Procedure Name Priority Date/Time Associated Diagnosis Comments MAMMO SCREENING BILAT Timed Study 11/11/2007 8:26 AM CAR WRECKER documented in this encounter Results * MAMMO SCREENING BILAT (11/11/2007 8:26 AM CAR WRECKER) Anatomical Region Laterality Modality Breast Bilateral Other 11/11/2007 8:26 AM CAR WRECKER Narrative 11/13/2007 2:50 PM CAR WRECKER [facility] [address] [place], [place] [address] Admit Date: 11/11/2007 LISSETTE CAR Sex: F Admit Prov: ZAC PAREDES Date: 1965 Primary Care Prov: ZAC PAREDES CMRN: [id number] [facility] [address] [place] [address] IMAGING SERVICES Ordering Prov: ZAC PAREDES Accession Number: [id number] Interpretation BILATERAL SCREENING MAMMOGRAMS, 11/11/2007 Findings: There [...] DKT Procedure Note Provider, Historical - 11/13/[address] [address] Admit Date: 11/11/2007 LISSETTE CAR Sex: F Admit Prov: ZAC PAREDES Date:1965 Primary Care Prov: ZAC PAREDES CMRN: [id number] [facility] [address] [place] [address] IMAGING SERVICES Ordering Prov: ZAC PAREDES Interpretation [...] mammogram documented in this encounter Care Teams Director Of Psychology Relationship Specialty Start Date End Date Andi Bueno MD [address] [facility] [address] [place] [address] PCP - General Internal Medicine 08/16/16 documented as of this encounter
--- OUTSIDE RECORDS SUMMARY | 2025-04-20 13:38 | XMS_ITS | Clinical Summary ---
Author Organization [facility] Address [address] [place] [address] Care Team Providers Care Geochemistry Teacher Name Role Phone Unknown, Provider Primary Care Provider Unavaila ble Source Comments [facility],non-owned Affiliates and Associated Physician Practices is amultiple site organization consisting of ambulatory clinics and hospital sitesin [place], [place], [place] and [place]. This disclosure is being madepursuant to the Care Everywhere program and may not contain all information available regarding this patient. Last updated 18.[facility] Allergies Active Allergy Reactions Criticality Noted Date Comments [place] GI Discomfort 02/14/2016 Sertraline Urticaria High 02/14/2016 [...] st Contact Info) Description 08/18/2025 3:20 PM JEWEL BEARING FACER Office Visit [facility] - Dermatology [address] [place] [address] [place] [address] Corrine Oliver MD [address] [place], [place] [address] [address] 11/05/2025 10:00 AM JEWEL BEARING FACER Office Visit [facility] - Rheumatology [address] [place] [phone] Lazaro Calles MD [address] [place] [address] [place] [address] Health Maintenance Due Date Last Done Comments [...] has been evaluated with computer assisted technology. Front Office Assistant [facility] Comment: BAB, CT(ASCP) CT screening location: [place] [address] [place] [address] Human papillomavirus mRNA E6 E7 Not Detected Not Detected [facility] Comment: This test was performed using the APTIMA HPV Assay ([employer] This assay detects E6/E7 viral messenger RNA (mRNA) from 14 high-risk HPV types (16,18,31,33,35,39,45,51,52,56,58,59,66,68). Test Performed at: [facility] [address] STIVEN HEDRICK MD 02/14/2016 12:0 4 PM CDT 02/15/2016 5:13 AM CDT us Mine Sams MD LAB - PATHOLOGY/CYTOLOGY [facility] Final Result [address] [address] from Last 3 Months or Most Recently Relevant to Health Maintenance Insurance [employer] [facility] MEDICARE Care Teams Geochemistry Teacher Relationship Specialty Start Date End Date Unknown, Provider PCP - General 04/13/25
--- OUTSIDE RECORDS SUMMARY | 2025-04-20 13:38 | XMS_ITS | Encounter Summary ---
Author Organization [facility] Address [address] [place] [address] Care Team Providers Care Systems Analyst Developer Name Role Phone Andi Bueno MD Primary Care Provider [phone] Encounter Details Date Type Department Care Team (Late st Contact Info) Description 10/08/2007 Outpatient Historical [facility] Primary Care - [address] [place] [address] Zac Paredes MD [address] [facility] [address] [place] [address] Social History Tobacco Use Types Packs/Day Years Used Date Smoking Tobacco: Never Assessed Comments Unknown Sex and Gender Information Value Date Recorded Sex Assigned at Not on file Legal Sex Female 5:28 AM HELP DESK MANAGER Gender Identity Not on file Sexual Orientation Not on file documented as of this encounter Plan of Treatment Not on file documented as of this encounter Visit Diagnoses Not on filedocumented in this encounter Care Teams Systems Analyst Developer Relationship Specialty Start Date End Date Andi Bueno MD [address] [facility] [address] [place] [address] PCP - General Internal Medicine 08/16/16 documented as of this encounter
--- OUTSIDE RECORDS SUMMARY | 2025-04-20 13:38 | XMS_ITS | Encounter Summary ---
Author Organization [facility] Address [address] [place] [address] Care Team Providers Care Remote Computer Terminal Operator Name Role Phone Andi Bueno MD Primary Care Provider [phone] Encounter Details Date Type Department Care Team (Late st Contact Info) Description 10/28/2007 Outpatient Historical [facility] Primary Care - [address] [place] [address] Zac Paredes MD [address] [facility] [address] [place] [address] Routine General Medical Examination at a Health Care Facility Social History Tobacco Use Types Packs/Day Years Used Date Smoking Tobacco: Never Assessed Comments Unknown Sex and Gender Information Value Date Recorded Sex Assigned at Not on file Legal Sex Female 5:28 AM VIRTUALIZATION ENGINEER Gender Identity Not on file Sexual Orientation Not on file documented as of this encounter Plan of Treatment Not on file documented as of this encounter Procedures Procedure Name Priority Date/Time Associated Diagnosis Comments TSH WITH REFLEX FT4 AND FT3 Routine 10/28/2007 10:56 PM VIRTUALIZATION ENGINEER URIC ACID Routine 10/28/2007 10:56 PM VIRTUALIZATION ENGINEER LIPID PANEL Routine 10/28/2007 10:56 PM VIRTUALIZATION ENGINEER COMPREHENSIVE METABOLIC PANEL Routine 10/28/2007 10:56 PM VIRTUALIZATION ENGINEER documented in this encounter Results * URIC ACID (10/28/2007 10:56 PM VIRTUALIZATION ENGINEER) URIC ACID 3.6 2.3 - 6.6 mg/dL [facility] Blood specimen (specimen) 10/28/2007 10:56 PM VIRTUALIZATION ENGINEER 10/28/2007 10:56 PM VIRTUALIZATION ENGINEER Zac Paredes MD CHEMISTRY ORDERABLES Final Resul t Performing Organization Address [facility] [place] [facility] Co de Phone Number [facility] [address] [place] [address] * TSH WITH REFLEX FT4 AND FT3 (10/28/2007 10:56 PM VIRTUALIZATION ENGINEER) Pathologist [facility] TSH 1.62 0.27 - 4.20 uU/mL [facility] Blood specimen (specimen) 10/28/2007 10:56 PM VIRTUALIZATION ENGINEER 10/28/2007 10:56 PM VIRTUALIZATION ENGINEER Zac Paredes MD CHEMISTRY ORDERABLES Final Resul t Performing Organization Address [facility] [place] [facility] Co de Phone Number [facility] [address] [place] [address] * COMPREHENSIVE METABOLIC PANEL (10/28/2007 10:56 PM VIRTUALIZATION ENGINEER) Pathologist [facility] CALCIUM 9.3 8.4 - 10.2 mg/dL [facility] CHLORIDE 102 96 - 108 mmol/L [facility] ALBUMIN 4.2 3.4 - 4.8 g/dL [facility] CREATININE 0.77 0.51 - 0.95 mg/dL [facility] SODIUM 138 135 - 145 mmol/L [facility] ALT 17 0 - 31 U/L [facility] ALKALINE PHOSPHATASE 96 35 - 104 U/L [facility] BILIRUBIN TOTAL 0.6 0.2 - 1.0 mg/dL [facility] CO2 23 22 - 30 mmol/L [facility] TOTAL PROTEIN 7.6 6.3 - 8.6 g/dL [facility] POTASSIUM 4.1 3.5 - 4.9 mmol/L [facility] GLUCOSE 79 65 - 99 mg/dL [facility] AST 14 12 - 32 U/L [facility] BUN 15 6 - 20 mg/dL [facility] GFR, >60 >=60 mL/min/1.7 sq meter [facility] GFR >60 >=60 mL/min/1.7 sq meter [facility] Comment: Estimated GFR rate interpretative information for both Americans and non- Americans is available on the [facility] Intranet at: [email or web address] Select: Lab Policies and Procedures Select: Reference Ranges - GFR Blood specimen (specimen) 10/28/2007 10:56 PM VIRTUALIZATION ENGINEER 10/28/2007 10:56 PM VIRTUALIZATION ENGINEER us Zac Paredes MD CHEMISTRY ORDERABLES Edited [facility] [address] [place] [address] * (ABNORMAL) LIPID PANEL (10/28/2007 10:56 PM VIRTUALIZATION ENGINEER) CHOLESTEROL 217(H) 100 - 199 mg/dL [facility] CHOL/HDL RATIO 3.1 2.0 - 5.0 [facility] TRIGLYCERIDE 64 10 - 149 mg/dL [facility] HDL 70(H) 40 - 59 mg/dL [facility] LDL CALCULATED 134(H) <=99 mg/dL [facility] LIPID PANEL COMMENT See Below [facility] Comment: The adult ATP and pediatric NCEP classifications for lipids are available on the [facility] Intranet at: [email or web address] Select: Lab Policies and Procedures,Current Select: Lipid Panel Interpretation Blood specimen (specimen) 10/28/2007 10:56 PM VIRTUALIZATION ENGINEER 10/28/2007 10:56 PM VIRTUALIZATION ENGINEER us Zac Paredes MD CHEMISTRY ORDERABLES Edited [facility] [address] [place] [address] documented in this encounter Visit Diagnoses Diagnosis Routine general medical examination at a health care facility documented in this encounter Care Teams Remote Computer Terminal Operator Relationship Specialty Start Date End Date Andi Bueno MD [address] [facility] [address] [place] [address] PCP - General Internal Medicine 08/16/16 documented as of this encounter
--- OUTSIDE RECORDS SUMMARY | 2025-04-20 13:38 | XMS_ITS | Encounter Summary ---
Author Organization [facility] Address [address] [place] [address] Care Team Providers Care Dental Claims Processor Name Role Phone Andi Bueno MD Primary Care Provider [phone] Encounter Details Date Type Department Care Team (Late st Contact Info) Description 11/19/2007 Outpatient Historical [facility] Paredes, Zac Tee MD [address] [facility] [address] [place] [address] Abnormal Mammogram, Unspecified Social History Tobacco Use Types Packs/Day Years Used Date Smoking Tobacco: Never Assessed Comments Unknown Sex and Gender Information Value Date Recorded Sex Assigned at Not on file Legal Sex Female 5:28 AM AUTO CLUTCH SPECIALIST Gender Identity Not on file Sexual [...] PM CDT Narrative 11/19/2007 4:50 PM CDT [facility] [address] [place], [place] [address] Admit Date: 11/19/2007 LISSETTE CAR Sex: F Admit Prov: ZAC PAREDES Date: 1965 Primary Care Prov: ZAC PAREDES CMRN: [id number] Room: [facility] SSN: [id number] IMAGING SERVICES Ordering Prov: ZAC PAREDES Accession Number: [id number] Interpretation Left breast ultrasound 11/19/2007 History: Mass [...] AMK Procedure Note Provider, Historical - 11/19/[address] [address] Admit Date: 11/19/2007 LISSETTE CAR Sex: F Admit Prov: ZAC PAREDES Date:1965 Primary Care Prov: ZAC PAREDES CMRN: [id number] Room: [facility] SSN: [id number] IMAGING SERVICES Ordering Prov: ZAC PAREDES Interpretation [...] unspecified documented in this encounter Care Teams Dental Claims Processor Relationship Specialty Start Date End Date Andi Bueno MD [address] [facility] [address] [place] [address] PCP - General Internal Medicine 08/16/16 documented as of this encounter
--- OUTSIDE RECORDS SUMMARY | 2025-04-20 13:38 | XMS_ITS | Encounter Summary ---
Author Organization [facility] Address [address] [place] [address] Care Team Providers Care Overedge Sewer Name Role Phone Andi Bueno MD Primary Care Provider [phone] Encounter Details Date Type Department Care Team (Late st Contact Info) Description 12/03/2007 Outpatient Historical [facility] Primary Care - [address] [place] [address] Rebecca Lantigua MD [address] [place] [address] [address] [place] [address] Social History Tobacco Use Types Packs/Day Years Used Date Smoking Tobacco: Never Assessed Comments Unknown Sex and Gender Information Value Date Recorded Sex Assigned at Not on file Legal Sex Female 5:28 AM CHASSIS WIRER Gender Identity Not on file Sexual Orientation Not on file documented as of this encounter Plan of Treatment Not on file documented as of this encounter Visit Diagnoses Not on filedocumented in this encounter Care Teams Overedge Sewer Relationship Specialty Start Date End Date Andi Bueno MD [address] [facility] [address] [place] [address] PCP - General Internal Medicine 08/16/16 documented as of this encounter
--- OUTSIDE RECORDS SUMMARY | 2025-04-20 13:38 | XMS_ITS | Clinical Summary ---
Author Organization [facility] Address [address] [place] [address] Care Team Providers Care Redrying Machine Operator Name Role Phone Andi Bueno MD Primary Care Provider [phone] Allergies Active Allergy Reactions Criticality Noted Date Comments Hymenoptera Allergenic Extract Rash Low 03/24 [place] Rash Low 09/08/2016 Sertraline Other (See Comments) [...] on file Legal Sex Female 5:28 AM CONCERT MANAGER Gender Identity Not on file Sexual Orientation Not on file Occupation Industry Job Start Date Job End Date Not on file Not on file Not on file Not on file Last Filed Vital Signs Vital Sign Reading Time Taken Comments Blood Pressure 149/94 07/30/2017 9:15 AM CONCERT MANAGER Pulse 82 07/30/2017 9:15 AM CONCERT MANAGER Temperature 36.5 C (97.7 F) 07/30/2017 9:15 AM CONCERT MANAGER Respiratory Rate 16 07/30/2017 9:15 AM CONCERT MANAGER Oxygen Saturation 97% 07/30/2017 9:15 AM CONCERT MANAGER Inhaled Oxygen Concentration - - Weight 123.8 kg (273 lb) 07/30/2017 9:15 AM CONCERT MANAGER Height 157.5 cm (5' 2) 07/30/2017 9:15 AM CONCERT MANAGER Body Mass Index 49.93 07/30/2017 9:15 AM CONCERT MANAGER Plan of Treatment Health Maintenance Due Date [...] OR WO CAD Routine 10/11/2016 8:57 AM CONCERT MANAGER Breast mass HEMOGLOBIN A1C Routine 06/21/2015 4:01 PM CDT Morbid obesity, unspecified obesity type (CMS/HCC) Elevated glucose from Last 3 Months or Most Recently Relevant to Health Maintenance Results * MAMMO DIAGNOSTIC BILATERAL W OR WO CAD (10/11/2016 8:57 AM CONCERT MANAGER) Anatomical Region Laterality Modality Breast Bilateral Mammography 10/11/2016 8:57 AM CONCERT MANAGER Impressions 10/11/2016 2:42 PM CONCERT MANAGER IMPRESSION: No imaging evidence of malignancy. RECOMMENDATION: Annual screening mammography unless otherwise indicated. BI-RADS 2: Benign. Dictated from: [facility] Narrative 10/11/2016 2:42 PM CONCERT MANAGER EXAM: BILATERAL DIGITAL DIAGNOSTIC MAMMOGRAPHY WITH CAD [...] - 6.1 % 06/22/2015 9:30 PM CDT [facility] EST. AVG GLUCOSE, A1C 111 mg/dL 06/22/2015 9:30 PM CDT [facility] Blood Venipuncture - L ab Collect / Unknown 06/21/2015 4:01 PM CDT 06/21/2015 4:01 PM CDT Narrative [facility] - 06/22/2015 9:30 PM CDT Based on the ADAG study equation. Rebecca Lantigua MD CHEMISTRY ORDERABLES Final R esult [facility] CLMALI# [id number] [address] [place] [id number] from Last 3 Months or Most Recently Relevant to Health Maintenance Insurance [facility] Advance Directives For more information, please contact: [phone] * Full Code (Latest Code Status on File) Date Activated Date Inactivated Comments 01/23/2016 9:53 PM 01/24/2016 12:34 PM * Full Code Date Activated Date Inactivated Comments 05/06/2015 10:31 AM 05/06/2015 3:09 PM * Full Code Date Activated Date Inactivated Comments 01/06/2015 2:11 PM 01/09/2015 6:47 PM * Full Code Date Activated Date Inactivated Comments 12/02/2014 2:20 PM 12/06/2014 3:39 PM Care Teams Redrying Machine Operator Relationship Specialty Start Date End Date Andi Bueno MD [address] [facility] [address] [place] [address] PCP - General Internal Medicine 08/16/16
--- OUTSIDE RECORDS SUMMARY | 2025-04-20 13:38 | XMS_ITS | Encounter Summary ---
Author Organization [facility] Address [address] [place] [address] Care Team Providers Care Senior Inspector Name Role Phone Andi Bueno MD Primary Care Provider [phone] Encounter Details Date Type Department Care Team (Late st Contact Info) Description 10/28/2007 Outpatient Historical [facility] Primary Care - [address] [place] [address] Zac Paredes MD [address] [facility] [address] [place] [address] Social History Tobacco Use Types Packs/Day Years Used Date Smoking Tobacco: Never Assessed Comments Unknown Sex and Gender Information Value Date Recorded Sex Assigned at Not on file Legal Sex Female 5:28 AM LOG POND WORKER Gender Identity Not on file Sexual Orientation Not on file documented as of this encounter Plan of Treatment Not on file documented as of this encounter Visit Diagnoses Not on filedocumented in this encounter Care Teams Senior Inspector Relationship Specialty Start Date End Date Andi Bueno MD [address] [facility] [address] [place] [address] PCP - General Internal Medicine 08/16/16 documented as of this encounter
--- OUTSIDE RECORDS SUMMARY | 2025-04-20 13:39 | XMS_ITS | Encounter Summary ---
Author Organization [facility] Address [address] [place] [address] Care Team Providers Care Tipple Boss Name Role Phone Andi Bueno MD Primary Care Provider [phone] Encounter Details Date Type Department Care Team (Late st Contact Info) Description 12/03/2007 Orders Only [facility] Primary Care - [facility] [address] [place] [address] [address] [place] [address] Rebecca Lantigua MD [address] [place] [address] [address] [place] [address] Social History Tobacco Use Types Packs/Day Years Used Date Smoking Tobacco: Never Assessed Comments Unknown Sex and Gender Information Value Date Recorded Sex Assigned at Not on file Legal Sex Female 5:28 AM PLANT SUPERVISOR Gender Identity Not on file Sexual Orientation Not on file documented as of this encounter Progress Notes * Rebecca Lantigua MD - 02/13/2008 7:54 PM CDT TEMPERATURE: 98??f Oral BLOOD PRESSURE: 122/78 Right Arm Sitting WEIGHT: [id number] NURSE NAME: Laura Ball ALLERGIES: No known [...] WALL PAIN/PAINFUL RESPIRATIONS LAB ORDERS: Order number: [id number] Test Ordered: XRAY RIB SERIES/PA CHEST RIGHT Order number: [id number] Test Ordered: PHYSICAL THERAPY, EVALUATION & TREATMENT [...] on filedocumented in this encounter Care Teams Tipple Boss Relationship Specialty Start Date End Date Andi Bueno MD [address] [facility] [address] [place] [address] PCP - General Internal Medicine 08/16/16 documented as of this encounter
--- OUTSIDE RECORDS SUMMARY | 2025-04-20 13:39 | XMS_ITS | Encounter Summary ---
Author Organization [facility] Address [address] [place] [address] Care Team Providers Care Director Of Conservation Name Role Phone Andi Bueno MD Primary Care Provider [phone] Encounter Details Date Type Department Care Team (Late st Contact Info) Description 12/16/2007 Outpatient Historical [facility] Rebecca Lantigua MD [address] [facility] [address] [place] [address] Social History Tobacco Use Types Packs/Day Years Used Date Smoking Tobacco: Never Assessed Comments Unknown Sex and Gender Information Value Date Recorded Sex Assigned at Not on file Legal Sex Female 5:28 AM HANDLE LATHE OPERATOR Gender Identity Not on file Sexual Orientation Not on file documented as of this encounter Plan of Treatment Not on file documented as of this encounter Visit Diagnoses Not on filedocumented in this encounter Care Teams Director Of Conservation Relationship Specialty Start Date End Date Andi Bueno MD [address] [facility] [address] [place] [address] PCP - General Internal Medicine 08/16/16 documented as of this encounter
--- OUTSIDE RECORDS SUMMARY | 2025-04-20 13:39 | XMS_ITS | Encounter Summary ---
Author Organization [facility] Address [address] [place] [address] Care Team Providers Care Stabber Name Role Phone Andi Bueno MD Primary Care Provider [phone] Encounter Details Date Type Department Care Team (Late st Contact Info) Description 12/03/2007 Outpatient Historical [facility] Primary Care - [address] [place] [address] Rebecca Lantigua MD [address] [place] [address] [address] [place] [address] Social History Tobacco Use Types Packs/Day Years Used Date Smoking Tobacco: Never Assessed Comments Unknown Sex and Gender Information Value Date Recorded Sex Assigned at Not on file Legal Sex Female 5:28 AM WAGON WINDER Gender Identity Not on file Sexual Orientation Not on file documented as of this encounter Plan of Treatment Not on file documented as of this encounter Visit Diagnoses Not on filedocumented in this encounter Care Teams Stabber Relationship Specialty Start Date End Date Andi Bueno MD [address] [facility] [address] [place] [address] PCP - General Internal Medicine 08/16/16 documented as of this encounter
--- OUTSIDE RECORDS SUMMARY | 2025-04-20 13:39 | XMS_ITS | Encounter Summary ---
Author Organization [facility] Address [address] [place] [address] Care Team Providers Care Stewarding Supervisor Name Role Phone Andi Bueno MD Primary Care Provider [phone] Encounter Details Date Type Department Care Team (Latest Contact Info) Description 12/03/2007 Outpatient Historical [facility] Cristian Rick MD [address] [facility] [address] [place] [address] Painful Respiration Social History Tobacco Use Types Packs/Day Years Used Date Smoking Tobacco: Never Assessed Comments Unknown Sex and Gender Information Value Date Recorded Sex Assigned at Not on file Legal Sex Female 5:28 AM TOW MOTOR OPERATOR Gender Identity Not on file Sexual [...] PM CDT Narrative 12/03/2007 12:42 PM CDT [facility] [address] [place], [place] [address] Admit Date: 12/03/2007 LISSETTE CAR Sex: F Admit Prov: CRISTIAN RICK Date: 1965 Primary Care Prov: GREGORIO LEVI Nay CMRN: [id number] [id number] Ordering Prov: N/A Accession Number: [id number] Interpretation Examination: Chest with right ribs. 5 views. Clinical History: Pain. Findings: Chest examination fails to demonstrate pleural, pulmonary, or mediastinal abnormality. Heart size is normal. There is no evidence of right rib fracture. Impression: Normal chest with right ribs. . Dictated by: Nay PATE 12/03/2007 12:42 Electronically signed by: Nay PATE 12/03/2007 12:42 Procedure Note Provider, Historical - 12/03/[address] [address] Admit Date: 12/03/2007 LISSETTE CAR Sex: F Admit Prov: CRISTIAN RICK Date:1965 Primary Care Prov: JACKSON LEVICorazon Tee CMRN: [id number] [facility] [id number] [facility] Ordering Prov: N/A Interpretation Examination: [...] respiration documented in this encounter Care Teams Stewarding Supervisor Relationship Specialty Start Date End Date Andi Bueno MD [address] [facility] [address] [place] [address] PCP - General Internal Medicine 08/16/16 documented as of this encounter
--- OUTSIDE RECORDS SUMMARY | 2025-04-20 13:39 | XMS_ITS | Encounter Summary ---
Author Organization [facility] Address [address] [place] [address] Care Team Providers Care Winter Intern Name Role Phone Andi Bueno MD Primary Care Provider [phone] Encounter Details Date Type Department Care Team (Late st Contact Info) Description 07/21/2008 Outpatient Historical [facility] CHANI Paredes, Zac Tee MD [address] [facility] [address] [place] [address] Abnormal Mammogram, Unspecified Social History Tobacco Use Types Packs/Day Years Used Date Smoking Tobacco: Never Alcohol Use Standard Drinks/Week Comments No 0 (1 standard drink = 0.6 oz pur e alcohol) Comments No Sex and Gender Information Value Date Recorded Sex Assigned at Not on file Legal Sex Female 5:28 AM SENIOR FINANCIAL Gender Identity Not on file Sexual Orientation Not on file documented as of this encounter Plan of Treatment Not on file documented as of this encounter Procedures Procedure Name Priority Date/Time Associated Diagnosis Comments MAMMO DIAGNOSTIC BILATERAL W OR WO CAD Timed Study 07/21/2008 9:22 AM SENIOR FINANCIAL documented in this encounter Results * MAMMO DIGITAL DIAG BILAT (07/21/2008 9:22 AM SENIOR FINANCIAL) Anatomical Region Laterality Modality Breast Bilateral Other 07/21/2008 9:22 AM SENIOR FINANCIAL Narrative 2008 7:53 AM SENIOR FINANCIAL [place] [facility] [place] [place] [address] Admit Date: 07/21/2008 LISSETTE CAR Sex: F Admit Prov: ZAC PAREDES Date: 1965 Primary Care Prov: ZAC PAREDES CMRN: [id number] Room: [facility] SSN: [id number] IMAGING SERVICES Ordering Prov: ZAC PAREDES Accession Number: [id number] Interpretation BILATERAL DIAGNOSTIC DIGITAL MAMMOGRAMS WITH COMPUTER [...] AMK Procedure Note Do Hirsch - 2008 [place] [place], [place] [address] Admit Date: 07/21/2008 LISSETTE CAR Sex: F Admit Prov: ZAC PAREDES Date:1965 Primary Care Prov: ZAC PAREDES CMRN: [id number] Room: [facility] SSN: [id number] IMAGING SERVICES Ordering Prov: ZAC PAREDES Interpretation [...] unspecified documented in this encounter Care Teams Winter Intern Relationship Specialty Start Date End Date Andi Bueno MD [address] [facility] [address] [place] [address] PCP - General Internal Medicine 08/16/16 documented as of this encounter
--- OUTSIDE RECORDS SUMMARY | 2025-04-20 13:39 | XMS_ITS | Encounter Summary ---
Author Organization [employer] Address [address] [place] [address] Care Team Providers Care Platen Builder Up Name Role Phone Andi Bueno MD Primary Care Provider [phone] Encounter Details Date Type Department Care Team (Late st Contact Info) Description 07/29/2008 Outpatient Historical [facility] Rebecca Lantigua MD [address] [place] [address] [address] [place] [address] Social History Tobacco Use Types Packs/Day Years Used Date Smoking Tobacco: Never Alcohol Use Standard Drinks/Week Comments No 0 (1 standard drink = 0.6 oz pur e alcohol) Comments No Sex and Gender Information Value Date Recorded Sex Assigned at Not on file Legal Sex Female 5:28 AM LOCK EXPERT Gender Identity Not on file Sexual Orientation Not on file documented as of this encounter Plan of Treatment Not on file documented as of this encounter Visit Diagnoses Not on filedocumented in this encounter Care Teams Platen Builder Up Relationship Specialty Start Date End Date Andi Bueno MD [address] [facility] [address] [place] [address] PCP - General Internal Medicine 08/16/16 documented as of this encounter
--- OUTSIDE RECORDS SUMMARY | 2025-04-20 13:39 | XMS_ITS | Encounter Summary ---
Author Organization [employer] Address [address] [place] [address] Care Team Providers Care Scudding Inspector Name Role Phone Andi Bueno MD Primary Care Provider [phone] Encounter Details Date Type Department Care Team (Late st Contact Info) Description 01/17/2008 Outpatient Historical [facility] Rebecca Lantigua MD [address] [facility] [address] [place] [address] Social History Tobacco Use Types Packs/Day Years Used Date Smoking Tobacco: Never Assessed Comments Unknown Sex and Gender Information Value Date Recorded Sex Assigned at Not on file Legal Sex Female 5:28 AM INJECTION MACHINE 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
[2025-04-20 14:24] LABS: Hematocrit 39.9 % (37.0-47.0); Hemoglobin 12.4 g/dL (12.0-15.0); Immature Granulocyte Percent A 0.4 % (0-0.5); Lymphocytes Absolute Auto 2.17 K/mm3 (0.9-3.2); Mean Corpuscular HGB Conc 31.1 g/dl (32-36); Mean Corpuscular Hemoglobin 27.7 pg (26-34); Mean Corpuscular Volume 89.3 fl (80-100); Nucleated Red Blood Cells Absolute Auto 0.000 K/mm3 (0.0-0.012); Nucleated Red Blood Cells Perc 0.0 % (0.0-0.2); Platelet Count Result 292 k/mm3 (150-375); Red Blood Count 4.47 M/mm3 (4.2-5.4); White Blood Count 9.0 K/mm3 (4.5-10.0)
[2025-04-20] MEDS: SODIUM CHLORIDE 0.9% IV 1,000 ML 999 ML IV CONT (14:42)
[2025-04-20] MEDS: METOCLOPRAMIDE HCL INJ 10 MG/2 ML VIAL IV PUSH (14:43)
[2025-04-20] MEDS: KETOROLAC 15 MG/ML VIAL (*BKC) IV PUSH (14:43)
[2025-04-20 14:44] LABS: Alanine Aminotransferase 12 U/L (6-35); Albumin Level 3.6 g/dL (3.5-5.1); Alkaline Phosphatase 88 U/L (38-126); Anion Gap 8 mmol/L (4-12); Aspartate Amino Transferase 15 U/L (14-36); Bilirubin,Total 0.7 mg/dL (0.2-1.3); Blood Urea Nitrogen 12 mg/dL (7-17); Calcium 9.0 mg/dL (8.4-10.2); Carbon Dioxide 23 mmol/L (22-30); Chloride 105 mmol/L (98-107); Estimated CRCL calculation 67 ml/min; Estimated Glomerular Filt Rate > 60; Glucose 99 mg/dL (65-110); Magnesium 2.3 mg/dL (1.6-2.3); Potassium 3.9 mmol/L (3.4-5.0); Sodium 136 mmol/L (137-145); Total Protein 6.6 g/dL (6.3-8.2)
[2025-04-20 15:07] LABS: Add Urine Microscopic? NO; Appearance Urine Clear (Clear); Glucose Urine UA Negative (Negative); Leukocyte Esterase Ur Negative LEU/UL (Negative); Nitrate Urine Negative (Negative); Specific Grav Ur 1.027 (1.001-1.035)
--- NOTE | 2025-04-20 16:06 | ED_ITS ---
HPI - General Adult General Chief complaint: Headache Stated complaint: headache, head is swollen Time Seen by Provider: 04/20/25 12:52 History of Present Illness HPI narrative: Patient is a 59-year-old female who presents emergency department chief complaint of headache. Patient reports the last 2 days she has had pain on the sides of her reports she has had some blurry vision with this patient reports that she has also had some urinary frequency the patient states that feels at the side of her head is swollen reports that she has pain in the frontal portion of her patient reports he has had nausea with this the patient denies fever does report that she was treated for an ear infection recently Related Data Home Medications ?Medication ?Instructions ?Recorded ?Confirmed ?Last Taken ?Type folic acid 1 mg tablet 1 mg PO DAILY 02/19/20 03/23/25 04/18/22 History gabapentin 600 mg tablet 600 mg PO DAILY 03/26/20 03/23/25 04/19/22 History (Neurontin) multivitamin (Daily Multi-Vitamin 1 tablet PO DAILY 01/19/22 03/23/25 04/16/22 History tablet) cetirizine 10 mg tablet (Zyrtec) 10 mg PO DAILY PRN 03/19/23 03/23/25 Unknown History lamotrigine 25 mg tablet 25 mg PO DAILY 09/17/24 03/23/25 Unknown History quetiapine 100 mg tablet (Seroquel) 100 mg PO QHS 11/19/24 03/23/25 Unknown History amoxicillin 500 mg capsule mg PO 03/23/25 03/23/25 Unknown History Allergies Allergy/AdvReac Type Severity Reaction Status Date / Time sertraline Allergy Mild Hives Verified 03/23/25 12:42 lithium AdvReac Intermediate Nausea and Verified 03/23/25 12:42 Vomiting Review of Systems 2 Review of Systems: A 10 system review of systems was completed on the patient and is negative except for what is stated in the HPI. Nursing and ancillary documentation was reviewed. [facility] Past Medical History Medical History COVID-19 History of 1985 Arthritis Acid reflux Hyperlipidemia Hypertension PTSD (post-traumatic stress disorder) Anxiety and depression Adverse effect of ytsjbmkjcer-rmhbdcehkh-qdeiip inhibitors, initial encounter CAROLYNE on CPAP Vaginal bleeding Bipolar affective disorder Surgical History Surgical History Status post hysterectomy with oophorectomy History of myomectomy History of section S/P breast lumpectomy History of tubal ligation Family History Family History Mother Patient's mother is in good health Diabetes mellitus Hypertension Sibling Patient's brother is in good health Family history of malignant neoplasm of breast in first degree relative Diabetes mellitus Family history of blood dyscrasia Hypertension Father Family history of heart disease in male family member before age 55 Family history of cardiovascular disease Diabetes mellitus Hypertension Cerebrovascular accident Social History Social History Smoking status: Never smoker Second hand tobacco smoke exposure: No Alcohol intake: current Alcohol use details: Social Substance use: never Substance use type: does not use Do You Feel Safe in your Home?: Yes Lack of Transportation: No Lack of Food: Sometimes True Current Housing: I Have Housing Concerned About Future Housing: No Difficulty Paying Gas/Electric Bills: No Difficulty Paying for Meds: No Education: High School Diploma/GED Difficulty w/ Childcare or Family Care: No Living arrangements: with family Gender identity (if verbalized by the patient): Female Spiritual care concerns: No Agree to blood products: Yes Exam 2 Narrative: GENERAL: Well-appearing, well-nourished, and in no acute distress. HEAD: Normocephalic, atraumatic. EYES: PERRLA and EOMI. ENT: Nares clear, no rhinorrhea or epistaxis. Mucous membranes moist. NECK: Supple. CHEST: Clear to auscultation. No respiratory distress. HEART: Regular rate and rhythm. No murmur heard. Normal peripheral pulses. ABDOMEN: Soft, nontender, nondistended, normal active bowel sounds. EXTREMITIES: Normal range of motion. No edema. SKIN: Warm, dry, no rash. NEURO: No focal deficits. Alert and oriented x3. PSYCH: Normal mood and affect. Course Vital Signs Vital signs: Vital Signs Temperature 36.7 C 04/20/25 11:38 Pulse Rate 71 04/20/25 11:38 Respiratory Rate 16 04/20/25 11:38 Blood Pressure 157/79 H 04/20/25 11:38 Pulse Oximetry 99 04/20/25 11:38 Oxygen Delivery Room Air 04/20/25 11:38 Temperature 36.7 C 04/20/25 11:38 Pulse Rate 64 04/20/25 12:56 Respiratory Rate 14 04/20/25 12:56 Blood Pressure 131/88 04/20/25 12:56 Pulse Oximetry 99 04/20/25 12:56 Oxygen Delivery Room Air 04/20/25 11:38 Medical Decision Making MDM Narrative Medical decision making narrative: Differential diagnosis includes intracranial hemorrhage, migraine headache, sinusitis, UTI, Laboratory studies were obtained on the patient showed normal CBC CMP and urinalysis showed no acute abnormalities CT head showed 1. No acute intracranial process. 2. Dependent mucus in the left sphenoid sinus. Correlate clinically for acute sinusitis. Vital Signs Vital Signs: Vital Signs Temperature 36.7 C 04/20/25 11:38 Pulse Rate 71 04/20/25 11:38 Respiratory Rate 16 04/20/25 11:38 Blood Pressure 157/79 H 04/20/25 11:38 Pulse Oximetry 99 04/20/25 11:38 Oxygen Delivery Room Air 04/20/25 11:38 Temperature 36.7 C 04/20/25 11:38 Pulse Rate 64 04/20/25 12:56 Respiratory Rate 14 04/20/25 12:56 Blood Pressure 131/88 04/20/25 12:56 Pulse Oximetry 99 04/20/25 12:56 Oxygen Delivery Room Air 04/20/25 11:38 Lab Data 04/20/25 14:18 04/20/25 14:18 Labs: Lab Results 04/20/25 Range/Units 14:18 WBC 9.0 (4.5-10.0) K/mm3 RBC 4.47 (4.2-5.4) M/mm3 Hgb 12.4 (12.0-15.0) g/dL Hct 39.9 (37.0-47.0) % MCV 89.3 (80-100) fl MCH 27.7 (26-34) pg MCHC 31.1 L (32-36) g/dl RDW 14.4 (11.5-14.5) % Plt Count 292 (150-375) k/mm3 MPV 10.0 (7.4-10.4) fl Immature Gran % (Auto) 0.4 (0-0.5) % Neut % (Auto) 68.5 (45.5-73.1) % Lymph % (Auto) 24.1 (18.3-44.2) % [place] % (Auto) 6.6 (2.6-8.5) % Eos % (Auto) 0.3 (0-4.4) % Baso % (Auto) 0.1 L (0.2-1.2) % Lymph # (Auto) 2.17 (0.9-3.2) K/mm3 [place] # (Auto) 0.6 (0.1-0.6) K/mm3 Eos # (Auto) 0.0 (0-0.3) K/mm3 Baso # (Auto) 0.0 (0.0-0.1) K/mm3 Abs Immat Gran (auto) 0.04 H (0.00-0.031) K/mm3 Absolute Neuts (auto) 6.2 (1.3-6.7) K/mm3 Absolute Nucleated RBC 0.000 (0.0-0.012) K/mm3 Nucleated RBC % 0.0 (0.0-0.2) % Sodium 136 L (137-145) mmol/L Potassium 3.9 (3.4-5.0) mmol/L Chloride 105 (98-107) mmol/L Carbon Dioxide 23 (22-30) mmol/L Anion Gap 8 (4-12) mmol/L BUN 12 (7-17) mg/dL Creatinine 0.90 (0.7-1.0) mg/dL Estim Creat Clear Calc 67 ml/min Estimated GFR > 60 (59 - ) Glucose 99 (65-110) mg/dL Calcium 9.0 (8.4-10.2) mg/dL Magnesium 2.3 (1.6-2.3) mg/dL Total Bilirubin 0.7 (0.2-1.3) mg/dL AST 15 (14-36) U/L ALT 12 (6-35) U/L Alkaline Phosphatase 88 (38-126) U/L Total Protein 6.6 (6.3-8.2) g/dL Albumin 3.6 (3.5-5.1) g/dL Urine Color Yellow (Yellow) Urine Appearance Clear (Clear) Urine pH 6.0 (5.0-9.0) Ur Specific [place] 1.027 (1.001-1.035) Urine Protein Negative (Negative) mg/dL Urine Glucose (UA) Negative (Negative) mg/dL Urine Ketones Trace H (Negative) mg/dL Ur Blood (Man) Negative (Negative) Urine Nitrate Negative (Negative) Urine Bilirubin Negative (Negative) Urine Urobilinogen 1.0 (<2.0) mg/dL Leukocyte Esterase Rfl Negative (Negative) ANTONIO/UL Discharge Plan Discharge Clinical Impression: Headache, Sinusitis Patient Disposition: Home Condition: Stable Instructions: Antibiotic Form, Sinusitis (ED), Acute Headache (ED) Patient Language: Tajik Prescriptions: New amoxicillin-pot clavulanate 875-125 mg tablet 1 tablet PO Q12H 10 Days Qty: 20 0RF No Action gabapentin [Neurontin] 600 mg tablet 600 mg PO DAILY cetirizine [Zyrtec] 10 mg tablet 10 mg PO DAILY PRN folic acid 1 mg tablet 1 mg PO DAILY multivitamin [Daily Multi-Vitamin] Tablet 1 tablet PO DAILY clonazepam [Klonopin] 0.5 mg tablet 0.5 mg PO TID Qty: 90 0RF lamotrigine 25 mg tablet 25 mg PO DAILY atorvastatin 80 mg tablet 80 mg PO DAILY Qty: 90 1RF metoprolol succinate 25 mg tablet extended release 24 hr 25 mg PO DAILY Qty: 90 2RF epinephrine 0.3 mg/0.3 mL auto-injector 0.3 mg IM ONCE Qty: 0.3 2RF Rx Instructions: as a single dose; may repeat once quetiapine [Seroquel] 100 mg tablet 100 mg PO QHS famotidine 20 mg tablet See Rx Instructions .ROUTE .COMPLEX PRN (Reason: reflux) Qty: 90 1RF Dose Instruction: TAKE 1 TABLET BY MOUTH EVERY DAY Rx Instructions: TAKE 1 TABLET BY MOUTH EVERY DAY PRN; fluticasone propionate [Flonase Allergy Relief] 50 mcg/actuation spray,suspension 2 spray intranasal DAILY Qty: 16 2RF Rx Instructions: administer into each nostril pantoprazole 40 mg tablet,delayed release (DR/EC) 40 mg PO QAM Qty: 180 1RF benzonatate 100 mg capsule See Rx Instructions PO TID PRN (Reason: cough) Qty: 60 0RF Rx Instructions: orally three times a day PRN; 1-2 tabs up to three times a day meloxicam 7.5 mg tablet 7.5 mg PO DAILY Qty: 30 2RF amoxicillin 500 mg capsule PO olanzapine [Zyprexa Zydis] 15 mg tablet,disintegrating 15 mg PO QHS Qty: 30 1RF losartan 25 mg tablet 25 mg PO DAILY Qty: 90 1RF montelukast [Singulair] 10 mg tablet 10 mg PO DAILY Qty: 90 1RF Follow-up/Referrals: Aziza Fernandez APRN [Primary Care Provider] - Time of Disposition: 16:15
== END 2025-04-20 16:35 | disposition home or self-care (01) ==
PROVIDERS: Emergency Provider Emergency Medicine; PCP Nurse Practitioner Family
DX: J32.3 Chronic sphenoidal sinusitis (principal); R51.9 Headache, unspecified; E78.5 Hyperlipidemia, unspecified; I10 Essential (primary) hypertension; M19.90 Unspecified osteoarthritis, unspecified site; F43.10 Post-traumatic stress disorder, unspecified; G47.33 Obstructive sleep apnea (adult) (pediatric); F41.9 Anxiety disorder, unspecified; F31.9 Bipolar disorder, unspecified; Z86.16 Personal history of COVID-19; Z90.710 Acquired absence of both cervix and uterus; Z79.899 Other long term (current) drug therapy
CPT/HCPCS: 36415; 70450; 80053; 81003; 83735; 85025; 96374; 96375; 99284; J1200; J1885; J2765; J7030

== ENCOUNTER 2025-07-20 18:45 | Emergency (ER) | payer OTHER, SELFPAY ==
--- OUTSIDE RECORDS SUMMARY | 2015-06-29 09:04 | XMS_ITS | Continuity of Care Document ---
Author Organization [facility] Address [address] [place] [address] Phone Care Team Providers Care Assistant Community Director Name Role Phone Yovani Borges MD Unavailable Unavailable Procedures Procedure Date OFFICE/OUTPATIENT VISIT NEW OFFICE/OUTPATIENT VISIT EST OFFICE/OUTPATIENT VISIT NEW Advance Directives Directive Yes / No Effective Date File Name No Information Encounters Encounter Description Practice Location Reason(s) For Visit Diagnoses Date Provider Providers Copied on Encounter [facility], [address] [place] [address], [address], [place] tel:[phone] [facility] No Information 5 Katerina Pina. [address] [place], [place], [id number] . tel: [phone] OFFICE/OUTPAT IENT VISIT [facility], [address], [place], [address], [place] tel:[phone] [facility] Primary localized osteoarthros is, lower legAnkle pain 5 Katerina Pina. [address] [place], [place], [address] . tel: [phone] OFFICE/OUTPAT IENT VISIT EST [facility], [address], [place], [address], [place] tel:[phone] [facility] 4 Sajan Damian. [address], [place], [place], [address] . tel: [phone] OFFICE/OUTPAT IENT VISIT [facility], [address], [place], [address], [phone] [facility] Ankle fracture 0-201 3 Sajan Damian. [address], [place], [place], [address] . tel: [phone] Family History Family Member Type Diagnosis Age At Onset Son Problem (finding) Alive and well Payers Payer name Insurance type Covered alliance party ID Authoriza tion(s) No Information Social History Type Description Quantity Date Captured Comments Sex Female Smoking Status No Information Chief Complaint And Reason For Visit No Information Reason For Referral Reason For Referral No Information Plan Of Treatment Date Type Action Status Referral Ordered: RADEX KNE COMPL 4/MORE VIEWS Bilateral ordered Referral Ordered: RADEX ANKLE COMPL MINIMUM 3 VIEWS Bilateral ordered Referral Ordered: RADEX ANKLE COMPL MINIMUM 3 VIEWS LT ordered History Of Present Illness Encounter Date Complaint History Of Prese nt Illness No Information Functional Status Date Functional Assessmen t No Information Instructions Date Instruction Additional Infor mation Physical activity counseling Rel ated to Dietary Surveillance Counseling Assessments Type Assessment Date No Information Patient Care Teams Name Effective Dates (start - stop) Status Members No Information
--- OUTSIDE RECORDS SUMMARY | 2015-06-29 09:04 | XMS_ITS | Continuity of Care Document ---
Author Organization [facility] Address [address] [place] [address] Phone Care Team Providers Care Escrow Agent Name Role Phone Yovani Borges MD Unavailable Unavailable Procedures Procedure Date OFFICE/OUTPATIENT VISIT NEW OFFICE/OUTPATIENT VISIT EST OFFICE/OUTPATIENT VISIT NEW Advance Directives Directive Yes / No Effective Date File Name No Information Encounters Encounter Description Practice Location Reason(s) For Visit Diagnoses Date Provider Providers Copied on Encounter [facility], [address] [place] [address], [address], [place] tel:[phone] [facility] No Information 5 Katerina Pina. 5 [place], [place], [address] . tel: [phone] OFFICE/OUTPAT IENT VISIT [facility], [address], [place], [address], [place] tel:[phone] [facility] Primary localized osteoarthros is, lower legAnkle pain 5 Katerina Pina. [address] [place], [place], [address] . tel: [phone] OFFICE/OUTPAT IENT VISIT EST [facility], [address], [place], [address], [place] tel:[phone] [facility] Ankle fracture 4 Sajan Damian. [address], [place], [place], [address] . tel: [phone] OFFICE/OUTPAT IENT VISIT [facility], [address], [place], [address], tel:[phone] [facility] Ankle fracture 0-201 3 Sajan Damian. [address], [place], [place], [address] . tel: [phone] Family History Family Member Type Diagnosis Age At Onset Son Problem (finding) Alive and well Payers Payer name Insurance type Covered green party ID Authoriza tion(s) No Information Social [...]
--- NOTE | ~2025-07-20 | XR_ITS ---
XR shoulder RT min 2V 07/21/2025 00:05 Indication: Right shoulder pain Procedure: 4 views right shoulder Comparison: No prior studies for comparison. Findings: Moderate osteoarthritis glenohumeral joint. No fracture, subluxation or dislocation. No soft tissue abnormality. No foreign bodies. Impression: 1: No acute fracture. Reviewed, dictated and finalized at location B. RAL DIRECTOR'S ASSISTANT Impression: 1: No acute fracture.
--- NOTE | ~2025-07-20 | XR_ITS ---
XR knee LT 3V 07/21/2025 00:05 Indication: Left knee pain. Arthritis. Procedure: 3 views left knee Comparison: No prior studies for comparison. Findings: There is severe tricompartment osteoarthritis. No fracture, sedation or dislocation. No significant joint effusion. No foreign bodies. Impression: 1: Severe tricompartment osteoarthritis of the left knee. Reviewed, dictated and finalized at location B. WAY LANDSCAPE ARCHITECT Impression: 1: Severe tricompartment osteoarthritis of the left knee.
[2025-07-20 18:46] VITALS: BP 153/99; PULSE 72; RESP 16; TEMP 36.4; O2SAT 100
--- OUTSIDE RECORDS SUMMARY | 2025-07-20 18:48 | XMS_ITS | Encounter Summary ---
Author Organization [facility] Address [address] [place] [address] Care Team Providers Care Respiratory Manager Name Role Phone Andi Bueno MD Primary Care Provider [phone] Encounter Details Date Type Department Care Team (Late st Contact Info) Description 10/28/2007 Outpatient Historical [facility] Primary Care - [address] [place] [address] Zac Paredes MD [address] [facility] [address] [place] [address] Social History Tobacco Use Types Packs/Day Years Used Date Smoking Tobacco: Never Assessed Comments Unknown Sex and Gender Information Value Date Recorded Sex Assigned at Not on file Legal Sex Female 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
--- OUTSIDE RECORDS SUMMARY | 2025-07-20 18:48 | XMS_ITS | Encounter Summary ---
Author Organization [facility] [facility] Address [address] [place] [address] Care Team Providers Care Management Professionals Name Role Phone Andi Bueno MD Primary Care Provider [phone] Encounter Details Date Type Department Care Team (Late st Contact Info) Description 07/29/2008 Outpatient Historical [facility] Rebecca Lantigua MD [address] [place] [address] [address] [place] [id number] Social History Tobacco Use Types Packs/Day Years Used Date Smoking Tobacco: Never Alcohol Use Standard Drinks/Week Comments No 0 (1 standard drink = 0.6 oz pur e alcohol) Comments No Sex and Gender Information Value Date Recorded Sex Assigned at Not on file 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
--- OUTSIDE RECORDS SUMMARY | 2025-07-20 18:48 | XMS_ITS | Encounter Summary ---
Author Organization [facility] Address [address] [place] [address] Care Team Providers Care Stock Drier Tender Name Role Phone Andi Bueno MD Primary Care Provider [phone] Encounter Details Date Type Department Care Team (Late st Contact Info) Description 10/28/2007 Outpatient Historical [facility] Primary Care - [address] [place] [address] Zac Paredes MD [address] 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 Gender Identity Not on file Sexual Orientation Not on file documented as of this encounter Plan of Treatment Not on file documented as of this encounter Procedures Procedure Name Priority Date/Time Associated Diagnosis Comments TSH WITH REFLEX FT4 AND FT3 Routine 10/28/2007 10:56 PM FILLER MACHINE OPERATOR URIC ACID Routine 10/28/2007 10:56 PM FILLER MACHINE OPERATOR LIPID PANEL Routine 10/28/2007 10:56 PM FILLER MACHINE OPERATOR COMPREHENSIVE METABOLIC PANEL Routine 10/28/2007 10:56 PM FILLER MACHINE OPERATOR documented in this encounter Results * URIC ACID (10/28/2007 10:56 PM FILLER MACHINE OPERATOR) URIC ACID 3.6 2.3 - 6.6 mg/dL [facility] Blood specimen (specimen) 10/28/2007 10:56 PM FILLER MACHINE OPERATOR 10/28/2007 10:56 PM FILLER MACHINE OPERATOR Zac Paredes MD CHEMISTRY ORDERABLES Final Resul t Performing Organization Address [facility] Co de Phone Number [facility] [address] [place] [address] * TSH WITH REFLEX FT4 AND FT3 (10/28/2007 10:56 PM FILLER MACHINE OPERATOR) Pathologist [facility] TSH 1.62 0.27 - 4.20 uU/mL [facility] Blood specimen (specimen) 10/28/2007 10:56 PM FILLER MACHINE OPERATOR 10/28/2007 10:56 PM FILLER MACHINE OPERATOR Zac Paredes MD CHEMISTRY ORDERABLES Final Resul t Performing Organization Address [facility] Co de Phone Number [facility] [address] [place] [address] * COMPREHENSIVE METABOLIC PANEL (10/28/2007 10:56 PM FILLER MACHINE OPERATOR) Pathologist [facility] CALCIUM 9.3 8.4 - 10.2 mg/dL [facility] CHLORIDE 102 96 - 108 mmol/L [facility] ALBUMIN 4.2 3.4 - 4.8 g/dL [facility] CREATININE 0.77 0.51 - 0.95 mg/dL [facility] SODIUM 138 135 - 145 mmol/L [facility] ALT 17 0 - 31 U/L [facility] ALKALINE PHOSPHATASE 96 35 - 104 U/L [facility] BILIRUBIN TOTAL 0.6 0.2 - 1.0 mg/dL [facility] CO2 23 22 - 30 mmol/L [facility] TOTAL PROTEIN 7.6 6.3 - 8.6 g/dL [facility] POTASSIUM 4.1 3.5 - 4.9 mmol/L [facility] GLUCOSE 79 65 - 99 mg/dL [facility] AST 14 12 - 32 U/L [facility] BUN 15 6 - 20 mg/dL [facility] GFR, >60 >=60 mL/min/1.7 sq meter [facility] GFR >60 >=60 mL/min/1.7 sq meter [facility] Comment: Estimated GFR rate interpretative information for both Americans and non- Americans is available on the [facility] Intranet at: [email or web address] Select: Lab Policies and Procedures Select: Reference Ranges - GFR Blood specimen (specimen) 10/28/2007 10:56 PM FILLER MACHINE OPERATOR 10/28/2007 10:56 PM FILLER MACHINE OPERATOR us Zac Paredes MD CHEMISTRY ORDERABLES Edited [facility] [address] [place] [address] * (ABNORMAL) LIPID PANEL (10/28/2007 10:56 PM FILLER MACHINE OPERATOR) CHOLESTEROL 217(H) 100 - 199 mg/dL [facility] CHOL/HDL RATIO 3.1 2.0 - 5.0 [facility] TRIGLYCERIDE 64 10 - 149 mg/dL [facility] HDL 70(H) 40 - 59 mg/dL [facility] LDL CALCULATED 134(H) <=99 mg/dL [facility] LIPID PANEL COMMENT See Below [facility] Comment: The adult ATP and pediatric NCEP classifications for lipids are available on the [facility] Intranet at: [email or web address] Select: Lab Policies and Procedures,Current Select: Lipid Panel Interpretation Blood specimen (specimen) 10/28/2007 10:56 PM FILLER MACHINE OPERATOR 10/28/2007 10:56 PM FILLER MACHINE OPERATOR us Zac Paredes MD CHEMISTRY ORDERABLES Edited [facility] [address] [place] [address] documented in this encounter Visit Diagnoses Diagnosis Routine general medical examination at a health care facility documented in this encounter Care Teams Stock Drier Tender Relationship Specialty Start Date End Date Andi Bueno MD [address] [facility] [address] [place] [address] PCP - General Internal Medicine 08/16/16 documented as of this encounter
--- OUTSIDE RECORDS SUMMARY | 2025-07-20 18:48 | XMS_ITS | Encounter Summary ---
Author Organization [facility] Address [address] [place] [address] Care Team Providers Care Channel Marketing Manager Name Role Phone Andi Bueno MD Primary Care Provider [phone] Encounter Details Date Type Department Care Team (Late st Contact Info) Description 10/28/2007 Orders Only [facility] Primary Care - [address] [place] [address] Zac Paredes MD [address] [facility] [address] [place] [address] Social History Tobacco Use Types Packs/Day Years Used Date Smoking Tobacco: Never Assessed Comments Unknown Sex and Gender Information Value Date Recorded Sex Assigned at Not on file Legal Sex Female 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 LAB ORDERS: Order number: [id number] Test Ordered: COMPREHENSIVE METABOLIC PANEL & GFR 1112 Order number: [id number] Test Ordered: TSH (REFLEX FREE T4/FREE T3) 1727 Order number: [id number] Test Ordered: URIC ACID 1795 Order number: [id number] Test Ordered: LIPID PANEL 1078 719.40-ARTHRALGIA in achilles tendon? MEDICATIONS: IBUPROFEN ORAL TABLET 600 MG, 1 po tid with food prn, 90 Dispensed, 1 Fills, status: NEW PRESCRIPTION, 10/28/2007. SPECIALTY REFERRAL: SQL REPORT DEVELOPER Dr. Ana Lilia Chatterjee ph: [phone] fax: [phone] ph: [phone]. PODIATRY Dr. Anthony Kelly ph: [phone] fax: [phone]. HEALTH MAINTENANCE: LAST BREAST EXAM DATE: 2005. [...] on filedocumented in this encounter Care Teams Channel Marketing Manager Relationship Specialty Start Date End Date Andi Bueno MD [address] [facility] [address] [place] [address] PCP - General Internal Medicine 08/16/16 documented as of this encounter
--- OUTSIDE RECORDS SUMMARY | 2025-07-20 18:48 | XMS_ITS | Encounter Summary ---
Author Organization [facility] Address [address] [place] [address] Care Team Providers Care Last Code Striper Name Role Phone Andi Bueno MD Primary Care Provider [phone] Encounter Details Date Type Department Care Team (Late st Contact Info) Description 10/28/2007 Outpatient Historical [facility] Primary Care - [address] [place] [address] Zac Paredes MD [address] [facility] [address] [place] [address] Social History Tobacco Use Types Packs/Day Years Used Date Smoking Tobacco: Never Assessed Comments Unknown Sex and Gender Information Value Date Recorded Sex Assigned at Not on file Legal Sex Female 5:28 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
--- OUTSIDE RECORDS SUMMARY | 2025-07-20 18:48 | XMS_ITS | Encounter Summary ---
Author Organization [facility] Address [address] [place] [address] Care Team Providers Care Head Of Precision Targeting Name Role Phone Andi Bueno MD Primary Care Provider [phone] Encounter Details Date Type Department Care Team (Late st Contact Info) Description 12/03/2007 Outpatient Historical [facility] Primary Care - [address] [place] [address] Rebecca Lantigua MD [address] [place] [address] [address] [place] [address] Social History Tobacco Use Types Packs/Day Years Used Date Smoking Tobacco: Never Assessed Comments Unknown Sex and Gender Information Value Date Recorded Sex Assigned at Not on file Legal 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
--- OUTSIDE RECORDS SUMMARY | 2025-07-20 18:48 | XMS_ITS | Encounter Summary ---
Author Organization [facility] Address [address] [place] [address] Care Team Providers Care Review Rn Name Role Phone Andi Bueno MD Primary Care Provider [phone] Encounter Details Date Type Department Care Team (Late st Contact Info) Description 11/19/2007 Outpatient Historical HIS [facility] CHANI Paredes, Zac Tee MD [address] [facility] [address] [place] [address] Abnormal Mammogram, Unspecified Social History Tobacco Use Types Packs/Day Years Used Date Smoking Tobacco: Never Assessed Comments Unknown Sex and Gender Information Value Date Recorded Sex Assigned at Not on file Legal Sex Female 5:28 AM ENGINEER TECHNICIAN Gender Identity Not on file Sexual [...] PM CDT Narrative 11/19/2007 4:50 PM CDT [facility] [address] [place], [place] [address] Admit Date: 11/19/2007 LISSETTE CAR Sex: F Admit Prov: ZAC PAREDES Date: 1965 Primary Care Prov: ZAC PAREDES CMRN: [id number] Room: PATRICIA SSN: [id number] IMAGING SERVICES Ordering Prov: ZAC PAREDES Accession Number: [id number] Interpretation Left breast ultrasound 11/19/2007 History: Mass [...] AMK Procedure Note Provider, Historical - 11/19/[address] [address] Admit Date: 11/19/2007 LISSETTE CAR Sex: F Admit Prov: ZAC PAREDES Date:1965 Primary Care Prov: ZAC PAREDES CMRN: [id number] Room: FAITH[facility]ngel SSN: [id number] IMAGING SERVICES Ordering Prov: ZAC PAREDES Interpretation [...] unspecified documented in this encounter Care Teams Review Rn Relationship Specialty Start Date End Date Andi Bueno MD [address] [facility] [address] [place] [address] PCP - General Internal Medicine 08/16/16 documented as of this encounter
--- OUTSIDE RECORDS SUMMARY | 2025-07-20 18:48 | XMS_ITS | Clinical Summary ---
Author Organization [facility] Address [address] [place] [address] Care Team Providers Care Residential Real Estate Sales Manager Name Role Phone Andi Bueno MD Primary Care Provider [phone] Allergies Active Allergy Reactions Criticality Noted Date Comments Hymenoptera Allergenic Extract Rash Low 03/24 [place]way Rash Low 09/08/2016 Sertraline Other (See Comments) [...] 3 Overview (01/16/2013): Brother at age 44 [place] on CPAP 04/25/2012 Recurrent herpes labialis 01/25/2012 [...] Bronchitis Daughter Diabetes Father Heart Disease Father [place] Heart Failure Father Hypertension Father Stroke Father [...] on file Legal Sex Female 5:28 AM COMMERCIAL OR INSTITUTIONAL CLEANER Gender Identity Not on file Sexual Orientation Not on file Occupation Industry Job Start Date Job End Date Not on file Not on file Not on file Not on file Last Filed Vital Signs Vital Sign Reading Time Taken Comments Blood Pressure 149/94 07/30/2017 9:15 AM COMMERCIAL OR INSTITUTIONAL CLEANER Pulse 82 07/30/2017 9:15 AM COMMERCIAL OR INSTITUTIONAL CLEANER Temperature 36.5 C (97.7 F) 07/30/2017 9:15 AM COMMERCIAL OR INSTITUTIONAL CLEANER Respiratory Rate 16 07/30/2017 9:15 AM COMMERCIAL OR INSTITUTIONAL CLEANER Oxygen Saturation 97% 07/30/2017 9:15 AM COMMERCIAL OR INSTITUTIONAL CLEANER Inhaled Oxygen Concentration - - Weight 123.8 kg (273 lb) 07/30/2017 9:15 AM COMMERCIAL OR INSTITUTIONAL CLEANER Height 157.5 cm (5' 2) 07/30/2017 9:15 AM COMMERCIAL OR INSTITUTIONAL CLEANER Body Mass Index 49.93 07/30/2017 9:15 AM COMMERCIAL OR INSTITUTIONAL CLEANER Plan of Treatment Health Maintenance Due Date [...] OR WO CAD Routine 10/11/2016 8:57 AM COMMERCIAL OR INSTITUTIONAL CLEANER Breast mass HEMOGLOBIN A1C Routine 06/21/2015 4:01 PM CDT Morbid obesity, unspecified obesity type (CMS/HCC) Elevated glucose from Last 3 Months or Most Recently Relevant to Health Maintenance Results * MAMMO DIAGNOSTIC BILATERAL W OR WO CAD (10/11/2016 8:57 AM COMMERCIAL OR INSTITUTIONAL CLEANER) Anatomical Region Laterality Modality Breast Bilateral Mammography 10/11/2016 8:57 AM COMMERCIAL OR INSTITUTIONAL CLEANER Impressions 10/11/2016 2:42 PM COMMERCIAL OR INSTITUTIONAL CLEANER IMPRESSION: No imaging evidence of malignancy. RECOMMENDATION: Annual screening mammography unless otherwise indicated. BI-RADS 2: Benign. Dictated from: [facility] Narrative 10/11/2016 2:42 PM COMMERCIAL OR INSTITUTIONAL CLEANER EXAM: BILATERAL DIGITAL DIAGNOSTIC MAMMOGRAPHY WITH CAD [...] - 6.1 % 06/22/2015 9:30 PM CDT [facility] EST. AVG GLUCOSE, A1C 111 mg/dL 06/22/2015 9:30 PM CDT [facility] Blood Venipuncture - L ab Collect / Unknown 06/21/2015 4:01 PM CDT 06/21/2015 4:01 PM CDT Narrative [facility] - 06/22/2015 9:30 PM CDT Based on the ADAG study equation. Rebecca Lantigua MD CHEMISTRY ORDERABLES Final R esult [facility] [employer] [facility] CLMALI# [id number] [address] [place] [id number] from Last 3 Months or Most Recently Relevant to Health Maintenance Insurance [facility] PREFERRED Advance Directives For more information, please contact: [phone] * Full Code (Latest Code Status on File) Date Activated Date Inactivated Comments 01/23/2016 9:53 PM 01/24/2016 12:34 PM * Full Code Date Activated Date Inactivated Comments 05/06/2015 10:31 AM 05/06/2015 3:09 PM * Full Code Date Activated Date Inactivated Comments 01/06/2015 2:11 PM 01/09/2015 6:47 PM * Full Code Date Activated Date Inactivated Comments 12/02/2014 2:20 PM 12/06/2014 3:39 PM Care Teams Residential Real Estate Sales Manager Relationship Specialty Start Date End Date Andi Bueno MD [address] [facility] [address] [place] [address] PCP - General Internal Medicine 08/16/16
--- OUTSIDE RECORDS SUMMARY | 2025-07-20 18:48 | XMS_ITS | Encounter Summary ---
Author Organization [facility] Address [address] [place] [address] Care Team Providers Care Packaging Materials Inspector Name Role Phone Andi Bueno MD Primary Care Provider [phone] Encounter Details Date Type Department Care Team (Late st Contact Info) Description 07/21/2008 Outpatient Historical HIS [facility] CHANI Paredes, Zac Tee MD [address] [facility] [address] [place] [address] Abnormal Mammogram, Unspecified Social History Tobacco Use Types Packs/Day Years Used Date Smoking Tobacco: Never Alcohol Use Standard Drinks/Week Comments No 0 (1 standard drink = 0.6 oz pur e alcohol) Comments No Sex and Gender Information Value Date Recorded Sex Assigned at Not on file Legal Sex Female 5:28 AM SWAMPER Gender Identity Not on file Sexual Orientation Not on file documented as of this encounter Plan of Treatment Not on file documented as of this encounter Procedures Procedure Name Priority Date/Time Associated Diagnosis Comments MAMMO DIAGNOSTIC BILATERAL W OR WO CAD Timed Study 07/21/2008 9:22 AM SWAMPER documented in this encounter Results * MAMMO DIGITAL DIAG BILAT (07/21/2008 9:22 AM SWAMPER) Anatomical Region Laterality Modality Breast Bilateral Other 07/21/2008 9:22 AM SWAMPER Narrative 2008 7:53 AM SWAMPER [place] [address] [facility] [place] [address] Admit Date: 07/21/2008 LISSETTE CAR Sex: F Admit Prov: ZAC PAREDES Date: 1965 Primary Care Prov: ZAC PAREDES CMRN: [id number] Room: [facility] SSN: [id number] IMAGING SERVICES Ordering Prov: ZAC PAREDES Accession Number: [id number] Interpretation BILATERAL DIAGNOSTIC DIGITAL MAMMOGRAMS WITH COMPUTER [...] AMK Procedure Note Do Hirsch - [address] [place] [address] [place], [place] [address] Admit Date: 07/21/2008 LISSETTE CAR Sex: F Admit Prov: ZAC PAREDES Date:1965 Primary Care Prov: ZAC PAREDES CMRN: [id number] Room: [facility] SSN: [id number] IMAGING SERVICES Ordering Prov: ZAC PAREDES Interpretation [...] unspecified documented in this encounter Care Teams Packaging Materials Inspector Relationship Specialty Start Date End Date Andi Bueno MD [address] [facility] [address] [place] [address] PCP - General Internal Medicine 08/16/16 documented as of this encounter
--- OUTSIDE RECORDS SUMMARY | 2025-07-20 18:48 | XMS_ITS | Encounter Summary ---
Author Organization [facility] Address [address] [place] [address] Care Team Providers Care Courtesy Car Driver Name Role Phone Andi Bueno MD Primary Care Provider [phone] Encounter Details Date Type Department Care Team (Late st Contact Info) Description 10/08/2007 Outpatient Historical [facility] Primary Care - [address] [place] [address] Zac Paredes MD [address] [facility] [address] [place] [address] Social History Tobacco Use Types Packs/Day Years Used Date Smoking Tobacco: Never Assessed Comments Unknown Sex and Gender Information Value Date Recorded Sex Assigned at Not on file Legal Sex Female 5:28 AM MEDICAL COLLECTIONS SPECIALIST Gender Identity Not on file Sexual Orientation Not on file documented as of this encounter Plan of Treatment Not on file documented as of this encounter Visit Diagnoses Not on filedocumented in this encounter Care Teams Courtesy Car Driver Relationship Specialty Start Date End Date Andi Bueno MD [address] [facility] [address] [place] [address] PCP - General Internal Medicine 08/16/16 documented as of this encounter
--- OUTSIDE RECORDS SUMMARY | 2025-07-20 18:48 | XMS_ITS | Encounter Summary ---
Author Organization [employer] Address [address] [place] [address] Care Team Providers Care Adapted Physical Education Teacher Name Role Phone Andi Bueno MD Primary Care Provider [phone] Encounter Details Date Type Department Care Team (Late st Contact Info) Description 08/22/2011 Chart Note [facility] [address] [place] [address] Tracie Amato, Physical Therapist Social History Tobacco Use Types Packs/Day Years Used Date Smoking Tobacco: Never Smokeless Tobacco: Never Alcohol Use Standard Drinks/Week Comments No 0 (1 standard drink = 0.6 oz pur e alcohol) Comments No Sex and Gender Information Value Date Recorded Sex Assigned at Not on file Legal Sex Female 5:28 AM LEAD SOFTWARE QA ENGINEER Gender Identity Not on file Sexual [...] referral. Tracie Amato [facility] [address] [place] [address]. [address] [place] [id number] SOFTWARE QA ENGINEER documented in this encounter Plan of Treatment Not on file documented as of this encounter Visit Diagnoses Not on filedocumented in this encounter Care Teams Adapted Physical Education Teacher Relationship Specialty Start Date End Date Andi Bueno MD [address] [facility] [address] [place] [address] PCP - General Internal Medicine 08/16/16 documented as of this encounter
--- OUTSIDE RECORDS SUMMARY | 2025-07-20 18:48 | XMS_ITS | Clinical Summary ---
Author Organization [facility] Address [facility] [place] [address] Care Team Providers Care Certified Medical Coding Specialist Name Role Phone Jaime Taylor DO Primary Care Provider [phone] Allergies Active Allergy Reactions Criticality Noted Date Comments Tollette Hives 11/02/2021 Sertraline Hives 11/02/2021 Medications losartan [...] on file Legal Sex Female 12:38 PM GROUP FITNESS ASSISTANT DEPARTMENT HEAD Gender Identity Not on file Sexual Orientation Not on file Last Filed Vital Signs Vital Sign Reading Time Taken Comments Blood Pressure 119/80 11/09/2021 12:50 PM GROUP FITNESS ASSISTANT DEPARTMENT HEAD Pulse 78 11/09/2021 12:50 PM GROUP FITNESS ASSISTANT DEPARTMENT HEAD Temperature 36.4 C (97.5 F) 11/09/2021 12:23 PM GROUP FITNESS ASSISTANT DEPARTMENT HEAD Respiratory Rate 27 11/09/2021 12:50 PM GROUP FITNESS ASSISTANT DEPARTMENT HEAD Oxygen Saturation 96% 11/09/2021 12:50 PM GROUP FITNESS ASSISTANT DEPARTMENT HEAD Inhaled Oxygen Concentration - - Weight 115.2 kg (254 lb) 11/02/2021 1:59 PM GROUP FITNESS ASSISTANT DEPARTMENT HEAD Height 154.9 cm (5' 1) 11/02/2021 1:59 PM GROUP FITNESS ASSISTANT DEPARTMENT HEAD Body Mass Index 47.99 11/02/2021 1:59 PM GROUP FITNESS ASSISTANT DEPARTMENT HEAD Plan of Treatment Health Maintenance Due Date [...] Every 5 Years 1996 Cervical Cancer Screening wi HPV 1996 Mammogram Screening 2006 Pneumococcal Vaccine: 50+ Years (1 of 1 - PCV) 2016 Zoster Vaccines (1 of 2) 2016 COVID-19 Vaccine (4 - 2024-2 6 season) 2025 08/13/2021, 01/13/2021, 12/23/2020 Influenza Adult (#1) 2025 Hepatitis A Vaccines Aged Out No long er eligible based on patient's age to complete this topic Meningococcal B Vaccine Aged Out No l onger eligible based on patient's age to complete this topic Meningococcal Vaccine Aged Out No prakash aggie eligible based on patient's age to complete this topic RSV Immunizations Under 20 Months Aged Out No longer eligible b ased on patient's age to complete this topic Medical Devices Implanted Type Area Claims Clerk Device Identifier Shelf Expiration Date Model / Serial / Lot Screw Screw Right: Ankle Insurance [facility] BLUE [facility] Care Teams Certified Medical Coding Specialist Relationship Specialty Start Date End Date Jaime Taylor DO [address] [address] PCP - General INTERNAL MEDICINE 11/09/21
--- OUTSIDE RECORDS SUMMARY | 2025-07-20 18:48 | XMS_ITS | Encounter Summary ---
Author Organization [facility] Address [address] [place] [address] Care Team Providers Care Manga Artist Name Role Phone Andi Bueno MD Primary Care Provider [phone] Encounter Details Date Type Department Care Team (Late st Contact Info) Description 11/12/2007 Outpatient Historical HIS [facility] Zac Paredes MD [address] [facility] [address] [place] [address] Other Screening Mammogram Social History Tobacco Use Types Packs/Day Years Used Date Smoking Tobacco: Never Assessed Comments Unknown Sex and Gender Information Value Date Recorded Sex Assigned at Not on file Legal Sex Female 5:28 AM NAPPING MACHINE OPERATOR Gender Identity Not on file Sexual Orientation Not on file documented as of this encounter Plan of Treatment Not on file documented as of this encounter Procedures Procedure Name Priority Date/Time Associated Diagnosis Comments MAMMO SCREENING BILAT Timed Study 11/11/2007 8:26 AM NAPPING MACHINE OPERATOR documented in this encounter Results * MAMMO SCREENING BILAT (11/11/2007 8:26 AM NAPPING MACHINE OPERATOR) Anatomical Region Laterality Modality Breast Bilateral Other 11/11/2007 8:26 AM NAPPING MACHINE OPERATOR Narrative 11/13/2007 2:50 PM NAPPING MACHINE OPERATOR [facility] [address] [place], [place] [address] Admit Date: 11/11/2007 LISSETTE CAR Sex: F Admit Prov: ZAC PAREDES Date: 1965 Primary Care Prov: ZAC PAREDES CMRN: [id number] [facility]: [address] [place] [address] IMAGING SERVICES Ordering Prov: ZAC PAREDES Accession Number: [id number] Interpretation BILATERAL SCREENING MAMMOGRAMS, 11/11/2007 Findings: There [...] DKT Procedure Note Provider, Historical - 11/13/[address] [address] Admit Date: 11/11/2007 LISSETTE CAR Sex: F Admit Prov: ZAC PAREDES Date:1965 Primary Care Prov: ZAC PAREDES CMRN: [id number] Room: [facility]: [address] [place] [address] IMAGING SERVICES Ordering Prov: ZAC PAREDES Interpretation [...] mammogram documented in this encounter Care Teams Manga Artist Relationship Specialty Start Date End Date Andi Bueno MD [address] [facility] [address] [place] [address] PCP - General Internal Medicine 08/16/16 documented as of this encounter
--- OUTSIDE RECORDS SUMMARY | 2025-07-20 18:48 | XMS_ITS | Encounter Summary ---
Author Organization [employer] Address [address] [place] [address] Care Team Providers Care Mechanical Commissioning Engineer Name Role Phone Andi Bueno MD Primary Care Provider [phone] Encounter Details Date Type Department Care Team (Late st Contact Info) Description 12/16/2007 Outpatient Historical [facility] Rebecca Lantigua MD [address] [facility] [address] [place] [address] Social History Tobacco Use Types Packs/Day Years Used Date Smoking Tobacco: Never Assessed Comments Unknown Sex and Gender Information Value Date Recorded Sex Assigned at Not on file Legal Sex Female 5:28 AM ROPEMAN Gender Identity Not on file Sexual Orientation Not on file documented as of this encounter Plan of Treatment Not on file documented as of this encounter Visit Diagnoses Not on filedocumented in this encounter Care Teams Mechanical Commissioning Engineer Relationship Specialty Start Date End Date Andi Bueno MD [address] [facility] [address] [place] [address] PCP - General Internal Medicine 08/16/16 documented as of this encounter
--- OUTSIDE RECORDS SUMMARY | 2025-07-20 18:48 | XMS_ITS | Encounter Summary ---
Author Organization [employer] [facility] Address [address] [place] [address] Care Team Providers Care Mushroom Cutter Name Role Phone Andi Bueno MD Primary Care Provider [phone] Encounter Details Date Type Department Care Team (Late st Contact Info) Description 11/29/2007 Outpatient Historical HIS [facility] Zac Peñaloza MD [address] [facility] [address] [place] [address] Barby Cordero MD NO ADDRESS ON FILE Abnormal Mammogram, Unspecified Social History Tobacco Use Types Packs/Day Years Used Date Smoking Tobacco: Never Assessed Comments Unknown Sex and Gender Information Value Date Recorded Sex Assigned at Not on file Legal Sex Female 5:28 AM CHEESEMAKING LABORER Gender Identity Not on file Sexual Orientation [...] AM CDT) FINAL REPORT [facility] [address] [place], [place] [address] Patient: SHU CAR : 1965 Procedure Date: 11/29/2007 Accession Date: 11/29/2007 Case No: [id number] Ordering Dr: BARBY LIU Case types AW, BW, FW, NW and SH are performed [place] [facility] [place] SURGICAL PATHOLOGY & NON-GYNECOLOGIC CYTOPATHOLOGY REPORT [...] 06:24 pm Microscopic: The slides are labeled [id number], Shu Car. The cores have sampled fibroadenoma [...] Reference: Arch Pathol Lab Med 1998;122:1053-105 5. [facility] 12.02.2007 10:40 am Staging Form: No. ELECTRONIC SIGNATURE FOR KHANG MONAE M.D.- 12/02/07 12:10 pm INTERFACE SYSTEM 11/29/2007 11:4 8 AM CDT us Barby Cordero MD PATHOLOGY/CYTOLOGY ORDERABL ES Final Result INTERFACE SYSTEM Refer to clinic/hospital department * US GUIDE NEEDLE PLACEMENT (11/29/2007 9:27 AM CDT) Anatomical Region Laterality Modality Other 11/29/2007 9:27 AM CDT Narrative 11/29/2007 11:58 AM CDT [place] [address] [place], [place] [address] Admit Date: 11/29/2007 SHU CAR Sex: F Admit Prov: ZAC PAREDES Date: 1965 Primary Care Prov: ZAC PAREDES CMRN: [id number] Room: PATRICIA SSN: [id number] IMAGING SERVICES Ordering Prov: ZAC PAREDES Accession Number: [id number] Interpretation EXAM: ULTRASOUND-GUIDED CORE BIOPSY OF THE [...] Provider, Historical - 11/29/2007 [facility] [address] [place], [place] [address] Admit Date: 11/29/2007 SHU CAR Ana María Sex: F Admit Prov: ZAC PAREDES Date:1965 Primary Care Prov: ZAC PAREDES CMRN: [id number] Room: [facility] SSN: [id number] IMAGING SERVICES Ordering Prov: ZAC PAREDES Interpretation [...] AM CDT Narrative 12/17/2007 10:21 AM CDT [address] [address] Admit Date: 11/29/2007 SHU CAR Sex: F Admit Prov: ZAC PAREDES Date: 1965 Primary Care Prov: ZAC PAREDES CMRN: [id number] Room: [facility] SSN: [id number] IMAGING SERVICES Ordering Prov: ZAC PAREDES Accession Number: [id number] Addendum The pathology from the patient's recent [...] Provider, Historical / Barby Liu - 12/17/2007 [address] [place], [place] [address] Admit Date: 11/29/2007 SHU CAR Sex: F Admit Prov: ZAC PAREDES Date:1965 Primary Care Prov: ZAC PAREDES CMRN: [id number] Room: [facility] SSN: [id number] IMAGING SERVICES Ordering Prov: ZAC PAREDES Addendum The pathology from the patient's 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 This is benign and concordant.The patient was informed of the above findings by Isabel Ruvalcaba, nurse [facility]. Assessment BIRADS: 2-Benign finding Recommendation: Normal interval [...] unspecified documented in this encounter Care Teams Mushroom Cutter Relationship Specialty Start Date End Date Andi Bueno MD [address] [facility] [address] [place] [address] PCP - General Internal Medicine 08/16/16 documented as of this encounter"
--- OUTSIDE RECORDS SUMMARY | 2025-07-20 18:49 | XMS_ITS | Encounter Summary ---
Author Organization [employer] [facility] Address [address] [place] [address] Care Team Providers Care Bridge Attacher Name Role Phone Andi Bueno MD Primary Care Provider [phone] Encounter Details Date Type Department Care Team (Latest Contact Info) Description 12/03/2007 Outpatient Historical HIS [facility] Cristian Rick MD [address] [facility] [address] [place] [address] Painful Respiration Social History Tobacco Use Types Packs/Day Years Used Date Smoking Tobacco: Never Assessed Comments Unknown Sex and Gender Information Value Date Recorded Sex Assigned at Not on file Legal Sex Female 5:28 AM ACCOUNT AUDITOR Gender Identity Not on file Sexual Orientation [...] PM CDT [facility] [address] [place], [place] [address] Admit Date: 12/03/2007 LISSETTE CAR Sex: F Admit Prov: CRISTIAN RICK Date: 1965 Primary Care Prov: GREGORIO LEVI Nay CMRN: [id number] [id number] Ordering Prov: N/A Accession Number: [id number] Interpretation Examination: Chest with right ribs. 5 views. Clinical History: Pain. Findings: Chest examination fails to demonstrate pleural, pulmonary, or mediastinal abnormality. Heart size is normal. There is no evidence of right rib fracture. Impression: Normal chest with right ribs. . Dictated by: Nay PATE 12/03/2007 12:42 Electronically signed by: Nay PATE 12/03/2007 12:42 Procedure Note Provider, Historical - 12/03/[address] [address] Admit Date: 12/03/2007 LISSETTE CAR Sex: F Admit Prov: CRISTIAN RICK Date:1965 Primary Care Prov: JACKSON LEVICorazon Tee CMRN: [id number] [id number] [facility] Ordering Prov: N/A Interpretation Examination: [...] respiration documented in this encounter Care Teams Bridge Attacher Relationship Specialty Start Date End Date Adni Bueno MD [address] [facility] [address] [place] [address] PCP - General Internal Medicine 08/16/16 documented as of this encounter
--- OUTSIDE RECORDS SUMMARY | 2025-07-20 18:49 | XMS_ITS | Encounter Summary ---
Author Organization [facility] Address [address] [place] [address] Care Team Providers Care Wallpaper Hanger Name Role Phone Andi Bueno MD Primary Care Provider [phone] Encounter Details Date Type Department Care Team (Late st Contact Info) Description 12/03/2007 Outpatient Historical [facility] Primary Care - [address] [place] [address] Rebecca Lantigua MD [address] [place] [address] [address] [place] [address] Social History Tobacco Use Types Packs/Day Years Used Date Smoking Tobacco: Never Assessed Comments Unknown Sex and Gender Information Value Date Recorded Sex Assigned at Not on file Legal Sex Female 5:28 AM ELECTRICAL PANEL BUILDER Gender Identity Not on file Sexual Orientation Not on file documented as of this encounter Plan of Treatment Not on file documented as of this encounter Visit Diagnoses Not on filedocumented in this encounter Care Teams Wallpaper Hanger Relationship Specialty Start Date End Date Andi Bueno MD [address] [facility] [address] [place] [address] PCP - General Internal Medicine 08/16/16 documented as of this encounter
--- OUTSIDE RECORDS SUMMARY | 2025-07-20 18:49 | XMS_ITS | Encounter Summary ---
Author Organization [facility] Address [address] [place] [address] Care Team Providers Care Marriage And Family Counselor Name Role Phone Andi Bueno MD Primary Care Provider [phone] Encounter Details Date Type Department Care Team (Late st Contact Info) Description 01/17/2008 Outpatient Historical [facility] Rebecca Lantigua MD [address] [facility] [address] [place] [address] Social History Tobacco Use Types Packs/Day Years Used Date Smoking Tobacco: Never Assessed Comments Unknown Sex and Gender Information Value Date Recorded Sex Assigned at Not on file Legal Sex Female 5:28 AM ELECTROPHONIC ENGINEER Gender Identity Not on file Sexual Orientation Not on file documented as of this encounter Plan of Treatment Not on file documented as of this encounter Visit Diagnoses Not on filedocumented in this encounter Care Teams Marriage And Family Counselor Relationship Specialty Start Date End Date Andi Bueno MD [address] [facility] [address] [place] [address] PCP - General Internal Medicine 08/16/16 documented as of this encounter
--- OUTSIDE RECORDS SUMMARY | 2025-07-20 18:49 | XMS_ITS | Encounter Summary ---
Author Organization [facility] Address [address] [place] [address] Care Team Providers Care Business Economist Name Role Phone Andi Bueno MD Primary Care Provider [phone] Encounter Details Date Type Department Care Team (Late st Contact Info) Description 12/03/2007 Orders Only [facility] Primary Care - [facility] [address] [place] [address] [address] [place] [address] Rebecca Lantigua MD [address] [place] [address] [address] [place] [address] Social History Tobacco Use Types Packs/Day Years Used Date Smoking Tobacco: Never Assessed Comments Unknown Sex and Gender Information Value Date Recorded Sex Assigned at Not on file Legal Sex Female 5:28 AM BOILER/CHILLER TECHNICIAN Gender Identity Not on file Sexual Orientation Not on file documented as of this encounter Progress Notes * Rebecca Lantigua MD - 02/13/2008 7:54 PM CDT TEMPERATURE: 98??f Oral BLOOD PRESSURE: 122/78 Right Arm Sitting WEIGHT: [id number] NURSE NAME: Laura Ball ALLERGIES: No known [...] WALL PAIN/PAINFUL RESPIRATIONS LAB ORDERS: Order number: [id number] Test Ordered: XRAY RIB SERIES/PA CHEST RIGHT Order number: [id number] Test Ordered: PHYSICAL THERAPY, EVALUATION & TREATMENT [...] on filedocumented in this encounter Care Teams Business Economist Relationship Specialty Start Date End Date Andi Bueno MD [address] [facility] [address] [place] [address] PCP - General Internal Medicine 08/16/16 documented as of this encounter
[2025-07-20 22:43] VITALS: BP 173/100; PULSE 80; RESP 16; O2SAT 100
--- NOTE | 2025-07-20 23:35 | ED.EXTPRO ---
HPI - Extremity Problem General Chief complaint: Extremity Problem,Nontraumatic Stated complaint: Pain in R arm, L leg and knee, bilateral neck mcmahon Time Seen by Provider: 07/20/25 23:28 Source: patient Mode of arrival: ambulatory Limitations: no limitations History of Present Illness HPI Narrative: This is a 59-year-old female with history of osteoarthritis, rheumatoid arthritis, fibromyalgia, hypertension, hyperlipidemia, schizoaffective disorder who presents the ED for left knee pain and right shoulder pain. Patient states that for the past several weeks, she has been dealing with left knee pain that became worse over the last few days to the point that she is having difficulty walking. She states that is worse when standing and better with sitting. She also notes some right shoulder pain with right arm numbness. She saw her PCP for this a couple weeks ago and she was apparently advised to come to the ED for this for evaluation of neuropathy never came. Related Data Home Medications ?Medication ?Instructions ?Recorded ?Confirmed ?Last Taken ?Type folic acid 1 mg tablet 1 mg PO DAILY 02/19/20 03/23/25 04/18/22 History gabapentin 600 mg tablet 600 mg PO DAILY 03/26/20 03/23/25 04/19/22 History (Neurontin) multivitamin (Daily Multi-Vitamin 1 tablet PO DAILY 01/19/22 03/23/25 04/16/22 History tablet) cetirizine 10 mg tablet (Zyrtec) 10 mg PO DAILY PRN 03/19/23 03/23/25 Unknown History lamotrigine 25 mg tablet 25 mg PO DAILY 09/17/24 03/23/25 Unknown History quetiapine 100 mg tablet (Seroquel) 100 mg PO QHS 11/19/24 03/23/25 Unknown History Allergies Allergy/AdvReac Type Severity Reaction Status Date / Time sertraline Allergy Mild Hives Verified 05/19/25 10:48 lithium AdvReac Intermediate Nausea and Verified 05/19/25 10:48 Vomiting Review of Systems Review of Systems: Gen.: Denies fevers or chills Eyes: Denies eye pain or visual change ENT: Denies congestion Respiratory: Denies shortness of breath or cough CV: Denies chest pain or palpitations GI: Denies abdominal pain nausea, emesis or diarrhea denies burning, urgency, frequency or hematuria Musculoskeletal: As per HPI Neuro: As per HPI Skin: Denies rash Except as documented, all other systems reviewed and negative [facility] Past Medical History Medical History COVID-19 History of 1985 Arthritis Acid reflux Hyperlipidemia Hypertension PTSD (post-traumatic stress disorder) Anxiety and depression Adverse effect of cqsyeydojen-fbiszfjacm-eimexi inhibitors, initial encounter CAROLYNE on CPAP Vaginal bleeding Bipolar affective disorder Surgical History Surgical History Status post hysterectomy with oophorectomy History of myomectomy History of section S/P breast lumpectomy History of tubal ligation Family History Family History Mother Patient's mother is in good health Diabetes mellitus Hypertension Sibling Patient's brother is in good health Family history of malignant neoplasm of breast in first degree relative Diabetes mellitus Family history of blood dyscrasia Hypertension Father Family history of heart disease in male family member before age 55 Family history of cardiovascular disease Diabetes mellitus Hypertension Cerebrovascular accident Social History Social History Second hand tobacco smoke exposure: No Alcohol intake: current Alcohol use details: Social Substance use: never Substance use type: does not use Do You Feel Safe in your Home?: Yes Lack of Transportation: No Lack of Food: Sometimes True Current Housing: I Have Housing Concerned About Future Housing: No Difficulty Paying Gas/Electric Bills: No Difficulty Paying for Meds: No Education: High School Diploma/GED Difficulty w/ Childcare or Family Care: No Living arrangements: with family Gender identity (if verbalized by the patient): Female Spiritual care concerns: No Agree to blood products: Yes Exam Narrative: APPEARANCE: No acute distress, nontoxic, resting in bed EYES: EOMI HEENT: Normocephalic, atraumatic, OMM RESPIRATORY: No respiratory distress Clear to auscultation bilaterally with no rhonchi wheezing or rales. CARDIOVASCULAR: Regular rate and rhythm without murmurs rubs or gallops. ABDOMINAL: Soft, nontender, nondistended, no rebound or guarding MUSCULOSKELETAl: Tenderness over the left knee medial joint line with pain with passive range of motion at the left knee. Tenderness over the right glenohumeral joint. NEURO: Awake and alert. Following commands, speech normal, no focal deficits SKIN:: Warm, dry. No rashes lesions or abrasions PSYCHIATRIC: Normal affect/mood, Course Vital Signs Vital signs: Vital Signs Temperature 97.5 F L 07/20/25 18:46 Pulse Rate 72 07/20/25 18:46 Respiratory Rate 16 07/20/25 18:46 Blood Pressure 153/99 H 07/20/25 18:46 Pulse Oximetry 100 07/20/25 18:46 Oxygen Delivery Room Air 07/20/25 18:46 Temperature 97.5 F L 07/20/25 18:46 Pulse Rate 60 07/21/25 01:04 Respiratory Rate 16 07/21/25 01:04 Blood Pressure 148/87 H 07/21/25 01:04 Pulse Oximetry 100 07/21/25 01:04 Oxygen Delivery Room Air 07/20/25 22:43 MDM - Extremity (Nontraumatic) MDM Narrative Medical decision making narrative: 59-year-old female Presenting for left knee pain and right shoulder pain. On initial evaluation patient was in no acute distress afebrile, hemodynamic stable. Differentials include but are not limited to: Fracture, sprain, strain, contusion Notable exam findings: Tenderness over the medial joint line of the left knee with pain with passive range of motion. Tenderness over the right glenohumeral joint, minimal pain with passive range of motion. Notable imaging findings: X-ray right shoulder showed no acute process. X-ray left knee did show severe osteoarthritis. X-rays are pending final Radiology read. Patient's symptoms are most likely due to arthritis. He was given a dose of Toradol here in the ED. She was educated on Tylenol and previously prescribed meloxicam use. She was also educated on Voltaren. She will be given a referral to Orthopedic surgery, Dr. Palmer, for further evaluation. Patient was agreeable to this plan. Given strict return precautions. Medical Records Attestation: I reviewed the patient's medical records. Imaging Data Attestation: I personally reviewed and interpreted this imaging study as follows: My impression: X-ray right shoulder: No acute process X-ray left knee: Severe osteoarthritis with osteophytes noted, no fractures noted Discharge Plan Discharge Clinical Impression: Arthralgia of right shoulder region Osteoarthritis Qualifiers: Osteoarthritis location: knee Osteoarthritis type: unspecified Laterality: left Qualified Code(s): M17.12 - Unilateral primary osteoarthritis, left knee Patient Disposition: Home Condition: Stable Instructions: Antibiotic Form, Osteoarthritis (ED) Additional Instructions: Take Tylenol and meloxicam as previously prescribed. You may also try Voltaren gel which is available [id number]. You were given a referral to Dr. Palmer, orthopedic surgery, for further evaluation of possible knee replacement. Apply ice to the knee. Take frequent breaks when on her feet. Return to the ED for any new or worsening symptoms. Patient Language: Italian Prescriptions: No Action gabapentin [Neurontin] 600 mg tablet 600 mg PO DAILY cetirizine [Zyrtec] 10 mg tablet 10 mg PO DAILY PRN folic acid 1 mg tablet 1 mg PO DAILY multivitamin [Daily Multi-Vitamin] Tablet 1 tablet PO DAILY clonazepam [Klonopin] 0.5 mg tablet 0.5 mg PO TID Qty: 90 0RF lamotrigine 25 mg tablet 25 mg PO DAILY atorvastatin 80 mg tablet 80 mg PO DAILY Qty: 90 1RF epinephrine 0.3 mg/0.3 mL auto-injector 0.3 mg IM ONCE Qty: 0.3 2RF Rx Instructions: as a single dose; may repeat once quetiapine [Seroquel] 100 mg tablet 100 mg PO QHS fluticasone propionate [Flonase Allergy Relief] 50 mcg/actuation spray,suspension 2 spray intranasal DAILY Qty: 16 2RF Rx Instructions: administer into each nostril pantoprazole 40 mg tablet,delayed release (DR/EC) 40 mg PO QAM Qty: 180 1RF benzonatate 100 mg capsule See Rx Instructions PO TID PRN (Reason: cough) Qty: 60 0RF Rx Instructions: orally three times a day PRN; 1-2 tabs up to three times a day olanzapine [Zyprexa Zydis] 15 mg tablet,disintegrating 15 mg PO QHS Qty: 30 1RF losartan 25 mg tablet 25 mg PO DAILY Qty: 90 1RF montelukast [Singulair] 10 mg tablet 10 mg PO DAILY Qty: 90 1RF valacyclovir 1 gram tablet 1,000 mg PO Q12H Qty: 20 0RF metoprolol succinate 25 mg tablet extended release 24 hr See Rx Instructions .ROUTE .COMPLEX Qty: 90 2RF Dose Instruction: TAKE 1 TABLET BY MOUTH EVERY DAY Rx Instructions: TAKE 1 TABLET BY MOUTH EVERY DAY famotidine 20 mg tablet See Rx Instructions .ROUTE .COMPLEX Qty: 90 1RF Dose Instruction: TAKE 1 TABLET BY MOUTH ONCE DAILY NEEDED FOR REFLUX Rx Instructions: TAKE 1 TABLET BY MOUTH ONCE DAILY NEEDED FOR REFLUX prednisone 10 mg tablet 10 mg PO DIRECTED Qty: 40 0RF Rx Instructions: 4 tablets daily for 4 days then 3 tablets daily for 4 days then 2 tablets daily for 4 days then 1 tablet daily for 4 days. meloxicam 7.5 mg tablet See Rx Instructions .ROUTE .COMPLEX Qty: 30 2RF Dose Instruction: TAKE 1 TABLET BY MOUTH EVERY DAY Rx Instructions: TAKE 1 TABLET BY MOUTH EVERY DAY Follow-up/Referrals: Nick Palmer MD [Physician, Orthopedics] Aziza Fernandez APRN [Primary Care Provider, Internal Medicine]
--- OUTSIDE RECORDS SUMMARY | 2025-07-20 23:44 | XMS_ITS | Encounter Summary ---
Author Organization [facility] Address [address] [place] [address] Care Team Providers Care Clinical Specialist Vascular Name Role Phone Andi Bueno MD Primary Care Provider [phone] Encounter Details Date Type Department Care Team (Late st Contact Info) Description 10/28/2007 Orders Only [facility] Primary Care - [address] [place] [address] Zac Paredes MD [address] [facility] [address] [place] [address] Social History Tobacco Use Types Packs/Day Years Used Date Smoking Tobacco: Never Assessed Comments Unknown Sex and Gender Information Value Date Recorded Sex Assigned at Not on file Legal Sex Female 5:28 AM CAFETERIA OPERATOR Gender Identity Not on file Sexual Orientation Not on file documented as of this encounter Progress Notes * Zac Paredes MD - 01/22/2008 1:46 PM CDT BLOOD PRESSURE: 114/80 Right Arm Sitting TEMPERATURE: 97.9??f Oral WEIGHT: [id number] NURSE NAME: Laura Ball ALLERGIES: No known [...] identified on exam. LAB ORDERS: Order number: [id number] Test Ordered: COMPREHENSIVE METABOLIC PANEL & GFR 1112 Order number: [id number] Test Ordered: TSH (REFLEX FREE T4/FREE T3) 1727 Order number: [id number] Test Ordered: URIC ACID 1795 Order number: [id number] Test Ordered: LIPID PANEL 1078 719.40-ARTHRALGIA in achilles tendon? MEDICATIONS: IBUPROFEN ORAL TABLET 600 MG, 1 po tid with food prn, 90 Dispensed, 1 Fills, status: NEW PRESCRIPTION, 10/28/2007. SPECIALTY REFERRAL: BOLT HEADER Dr. Ana Lilia Chatterjee ph: [phone] fax: [phone] ph: [phone]. PODIATRY Dr. Anthony Kelly ph: [phone] fax: [phone]. HEALTH MAINTENANCE: LAST BREAST EXAM DATE: 2005. [...] on filedocumented in this encounter Care Teams Clinical Specialist Vascular Relationship Specialty Start Date End Date Andi Bueno MD [address] [facility] [address] [place] [address] PCP - General Internal Medicine 08/16/16 documented as of this encounter
--- OUTSIDE RECORDS SUMMARY | 2025-07-20 23:44 | XMS_ITS | Encounter Summary ---
Author Organization [facility] Address [address] [place] [address] Care Team Providers Care Sign Maintenance Name Role Phone Andi Bueno MD Primary Care Provider [phone] Encounter Details Date Type Department Care Team (Late st Contact Info) Description 07/21/2008 Outpatient Historical [facility] CH[facility] Paredes, Zac Tee MD [address] [facility] [address] [place] [address] Abnormal Mammogram, Unspecified Social History Tobacco Use Types Packs/Day Years Used Date Smoking Tobacco: Never Alcohol Use Standard Drinks/Week Comments No 0 (1 standard drink = 0.6 oz pur e alcohol) Comments No Sex and Gender Information Value Date Recorded Sex Assigned at Not on file Legal Sex Female 5:28 AM FITNESS PLAN COORDINATOR Gender Identity Not on file Sexual Orientation Not on file documented as of this encounter Plan of Treatment Not on file documented as of this encounter Procedures Procedure Name Priority Date/Time Associated Diagnosis Comments MAMMO DIAGNOSTIC BILATERAL W OR WO CAD Timed Study 07/21/2008 9:22 AM FITNESS PLAN COORDINATOR documented in this encounter Results * MAMMO DIGITAL DIAG BILAT (07/21/2008 9:22 AM FITNESS PLAN COORDINATOR) Anatomical Region Laterality Modality Breast Bilateral Other 07/21/2008 9:22 AM FITNESS PLAN COORDINATOR Narrative 2008 7:53 AM FITNESS PLAN COORDINATOR [address] [id number] [facility] [place] [address] Admit Date: 07/21/2008 LISSETTE CAR Sex: F Admit Prov: ZCA PAREDES Date: 1965 Primary Care Prov: ZAC PAREDES CMRN: [id number] Room: [facility] SSN: [id number] IMAGING SERVICES Ordering Prov: ZAC PAREDES Accession Number: [id number] Interpretation BILATERAL DIAGNOSTIC DIGITAL MAMMOGRAMS WITH COMPUTER [...] AMK Procedure Note Do Hirsch - [id number] [place] [address] Admit Date: 07/21/2008 LISSETTE CAR Sex: F Admit Prov: ZAC PAREDES Date:1965 Primary Care Prov: ZAC PAREDES CMRN: [id number] Room: [facility] SSN: [id number] IMAGING SERVICES Ordering Prov: ZAC PAREDES Interpretation [...] unspecified documented in this encounter Care Teams Sign Maintenance Relationship Specialty Start Date End Date Andi Bueno MD [address] [facility] [address] [place] [address] PCP - General Internal Medicine 08/16/16 documented as of this encounter
--- OUTSIDE RECORDS SUMMARY | 2025-07-20 23:44 | XMS_ITS | Patient Health Record ---
Author Organization [facility] Address [address] [place] [address] Care Team Providers Care Honing Machine Operator Semiautomatic Name Role Phone Andi Bueno MD Primary Care Provider UnavailDae Aguero Unavailable [phone] Reason For Referral No Information Plan Of Treatment No Information Insurance Providers Payer Name Payer Address Payer Phone Subscriber Number Group Number Insured Name Patient Relationship to Insured Coverage Start Date Coverage End Date [employer] Open Access E2 [address] [place] [address] [id number] Cory Car Spouse - patient is the spouse of the insured
--- OUTSIDE RECORDS SUMMARY | 2025-07-20 23:44 | XMS_ITS | Encounter Summary ---
Author Organization [facility] Address [address] [place] [address] Care Team Providers Care Beef Skinner Name Role Phone Andi Bueno MD Primary Care Provider [phone] Encounter Details Date Type Department Care Team (Late st Contact Info) Description 12/03/[address] [facility] Primary Care - [facility] [address] [place] [address] [address] [place] [address] Rebecca Lantigua MD [address] [place] [address] [address] [place] [address] Social History Tobacco Use Types Packs/Day Years Used Date Smoking Tobacco: Never Assessed Comments Unknown Sex and Gender Information Value Date Recorded Sex Assigned at Not on file Legal Sex Female 5:28 AM AGRONOMY LOCATION MANAGER Gender Identity Not on file Sexual Orientation Not on file documented as of this encounter Progress Notes * Rebecca Lantigua MD - 02/13/2008 7:54 PM CDT TEMPERATURE: 98??f Oral BLOOD PRESSURE: 122/78 Right Arm Sitting WEIGHT: [id number] NURSE NAME: Laura Ball ALLERGIES: No known [...] WALL PAIN/PAINFUL RESPIRATIONS LAB ORDERS: Order number: [id number] Test Ordered: XRAY RIB SERIES/PA CHEST RIGHT Order number: [id number] Test Ordered: PHYSICAL THERAPY, EVALUATION & TREATMENT [...] on filedocumented in this encounter Care Teams Beef Skinner Relationship Specialty Start Date End Date Andi Bueno MD [address] [facility] [address] [place] [address] PCP - General Internal Medicine 08/16/16 documented as of this encounter
--- OUTSIDE RECORDS SUMMARY | 2025-07-20 23:44 | XMS_ITS | Encounter Summary ---
Author Organization [facility] Address [address] [place] [address] Care Team Providers Care Filter Operator Name Role Phone Andi Bueno MD Primary Care Provider [phone] Encounter Details Date Type Department Care Team (Late st Contact Info) Description 01/17/2008 Outpatient Historical [facility] Rebecca Lantigua MD [address] [facility] [address] [place] [address] Social History Tobacco Use Types Packs/Day Years Used Date Smoking Tobacco: Never Assessed Comments Unknown Sex and Gender Information Value Date Recorded Sex Assigned at Not on file Legal Sex Female 5:28 AM HEDIS ABSTRACTOR Gender Identity Not on file Sexual Orientation Not on file documented as of this encounter Plan of Treatment Not on file documented as of this encounter Visit Diagnoses Not on filedocumented in this encounter Care Teams Filter Operator Relationship Specialty Start Date End Date Andi Bueno MD [address] [facility] [address] [place] [address] PCP - General Internal Medicine 08/16/16 documented as of this encounter
--- OUTSIDE RECORDS SUMMARY | 2025-07-20 23:44 | XMS_ITS | Encounter Summary ---
Author Organization [facility] Address [address] [place] [address] Care Team Providers Care Drilling Manager Name Role Phone Andi Bueno MD Primary Care Provider [phone] Encounter Details Date Type Department Care Team (Late st Contact Info) Description 10/08/2007 Outpatient Historical [facility] Primary Care - [address] [place] [address] Zac Paredes MD [address] [facility] [address] [place] [address] Social History Tobacco Use Types Packs/Day Years Used Date Smoking Tobacco: Never Assessed Comments Unknown Sex and Gender Information Value Date Recorded Sex Assigned at Not on file Legal Sex Female 5:28 AM ANIMAL TECH Gender Identity Not on file Sexual Orientation Not on file documented as of this encounter Plan of Treatment Not on file documented as of this encounter Visit Diagnoses Not on filedocumented in this encounter Care Teams Drilling Manager Relationship Specialty Start Date End Date Andi Bueno MD [address] [facility] [address] [place] [address] PCP - General Internal Medicine 08/16/16 documented as of this encounter
--- OUTSIDE RECORDS SUMMARY | 2025-07-20 23:44 | XMS_ITS | Encounter Summary ---
Author Organization [facility] Address [address] [place] [address] Care Team Providers Care Locomotive Inspector Name Role Phone Andi Bueno MD Primary Care Provider [phone] Encounter Details Date Type Department Care Team (Late st Contact Info) Description 10/28/2007 Outpatient Historical [facility] Primary Care - [address] [place] [address] Zac Paredes MD [address] [facility] [address] [place] [address] Routine General Medical Examination at a Health Care Facility Social History Tobacco Use Types Packs/Day Years Used Date Smoking Tobacco: Never Assessed Comments Unknown Sex and Gender Information Value Date Recorded Sex Assigned at Not on file Legal Sex Female 5:28 AM WASTEWATER PLANT OPERATOR Gender Identity Not on file Sexual Orientation Not on file documented as of this encounter Plan of Treatment Not on file documented as of this encounter Procedures Procedure Name Priority Date/Time Associated Diagnosis Comments TSH WITH REFLEX FT4 AND FT3 Routine 10/28/2007 10:56 PM WASTEWATER PLANT OPERATOR URIC ACID Routine 10/28/2007 10:56 PM WASTEWATER PLANT OPERATOR LIPID PANEL Routine 10/28/2007 10:56 PM WASTEWATER PLANT OPERATOR COMPREHENSIVE METABOLIC PANEL Routine 10/28/2007 10:56 PM WASTEWATER PLANT OPERATOR documented in this encounter Results * URIC ACID (10/28/2007 10:56 PM WASTEWATER PLANT OPERATOR) URIC ACID 3.6 2.3 - 6.6 mg/dL [facility] Blood specimen (specimen) 10/28/2007 10:56 PM WASTEWATER PLANT OPERATOR 10/28/2007 10:56 PM WASTEWATER PLANT OPERATOR Zac Paredes MD CHEMISTRY ORDERABLES Final Resul t Performing Organization Address [facility] Co de Phone Number [facility] [address] [place] [address] * TSH WITH REFLEX FT4 AND FT3 (10/28/2007 10:56 PM WASTEWATER PLANT OPERATOR) Pathologist [facility] TSH 1.62 0.27 - 4.20 uU/mL [facility] Blood specimen (specimen) 10/28/2007 10:56 PM WASTEWATER PLANT OPERATOR 10/28/2007 10:56 PM WASTEWATER PLANT OPERATOR Zac Paredes MD CHEMISTRY ORDERABLES Final Resul t Performing Organization Address [facility] Co de Phone Number [facility] [address] [place] [address] * COMPREHENSIVE METABOLIC PANEL (10/28/2007 10:56 PM WASTEWATER PLANT OPERATOR) Pathologist [facility] CALCIUM 9.3 8.4 - 10.2 mg/dL [facility] CHLORIDE 102 96 - 108 mmol/L [facility] ALBUMIN 4.2 3.4 - 4.8 g/dL [facility] CREATININE 0.77 0.51 - 0.95 mg/dL [facility] SODIUM 138 135 - 145 mmol/L [facility] ALT 17 0 - 31 U/L [facility] ALKALINE PHOSPHATASE 96 35 - 104 U/L [facility] BILIRUBIN TOTAL 0.6 0.2 - 1.0 mg/dL [facility] CO2 23 22 - 30 mmol/L [facility] TOTAL PROTEIN 7.6 6.3 - 8.6 g/dL [facility] POTASSIUM 4.1 3.5 - 4.9 mmol/L [facility] GLUCOSE 79 65 - 99 mg/dL [facility] AST 14 12 - 32 U/L [facility] BUN 15 6 - 20 mg/dL [facility] GFR, >60 >=60 mL/min/1.7 sq meter [facility] GFR >60 >=60 mL/min/1.7 sq meter [facility] Comment: Estimated GFR rate interpretative information for both Americans and non- Americans is available on the [facility] Intranet at: [email or web address] Select: Lab Policies and Procedures Select: Reference Ranges - GFR Blood specimen (specimen) 10/28/2007 10:56 PM WASTEWATER PLANT OPERATOR 10/28/2007 10:56 PM WASTEWATER PLANT OPERATOR us Zac Paredes MD CHEMISTRY ORDERABLES Edited [facility] [address] [place] [address] * (ABNORMAL) LIPID PANEL (10/28/2007 10:56 PM WASTEWATER PLANT OPERATOR) CHOLESTEROL 217(H) 100 - 199 mg/dL [facility] CHOL/HDL RATIO 3.1 2.0 - 5.0 [facility] TRIGLYCERIDE 64 10 - 149 mg/dL [facility] HDL 70(H) 40 - 59 mg/dL [facility] LDL CALCULATED 134(H) <=99 mg/dL [facility] LIPID PANEL COMMENT See Below [facility] Comment: The adult ATP and pediatric NCEP classifications for lipids are available on the [facility] Intranet at: [email or web address] Select: Lab Policies and Procedures,Current Select: Lipid Panel Interpretation Blood specimen (specimen) 10/28/2007 10:56 PM WASTEWATER PLANT OPERATOR 10/28/2007 10:56 PM WASTEWATER PLANT OPERATOR us Zac Paredes MD CHEMISTRY ORDERABLES Edited [facility] [address] [place] [address] documented in this encounter Visit Diagnoses Diagnosis Routine general medical examination at a health care facility documented in this encounter Care Teams Locomotive Inspector Relationship Specialty Start Date End Date Andi Bueno MD [address] [facility] [address] [place] [address] PCP - General Internal Medicine 08/16/16 documented as of this encounter
--- OUTSIDE RECORDS SUMMARY | 2025-07-20 23:44 | XMS_ITS | Encounter Summary ---
Author Organization [facility] Address [address] [place] [address] Care Team Providers Care Retail Sales Vitamin Consultant Name Role Phone Andi Bueno MD Primary Care Provider [phone] Encounter Details Date Type Department Care Team (Late st Contact Info) Description 10/28/2007 Outpatient Historical [facility] Primary Care - [address] [place] [address] Zac Paredes MD [address] [facility] [address] [place] [address] Social History Tobacco Use Types Packs/Day Years Used Date Smoking Tobacco: Never Assessed Comments Unknown Sex and Gender Information Value Date Recorded Sex Assigned at Not on file Legal Sex Female 5:28 AM REVISING CLERK Gender Identity Not on file Sexual Orientation Not on file documented as of this encounter Plan of Treatment Not on file documented as of this encounter Visit Diagnoses Not on filedocumented in this encounter Care Teams Retail Sales Vitamin Consultant Relationship Specialty Start Date End Date Andi Bueno MD [address] [facility] [address] [place] [address] PCP - General Internal Medicine 08/16/16 documented as of this encounter
--- OUTSIDE RECORDS SUMMARY | 2025-07-20 23:44 | XMS_ITS | Encounter Summary ---
Author Organization [employer] [facility] Address [address] [place] [address] Care Team Providers Care Lacquer Sprayer Name Role Phone Andi Bueno MD Primary Care Provider [phone] Encounter Details Date Type Department Care Team (Late st Contact Info) Description 11/29/2007 Outpatient Historical [facility] Zac Peñaloza MD [address] [place] [address] Barby Cordero MD NO ADDRESS ON FILE Abnormal Mammogram, Unspecified Social History Tobacco Use Types Packs/Day Years Used Date Smoking Tobacco: Never Assessed Comments Unknown Sex and Gender Information Value Date Recorded Sex Assigned at Not on file Legal Sex Female 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 The cores have sampled fibroadenoma [...] Reference: Arch Pathol Lab Med 1998;122:1053-105 5. [facility] 12.02.2007 10:40 am Staging Form: No. ELECTRONIC SIGNATURE FOR KHANG MONAE M.D.- 12/02/07 12:10 pm INTERFACE SYSTEM 11/29/2007 11:4 8 AM CDT us Barby Cordero MD PATHOLOGY/CYTOLOGY ORDERABL ES Final Result INTERFACE SYSTEM Refer to clinic/hospital department * US GUIDE NEEDLE PLACEMENT (11/29/2007 9:27 AM CDT) Anatomical Region Laterality Modality Other 11/29/2007 9:27 AM CDT Narrative 11/29/2007 11:58 AM CDT [id number] [place], [place] [address] Admit Date: 11/29/2007 SHU CAR Sex: F Admit Prov: ZAC PAREDES Date: 1965 Primary Care Prov: ZAC PAREDES CMRN: [id number] Room: PATRICIA SSN: [id number] IMAGING SERVICES Ordering Prov: ZAC PAREDES Accession Number: [id number] Interpretation EXAM: ULTRASOUND-GUIDED CORE BIOPSY OF THE [...] AMK Procedure Note Provider, Historical - 11/29/2007 [facility] [address] [place], [place] [address] Admit Date: 11/29/2007 SHU CAR Ana María Sex: F Admit Prov: ZAC PAREDES Date:1965 Primary Care Prov: ZAC PAREDES CMRN: [id number] Room: [facility] SSN: [id number] IMAGING SERVICES Ordering Prov: ZAC PAREDES Interpretation [...] AM CDT Narrative 12/17/2007 10:21 AM CDT [address] [address] Admit Date: 11/29/2007 SHU ACR Sex: F Admit Prov: ZAC PAREDES Date: 1965 Primary Care Prov: ZAC PAREDES CMRN: [id number] Room: [facility] SSN: [id number] IMAGING SERVICES Ordering Prov: ZAC PAREDES Accession Number: [id number] Addendum The pathology from the patient's recent [...] Provider, Historical / Barby Liu - 12/17/2007 [address] [place], [place] [address] Admit Date: 11/29/2007 SHU CAR Sex: F Admit Prov: ZAC PAREDES Date:1965 Primary Care Prov: ZAC PAREDES CMRN: [id number] Room: [facility] SSN: [id number] IMAGING SERVICES Ordering Prov: ZAC PAREDES Addendum The pathology from the patient's 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 This is benign and concordant.The patient was informed of the above findings by Isabel Ruvalcaba, nurse [facility]. Assessment BIRADS: 2-Benign finding Recommendation: Normal [...] unspecified documented in this encounter Care Teams Lacquer Sprayer Relationship Specialty Start Date End Date Andi Bueno MD [address] [facility] [address] [place] [address] PCP - General Internal Medicine 08/16/16 documented as of this encounter
--- OUTSIDE RECORDS SUMMARY | 2025-07-20 23:44 | XMS_ITS | Encounter Summary ---
Author Organization [facility] Address [address] [place] [address] Care Team Providers Care Transportation Job Titles Name Role Phone Andi Bueno MD Primary Care Provider [phone] Encounter Details Date Type Department Care Team (Late st Contact Info) Description 11/19/2007 Outpatient Historical [facility] CHANI Paredes, Zac Tee MD [address] [facility] [address] [place] [address] Abnormal Mammogram, Unspecified Social History Tobacco Use Types Packs/Day Years Used Date Smoking Tobacco: Never Assessed Comments Unknown Sex and Gender Information Value Date Recorded Sex Assigned at Not on file 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 [place], [place] [address] Admit Date: 11/19/2007 LISSETTE CAR Sex: F Admit Prov: ZAC PAREDES Date: 1965 Primary Care Prov: ZAC PAREDES CMRN: [id number] Room: [facility] SSN: [id number] IMAGING SERVICES Ordering Prov: ZAC PAREDES Accession Number: [id number] Interpretation Left breast ultrasound 11/19/2007 History: Mass [...] AMK Procedure Note Provider, Historical - 11/19/[address] [address] Admit Date: 11/19/2007 LISSETTE CAR Sex: F Admit Prov: ZAC PAREDES Date:1965 Primary Care Prov: ZAC PAREDES CMRN: [id number] Room: [facility] SSN: [id number] IMAGING SERVICES Ordering Prov: ZAC PAREDES Interpretation [...] unspecified documented in this encounter Care Teams Transportation Job Titles Relationship Specialty Start Date End Date Andi Bueno MD [address] [facility] [address] [place] [address] PCP - General Internal Medicine 08/16/16 documented as of this encounter
--- OUTSIDE RECORDS SUMMARY | 2025-07-20 23:44 | XMS_ITS | Encounter Summary ---
Author Organization [facility] Address [address] [place] [address] Care Team Providers Care P D Driver Name Role Phone Andi Bueno MD Primary Care Provider [phone] Encounter Details Date Type Department Care Team (Late st Contact Info) Description 11/12/2007 Outpatient Historical [facility] Zac Paredes MD [address] [facility] [address] [place] [address] Other Screening Mammogram Social History Tobacco Use Types Packs/Day Years Used Date Smoking Tobacco: Never Assessed Comments Unknown Sex and Gender Information Value Date Recorded Sex Assigned at Not on file Legal Sex Female 5:28 AM AIRLINE PILOT Gender Identity Not on file Sexual Orientation Not on file documented as of this encounter Plan of Treatment Not on file documented as of this encounter Procedures Procedure Name Priority Date/Time Associated Diagnosis Comments MAMMO SCREENING BILAT Timed Study 11/11/2007 8:26 AM AIRLINE PILOT documented in this encounter Results * MAMMO SCREENING BILAT (11/11/2007 8:26 AM AIRLINE PILOT) Anatomical Region Laterality Modality Breast Bilateral Other 11/11/2007 8:26 AM AIRLINE PILOT Narrative 11/13/2007 2:50 PM AIRLINE PILOT [facility] [address] [place], [place] [address] Admit Date: 11/11/2007 LISSETTE CAR Sex: F Admit Prov: ZAC PAREDES Date: 1965 Primary Care Prov: ZAC PAREDES CMRN: [id number] [facility] [address] [place] [address] IMAGING SERVICES Ordering Prov: ZAC PAREDES Accession Number: [id number] Interpretation BILATERAL SCREENING MAMMOGRAMS, 11/11/2007 Findings: There [...] Procedure Note Provider, Historical - 11/13/[address] [address] Admit Date: 11/11/2007 LISSETTE CAR Sex: F Admit Prov: ZAC PAREDES Date:1965 Primary Care Prov: ZAC PAREDES CMRN: [id number] [facility] [address] [place] [address] IMAGING SERVICES Ordering Prov: ZAC PAREDES Interpretation [...] mammogram documented in this encounter Care Teams P D Driver Relationship Specialty Start Date End Date Andi Bueno MD [address] [facility] [address] [place] [address] PCP - General Internal Medicine 08/16/16 documented as of this encounter
--- OUTSIDE RECORDS SUMMARY | 2025-07-20 23:44 | XMS_ITS | Encounter Summary ---
Author Organization [facility] Address [address] [place] [address] Care Team Providers Care Overlock Sleeve Setter Name Role Phone Andi Bueno MD Primary Care Provider [phone] Encounter Details Date Type Department Care Team (Late st Contact Info) Description 12/03/2007 Outpatient Historical [facility] Primary Care - [address] [place] [address] Rebecca Lantigua MD [address] [place] [address] [address] [place] [address] Social History Tobacco Use Types Packs/Day Years Used Date Smoking Tobacco: Never Assessed Comments Unknown Sex and Gender Information Value Date Recorded Sex Assigned at Not on file Legal Sex Female 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
--- OUTSIDE RECORDS SUMMARY | 2025-07-20 23:44 | XMS_ITS | Clinical Summary ---
Author Organization [facility] Address [facility] [place] [address] Care Team Providers Care Clam Bed Laborer Name Role Phone Jaime Taylor DO Primary Care Provider [phone] Allergies Active Allergy Reactions Criticality Noted Date Comments Waelder Hives 11/02/2021 Sertraline Hives 11/02/2021 Medications losartan [...] on file Legal Sex Female 12:38 PM GRAB HOOKER Gender Identity Not on file Sexual Orientation Not on file Last Filed Vital Signs Vital Sign Reading Time Taken Comments Blood Pressure 119/80 11/09/2021 12:50 PM GRAB HOOKER Pulse 78 11/09/2021 12:50 PM GRAB HOOKER Temperature 36.4 C (97.5 F) 11/09/2021 12:23 PM GRAB HOOKER Respiratory Rate 27 11/09/2021 12:50 PM GRAB HOOKER Oxygen Saturation 96% 11/09/2021 12:50 PM GRAB HOOKER Inhaled Oxygen Concentration - - Weight 115.2 kg (254 lb) 11/02/2021 1:59 PM GRAB HOOKER Height 154.9 cm (5' 1) 11/02/2021 1:59 PM GRAB HOOKER Body Mass Index 47.99 11/02/2021 1:59 PM GRAB HOOKER Plan of Treatment Health Maintenance Due Date [...] this topic Medical Devices Implanted Type [facility] Pricing Consultant Device Identifier Shelf Expiration Date Model / Serial / Lot Screw Screw Right: Ankle Insurance [facility] Care Teams Clam Bed Laborer Relationship Specialty Start Date End Date Jaime Taylor DO [address] [address] PCP - General INTERNAL MEDICINE 11/09/21
--- OUTSIDE RECORDS SUMMARY | 2025-07-20 23:44 | XMS_ITS | Clinical Summary ---
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 Gender Identity Not on file Sexual Orientation Not on file Occupation Industry Job Start Date Job End Date Not on file Not on file Not on file Not on file Last Filed Vital Signs Vital Sign Reading Time Taken Comments Blood Pressure 149/94 07/30/2017 9:15 AM BOAT BUILDER AND REPAIRER Pulse 82 07/30/2017 9:15 AM BOAT BUILDER AND REPAIRER Temperature 36.5 C (97.7 F) 07/30/2017 9:15 AM BOAT BUILDER AND REPAIRER Respiratory Rate 16 07/30/2017 9:15 AM BOAT BUILDER AND REPAIRER Oxygen Saturation 97% 07/30/2017 9:15 AM BOAT BUILDER AND REPAIRER Inhaled Oxygen Concentration - - Weight 123.8 kg (273 lb) 07/30/2017 9:15 AM BOAT BUILDER AND REPAIRER Height 157.5 cm (5' 2) 07/30/2017 9:15 AM BOAT BUILDER AND REPAIRER Body Mass Index 49.93 07/30/2017 9:15 AM BOAT BUILDER AND REPAIRER Plan of Treatment Health Maintenance Due Date [...] OR WO CAD Routine 10/11/2016 8:57 AM BOAT BUILDER AND REPAIRER Breast mass HEMOGLOBIN A1C Routine 06/21/2015 4:01 PM CDT Morbid obesity, unspecified obesity type (CMS/HCC) Elevated glucose from Last 3 Months or Most Recently Relevant to Health Maintenance Results * MAMMO DIAGNOSTIC BILATERAL W OR WO CAD (10/11/2016 8:57 AM BOAT BUILDER AND REPAIRER) Anatomical Region Laterality Modality Breast Bilateral Mammography 10/11/2016 8:57 AM BOAT BUILDER AND REPAIRER Impressions 10/11/2016 2:42 PM BOAT BUILDER AND REPAIRER IMPRESSION: No imaging evidence of malignancy. RECOMMENDATION: Annual screening mammography unless otherwise indicated. BI-RADS 2: Benign. Dictated from: [facility] Narrative 10/11/2016 2:42 PM BOAT BUILDER AND REPAIRER EXAM: BILATERAL DIGITAL DIAGNOSTIC MAMMOGRAPHY WITH CAD [...] - 6.1 % 06/22/2015 9:30 PM CDT [facility] EST. AVG GLUCOSE, A1C 111 mg/dL 06/22/2015 9:30 PM CDT [facility] Blood Venipuncture - L ab Collect / Unknown 06/21/2015 4:01 PM CDT 06/21/2015 4:01 PM CDT Narrative [facility] - 06/22/2015 9:30 PM CDT Based on the ADAG study equation. Rebecca Lantigua MD CHEMISTRY ORDERABLES Final R esult [facility] PostedIn [facility] CLMALI# [id number] [address] [place] [address] from Last 3 Months or Most Recently Relevant to Health Maintenance Insurance [facility]ERR[facility] Advance Directives For more information, please contact: [phone] * Full Code (Latest Code Status on File) Date Activated Date Inactivated Comments 01/23/2016 9:53 PM 01/24/2016 12:34 PM * Full Code Date Activated Date Inactivated Comments 05/06/2015 10:31 AM 05/06/2015 3:09 PM * Full Code Date Activated Date Inactivated Comments 01/06/2015 2:11 PM 01/09/2015 6:47 PM * Full Code Date Activated Date Inactivated Comments 12/02/2014 2:20 PM 12/06/2014 3:39 PM Care Teams Bobbin Fixer Relationship Specialty Start Date End Date Andi Bueno MD [address] [facility] [address] [place] [address] PCP - General Internal Medicine 08/16/16
--- OUTSIDE RECORDS SUMMARY | 2025-07-20 23:44 | XMS_ITS | Encounter Summary ---
Author Organization [employer] Address [address] [place] [address] Care Team Providers Care Service Car Operator Name Role Phone Andi Bueno MD Primary Care Provider [phone] Encounter Details Date Type Department Care Team (Late st Contact Info) Description 07/29/2008 Outpatient Historical [facility] Rebecca Lantigua MD [address] [place] [address] [address] [place] [address] Social History Tobacco Use Types Packs/Day Years Used Date Smoking Tobacco: Never Alcohol Use Standard Drinks/Week Comments No 0 (1 standard drink = 0.6 oz pur e alcohol) Comments No Sex and Gender Information Value Date Recorded Sex Assigned at Not on file Legal 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
--- OUTSIDE RECORDS SUMMARY | 2025-07-20 23:44 | XMS_ITS | Encounter Summary ---
Author Organization [facility] Address [address] [place] [address] Care Team Providers Care Turning Sander Operator Name Role Phone Andi Bueno MD Primary Care Provider [phone] Encounter Details Date Type Department Care Team (Late st Contact Info) Description 12/03/2007 Outpatient Historical [facility] Primary Care - [address] [place] [address] Rebecca Lantigua MD [address] [place] [address] [address] [place] [address] Social History Tobacco Use Types Packs/Day Years Used Date Smoking Tobacco: Never Assessed Comments Unknown Sex and Gender Information Value Date Recorded Sex Assigned at Not on file 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
--- OUTSIDE RECORDS SUMMARY | 2025-07-20 23:44 | XMS_ITS | Encounter Summary ---
Author Organization [facility] Address 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 5 views. Clinical History: Pain. Findings: Chest examination fails to demonstrate pleural, pulmonary, or mediastinal abnormality. Heart size is normal. There is no evidence of right rib fracture. Impression: Normal chest with right ribs. . Dictated by: Nay PATE 12/03/2007 12:42 Electronically signed by: Nay PATE 12/03/2007 12:42 Procedure Note Provider, Historical - 12/03/[address] [address] Admit Date: 12/03/2007 LISSETTE CAR Sex: F Admit Prov: CRISTIAN RICK Date:1965 Primary Care Prov: JACKSON LEVICorazon Tee CMRN: [id number] Room: [facility]: [id number] IMAGING SERVICES Ordering Prov: N/A Interpretation Examination: [...] respiration documented in this encounter Care Teams Coloring Room Worker Relationship Specialty Start Date End Date Andi Bueno MD [address] [facility] [address] [place] [address] PCP - General Internal Medicine 08/16/16 documented as of this encounter
--- OUTSIDE RECORDS SUMMARY | 2025-07-20 23:44 | XMS_ITS | Encounter Summary ---
Author Organization [employer] Address [address] [place] [address] Care Team Providers Care Automotive Drivability Technician Name Role Phone Andi Bueno MD Primary Care Provider [phone] Encounter Details Date Type Department Care Team (Late st Contact Info) Description 08/22/2011 Chart Note [facility] [address] [place] [address] Tracie Amato, Physical Therapist Social History Tobacco Use Types Packs/Day Years Used Date Smoking Tobacco: Never Smokeless Tobacco: Never Alcohol Use Standard Drinks/Week Comments No 0 (1 standard drink = 0.6 oz pur e alcohol) Comments No Sex and Gender Information Value Date Recorded Sex Assigned at Not on file Legal Sex Female 5:28 AM 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 Tracie Amato [facility] [address] [address]. [address] [place] [phone] RIMENTAL MECHANIC SPACECRAFT documented in this encounter Plan of Treatment Not on file documented as of this encounter Visit Diagnoses Not on filedocumented in this encounter Care Teams Automotive Drivability Technician Relationship Specialty Start Date End Date Andi Bueno MD [address] [facility] [address] [place] [address] PCP - General Internal Medicine 08/16/16 documented as of this encounter
--- OUTSIDE RECORDS SUMMARY | 2025-07-20 23:44 | XMS_ITS | Encounter Summary ---
Author Organization [facility] Address [address] [place] [address] Care Team Providers Care Blue Split Trimmer Name Role Phone Andi Bueno MD Primary Care Provider [phone] Encounter Details Date Type Department Care Team (Late st Contact Info) Description 12/16/2007 Outpatient Historical [facility] Rebecca Lantigua MD [address] [facility] [address] [place] [address] Social History Tobacco Use Types Packs/Day Years Used Date Smoking Tobacco: Never Assessed Comments Unknown Sex and Gender Information Value Date Recorded Sex Assigned at Not on file Legal Sex Female 5:28 AM HAT FORMER Gender Identity Not on file Sexual Orientation Not on file documented as of this encounter Plan of Treatment Not on file documented as of this encounter Visit Diagnoses Not on filedocumented in this encounter Care Teams Blue Split Trimmer Relationship Specialty Start Date End Date Andi Bueno MD [address] [facility] [address] [place] [address] PCP - General Internal Medicine 08/16/16 documented as of this encounter
--- OUTSIDE RECORDS SUMMARY | 2025-07-20 23:44 | XMS_ITS | Encounter Summary ---
Author Organization [facility] Address [address] [place] [address] Care Team Providers Care Sports Lawyer Name Role Phone Andi Bueno MD Primary Care Provider [phone] Encounter Details Date Type Department Care Team (Late st Contact Info) Description 10/28/2007 Outpatient Historical [facility] Primary Care - [address] [place] [address] Zac Paredes MD [address] [facility] [address] [place] [address] Social History Tobacco Use Types Packs/Day Years Used Date Smoking Tobacco: Never Assessed Comments Unknown Sex and Gender Information Value Date Recorded Sex Assigned at Not on file Legal Sex Female 5:28 AM SOCK IRONER Gender Identity Not on file Sexual Orientation Not on file documented as of this encounter Plan of Treatment Not on file documented as of this encounter Visit Diagnoses Not on filedocumented in this encounter Care Teams Sports Lawyer Relationship Specialty Start Date End Date Andi Bueno MD [address] [facility] [address] [place] [address] PCP - General Internal Medicine 08/16/16 documented as of this encounter
[2025-07-21] MEDS: KETOROLAC 30 MG/ML VIAL (*BKC) IM (00:05)
[2025-07-21 00:15] VITALS: BP 151/92; PULSE 58; RESP 14; O2SAT 100
[2025-07-21 00:58] VITALS: BP 148/87; PULSE 60; RESP 16; O2SAT 100
[2025-07-21 01:04] VITALS: BP 148/87; PULSE 60; RESP 16; O2SAT 100
== END 2025-07-21 01:05 | disposition home or self-care (01) ==
PROVIDERS: Emergency Provider Student in an Organized Health Care Education/Training Program; PCP Nurse Practitioner Family
DX: M17.12 Unilateral primary osteoarthritis, left knee (principal); M25.511 Pain in right shoulder; E78.5 Hyperlipidemia, unspecified; I10 Essential (primary) hypertension; F41.9 Anxiety disorder, unspecified; F32.A Depression, unspecified; G47.30 Sleep apnea, unspecified
CPT/HCPCS: 73030; 73562; 96372; 99284; J1885

== ENCOUNTER 2025-08-05 09:06 | Outpatient (CLI) | payer OTHER, SELFPAY ==
--- OUTSIDE RECORDS SUMMARY | 2015-06-29 09:04 | XMS_ITS | Continuity of Care Document ---
Author Organization [facility] Address [address] [place] [address] Phone Care Team Providers Care Lock Assembler Name Role Phone Yovani Borges MD Unavailable Unavailable Procedures Procedure Date OFFICE/OUTPATIENT VISIT NEW OFFICE/OUTPATIENT VISIT EST OFFICE/OUTPATIENT VISIT NEW Advance Directives Directive Yes / No Effective Date File Name No Information Encounters Encounter Description Practice Location Reason(s) For Visit Diagnoses Date Provider Providers Copied on Encounter [facility], [address] [place] [address], [address], [place] tel:[phone] [facility] No Information 5 Katerina Pina. 5 [place], [place], [address] . tel: [phone] OFFICE/OUTPAT IENT VISIT [facility], [address], [place], [address], [place] tel:[phone] [facility] Primary localized osteoarthros is, lower legAnkle pain 5 Katerina Pina. [address] [place], [place], [address] . tel: [phone] OFFICE/OUTPAT IENT VISIT EST [facility], [address], [place], [address], [place] tel:[phone] [facility] 4 Sajan Damian. [address], [place], [place], [address] . tel: [phone] OFFICE/OUTPAT IENT VISIT [facility], [address], [place], [address], tel:[phone] [facility] Ankle fracture 0-201 3 Sajan Damian. [address], [place], [place], [address] . tel: [phone] Family History Family Member Type Diagnosis Age At Onset Son Problem (finding) Alive and well Payers Payer name Insurance type Covered libertarian ID Authoriza tion(s) No Information Social History [...]
--- OUTSIDE RECORDS SUMMARY | 2015-10-12 09:00 | XMS_ITS | Continuity of Care Document ---
Author Organization [facility] Address [address] [place] [address] Phone Care Team Providers Care Custodial Supervisor Name Role Phone Mateus Rm MD Unavailable Unavailable Allergies, Adverse Reactions, Alerts Substance Reaction Status Criticality No Known Drug Allergies Other Active No I nformation Medications Medication Instructions Dosage Effective Dates (start - stop) Status Comments NASACORT AQ 55MCG APPLICS 2 QD-daily - Active TRAMADOL HCL 50MG TABS 1 Q 4-6HR - Act ashtyn Advance Directives Directive Yes / No Effective Date File Name No Information Encounters Encounter Description Practice Location Reason(s) For Visit Diagnoses Date Provider Providers Copied on Encounter [facility], [address], [place], [place], [address], tel:[phone] [facility] No Information Jag Ignacio. [address] [facility] [address] [place], [place], [address], . tel:[phone] [facility], [address], [place], [place], [address], tel:[phone] [facility] No Information Luz Weiss. [address] [facility], [facility] , [place], [place], [address], . tel:[phone] [facility], [address], [place], [place], [address], tel:[phone] [facility] HEADACHEACUTE SINUSITIS NOS Luz Weiss. [address] [facility], [facility] , [place], [place], [address], . tel:[phone] [facility], [address], [place], [place], [address], tel:[phone] [facility] NAUSEA WITH VOMITING Jag Ignacio. [address], [place], [place], [address], . tel:[phone] [facility], [address], [place], [place], [address], tel:[phone] [facility] No Information Homesteadjudith Weiss. [address], [place], [place], [address], . tel:[phone] Family History Family Member Type Diagnosis Age At Onset No Information Payers Payer name Insurance type Covered green party ID Authoriza tion(s) No Information Social History Type Description Quantity Date Captured Comments Sex Female Smoking Status No Information Chief Complaint And Reason For Visit No Information Reason For Referral Reason For Referral No Information History Of Present Illness Encounter Date Complaint History Of Prese nt Illness No Information Functional Status Date Functional Assessmen t No Information Instructions Date Instruction Additional Infor mation No Information Assessments Type Assessment Date No Information Patient Care Teams Name Effective Dates (start - stop) Status Members No Information
--- OUTSIDE RECORDS SUMMARY | 2025-08-05 09:31 | XMS_ITS | Encounter Summary ---
Author Organization [employer] Address [address] [place] [address] Care Team Providers Care Correspondence School Instructor Name Role Phone Andi Bueno MD Primary Care Provider [phone] Encounter Details Date Type Department Care Team (Late st Contact Info) Description 08/22/2011 Chart Note [facility] [place] [address] [place] [address] [address] [place] [address] Tracie Amato, Physical Therapist Social History Tobacco Use Types Packs/Day Years Used Date Smoking Tobacco: Never Smokeless Tobacco: Never Alcohol Use Standard Drinks/Week Comments No 0 (1 standard drink = 0.6 oz pur e alcohol) Comments No Sex and Gender Information Value Date Recorded Sex Assigned at Not on file Legal Sex Female 5:28 AM PROMOTIONS FIRM ACCOUNTS 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 Thank you for this referral. [facility] [address] [place] [address]. [address] [place] [phone] OTIONS FIRM ACCOUNTS MANAGER documented in this encounter Plan of Treatment Not on file documented as of this encounter Visit Diagnoses Not on filedocumented in this encounter Care Teams Correspondence School Instructor Relationship Specialty Start Date End Date Andi Bueno MD [address] [facility] [address] [place] [address] PCP - General Internal Medicine 08/16/16 documented as of this encounter
--- OUTSIDE RECORDS SUMMARY | 2025-08-05 09:31 | XMS_ITS | Clinical Summary ---
Author Organization [facility] Address [address] [place] [address] Care Team Providers Care Poultry Field Service Technician Name Role Phone Andi Bueno MD Primary Care Provider [phone] Allergies Active Allergy Reactions Criticality Noted Date Comments Hymenoptera Allergenic Extract Rash Low 03/24 [place] Rash Low 09/08/2016 Sertraline Other (See Comments) [...] Bronchitis Daughter Diabetes Father Heart Disease Father [place] Heart Failure Father Hypertension Father Stroke Father [...] on file Legal Sex Female 5:28 AM INTELLIGENCE OPERATIONS SPECIALIST Gender Identity Not on file Sexual Orientation Not on file Occupation Industry Job Start Date Job End Date Not on file Not on file Not on file Not on file Last Filed Vital Signs Vital Sign Reading Time Taken Comments Blood Pressure 149/94 07/30/2017 9:15 AM INTELLIGENCE OPERATIONS SPECIALIST Pulse 82 07/30/2017 9:15 AM INTELLIGENCE OPERATIONS SPECIALIST Temperature 36.5 C (97.7 F) 07/30/2017 9:15 AM INTELLIGENCE OPERATIONS SPECIALIST Respiratory Rate 16 07/30/2017 9:15 AM INTELLIGENCE OPERATIONS SPECIALIST Oxygen Saturation 97% 07/30/2017 9:15 AM INTELLIGENCE OPERATIONS SPECIALIST Inhaled Oxygen Concentration - - Weight 123.8 kg (273 lb) 07/30/2017 9:15 AM INTELLIGENCE OPERATIONS SPECIALIST Height 157.5 cm (5' 2) 07/30/2017 9:15 AM INTELLIGENCE OPERATIONS SPECIALIST Body Mass Index 49.93 07/30/2017 9:15 AM INTELLIGENCE OPERATIONS SPECIALIST Plan of Treatment Health Maintenance Due Date [...] OR WO CAD Routine 10/11/2016 8:57 AM INTELLIGENCE OPERATIONS SPECIALIST Breast mass HEMOGLOBIN A1C Routine 06/21/2015 4:01 PM CDT Morbid obesity, unspecified obesity type (CMS/HCC) Elevated glucose from Last 3 Months or Most Recently Relevant to Health Maintenance Results * MAMMO DIAGNOSTIC BILATERAL W OR WO CAD (10/11/2016 8:57 AM INTELLIGENCE OPERATIONS SPECIALIST) Anatomical Region Laterality Modality Breast Bilateral Mammography 10/11/2016 8:57 AM INTELLIGENCE OPERATIONS SPECIALIST Impressions 10/11/2016 2:42 PM INTELLIGENCE OPERATIONS SPECIALIST IMPRESSION: No imaging evidence of malignancy. RECOMMENDATION: Annual screening mammography unless otherwise indicated. BI-RADS 2: Benign. Dictated from: [facility] Narrative 10/11/2016 2:42 PM INTELLIGENCE OPERATIONS SPECIALIST EXAM: BILATERAL DIGITAL DIAGNOSTIC MAMMOGRAPHY WITH CAD [...] - 6.1 % 06/22/2015 9:30 PM CDT [facility] EST. AVG GLUCOSE, A1C 111 mg/dL 06/22/2015 9:30 PM CDT [facility] Blood Venipuncture - L ab Collect / Unknown 06/21/2015 4:01 PM CDT 06/21/2015 4:01 PM CDT Narrative [facility] - 06/22/2015 9:30 PM CDT Based on the ADAG study equation. Rebecca Lantigua MD CHEMISTRY ORDERABLES Final R esult [facility] CLIA# [id number] [address] [place] [id number] from Last 3 Months or Most Recently Relevant to Health Maintenance Insurance [facility] Advance Directives For more information, please contact: [phone] * Full Code (Latest Code Status on File) Date Activated Date Inactivated Comments 01/23/2016 9:53 PM 01/24/2016 12:34 PM * Full Code Date Activated Date Inactivated Comments 05/06/2015 10:31 AM 05/06/2015 3:09 PM * Full Code Date Activated Date Inactivated Comments 01/06/2015 2:11 PM 01/09/2015 6:47 PM * Full Code Date Activated Date Inactivated Comments 12/02/2014 2:20 PM 12/06/2014 3:39 PM Care Teams Poultry Field Service Technician Relationship Specialty Start Date End Date Andi Buneo MD [address] [facility] [address] [place] [address] PCP - General Internal Medicine 08/16/16
--- OUTSIDE RECORDS SUMMARY | 2025-08-05 09:31 | XMS_ITS | Clinical Summary ---
Author Organization [facility] Address [address] [place] [address] Care Team Providers Care Environmental Services Lead Name Role Phone Unknown, Provider Primary Care Provider Unavaila ble Source Comments [facility],non-owned Affiliates and Associated Physician Practices is amultiple site organization consisting of ambulatory clinics and hospital sitesin [place], [place], [place] and [place]. This disclosure is being madepursuant to the Care Everywhere program and may not contain all information available regarding this patient. Last updated 18.[facility] Allergies Active Allergy Reactions Criticality Noted Date Comments [place] GI Discomfort 02/14/2016 Sertraline Urticaria High 02/14/2016 [...] st Contact Info) Description 08/18/2025 3:20 PM DISCHARGING MACHINE OPERATOR Office Visit [facility] - Dermatology [address] [place] [address] [place] [address] Corrine Oliver MD [address] [place], [place] [address] [address] [phone] 11/05/2025 10:00 AM DISCHARGING MACHINE OPERATOR Office Visit [facility] - Rheumatology [address] [place] [phone] Lazaro Calles MD [address] [place] [address] [place] [address] Health Maintenance Due Date Last Done Comments [...] 2016 ZOSTER VACCINE (1 of 2) 2016 Cervical Cancer Screening 02/13/2019 PAP SMEAR 02/13/2019 02/14/2016 PAP with HPV 02/13/2021 02/14/2016 COVID-19 VACCINE (2024-2 6 season) 2025 08/13/2021, 01/13/2021, 12/23/2020 INFLUENZA VACCINE (#1) 2025 [...] has been evaluated with computer assisted technology. Bottle Dealer [facility] Comment: BAB, CT(ASCP) CT screening location: [place] [address] [place] [address] Human papillomavirus mRNA E6 E7 Not Detected Not Detected [facility] Comment: This test was performed using the APTIMA HPV Assay ([employer] This assay detects E6/E7 viral messenger RNA (mRNA) from 14 high-risk HPV types (16,18,31,33,35,39,45,51,52,56,58,59,66,68). Test Performed at: [facility] [address] STIVEN HEDRICK MD 02/14/2016 12:0 4 PM CDT 02/15/2016 5:13 AM CDT us Mine Sams MD LAB - PATHOLOGY/CYTOLOGY [facility] Final Result [address] [address] from Last 3 Months or Most Recently Relevant to Health Maintenance Insurance [employer] [facility] MEDICARE Care Teams Environmental Services Lead Relationship Specialty Start Date End Date Unknown, Provider PCP - General 04/13/25
--- OUTSIDE RECORDS SUMMARY | 2025-08-05 09:32 | XMS_ITS | Encounter Summary ---
Author Organization [facility] Address [address] [place] [address] Care Team Providers Care Humane Officer Name Role Phone Andi Bueno MD Primary Care Provider [phone] Encounter Details Date Type Department Care Team (Late st Contact Info) Description 11/12/2007 Outpatient Historical [facility] Zac Brantley MD [address] [facility] [address] [place] [phone] Other Screening Mammogram Social History Tobacco Use Types Packs/Day Years Used Date Smoking Tobacco: Never Assessed Comments Unknown Sex and Gender Information Value Date Recorded Sex Assigned at Not on file Legal Sex Female 5:28 AM WOODS LABORER Gender Identity Not on file Sexual Orientation Not on file documented as of this encounter Plan of Treatment Not on file documented as of this encounter Procedures Procedure Name Priority Date/Time Associated Diagnosis Comments MAMMO SCREENING BILAT Timed Study 11/11/2007 8:26 AM WOODS LABORER documented in this encounter Results * MAMMO SCREENING BILAT (11/11/2007 8:26 AM WOODS LABORER) Anatomical Region Laterality Modality Breast Bilateral Other 11/11/2007 8:26 AM WOODS LABORER Narrative 11/13/2007 2:50 PM WOODS LABORER [facility] [address] [place] [place], [place] [address] Admit Date: 11/11/2007 LISSETTE CAR Sex: F Admit Prov: ZAC PAREDES Date: 1965 Primary Care Prov: ZAC PAREDES CMRN: [id number] [id number] IMAGING SERVICES Ordering Prov: ZAC PAREDES Accession Number: [id number] Interpretation BILATERAL SCREENING MAMMOGRAMS, 11/11/2007 Findings: There [...] Procedure Note Provider, Historical - 11/13/[address] [address] Admit Date: 11/11/2007 LISSETTE CAR Sex: F Admit Prov: ZAC PAREDES Date:1965 Primary Care Prov: ZAC PAREDES CMRN: [id number] [facility] [address] [place] [address] IMAGING SERVICES Ordering Prov: ZAC PAREDES Interpretation [...] [place] 11/13/2007 14:50 Transcribed: 11/13/2007 10:18 DKT Zac Paredes MD MAMMO ORDERABLES Final Result documented in this encounter Visit Diagnoses Diagnosis Other screening mammogram documented in this encounter Care Teams Humane Officer Relationship Specialty Start Date End Date Andi Bueno MD [address] [facility] 204 [place] [address] PCP - General Internal Medicine 08/16/16 documented as of this encounter
--- OUTSIDE RECORDS SUMMARY | 2025-08-05 09:32 | XMS_ITS | Patient Health Record ---
Author Organization [employer] Address [address] [place] [address] Care Team Providers Care Armature Rewinder Name Role Phone Andi Bueno MD Primary Care Provider UnavailDae Aguero Unavailable [phone] Reason For Referral No Information Plan Of Treatment No Information Insurance Providers Payer Name Payer Address Payer Phone Subscriber Number Group Number Insured Name Patient Relationship to Insured Coverage Start Date Coverage End Date A[employer] Open Access E2 [address] [place] [address] [id number] Cory Car Spouse - patient is the spouse of the insured
--- OUTSIDE RECORDS SUMMARY | 2025-08-05 09:32 | XMS_ITS | Encounter Summary ---
Author Organization [facility] Address [address] [place] [address] Care Team Providers Care Steeping Press Operator Name Role Phone Andi Bueno MD Primary Care Provider [phone] Encounter Details Date Type Department Care Team (Late st Contact Info) Description 01/17/2008 Outpatient Historical [facility] Rebecca Lantigua MD [address] [facility] [address] [place] [address] Social History Tobacco Use Types Packs/Day Years Used Date Smoking Tobacco: Never Assessed Comments Unknown Sex and Gender Information Value Date Recorded Sex Assigned at Not on file Legal Sex Female 5:28 AM PARTY PLAN DEALER Gender Identity Not on file Sexual Orientation Not on file documented as of this encounter Plan of Treatment Not on file documented as of this encounter Visit Diagnoses Not on filedocumented in this encounter Care Teams Steeping Press Operator Relationship Specialty Start Date End Date Andi Bueno MD [address] [facility] [address] [facility] [address] [place] [address] PCP - General Internal Medicine 08/16/16 documented as of this encounter
--- OUTSIDE RECORDS SUMMARY | 2025-08-05 09:32 | XMS_ITS | Encounter Summary ---
Author Organization [facility] Address [address] [place] [address] Care Team Providers Care Relay Motorman Name Role Phone Andi Bueno MD Primary Care Provider [phone] Encounter Details Date Type Department Care Team (Late st Contact Info) Description 12/03/2007 Orders Only [facility] Primary Care - [facility] [address] [place] [address] [place] [address] Rebecca Lantigua MD [address] [place] [address] [address] [place] [address] Social History Tobacco Use Types Packs/Day Years Used Date Smoking Tobacco: Never Assessed Comments Unknown Sex and Gender Information Value Date Recorded Sex Assigned at Not on file Legal Sex Female 5:28 AM NECKTIE MAKER Gender Identity Not on file Sexual Orientation Not on file documented as of this encounter Progress Notes * Rebecca Lantigua MD - 02/13/2008 7:54 PM CDT TEMPERATURE: 98??f Oral BLOOD PRESSURE: 122/78 Right Arm Sitting WEIGHT: [id number] NURSE NAME: Laura Ball ALLERGIES: No known [...] WALL PAIN/PAINFUL RESPIRATIONS LAB ORDERS: Order number: [id number] Test Ordered: XRAY RIB SERIES/PA CHEST RIGHT Order number: [id number] Test Ordered: PHYSICAL THERAPY, EVALUATION & TREATMENT [...] on filedocumented in this encounter Care Teams Relay Motorman Relationship Specialty Start Date End Date Andi Bueno MD [address] [facility] [address] [place] [address] PCP - General Internal Medicine 08/16/16 documented as of this encounter
--- OUTSIDE RECORDS SUMMARY | 2025-08-05 09:32 | XMS_ITS | Encounter Summary ---
Author Organization [facility] Address [address] [place] [address] Care Team Providers Care Light Industrial Name Role Phone Andi Bueno MD Primary Care Provider [phone] Encounter Details Date Type Department Care Team (Late st Contact Info) Description 12/03/2007 Outpatient Historical [facility] Primary Care - [address] [place] [address] Rebecca Lantigua MD [address] [place] [address] [address] [place] [address] Social History Tobacco Use Types Packs/Day Years Used Date Smoking Tobacco: Never Assessed Comments Unknown Sex and Gender Information Value Date Recorded Sex Assigned at Not on file Legal Sex Female 5:28 AM MATHEMATICS TEACHER Gender Identity Not on file Sexual Orientation Not on file documented as of this encounter Plan of Treatment Not on file documented as of this encounter Visit Diagnoses Not on filedocumented in this encounter Care Teams Light Industrial Relationship Specialty Start Date End Date Andi Bueno MD [address] [facility] [address] [facility] [address] [place] [address] PCP - General Internal Medicine 08/16/16 documented as of this encounter
--- OUTSIDE RECORDS SUMMARY | 2025-08-05 09:32 | XMS_ITS | Clinical Summary ---
Author Organization [facility] Address [facility] [place] [address] Care Team Providers Care Powerhouse Tender Name Role Phone Jaime Taylor DO Primary Care Provider [phone] Allergies Active Allergy Reactions Criticality Noted Date Comments [place] Hives 11/02/2021 Sertraline Hives 11/02/2021 Medications losartan [...] on file Legal Sex Female 12:38 PM MOTOR HOME ELECTRICAL FOREMAN Gender Identity Not on file Sexual Orientation Not on file Last Filed Vital Signs Vital Sign Reading Time Taken Comments Blood Pressure 119/80 11/09/2021 12:50 PM MOTOR HOME ELECTRICAL FOREMAN Pulse 78 11/09/2021 12:50 PM MOTOR HOME ELECTRICAL FOREMAN Temperature 36.4 C (97.5 F) 11/09/2021 12:23 PM MOTOR HOME ELECTRICAL FOREMAN Respiratory Rate 27 11/09/2021 12:50 PM MOTOR HOME ELECTRICAL FOREMAN Oxygen Saturation 96% 11/09/2021 12:50 PM MOTOR HOME ELECTRICAL FOREMAN Inhaled Oxygen Concentration - - Weight 115.2 kg (254 lb) 11/02/2021 1:59 PM MOTOR HOME ELECTRICAL FOREMAN Height 154.9 cm (5' 1) 11/02/2021 1:59 PM MOTOR HOME ELECTRICAL FOREMAN Body Mass Index 47.99 11/02/2021 1:59 PM MOTOR HOME ELECTRICAL FOREMAN Plan of Treatment Health Maintenance Due Date [...] this topic Medical Devices Implanted Type Area School Psychometrist Device Identifier Shelf Expiration Date Model / Serial / Lot Screw Screw Right: Ankle Insurance [facility] Care Teams Powerhouse Tender Relationship Specialty Start Date End Date Jaime Taylor DO [address] [address] PCP - General INTERNAL MEDICINE 11/09/21
--- OUTSIDE RECORDS SUMMARY | 2025-08-05 09:32 | XMS_ITS | Encounter Summary ---
Author Organization [employer] Address [address] [place] [address] Care Team Providers Care Engineering Project Designer Name Role Phone Andi Bueno MD Primary Care Provider [phone] Encounter Details Date Type Department Care Team (Late st Contact Info) Description 07/29/2008 Outpatient Historical [facility] Rebecca Lantigua MD [address] [facility] [address] [place] [address] Social History Tobacco Use Types Packs/Day Years Used Date Smoking Tobacco: Never Alcohol Use Standard Drinks/Week Comments No 0 (1 standard drink = 0.6 oz pur e alcohol) Comments No Sex and Gender Information Value Date Recorded Sex Assigned at Not on file Legal Sex Female 5:28 AM TACKER OFF Gender Identity Not on file Sexual Orientation Not on file documented as of this encounter Plan of Treatment Not on file documented as of this encounter Visit Diagnoses Not on filedocumented in this encounter Care Teams Engineering Project Designer Relationship Specialty Start Date End Date Andi Bueno MD [address] [facility] [address] [facility] [address] [place] [address] PCP - General Internal Medicine 08/16/16 documented as of this encounter
--- OUTSIDE RECORDS SUMMARY | 2025-08-05 09:32 | XMS_ITS | Encounter Summary ---
Author Organization [facility] Address [address] [place] [address] Care Team Providers Care Fabrication Engineer Name Role Phone Andi Bueno MD Primary Care Provider [phone] Encounter Details Date Type Department Care Team (Late st Contact Info) Description 10/28/2007 Outpatient Historical [facility] Primary Care - [address] [place] [address] Zac Paredes MD [address] [facility] [address] [place] [address] Social History Tobacco Use Types Packs/Day Years Used Date Smoking Tobacco: Never Assessed Comments Unknown Sex and Gender Information Value Date Recorded Sex Assigned at Not on file Legal Sex Female 5:28 AM CLOTH WINDER MACHINE OPERATOR Gender Identity Not on file Sexual Orientation Not on file documented as of this encounter Plan of Treatment Not on file documented as of this encounter Visit Diagnoses Not on filedocumented in this encounter Care Teams Fabrication Engineer Relationship Specialty Start Date End Date Andi Bueno MD [address] [facility] [address] [place] [address] PCP - General Internal Medicine 08/16/16 documented as of this encounter
--- OUTSIDE RECORDS SUMMARY | 2025-08-05 09:32 | XMS_ITS | Encounter Summary ---
Author Organization [facility] Address [address] [place] [address] Care Team Providers Care Desk Manager Name Role Phone Andi Bueno MD Primary Care Provider [phone] Encounter Details Date Type Department Care Team (Late st Contact Info) Description 11/19/2007 Outpatient Historical HIS [facility] CHANI Paredes, Zac Tee MD [address] [facility] [address] [place], [place] [id number] Abnormal Mammogram, Unspecified Social History Tobacco Use Types Packs/Day Years Used Date Smoking Tobacco: Never Assessed Comments Unknown Sex and Gender Information Value Date Recorded Sex Assigned at Not on file Legal Sex Female 5:28 AM YEAST PUMPER Gender Identity Not on file Sexual Orientation [...] PM CDT Narrative 11/19/2007 4:50 PM CDT [facility] [address] [place], [place] [address] Admit Date: 11/19/2007 LISSETTE CAR Sex: F Admit Prov: ZAC PAREDES Date: 1965 Primary Care Prov: ZAC PAREDES CMRN: [id number] Room: [facility] SSN: [id number] IMAGING SERVICES Ordering Prov: ZAC PAREDES Accession Number: [id number] Interpretation Left breast ultrasound 11/19/2007 History: Mass [...] AMK Procedure Note Provider, Historical - 11/19/[address] [address] Admit Date: 11/19/2007 LISSETTE CAR Sex: F Admit Prov: ZAC PAREDES Date:1965 Primary Care Prov: ZAC PAREDES CMRN: [id number] Room: [facility] SSN: [id number] IMAGING SERVICES Ordering Prov: ZAC PAREDES Interpretation [...] unspecified documented in this encounter Care Teams Desk Manager Relationship Specialty Start Date End Date Andi Bueno MD [address] [facility] [address] [place] [address] PCP - General Internal Medicine 08/16/16 documented as of this encounter
--- OUTSIDE RECORDS SUMMARY | 2025-08-05 09:32 | XMS_ITS | Encounter Summary ---
Author Organization [facility] Address [address] [place] [address] Care Team Providers Care Time Buyer Name Role Phone Andi Bueno MD Primary Care Provider [phone] Encounter Details Date Type Department Care Team (Late st Contact Info) Description 10/28/2007 Outpatient Historical [facility] Primary Care - [address] [place] [address] Zac Paredes MD [address] [facility] [address] [place] [address] Routine General Medical Examination at a Health Care Facility Social History Tobacco Use Types Packs/Day Years Used Date Smoking Tobacco: Never Assessed Comments Unknown Sex and Gender Information Value Date Recorded Sex Assigned at Not on file Legal Sex Female 5:28 AM STAVE AND BOLT EQUALIZER Gender Identity Not on file Sexual Orientation Not on file documented as of this encounter Plan of Treatment Not on file documented as of this encounter Procedures Procedure Name Priority Date/Time Associated Diagnosis Comments TSH WITH REFLEX FT4 AND FT3 Routine 10/28/2007 10:56 PM STAVE AND BOLT EQUALIZER URIC ACID Routine 10/28/2007 10:56 PM STAVE AND BOLT EQUALIZER LIPID PANEL Routine 10/28/2007 10:56 PM STAVE AND BOLT EQUALIZER COMPREHENSIVE METABOLIC PANEL Routine 10/28/2007 10:56 PM STAVE AND BOLT EQUALIZER documented in this encounter Results * URIC ACID (10/28/2007 10:56 PM STAVE AND BOLT EQUALIZER) Pathologist [facility] URIC ACID 3.6 2.3 - 6.6 mg/dL [facility] Blood specimen (specimen) 10/28/2007 10:56 PM STAVE AND BOLT EQUALIZER 10/28/2007 10:56 PM STAVE AND BOLT EQUALIZER Zac Paredes MD CHEMISTRY ORDERABLES Final Resul t Performing Organization Address [facility] Co de Phone Number [facility] [address] [place] [address] * TSH WITH REFLEX FT4 AND FT3 (10/28/2007 10:56 PM STAVE AND BOLT EQUALIZER) Pathologist [facility] TSH 1.62 0.27 - 4.20 uU/mL [facility] Blood specimen (specimen) 10/28/2007 10:56 PM STAVE AND BOLT EQUALIZER 10/28/2007 10:56 PM STAVE AND BOLT EQUALIZER Zac Paredes MD CHEMISTRY ORDERABLES Final Resul t Performing Organization Address [facility]/ZIP Co de Phone Number [facility] [address] [place] [address] * COMPREHENSIVE METABOLIC PANEL (10/28/2007 10:56 PM STAVE AND BOLT EQUALIZER) Pathologist [facility] CALCIUM 9.3 8.4 - 10.2 mg/dL [facility] [...] LAB ALT 17 0 - 31 U/L [facility] ALKALINE PHOSPHATASE 96 35 - 104 [...] available on the [facility] Intranet at: [email or web address] Select: Lab Policies and Procedures Select: Reference Ranges - GFR Blood specimen (specimen) 10/28/2007 10:56 PM STAVE AND BOLT EQUALIZER 10/28/2007 10:56 PM STAVE AND BOLT EQUALIZER us Zac Paredes MD CHEMISTRY ORDERABLES Edited [facility] [address] [place] [address] * (ABNORMAL) LIPID PANEL (10/28/2007 10:56 PM STAVE AND BOLT EQUALIZER) CHOLESTEROL 217(H) 100 - 199 mg/dL [facility] CHOL/HDL RATIO 3.1 2.0 - 5.0 [facility] TRIGLYCERIDE 64 10 - 149 mg/dL [...] available on the [facility] Intranet at: [email or web address] Select: Lab Policies and Procedures,Current Select: Lipid Panel Interpretation Blood specimen (specimen) 10/28/2007 10:56 PM STAVE AND BOLT EQUALIZER 10/28/2007 10:56 PM STAVE AND BOLT EQUALIZER us Zac Paredes MD CHEMISTRY ORDERABLES Edited [facility] [address] [place] [address] documented in this encounter Visit Diagnoses Diagnosis Routine general medical examination at a health care facility documented in this encounter Care Teams Time Buyer Relationship Specialty Start Date End Date Andi Bueno MD [address] [email or web address] [address] [place] [address] PCP - General Internal Medicine 08/16/16 documented as of this encounter
--- OUTSIDE RECORDS SUMMARY | 2025-08-05 09:32 | XMS_ITS | Encounter Summary ---
Author Organization [employer] Address [address] [place] [address] Care Team Providers Care Mission Support Specialist Name Role Phone Andi Bueno MD Primary Care Provider [phone] Encounter Details Date Type Department Care Team (Late st Contact Info) Description 11/29/2007 Outpatient Historical HIS [facility] Zac Peñaloza MD [address] [facility] [address] [place], [place] [address] Barby Cordero MD NO ADDRESS ON FILE Abnormal Mammogram, Unspecified Social History Tobacco Use Types Packs/Day Years Used Date Smoking Tobacco: Never Assessed Comments Unknown Sex and Gender Information Value Date Recorded Sex Assigned at Not on file 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 The cores have sampled fibroadenoma [...] Reference: Arch Pathol Lab Med 1998;122:1053-105 5. [facility] 12.02.2007 10:40 am Staging Form: No. ELECTRONIC SIGNATURE FOR KHANG S TC MONAE M.D.- 12/02/07 12:10 pm INTERFACE SYSTEM 11/29/2007 11:4 8 AM CDT us Barby Cordero MD PATHOLOGY/CYTOLOGY ORDERABL ES Final Result INTERFACE SYSTEM Refer to clinic/hospital department * US GUIDE NEEDLE PLACEMENT (11/29/2007 9:27 AM CDT) Anatomical Region Laterality Modality Other 11/29/2007 9:27 AM CDT Narrative 11/29/2007 11:58 AM CDT [address] [place], [place] [address] Admit Date: 11/29/2007 DENG SHU Ana María Sex: F Admit Prov: ZAC PAREDES Date: 1965 Primary Care Prov: ZAC PAREDES CMRN: [id number] Room: [facility] SSN: [id number] IMAGING SERVICES Ordering Prov: ZAC PAREDES Accession Number: [id number] Interpretation EXAM: ULTRASOUND-GUIDED CORE BIOPSY OF THE [...] AMK Procedure Note Provider, Historical - 11/29/2007 [address] [place], [place] [address] Admit Date: 11/29/2007 SURENDRAJOAO SHU M Sex: F Admit Prov: ZAC PAREDES Date:1965 Primary Care Prov: ZAC PAREDES CMRN: [id number] Room: [facility] SSN: [id number] IMAGING SERVICES Ordering Prov: ZAC PAREDES Interpretation [...] AM CDT Narrative 12/17/2007 10:21 AM CDT [address] [address] Admit Date: 11/29/2007 SHU CAR Sex: F Admit Prov: ZAC PAREDES Date: 1965 Primary Care Prov: ZAC PAREDES CMRN: [id number] Room: [facility] SSN: [id number] IMAGING SERVICES Ordering Prov: ZAC PAREDES Accession Number: [id number] Addendum The pathology from the patient's recent [...] Provider, Historical / Barby Liu - 12/17/2007 [facility] [address] [place], [place] [address] Admit Date: 11/29/2007 SHU CAR Sex: F Admit Prov: ZAC PAREDES Date:1965 Primary Care Prov: ZAC PAREDES CMRN: [id number] Room: [facility] SSN: [id number] IMAGING SERVICES Ordering Prov: ZAC PAREDES Addendum The pathology from the patient's 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 This is benign and concordant.The patient was informed of the above findings by Isabel Ruvalcaba, nurse [facility]. Assessment BIRADS: 2-Benign finding Recommendation: [...] unspecified documented in this encounter Care Teams Mission Support Specialist Relationship Specialty Start Date End Date Andi Bueno MD [address] [facility] [address] [place] [address] PCP - General Internal Medicine 08/16/16 documented as of this encounter
--- OUTSIDE RECORDS SUMMARY | 2025-08-05 09:32 | XMS_ITS | Encounter Summary ---
Author Organization [facility] Address [address] [place] [address] Care Team Providers Care Dean Of Women Name Role Phone Andi Bueno MD Primary Care Provider [phone] Encounter Details Date Type Department Care Team (Late st Contact Info) Description 12/03/2007 Outpatient Historical [facility] Primary Care - [address] [place] [address] Rebecca Lantigua MD [address] [place] [address] [address] [place] [address] Social History Tobacco Use Types Packs/Day Years Used Date Smoking Tobacco: Never Assessed Comments Unknown Sex and Gender Information Value Date Recorded Sex Assigned at Not on file 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
--- OUTSIDE RECORDS SUMMARY | 2025-08-05 09:32 | XMS_ITS | Encounter Summary ---
Author Organization [employer] Address 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
--- OUTSIDE RECORDS SUMMARY | 2025-08-05 09:32 | XMS_ITS | Encounter Summary ---
Author Organization [facility] Address [address] [place] [address] Care Team Providers Care Kettle Firer Name Role Phone Andi Bueno MD Primary Care Provider [phone] Encounter Details Date Type Department Care Team (Late st Contact Info) Description 10/28/[address] 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
--- OUTSIDE RECORDS SUMMARY | 2025-08-05 09:32 | XMS_ITS | Encounter Summary ---
Author Organization [facility] Address [address] [place] [address] Care Team Providers Care Bander And Cellophaner Machine Name Role Phone Andi Bueno MD Primary Care Provider [phone] Encounter Details Date Type Department Care Team (Late st Contact Info) Description 10/28/2007 Orders Only [facility] Primary Care - [address] [place] [address] Zac Paredes MD [address] [facility] [address] [place] [address] Social History Tobacco Use Types Packs/Day Years Used Date Smoking Tobacco: Never Assessed Comments Unknown Sex and Gender Information Value Date Recorded Sex Assigned at Not on file Legal 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 TOBACCO USE [...] identified on exam. LAB ORDERS: Order number: [id number] Test Ordered: COMPREHENSIVE METABOLIC PANEL & GFR 1112 Order number: [id number] Test Ordered: TSH (REFLEX FREE T4/FREE T3) 1727 Order number: [id number] Test Ordered: URIC ACID 1795 Order number: [id number] Test Ordered: LIPID PANEL 1078 719.40-ARTHRALGIA in achilles tendon? MEDICATIONS: IBUPROFEN ORAL TABLET 600 MG, 1 po tid with food prn, 90 Dispensed, 1 Fills, status: NEW PRESCRIPTION, 10/28/2007. SPECIALTY REFERRAL: MAMMA LOGIST Dr. Ana Lilia Chatterjee ph: [phone] fax: [phone] ph: [phone]. PODIATRY Dr. Anthony Kelly ph: [phone] fax: [phone]. HEALTH MAINTENANCE: LAST BREAST EXAM DATE: 2005. [...] on filedocumented in this encounter Care Teams Bander And Cellophaner Machine Relationship Specialty Start Date End Date Andi Bueno MD [address] [facility] [address] [facility] [address] [place] [address] PCP - General Internal Medicine 08/16/16 documented as of this encounter
--- OUTSIDE RECORDS SUMMARY | 2025-08-05 09:32 | XMS_ITS | Encounter Summary ---
Author Organization [facility] Address [address] [place] [address] Care Team Providers Care Director Home Name Role Phone Andi Bueno MD Primary Care Provider [phone] Encounter Details Date Type Department Care Team (Late st Contact Info) Description 10/08/2007 Outpatient Historical [facility] Primary Care - [address] [place] [address] Zac Paredes MD [address] [facility] [address] [place] [address] Social History Tobacco Use Types Packs/Day Years Used Date Smoking Tobacco: Never Assessed Comments Unknown Sex and Gender Information Value Date Recorded Sex Assigned at Not on file 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
--- OUTSIDE RECORDS SUMMARY | 2025-08-05 09:32 | XMS_ITS | Encounter Summary ---
Author Organization [email or web address] Address 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 [place], [place] [address] Admit Date: 12/03/2007 LISSETTE CAR Sex: F Admit Prov: CRISTIAN RICK Date: 1965 Primary Care Prov: AMITA GREGORIO D CMRN: [id number] Room: [facility]: [id number] IMAGING SERVICES Ordering Prov: N/A Accession Number: [id number] Interpretation Examination: Chest with right ribs. 5 views. Clinical History: Pain. Findings: Chest examination fails to demonstrate pleural, pulmonary, or mediastinal abnormality. Heart size is normal. There is no evidence of right rib fracture. Impression: Normal chest with right ribs. . Dictated by: Nay PATE 12/03/2007 12:42 Electronically signed by: Nay PATE 12/03/2007 12:42 Procedure Note Provider, Historical - 12/03/[address] [address] Admit Date: 12/03/2007 LISSETTE CAR Sex: F Admit Prov: CRISTIAN RICK Date:1965 Primary Care Prov: JACKSON LEVICorazon Tee CMRN: [id number] Room: [facility]: [id number] IMAGING SERVICES Ordering Prov: N/A Interpretation Examination: [...] respiration documented in this encounter Care Teams Income Tax Administrator Relationship Specialty Start Date End Date Andi Bueno MD [address] [facility] [address] [place] [address] PCP - General Internal Medicine 08/16/16 documented as of this encounter
--- OUTSIDE RECORDS SUMMARY | 2025-08-05 09:32 | XMS_ITS | Encounter Summary ---
Author Organization [facility] Address [address] [place] [address] Care Team Providers Care Non Profit Director Name Role Phone Andi Bueno MD Primary Care Provider [phone] Encounter Details Date Type Department Care Team (Late st Contact Info) Description 07/21/2008 Outpatient Historical [facility] CHANI Paredes, Zac Tee MD [address] [facility] [address] [place], [place] [id number] Abnormal Mammogram, Unspecified Social History Tobacco Use Types Packs/Day Years Used Date Smoking Tobacco: Never Alcohol Use Standard Drinks/Week Comments No 0 (1 standard drink = 0.6 oz pur e alcohol) Comments No Sex and Gender Information Value Date Recorded Sex Assigned at Not on file Legal 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 Gender Identity Not on file Sexual Orientation Not on file documented as of this encounter Plan of Treatment Not on file documented as of this encounter Procedures Procedure Name Priority Date/Time Associated Diagnosis Comments MAMMO DIAGNOSTIC BILATERAL W OR WO CAD Timed Study 07/21/2008 9:22 AM DONOR RELATIONS COORDINATOR documented in this encounter Results * MAMMO DIGITAL DIAG BILAT (07/21/2008 9:22 AM DONOR RELATIONS COORDINATOR) Anatomical Region Laterality Modality Breast Bilateral Other 07/21/2008 9:22 AM DONOR RELATIONS COORDINATOR Narrative 2008 7:53 AM DONOR RELATIONS COORDINATOR [address] [address] [place], [place] [address] Admit Date: 07/21/2008 LISSETTE CAR Sex: F Admit Prov: ZAC PAREDES Date: 1965 Primary Care Prov: ZAC PAREDES CMRN: [id number] Room: PATRICIA SSN: [id number] IMAGING SERVICES Ordering Prov: ZAC PAREDES Accession Number: [id number] Interpretation BILATERAL DIAGNOSTIC DIGITAL MAMMOGRAMS WITH COMPUTER [...] AMK Procedure Note Do Hirsch - 2008 [address], [place] [address] Admit Date: 07/21/2008 LISSETTE CAR Sex: F Admit Prov: ZAC PAREDES Date:1965 Primary Care Prov: ZAC PAREDES CMRN: [id number] Room: PATRICIA SSN: [id number] IMAGING SERVICES Ordering Prov: ZAC PAREDES Interpretation [...] Dictated by: DO HIRSCH Electronically signed by: OD HIRSCH 2008 07:52 Transcribed: 07/21/2008 13:23 AMK Zac Paredes MD MAMMO ORDERABLES Final Result documented in this encounter Visit Diagnoses Diagnosis Abnormal mammogram, unspecified documented in this encounter Care Teams Non Profit Director Relationship Specialty Start Date End Date Andi Bueno MD [address] [facility] [address] [place] [id number] PCP - General Internal Medicine 08/16/16 documented as of this encounter
[2025-08-05 10:14] LABS: Alanine Aminotransferase 17 U/L (6-35); Albumin Level 3.8 g/dL (3.5-5.1); Alkaline Phosphatase 87 U/L (38-126); Anion Gap 4 mmol/L (4-12); Aspartate Amino Transferase 19 U/L (14-36); Bilirubin,Total 0.8 mg/dL (0.2-1.3); Blood Urea Nitrogen 12 mg/dL (7-17); Calcium 9.3 mg/dL (8.4-10.2); Carbon Dioxide 25 mmol/L (22-30); Chloride 106 mmol/L (98-107); Estimated Glomerular Filt Rate > 60; Glucose 102 mg/dL (65-110); Potassium 4.1 mmol/L (3.4-5.0); Sodium 135 mmol/L (137-145); Total Protein 6.7 g/dL (6.3-8.2)
--- NOTE | 2025-08-05 11:00 | NEURO_ITS ---
Impression: # Complains of numbness of hands. ? # Right Carpal Tunnel Syndrome. ? # Bilateral Ulnar Neuropathy around the elbow. ? # Normal Needle/ EMG exam. Nerve Conduction Studies ?Stim Site NR Peak (ms) P-T Amp (?V) Site1 Site2 Delta-P (ms) Dist (cm) Rob (m/s) Left Median Anti Sensory (2-3nd Digit) Wrist ? 3.1 16.6 Wrist 2-3nd Digit 3.1 14.0 45 Wrist ? 3.4 17.7 Wrist 2-3nd Digit 3.1 14.0 45 Right Median Anti Sensory (2-3nd Digit) Wrist ? 4.4 14.7 Wrist 2-3nd Digit 4.4 14.0 32 Wrist ? 4.4 14.7 Wrist 2-3nd Digit 4.4 14.0 32 Left Radial Anti Sensory (Base 1st Digit) Wrist ? 1.8 26.8 Wrist Base 1st Digit 1.8 0.0 Right Radial Anti Sensory (Base 1st Digit) Wrist ? 1.8 24.5 Wrist Base 1st Digit 1.8 0.0 Left Ulnar Anti Sensory (5th Digit) Wrist ? 2.9 57.0 Wrist 5th Digit 2.9 14.0 48 Right Ulnar Anti Sensory (5th Digit) Wrist ? 1.1 4.7 Wrist 5th Digit 1.1 14.0 127 ?Stim Site NR Onset (ms) O-P Amp (mV) Site1 Site2 Delta-0 (ms) Dist (cm) Rob (m/s) Left Median Motor (Abd Poll Brev) Wrist ? 4.0 4.1 Elbow Wrist 4.0 27.0 68 Elbow ? 8.0 4.1 Right Median Motor (Abd Poll Brev) Wrist ? 5.2 2.3 Elbow Wrist 4.6 26.0 57 Elbow ? 9.8 1.9 Left Ulnar Motor (Abd Dig Minimi) Wrist ? 2.7 7.0 A Elbow Wrist 6.2 28.0 45 A Elbow ? 8.9 6.8 B Elbow Wrist 4.1 18.0 44 B Elbow ? 6.8 4.3 Right Ulnar Motor (Abd Dig Minimi) Wrist ? 2.5 6.5 A Elbow Wrist 6.2 27.0 44 A Elbow ? 8.7 5.4 B Elbow Wrist 3.8 18.0 47 B Elbow ? 6.3 4.1 F Wave Studies ?NR F-Lat (ms) L-R F-Lat (ms) Left Median (Mrkrs) (Abd Poll Brev) ? 25.60 3.23 Right Median (Mrkrs) (Abd Poll Brev) ? 28.83 3.23 Left Ulnar (Mrkrs) (Abd Dig Min) ? 29.10 1.68 Right Ulnar (Mrkrs) (Abd Dig Min) ? 27.42 1.68 Electromyography ?Side Muscle Nerve Root Ins Act Fibs Amp Dur Recrt Comment Right 1stDorInt Ulnar C8-T1 Nml Nml Nml Nml Nml Right Ext Indicis Radial (Post Int) C7-8 Nml Nml Nml Nml Nml Right Ext Digitorum Radial (Post Int) C7-8 Nml Nml Nml Nml Nml Right BrachioRad Radial C5-6 Nml Nml Nml Nml Nml Right PronatorTeres Median C6-7 Nml Nml Nml Nml Nml Right Abd Poll Brev Median C8-T1 Nml Nml Nml Nml Nml Right ABD Dig Min Ulnar C8-T1 Nml Nml Nml Nml Nml Right FlexPolLong Median (Ant Int) C7-8 Nml Nml Nml Nml Nml Right Abd Poll Long Radial (Post Int) C7-8 Nml Nml Nml Nml Nml Left 1stDorInt Ulnar C8-T1 Nml Nml Nml Nml Nml Left Ext Indicis Radial (Post Int) C7-8 Nml Nml Nml Nml Nml Left Ext Digitorum Radial (Post Int) C7-8 Nml Nml Nml Nml Nml Left BrachioRad Radial C5-6 Nml Nml Nml Nml Nml Left PronatorTeres Median C6-7 Nml Nml Nml Nml Nml Left Abd Poll Brev Median C8-T1 Nml Nml Nml Nml Nml Left ABD Dig Min Ulnar C8-T1 Nml Nml Nml Nml Nml Left FlexPolLong Median (Ant Int) C7-8 Nml Nml Nml Nml Nml Left Abd Poll Long Radial (Post Int) C7-8 Nml Nml Nml Nml Nml
[2025-08-06 08:08] LABS: HSV 1 IgG, Type Spec Reactive (Non Reactive); HSV 2 IgG, Type Spec Reactive (Non Reactive)
[2025-08-06 13:53] LABS: Hemoglobin A1C 6.0 % (<5.7)
== END 2025-08-05 09:07 | disposition home or self-care (01) ==
PROVIDERS: PCP Nurse Practitioner Family; Visit Provider Nurse Practitioner Family
DX: R20.2 Paresthesia of skin (principal); F25.0 Schizoaffective disorder, bipolar type; F31.9 Bipolar disorder, unspecified; I10 Essential (primary) hypertension; E78.49 Other hyperlipidemia; R73.03 Prediabetes; R63.4 Abnormal weight loss; K21.9 Gastro-esophageal reflux disease without esophagitis; M06.9 Rheumatoid arthritis, unspecified; E61.1 Iron deficiency; B00.1 Herpesviral vesicular dermatitis; G56.01 Carpal tunnel syndrome, right upper limb; G56.23 Lesion of ulnar nerve, bilateral upper limbs
CPT/HCPCS: 36415; 80053; 83036; 86695; 86696; 95886; 95911